=== PATIENT | female | born 2000 | race Caucasian/White ===

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

== ENCOUNTER 2022-11-11 23:43 | Emergency (ER) | payer OTHER, SELFPAY ==
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
[2022-11-11 23:49] VITALS: BP 127/75; PULSE 74; RESP 16; TEMP 36.6; O2SAT 100
[2022-11-12] VITALS (10 sets, daily range): BP systolic 101–137; BP diastolic 61–82; PULSE 71–88; RESP 14–22; O2SAT 95–100
[2022-11-12] MEDS: HYDROcodone/acetaminophen (*CRX) 10-325 MG TABLET 1 TAB PO (00:45)
[2022-11-12 01:06] LABS: Basophils Absolute Auto 0.1 K/mm3 (0.0-0.1); Basophils Percent Auto 0.7 % (0.2-1.2); Eosinophils Absolute Auto 0.2 K/mm3 (0-0.3); Eosinophils Percent Auto 1.5 % (0-4.4); Hematocrit 40.8 % (37.0-47.0); Hemoglobin 13.4 g/dL (12.0-15.0); Immature Granulocyte Absolute 0.07 K/mm3 (0.00-0.031); Immature Granulocyte Percent A 0.7 % (0-0.5); Lymphocytes Absolute Auto 2.47 K/mm3 (0.9-3.2); Mean Corpuscular HGB Conc 32.8 g/dl (32-36); Mean Corpuscular Hemoglobin 28.8 pg (26-34); Mean Corpuscular Volume 87.6 fl (80-100); Mean Platelet Volume 10.9 fl (7.4-10.4); Monocytes Absolute Auto 0.7 K/mm3 (0.1-0.6); Monocytes Percent Auto 6.2 % (2.6-8.5); Neutrophils Absolute Auto 7.3 K/mm3 (1.3-6.7); Neutrophils Percent Auto 67.9 % (45.5-73.1); Platelet Count Result 307 k/mm3 (150-375); Red Blood Count 4.66 M/mm3 (4.2-5.4); Red Cell Distribution Width 14.3 % (11.5-14.5); White Blood Count 10.8 K/mm3 (4.5-10.0)
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
[2022-11-12 01:16] LABS: Alanine Aminotransferase 18 U/L (6-35); Albumin Level 4.3 g/dL (3.5-5.1); Alkaline Phosphatase 82 U/L (38-126); Anion Gap 10 mmol/L (8-16); Aspartate Amino Transferase 27 U/L (14-36); Bilirubin,Total 0.3 mg/dL (0.2-1.3); Blood Urea Nitrogen 8 mg/dL (7-17); Calcium 8.9 mg/dL (8.4-10.2); Carbon Dioxide 24 mmol/L (22-30); Chloride 102 mmol/L (98-107); Estimated CRCL calculation 116 ml/min; Estimated Glomerular Filt Rate > 60; Glucose 95 mg/dL (65-110); Potassium 3.9 mmol/L (3.4-5.0); Sodium 136 mmol/L (137-145)
--- NOTE | 2022-11-12 01:16 | PC.NURSE ---
Pt in CT at this time.
--- NOTE | 2022-11-12 01:35 | PC.NURSE ---
Pt returned to ED from CT at this time.
[2022-11-12 02:04] LABS: Appearance Urine Clear (Clear); Bilirubin Urine Negative (Negative); Blood Urine Negative (Negative); Color Urine Yellow (Yellow); Glucose Urine UA Negative (Negative); Ketones Urine Negative (Negative); Leukocyte Esterase Ur Negative LEU/UL (Negative); Nitrate Urine Negative (Negative); Protein Urine Negative (Negative); Specific Grav Ur 1.014 (1.001-1.035); Urobilinogen Urine 0.2 mg/dL (<2.0); pH Urine 6.5 (5.0-9.0)
[2022-11-12 02:24] LABS: Add Urine Microscopic? NO
--- NOTE | 2022-11-12 03:00 | PC.NURSE ---
This RN entered pt room after pt pressed call light. Pt was requesting pain medication. This RN spoke to EDP, whom wanted pt to know risks of IV pain meds while since she had already received PO meds. This RN voiced concerns to pt, whom decided she would wait to see if she could overcome pain without IV medication. This RN helped reposition pt and provided her with warm blanket.
--- NOTE | 2022-11-12 04:10 | PC.NURSE ---
Pt called out wanting pain medication. This RN spoke to EDP whom ordered IV pain medication. This RN set up steri strips and dermabond for repair of forehead lac, per EDP.
[2022-11-12] MEDS: MORPHINE SULFATE (*CRX) 2 MG/ML INJ IV PUSH (04:18)
== END 2022-11-12 05:59 | disposition home or self-care (01) ==
PROVIDERS: Emergency Provider Emergency Medicine; PCP Family Medicine
DX: O9A.211 Injury, poisoning and certain other consequences of external causes complicating pregnancy, first trimester (principal); S01.81XA Laceration without foreign body of other part of head, initial encounter; S69.91XA Unspecified injury of right wrist, hand and finger(s), initial encounter; S49.92XA Unspecified injury of left shoulder and upper arm, initial encounter; O99.331 Smoking (tobacco) complicating pregnancy, first trimester; F17.290 Nicotine dependence, other tobacco product, uncomplicated; Z3A.01 Less than 8 weeks gestation of pregnancy; V03.10XA Pedestrian on foot injured in collision with car, pick-up truck or van in traffic accident, initial encounter
CPT/HCPCS: 12013; 36415; 70450; 72125; 73030; 73080; 73130; 80053; 81003; 84702; 85025; 86900; 86901; 96374; 99284; A9270; J2270

== ENCOUNTER 2023-11-09 15:33 | Emergency (ER) | payer OTHER, SELFPAY ==
[2023-11-09 16:27] VITALS: BP 141/83; PULSE 86; RESP 14; TEMP 36.6; O2SAT 100
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
== END 2023-11-09 16:45 | disposition home or self-care (01) ==
PROVIDERS: Emergency Provider Nurse Practitioner Family
DX: K08.89 Other specified disorders of teeth and supporting structures (principal); F17.290 Nicotine dependence, other tobacco product, uncomplicated; F12.90 Cannabis use, unspecified, uncomplicated; F41.9 Anxiety disorder, unspecified; F32.A Depression, unspecified
CPT/HCPCS: 99213; G0463

== ENCOUNTER 2024-03-02 10:10 | Emergency (ER) | payer OTHER, SELFPAY ==
[2024-03-02 10:42] VITALS: BP 134/84; PULSE 97; RESP 16; TEMP 35.8; O2SAT 100
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
--- OUTSIDE RECORDS SUMMARY | 2024-03-09 06:38 | XMS_ITS | Clinical Summary ---
Author Organization [facility] Address [address] [place] [address]. 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 Indications : Acute Pain < 3 Day Supply 5 tablet 01/12/2024 Active Active Problems Problem Noted Date Diagnosed Date Transaminitis 01/10/2024 Calculus of bile duct withou t cholecystitis with obstruction 01/10/2024 ([facility]) 06/28/2023 Encounters Date Type Department Care Team Description 01/12/2024 10:25 AM SOCIAL WORK JOB TITLES Anesthesia [place] [address] Arcenio Ying MD 01/12/2024 10:20 AM SOCIAL WORK JOB TITLES - 01/12/2024 11:44 AM SOCIAL WORK JOB TITLES Surgery [facility] [place] [address] Ky Santiago MD ROBOTIC XI ASSISTED LAPAROSCOPIC CHOLECYSTECTOMY WITH INDOCYANINE GREEN 01/11/2024 11:20 AM SOCIAL WORK JOB TITLES Anesthesia Event [facility] [place] [address] Gaurav Flood MD 01/11/2024 11:00 AM SOCIAL WORK JOB TITLES - 01/11/2024 12:00 PM SOCIAL WORK JOB TITLES Surgery [facility] Endo/[place] [address] Jacque Lira MD ERCP WITH SPHINCTEROTOMY and BALLOON SWEEP 01/10/2024 2:45 AM SOCIAL WORK JOB TITLES - 01/12/2024 6:00 PM SOCIAL WORK JOB TITLES Hospital Encounter [facility] Med/Surg [address] [place] [address] Saba Pablo MD Conti, John R, PA-C Wolf, Brittany, PA-C Discharge Disposition: Home or Self Care (Routine Discharge) 01/10/2024 Orders Only [facility] [address] [place] [address] Karlie Mendoza MD 01/09/2024 8:59 PM SOCIAL WORK JOB TITLES - 01/10/2024 2:02 AM SOCIAL WORK JOB TITLES Emergency [facility] Emergency Room [address] [place] [address] Karlie Mendoza MD Back Pain (Radiates to epigastric) Discharge Disposition: Transfer to Acute Care Hospital 01/09/2024 Travel from Last 3 Months Immunizations Name Administration Dates Next Due Fluzone (IIV3, Trivalent, 0.5 ML Prefilled Syrin ge) 01/12/2024 Tdap (Boostrix) 08/11/2022 Social History Tobacco Use Types Packs/Day Years Used Date Smoking Tobacco: Never Smokeless Tobacco: Never Tobacco Cessation:Counseling Given: Not Answered Alcohol Use Standard Drinks/Week Comments Yes 0 (1 standard drink = 0.6 oz pur e alcohol) socially Depression Answer Date Recor ded Last EPDS Total Score 4 06/30/2023 Last EPDS Self Harm Result 06/29 Comments No Sex and Gender Information Value Date Recorded Sex Assigned at Not on file Legal Sex Female 6:52 PM CDT Gender Identity Not on file Sexual Orientation Not on file Last Filed Vital Signs Vital Sign Reading Time Taken Comments Blood Pressure 129/87 01/12/2024 5:07 PM SOCIAL WORK JOB TITLES Pulse 81 01/12/2024 2:30 PM SOCIAL WORK JOB TITLES Temperature 36.5 ??C (97.7 ??F) 01/12/2024 2:04 PM CS T Respiratory Rate 20 01/12/2024 2:04 PM SOCIAL WORK JOB TITLES Oxygen Saturation 97% 01/12/2024 2:30 PM SOCIAL WORK JOB TITLES Inhaled Oxygen Concentration - - Weight 108.6 kg (239 lb 6.7 oz) 01/10/2024 2:56 AM SOCIAL WORK JOB TITLES Height 162.6 cm (5' 4 ) 01/09/2024 9:01 PM SOCIAL WORK JOB TITLES Body Mass Index 41.1 01/09/2024 9:01 PM SOCIAL WORK JOB TITLES Plan of Treatment Health Maintenance Due Date Last Done Comments Cervical Cancer Screening Pap Smear (Age 21 to 29) Every 3 Years 2001 Cervical Cancer Screening 2001 Annual Physical 2004 Hepatitis B Vaccines (1 of 3 - 19+ 3-dose series) 2020 Chlamydia Screening Females ages 16-24 03/19/2023 03/19/2022 COVID-19 Vaccine (3 - 2023- season) 2023 08/19/2020, 07/24/2020 DTaP, Tdap and Td Vaccines (7 - Td or Tdap) 08/11/2032 08/11/2022, 09/20/2006, 01/06/2003, Additional history exists HPV Vaccines Completed 04/21/2013, 12/04, 10/15/2012 Meningococcal Vaccine Completed 12/13/2018 Hepatitis C Completed 01/09/2024, 01/18/2023 Influenza Adult Completed 01/12/2024 Pneumococcal Vaccine: Pediatrics (0 to 5 Years) and At-Risk Patients (6 to 64 Years) Aged Out No longer eligible based on patient's age to complete this topic RSV Immunizations Under 20 Months Aged Out No longer eligible based on patient's age to complete this topic Procedures Procedure Name Priority Date/Time Associated Diagnosis Comments ROBOTIC XI CHOLECYSTECTOMY 01/12/2024 10:25 AM SOCIAL WORK JOB TITLES cholecystitis POCT GLUCOSE - CANNON DOCKED DEVICE Routine 01/12/2024 10:03 AM SOCIAL WORK JOB TITLES COMPREHENSIVE METABOLIC PANEL Routine 01/12/2024 6:15 AM SOCIAL WORK JOB TITLES CBC W/DIFF AUTOMATED Routine 01/12/2024 6:15 AM SOCIAL WORK JOB TITLES PATHOLOGY Routine 01/12/2024 12:00 AM SOCIAL WORK JOB TITLES SURG XR ERCP W ROMULO Routine 01/11/2024 12:43 PM SOCIAL WORK JOB TITLES EGD 01/11/2024 11:19 AM SOCIAL WORK JOB TITLES Calculus of bile duct without cholecystitis with obstruction Special Needs Start with EGD. Anticipate administering indomethacin. ERCP,SPHINCTEROTOMY 01/11/2024 11:19 AM SOCIAL WORK JOB TITLES Calculus of bile duct without cholecystitis with obstruction Special Needs Start with EGD. Anticipate administering indomethacin. MRCP STAT 01/11/2024 7:40 AM SOCIAL WORK JOB TITLES LIPASE Routine 01/11/2024 6:41 AM SOCIAL WORK JOB TITLES COMPREHENSIVE METABOLIC PANEL Routine 01/11/2024 6:41 AM SOCIAL WORK JOB TITLES CBC W/DIFF AUTOMATED Routine 01/11/2024 6:41 AM SOCIAL WORK JOB TITLES LIPASE STAT 01/10/2024 8:27 PM SOCIAL WORK JOB TITLES CBC W/DIFF AUTOMATED STAT 01/10/2024 8:27 PM SOCIAL WORK JOB TITLES HEPATIC FUNCTION PANEL STAT 01/10/2024 8:27 PM SOCIAL WORK JOB TITLES US ABD LIMITED Today 01/10/2024 8:06 AM SOCIAL WORK JOB TITLES CHORIONIC GONADOTROPIN HCG QL Routine 01/10/2024 6:35 AM SOCIAL WORK JOB TITLES LIPASE Routine 01/10/2024 6:35 AM SOCIAL WORK JOB TITLES PROCALCITONIN (PCT) Routine 01/10/2024 6:35 AM SOCIAL WORK JOB TITLES COMPREHENSIVE METABOLIC PANEL Routine 01/10/2024 6:35 AM SOCIAL WORK JOB TITLES CBC W/DIFF AUTOMATED Routine 01/10/2024 6:35 AM SOCIAL WORK JOB TITLES CULTURE HERPES W/ REFLX TO TYPING STAT 01/09/2024 11:52 PM SOCIAL WORK JOB TITLES HSV, DNA, AMP PROBE STAT 01/09/2024 11:52 PM SOCIAL WORK JOB TITLES HEPATITIS PANEL,ACUTE STAT 01/09/2024 11:11 PM SOCIAL WORK JOB TITLES CT ABD+PEL W CON STAT 01/09/2024 10:28 PM SOCIAL WORK JOB TITLES CTA CHEST PE PROTOCOL STAT 01/09/2024 10:28 PM SOCIAL WORK JOB TITLES HC EBV NUCLEAR AG-90 Routine 01/09/2024 10:10 PM SOCIAL WORK JOB TITLES PROTHROMBIN TIME, VENOUS Routine 01/09/2024 10:10 PM SOCIAL WORK JOB TITLES XR CHEST PORTABLE STAT 01/09/2024 9:53 PM SOCIAL WORK JOB TITLES ECG 12-LEAD STAT 01/09/2024 9:29 PM SOCIAL WORK JOB TITLES ACETAMINOPHEN Routine 01/09/2024 9:20 PM SOCIAL WORK JOB TITLES LIPASE Routine 01/09/2024 9:20 PM SOCIAL WORK JOB TITLES TROPONIN, QUANT STAT 01/09/2024 9:20 PM SOCIAL WORK JOB TITLES COMPREHENSIVE METABOLIC PANEL STAT 01/09/2024 9:20 PM SOCIAL WORK JOB TITLES CBC W/DIFF AUTOMATED STAT 01/09/2024 9:20 PM SOCIAL WORK JOB TITLES URINALYSIS, AUTO, COMPLETE STAT 01/09/2024 9:15 PM SOCIAL WORK JOB TITLES TEST URINE STAT 01/09/2024 9:15 PM SOCIAL WORK JOB TITLES CHLAMYDIA GC RNA STAT 03/19/2022 3:11 AM SOCIAL WORK JOB TITLES from Last 3 Months or Most Recently Relevant to Health Maintenance Results * POCT glucose (01/12/2024 10:03 AM SOCIAL WORK JOB TITLES) [facility] GLUCOSE POC 82 70 - 99 mg/dL 01/12/2024 10:04 AM SOCIAL WORK JOB TITLES [facility] 01/12/2024 10:0 3 AM SOCIAL WORK JOB TITLES Lisa Bah PA-C POCT ORDERABLES - DEVICE Deisy l Result [facility] [address] [place] [address], * (ABNORMAL) COMPREHENSIVE METABOLIC PANEL (01/12/2024 6:15 AM SOCIAL WORK JOB TITLES) Only the most recent of4 resultswithin the time period is included. [facility] GLUCOSE 93 70 - 99 MG/DL 01/12/2024 6:54 AM [facility] BUN 11 7 - 18 MG/DL 01/12/2024 6:54 AM [facility] CREATININE S/P/B 0.68 0.55 - 1.02 MG/DL 01/12/2024 6:54 AM [facility] SODIUM S/P/B 134(L) 136 - 145 MMOL/L 01/12/2024 6:54 AM [facility] POTASSIUM S/P/B 3.8 3.5 - 5.1 MMOL/L 01/12/2024 6:54 AM [facility] CHLORIDE S/P/B 108 97 - 115 MMOL/L 01/12/2024 6:54 AM [facility] CO2 21.8 21 - 32 MMOL/L 01/12/2024 6:54 AM [facility] CALCIUM S/P/B 8.8 8.5 - 10.1 MG/DL 01/12/2024 6:54 AM [facility] BILIRUBIN TOTAL S/P/B 0.7 0.2 - 1.2 MG/DL 01/12/2024 6:54 AM [facility] Comment: THIS ASSAY IS NOT RECOMMENDED FOR PATIENTS UNDERGOING TREATMENT WITH ELTROMBOPAG DUE TO THE POTENTIAL FOR FALSELY ELEVATED RESULTS. TOTAL PROTEIN S/P/B 7.4 6.4 - 8.2 G/DL 01/12/2024 6:54 AM [facility] ALBUMIN S/P/B 3.2(L) 3.4 - 5.0 G/DL 01/12/2024 6:54 AM [facility] AST 110(H) 15 - 37 U/L 01/12/2024 6:54 AM [facility] ALT 411(H) 14 - 55 U/L 01/12/2024 6:54 AM [facility] ALKALINE PHOSPHATASE S/P/B 173(H) 50 - 136 U/L 01/12/2024 6:54 AM [facility] ANION GAP 4.2 2 - 10 MMOL/L 01/12/2024 6:54 AM [facility] BUN CREATININE RATIO 16.2 6 - 26 01/12/2024 6:54 AM [facility] A/G RATIO 0.8(L) 1.0 - 2.0 RATIO 01/12/2024 6:54 AM [facility] GFR ESTIMATE >90 >90 ML/MIN/1.7 3 M2 01/12/2024 6:54 AM [facility] Comment: NOTE: eGFR is not calculated for patients <18 years of age or gender unknown. This is an estimated GFR calculation using the new CKD EPI creatinine equation without race and so does not require a correction factor for race. This estimated GFR should not be used for calculating drug doses. 01/12/2024 6:15 AM SOCIAL WORK JOB TITLES Philippe Solomon PA-C LABORATORY Final Result [facility] [address] [place] [address], [place] [phone] * (ABNORMAL) CBC W/DIFF AUTOMATED (01/12/2024 6:15 AM SOCIAL WORK JOB TITLES) Only the most recent of5 resultswithin the time period is included. WBC 10.39 4.5 - 11.0 x10'3/uL 01/12/2024 6:35 AM [facility] RBC 5.27 4.20 - 5.40 x10'6/uL 01/12/2024 6:35 AM [facility] HGB 13.8 12.0 - 16.0 G/DL 01/12/2024 6:35 AM [facility] HCT 44.8 38.0 - 48.0 % 01/12/2024 6:35 AM [facility] MCV 85.0 81.0 - 99.0 FL 01/12/2024 6:35 AM [facility] MCH 26.2(L) 27.0 - 31.0 PG 01/12/2024 6:35 AM [facility] MCHC 30.8(L) 32.0 - 36.0 G/DL 01/12/2024 6:35 AM [facility] RDW 14.2 11.5 - 14.5 % 01/12/2024 6:35 AM [facility] PLT 315 130 - 400 x10'3/uL 01/12/2024 6:35 AM [facility] MPV 11.0 9.3 - 12.2 FL 01/12/2024 6:35 AM [facility] DIFFERENTIAL TYPE AUTOMATED DIFFERENTIAL 01/12/2024 6:35 AM [facility] NEUTROPHILS % 70.7 % 01/12/2024 6:35 AM [facility] LYMPHOCYTES % 21.0 % 01/12/2024 6:35 AM [facility] MONOCYTES % 6.9 % 01/12/2024 6:35 AM [facility] EOSINOPHILS 0.4 % 01/12/2024 6:35 AM [facility] BASOPHILS 0.4 % 01/12/2024 6:35 AM [facility] IMMATURE GRANS % 0.6 % 01/12/20 6:35 AM [facility] ABS. NEUTROPHILS 7.35 1.80 - 7.70 x10'3/uL 01/12/2024 6:35 AM [facility] ABS. LYMPHOCYTES 2.18 1.00 - 4.80 x10'3/uL 01/12/2024 6:35 AM [facility] ABS. MONOCYTES 0.72 0.24 - 0.86 x10'3/uL 01/12/2024 6:35 AM [facility] ABS. EOSINOPHILS 0.04 0.04 - 0.36 x10'3/uL 01/12/2024 6:35 AM [facility] ABS. BASOPHILS 0.04 0.01 - 0.08 x10'3/uL 01/12/2024 6:35 AM [facility] ABS. IMMATURE GRANULOCYTES 0.06 0.00 - 0.49 x10'3/uL 01/12/2024 6:35 AM [facility] 01/12/2024 6:15 AM SOCIAL WORK JOB TITLES us Philippe Polo Juanito DICK LABORATORY Final Result [facility] [address] [facility] [place] [address], [place] [phone] * Pathology (01/12/2024 12:00 AM SOCIAL WORK JOB TITLES) PATHOLOGY [facility] ? Department of Laboratory Medicine ?[address] [facility] ?[place] [address] ? , extension [phone] ? Pathology Report ? Surgical Pathology Report Name: MARGOT TYSON ? Specimen #: [id number] Age: 1 2000 (Age: 23) ? Location: [id number] Sex: F ?Procedure Date: 01/12/2024 Hospital #: [id number] ?Date Received: 01/14/2024 Date Reported: 01/15/2024 Provider: KY SANTIAGO MD Copy To: gall Source: Gallbladder Clinical History: Cholecystitis. Gross Description: Received in formalin, labeled with a patient label and as gallbladder is an 8.0 x 2.5 x 2.5 cm gallbladder with a rodriguez-hahn serosa. ??The cystic duct has a diameter of 0.1 cm and does not appear patent. ??The gallbladder is opened to reveal multiple yellow granular stones that are 1 x 1 x 0.5 cm in aggregate and thick green mucoid material. ??The gallbladder is lined by a green mucosa with a subtle lattice work of yellow deposits on the surface. ??No mass lesions or polyps are identified. ??On cut section the gallbladder mcmahon a thickness of 0.3 cm. ??Lpn Private Duty tissue to include the cystic duct margin is submitted in cassette 1. Gross examination (when applicable), interpretation, and sign out were performed at [facility], [address] [place] [address]. FINAL DIAGNOSIS: Gallbladder, cholecystectomy: ? -Chronic cholecystitis and cholelithiasis. Electronically Signed Out ? ALVIN PHAM MD [facility] TISSUE GALLBLADDER STRUCTURE / Unknown 01/12/2024 11:02 AM SOCIAL WORK JOB TITLES us Ky Santiago MD PATHOLOGY/CYTOLOGY ORDERA BLES Final Result [facility] [address] [place] [address], [id number] * SURG XR ERCP W ROMULO (01/11/2024 12:43 PM SOCIAL WORK JOB TITLES) Anatomical Region Laterality Modality Abdomen Radiographic Nayla ging 01/11/2024 8:39 PM SOCIAL WORK JOB TITLES Impressions 01/11/2024 8:40 PM SOCIAL WORK JOB TITLES Impression: Fluoroscopic spot views of ERCP obtained for intraoperative control purposes and evaluated postoperatively. Referred By: KARLIE MENDOZA Interpreted By: Aravind Camilo MD, 01/11/2024 8:39 PM Narrative 01/11/2024 8:40 PM SOCIAL WORK JOB TITLES [place] [address] Intraoperative fluoroscopic views of the ERCP History: Epigastric and right upper quadrant pain Dose: Total Dose Area Product: 6.9442 (Gycm2). Technique: ??Intraoperative fluoroscopy control images obtained. Findings: Submitted images demonstrate endoscopic equipment overlying the right upper quadrant of abdomen. ??There is cannulation of the common bile duct. ??Contrast opacifies common bile duct, cystic duct, common hepatic duct, and distal intrahepatic biliary collecting system, and portions of gallbladder. ??Filling defects are seen within the gallbladder suggesting cholelithiasis. ??No convincing filling defects in the common bile duct. Procedure Note Aravind Camilo MD - 01/11/2024 [place] [address] Intraoperative fluoroscopic views of the ERCP History: Epigastric and right upper quadrant pain Dose: Total Dose Area Product: 6.9442 (Gycm2). Technique: Intraoperative fluoroscopy control images obtained. Findings: Submitted images demonstrate endoscopic equipment overlying theright upper quadrant of abdomen. There is cannulation of the common bileduct. Contrast opacifies common bile duct, cystic duct, common hepaticduct, and distal intrahepatic biliary collecting system, and portions ofgallbladder. Filling defects are seen within the gallbladder suggestingcholelithiasis. No convincing filling defects in the common bile duct. Impression: Fluoroscopic spot views of ERCP obtained for intraoperativecontrol purposes and evaluated postoperatively. Referred By: KARLIE MENDOZA Interpreted By: Aravind Camilo MD, 01/11/2024 8:39 PM us Jacque Lira MD IMAGES ONLY Final Result * MRCP (01/11/2024 7:40 AM SOCIAL WORK JOB TITLES) Anatomical Region Laterality Modality Abdomen Magnetic Resonan ce 01/11/2024 8:36 AM SOCIAL WORK JOB TITLES Impressions 01/11/2024 8:48 AM SOCIAL WORK JOB TITLES Impression: 1. Cholelithiasis with too numerous to count tiny dependent gallstones including clustered near the gallbladder neck. No imaging findings of acute cholecystitis. 2. Suspected nonobstructing choledocholithiasis for which ERCP assessment is recommended with possible punctate stone in the proximal CBD, and a meniscus sign that may represent a stone in the distal CBD near the ampulla. Technically upper normal CBD diameter measuring 7 mm proximally, 5 mm distally. 3. Prominent near diffuse hepatic steatosis with focal fat sparing in the gallbladder fossa. 4. No acute or other localizing MR abnormality. Ordered By: JACQUE LIRA Interpreted By: Rosibel Noel MD, 01/11/2024 8:36 AM Narrative 01/11/2024 8:48 AM SOCIAL WORK JOB TITLES [address] [address] Examination: MRCP. Exam Date/Time: 01/11/2024 7:20 AM Indication: 23 female. Evaluation for choledocholithiasis. Right upper quadrant pain with nausea. Reported abnormal finding on abdominal ultrasound Comparison: Ultrasound abdomen 01/10/2024; CT abdomen pelvis 01/09/2020 Technique: Sequences: Multiplanar, multisequence MR images of the abdomen were obtained without contrast according to MRCP technique. Heavily T2-weighted and maximum intensity projection sequences as well as 3-D rotational reconstructions were performed on a separate dedicated workstation and submitted for review. Findings: LIVER: Morphology: Normal. Hepatic steatosis: Near diffuse with the geographic focal fat sparing adjacent to the gallbladder fossa Focal liver lesion(s): None. GALLBLADDER AND BILIARY TREE: Nondistended gallbladder containing too numerous to count tiny gallstones. No imaging findings of acute cholecystitis. Gallstones are dependent and cluster near the gallbladder neck. No cystic duct dilatation. Technique normal diameter of the proximal common bile duct measuring 7 mm tapering to 5 mm distally. Choledocholithiasis is however suspected; tiny stone may be present in the proximal CBD (axial T2 image 21, series 5). MRCP images show possible a meniscus sign near the ampulla (T2 coronal images 65-66, series 13) that may represent a nonobstructing stone. PANCREAS: Normal. Normal size morphology. Normal homogeneous T1 hyperintense signal and enhancement. No focal finding, inflammation or pancreatic duct dilatation SPLEEN: Normal. ADRENAL GLANDS: Normal. KIDNEYS: Normal size contour and enhancement. No focal lesion, collecting system obstruction or perinephric. GASTROINTESTINAL: Normal caliber and thickness of the imaged bowel FREE FLUID: None. VASCULATURE: Normal LYMPH NODES: No abdominal retroperitoneal or mesenteric lymphadenopathy. LOWER CHEST: Normal cardiac size. No pericardial or pleural effusion. Imaged lung bases are clear. BONES: Normal marrow signal. No focal or diffuse abnormality.. Procedure Note Rosibel Noel MD - 01/11/[address] [address] Examination: MRCP. Exam Date/Time: 01/11/2024 7:20 AM Indication: 23 female. Evaluation for choledocholithiasis. Right upperquadrant pain with nausea. Reported abnormal finding on abdominalultrasound Comparison: Ultrasound abdomen 01/10/2024; CT abdomen pelvis 01/09/2020 Technique: Sequences: Multiplanar, multisequence MR images of the abdomen wereobtained without contrast according to MRCP technique. Heavily T2-weightedand maximum intensity projection sequences as well as 3-D rotationalreconstructions were performed on a separate dedicated workstation andsubmitted for review. Findings: LIVER: Morphology: Normal. Hepatic steatosis: Near diffuse with the geographic focal fat sparingadjacent to the gallbladder fossa Focal liver lesion(s): None. GALLBLADDER AND BILIARY TREE: Nondistended gallbladder containing toonumerous to count tiny gallstones. No imaging findings of acutecholecystitis. Gallstones are dependent and cluster near the gallbladderneck. No cystic duct dilatation. Technique normal diameter of the proximal common bile duct measuring 7 mmtapering to 5 mm distally. Choledocholithiasis is however suspected; tinystone may be present in the proximal CBD (axial T2 image 21, series 5).MRCP images show possible a meniscus sign near the ampulla (T2 coronalimages 65-66, series 13) that may represent a nonobstructing stone. PANCREAS: Normal. Normal size morphology. Normal homogeneous [id number] signal and enhancement. No focal finding, inflammation orpancreatic duct dilatation SPLEEN: Normal. ADRENAL GLANDS: Normal. KIDNEYS: Normal size contour and enhancement. No focal lesion, collectingsystem obstruction or perinephric. GASTROINTESTINAL: Normal caliber and thickness of the imaged bowel FREE FLUID: None. VASCULATURE: Normal LYMPH NODES: No abdominal retroperitoneal or mesenteric lymphadenopathy. LOWER CHEST: Normal cardiac size. No pericardial or pleural effusion.Imaged lung bases are clear. BONES: Normal marrow signal. No focal or diffuse abnormality.. Impression: 1. Cholelithiasis with too numerous to count tiny dependent gallstonesincluding clustered near the gallbladder neck. No imaging findings ofacute cholecystitis. 2. Suspected nonobstructing choledocholithiasis for which ERCP assessmentis recommended with possible punctate stone in the proximal CBD, and ameniscus sign that may represent a stone in the distal CBD near theampulla. Technically upper normal CBD diameter measuring 7 mm proximally,5 mm distally. 3. Prominent near diffuse hepatic steatosis with focal fat sparing in thegallbladder fossa. 4. No acute or other localizing MR abnormality. Ordered By: JACQUE LIRA Interpreted By: Rosibel Noel MD, 01/11/2024 8:36 AM us Jacque Lira MD MRI Final Result * LIPASE (01/11/2024 6:41 AM SOCIAL WORK JOB TITLES) Only the most recent of4 resultswithin the time period is included. LIPASE 22 13 - 75 UNITS/L 01/11/2024 8:05 AM SOCIAL WORK JOB TITLES [facility] 01/11/2024 6:41 AM SOCIAL WORK JOB TITLES us Jacque Lira MD LABORATORY Final Result [facility] [address] [place] [address], [place] [phone] * (ABNORMAL) HEPATIC FUNCTION PANEL (01/10/2024 8:27 PM SOCIAL WORK JOB TITLES) TOTAL PROTEIN S/P/B 6.8 6.4 - 8.2 G/DL 01/10/2024 9:12 PM SOCIAL WORK JOB TITLES [facility] ALBUMIN S/P/B 3.0(L) 3.4 - 5.0 G/DL 01/10/2024 9:12 PM SOCIAL WORK JOB TITLES [facility] BILIRUBIN TOTAL S/P/B 0.9 0.2 - 1.2 MG/DL 01/10/2024 9:12 PM SOCIAL WORK JOB TITLES [facility] Comment: THIS ASSAY IS NOT RECOMMENDED FOR PATIENTS UNDERGOING TREATMENT WITH ELTROMBOPAG DUE TO THE POTENTIAL FOR FALSELY ELEVATED RESULTS. BILIRUBIN DIRECT S/P/B 0.4(H) 0.0 - 0.20 MG/DL 01/10/2024 9:12 PM SOCIAL WORK JOB TITLES [facility] BILIRUBIN INDIRECT S/P/B 0.5 0.0 - 0.9 MG/DL 01/10/2024 9:12 PM SOCIAL WORK JOB TITLES [facility] ALKALINE PHOSPHATASE S/P/B 190(H) 50 - 136 U/L 01/10/2024 9:12 PM SOCIAL WORK JOB TITLES [facility] AST 472(H) 15 - 37 U/L 01/10/2024 9:12 PM [facility] ALT 624(H) 14 - 55 U/L 01/10/2024 9:12 PM [facility] A/G RATIO 0.8(L) 1.0 - 2.0 RATIO 01/10/2024 9:12 PM SOCIAL WORK JOB TITLES [facility] 01/10/2024 8:27 PM SOCIAL WORK JOB TITLES Jacque Lira MD LABORATORY Final Result [facility] [address] [place] [address], * [place] ABD LIMITED (01/10/2024 8:06 AM SOCIAL WORK JOB TITLES) Anatomical Region Laterality Modality Abdomen Ultrasound 01/10/2024 8:16 AM SOCIAL WORK JOB TITLES Impressions 01/10/2024 8:20 AM SOCIAL WORK JOB TITLES Impression: 1. ??Cholelithiasis without sonographic evidence for acute cholecystitis. 2. ??No biliary ductal dilatation. ??Two tiny echogenic foci seen within the normal caliber common bile duct which may be artifactual or reflect choledocholithiasis. ??Correlate with LFTs and consider ERCP or MRCP if clinically indicated. 3. ??Hepatic steatosis. Referred By: KARLIE MENDOZA Interpreted By: Luis Rocha MD, 01/10/2024 8:16 AM Narrative 01/10/2024 8:20 AM SOCIAL WORK JOB TITLES [facility] [address] [place], [place] [address] Procedure: US ABD LIMITED Indication: elevated LFTs, RUQ pain Comparison: CT abdomen and pelvis 01/09/2024. Technique: Grayscale and color Doppler ultrasound of the right upper quadrant was performed. Findings: Gallbladder: ? Intraluminal contents: Cholelithiasis. ? Wall thickness: 0.2 cm. This is within normal limits. ? Distention: Not abnormally distended. ? Pericholecystic fluid: No pericholecystic fluid. ? Sonographic Horta's sign is absent. Bile Ducts: No intrahepatic or extrahepatic ductal dilation ? Common bile duct diameter: 0.4 cm. Two tiny echogenic foci versus artifact seen within the common bile duct (image 91). Liver: Increased echogenicity. No focal mass. ??The liver measures 17.1 cm. ??The main portal vein is patent with appropriate direction of flow. Pancreas: Visualized portions are within normal limits. Kidneys: Right kidney measures 10.4 cm. No hydronephrosis. Fluid: None. Procedure Note Luis Rocha MD - 01/10/2024 [facility] [address] [place], [place] [address] Procedure: US ABD LIMITED Indication: elevated LFTs, RUQ pain Comparison: CT abdomen and pelvis 01/09/2024. Technique: Grayscale and color Doppler ultrasound of the right upperquadrant was performed. Findings: Gallbladder: Intraluminal contents: Cholelithiasis. Wall thickness: 0.2 cm. This is within normal limits. Distention: Not abnormally distended. Pericholecystic fluid: No pericholecystic fluid. Sonographic Horta's sign is absent. Bile Ducts: No intrahepatic or extrahepatic ductal dilation Common bile duct diameter: 0.4 cm. Two tiny echogenic foci versusartifact seen within the common bile duct (image 91). Liver: Increased echogenicity. No focal mass. The liver measures 17.1 cm.The main portal vein is patent with appropriate direction of flow. Pancreas: Visualized portions are within normal limits. Kidneys: Right kidney measures 10.4 cm. No hydronephrosis. Fluid: None. Impression: 1. Cholelithiasis without sonographic evidence for acute cholecystitis. 2. No biliary ductal dilatation. Two tiny echogenic foci seen within thenormal caliber common bile duct which may be artifactual or reflectcholedocholithiasis. Correlate with LFTs and consider ERCP or MRCP ifclinically indicated. 3. Hepatic steatosis. Referred By: KARLIE MENDOZA Interpreted By: Luis Rocha MD, 01/10/2024 8:16 AM us Saba Pablo MD ULTRASOUND Final Re sult * PROCALCITONIN (PCT) (01/10/2024 6:35 AM SOCIAL WORK JOB TITLES) Procalcitonin 0.39 0.00 - 0.49 NG/ML 01/10/2024 8:52 AM SOCIAL WORK JOB TITLES [facility] 01/10/2024 6:35 AM SOCIAL WORK JOB TITLES Saba Pablo MD LABORATORY Final Re sult [facility] [address] [place] [address], [place] [phone] * PREG TEST SERUM (HCG QUALITATIVE) (01/10/2024 6:35 AM SOCIAL WORK JOB TITLES) PREG SCREEN-SERUM NEGATIVE 01/10/2024 9:00 AM SOCIAL WORK JOB TITLES [facility] 01/10/2024 6:35 AM SOCIAL WORK JOB TITLES Jacque Lira MD LABORATORY Final Result Performing Organization Address [facility]/ZIP Co de Phone Number [facility] [address] [place] [address], [place] [phone] * CULTURE HERPES W/ REFLX TO TYPING (01/09/2024 11:52 PM SOCIAL WORK JOB TITLES) SPECIMEN SOURCE SERUM 11:54 PM SOCIAL WORK JOB TITLES [facility] BLOOD SPECIMEN / Unknown 01/09/2024 11:52 PM SOCIAL WORK JOB TITLES Karlie Mendoza MD MICROBIOLOGY - GENERAL ORDERABL ES Final Result Performing Organization Address City/[facility]/ZIP Co de Phone Number [facility] [address] [place] [address], [place] [phone] * HSV, DNA, AMP PROBE (01/09/2024 11:52 PM SOCIAL WORK JOB TITLES) Pathologist [facility] [place] SPECIMEN SOURCE SERUM 3:28 PM SOCIAL WORK JOB TITLES [facility] HSV 1 DNA Not Detected Not Detected 01/15/2024 12:09 PM SOCIAL WORK JOB TITLES [facility] KRYSTINA [facility] HSV 2 DNA Not Detected Not Detected 01/15/2024 12:09 PM SOCIAL WORK JOB TITLES [facility] Comment: This test was developed and its analytical performance characteristics have been determined by [facility] [place], [place]. It has not been cleared or approved by the U.S. Food and Drug Administration. This assay has been validated pursuant to the CLIA regulations and is used for clinical purposes. Test Performed by BAUNAT [facility], [facility], [address] [place] [address] Fam Duffy M.D., Ph.D., Director of Laboratories , CLIA [id number] 01/09/2024 11:5 2 PM SOCIAL WORK JOB TITLES Karlie Mendoza MD LABORATORY Final Result [facility] [address] , [place] [phone] [facility] [address] [place] [address], [place] [phone] * HEPATITIS PANEL,ACUTE (01/09/2024 11:11 PM SOCIAL WORK JOB TITLES) HEPATITIS B SURFACE AG NON-REACTI VE NON-REACTI VE 01/10/2024 12:04 PM SOCIAL WORK JOB TITLES [facility] HEP B CORE IGM NON-REACTI VE NON-REACTI VE 01/10/2024 12:13 PM SOCIAL WORK JOB TITLES [facility] HAV IGM NON-REACTI VE NON-REACTI VE 01/10/2024 12:15 PM SOCIAL WORK JOB TITLES [facility] HEPATITIS C AB NON-REACTI VE NON-REACTI VE 01/10/2024 12:12 PM SOCIAL WORK JOB TITLES [facility] 01/09/2024 11:1 1 PM SOCIAL WORK JOB TITLES Karlie Mendoza MD LABORATORY Final Result [facility] [address] [place] [address], * CTA CHEST PE PROTOCOL (01/09/2024 10:28 PM SOCIAL WORK JOB TITLES) Anatomical Region Laterality Modality Chest Computed Tomogra phy 01/09/2024 10:4 1 PM SOCIAL WORK JOB TITLES Impressions 01/09/2024 10:45 PM SOCIAL WORK JOB TITLES IMPRESSION: 1. ??No central pulmonary embolus. Limited evaluation for distal emboli due to bolus timing. 2. ??No acute thoracic abnormalities. 3. ??Somewhat shaggy appearance of urinary bladder surfaces. Correlation for UTI recommended. ??Otherwise no acute abnormalities in the abdomen or pelvis. Referred By: ?? Interpreted By: Aravind Camilo MD, 01/09/2024 10:41 PM Narrative 01/09/2024 10:45 PM SOCIAL WORK JOB TITLES [facility] [address] [place] [address] EXAMINATION: CTA Chest with CT Abdomen and Pelvis with contrast [id number] EXAM DATE/TIME: 01/09/2024 10:11 PM REASON FOR EXAM: ??epigastric, RUQ pain ?? Mid back and epigastric pain with nausea. COMPARISON: 03/19/2022 CT abdomen and pelvis TECHNIQUE: Axial CT angiographic images of the chest and axial thin section images of the abdomen and pelvis are obtained following uneventful intravenous demonstration of 90 cc Isovue-370. Subsequent coronal and sagittal reformatted sequences are created for evaluation. In addition 3-D rotational MIP imaging of the thoracic arterial vasculature is created on separate work station for review. ??A dose lowering technique was used for this procedure, which may include, but is not limited to, dose reduction technique, automated exposure control, iterative reconstruction, ALARA (As Low As Reasonably Achievable), or Image Gently techniques. FINDINGS: CHEST: No central pulmonary embolus. ??Limited evaluation for distal emboli due to bolus timing. ??Most of the contrast is in the right axillary and subclavian vein and SVC. ??Heart size upper limits normal. ??No pericardial effusion. ??Left aortic arch. ??Thoracic aorta normal in caliber throughout. ??No axillary or mediastinal lymphadenopathy. ??Some breathing motion artifact bilaterally. ??No pleural effusion or pneumothorax. ??No convincing airspace disease. ??Central airways are patent. ??Visualized portion of the thyroid unremarkable. Abdomen and pelvis: Liver and spleen normal in size and surface contour. ??No abnormal enhancing hepatic lesions. ??Gallbladder pancreas and adrenal glands unremarkable. ??Kidneys demonstrate symmetric uptake of contrast. ??No hydronephrosis or obstructive uropathy on either side. ??Abdominal aorta normal in caliber throughout. ??Bowel is normal in caliber. ??No evidence of bowel obstruction. ??No free fluid in the pelvis. ??Bladder contours are smooth. ??The appendix is normal. ??Somewhat shaggy appearance of urinary bladder surfaces. ??Correlation for UTI recommended. ??Bladder mcmahon show no convincing focal mass lesion. ??Bone level imaging shows no destructive osseous lesions. ===== Procedure Note Aravind Camilo MD - 01/09/2024 [facility] [address] [place] [address] EXAMINATION: CTA Chest with CT Abdomen and Pelvis with contrast [id number] EXAM DATE/TIME: 01/09/2024 10:11 PM REASON FOR EXAM: epigastric, RUQ pain Mid back and epigastric pain with nausea. COMPARISON: 03/19/2022 CT abdomen and pelvis TECHNIQUE: Axial CT angiographic images of the chest and axial thinsection images of the abdomen and pelvis are obtained following uneventfulintravenous demonstration of 90 cc Isovue-370. Subsequent coronal andsagittal reformatted sequences are created for evaluation. In addition 3-Drotational MIP imaging of the thoracic arterial vasculature is created onseparate work station for review. A dose lowering technique was used forthis procedure, which may include, but is not limited to, dose reductiontechnique, automated exposure control, iterative reconstruction, ALARA (AsLow As Reasonably Achievable), or Image Gently techniques. FINDINGS: CHEST: No central pulmonary embolus. Limited evaluation for distal embolidue to bolus timing. Most of the contrast is in the right axillary andsubclavian vein and SVC. Heart size upper limits normal. No pericardialeffusion. Left aortic arch. Thoracic aorta normal in caliber throughout.No axillary or mediastinal lymphadenopathy. Some breathing motionartifact bilaterally. No pleural effusion or pneumothorax. No convincingairspace disease. Central airways are patent. Visualized portion of thethyroid unremarkable. Abdomen and pelvis: Liver and spleen normal in size and surface contour. No abnormalenhancing hepatic lesions. Gallbladder pancreas and adrenal glandsunremarkable. Kidneys demonstrate symmetric uptake of contrast. Nohydronephrosis or obstructive uropathy on either side. Abdominal aortanormal in caliber throughout. Bowel is normal in caliber. No evidence ofbowel obstruction. No free fluid in the pelvis. Bladder contours aresmooth. The appendix is normal. Somewhat shaggy appearance of urinarybladder surfaces. Correlation for UTI recommended. Bladder mcmahon show noconvincing focal mass lesion. Bone level imaging shows no destructiveosseous lesions. ===== IMPRESSION: 1. No central pulmonary embolus. Limited evaluation for distal emboli dueto bolus timing. 2. No acute thoracic abnormalities. 3. Somewhat shaggy appearance of urinary bladder surfaces. Correlationfor UTI recommended. Otherwise no acute abnormalities in the abdomen orpelvis. Referred By: Interpreted By: Aravind Camilo MD, 01/09/2024 10:41 PM Karlie Mendoza MD CT Final Result * CT ABD+PEL W CON (01/09/2024 10:28 PM SOCIAL WORK JOB TITLES) Anatomical Region Laterality Modality Abdomen Computed Tomogra phy 01/09/2024 10:4 1 PM SOCIAL WORK JOB TITLES Impressions 01/09/2024 10:45 PM SOCIAL WORK JOB TITLES IMPRESSION: 1. ??No central pulmonary embolus. Limited evaluation for distal emboli due to bolus timing. 2. ??No acute thoracic abnormalities. 3. ??Somewhat shaggy appearance of urinary bladder surfaces. Correlation for UTI recommended. ??Otherwise no acute abnormalities in the abdomen or pelvis. Referred By: ?? Interpreted By: Aravind Camilo MD, 01/09/2024 10:41 PM Narrative 01/09/2024 10:45 PM SOCIAL WORK JOB TITLES [place] [id number] [facility]. [place] [id number] EXAMINATION: CTA Chest with CT Abdomen and Pelvis with contrast [id number] EXAM DATE/TIME: 01/09/2024 10:11 PM REASON FOR EXAM: ??epigastric, RUQ pain ?? Mid back and epigastric pain with nausea. COMPARISON: 03/19/2022 CT abdomen and pelvis TECHNIQUE: Axial CT angiographic images of the chest and axial thin section images of the abdomen and pelvis are obtained following uneventful intravenous demonstration of 90 cc Isovue-370. Subsequent coronal and sagittal reformatted sequences are created for evaluation. In addition 3-D rotational MIP imaging of the thoracic arterial vasculature is created on separate work station for review. ??A dose lowering technique was used for this procedure, which may include, but is not limited to, dose reduction technique, automated exposure control, iterative reconstruction, ALARA (As Low As Reasonably Achievable), or Image Gently techniques. FINDINGS: CHEST: No central pulmonary embolus. ??Limited evaluation for distal emboli due to bolus timing. ??Most of the contrast is in the right axillary and subclavian vein and SVC. ??Heart size upper limits normal. ??No pericardial effusion. ??Left aortic arch. ??Thoracic aorta normal in caliber throughout. ??No axillary or mediastinal lymphadenopathy. ??Some breathing motion artifact bilaterally. ??No pleural effusion or pneumothorax. ??No convincing airspace disease. ??Central airways are patent. ??Visualized portion of the thyroid unremarkable. Abdomen and pelvis: Liver and spleen normal in size and surface contour. ??No abnormal enhancing hepatic lesions. ??Gallbladder pancreas and adrenal glands unremarkable. ??Kidneys demonstrate symmetric uptake of contrast. ??No hydronephrosis or obstructive uropathy on either side. ??Abdominal aorta normal in caliber throughout. ??Bowel is normal in caliber. ??No evidence of bowel obstruction. ??No free fluid in the pelvis. ??Bladder contours are smooth. ??The appendix is normal. ??Somewhat shaggy appearance of urinary bladder surfaces. ??Correlation for UTI recommended. ??Bladder mcmahon show no convincing focal mass lesion. ??Bone level imaging shows no destructive osseous lesions. ===== Procedure Note Aravind Camilo MD - 01/09/2024 [facility] [address] [facility] [place] [address] EXAMINATION: CTA Chest with CT Abdomen and Pelvis with contrast [id number] EXAM DATE/TIME: 01/09/2024 10:11 PM REASON FOR EXAM: epigastric, RUQ pain Mid back and epigastric pain with nausea. COMPARISON: 03/19/2022 CT abdomen and pelvis TECHNIQUE: Axial CT angiographic images of the chest and axial thinsection images of the abdomen and pelvis are obtained following uneventfulintravenous demonstration of 90 cc Isovue-370. Subsequent coronal andsagittal reformatted sequences are created for evaluation. In addition 3-Drotational MIP imaging of the thoracic arterial vasculature is created onseparate work station for review. A dose lowering technique was used forthis procedure, which may include, but is not limited to, dose reductiontechnique, automated exposure control, iterative reconstruction, ALARA (AsLow As Reasonably Achievable), or Image Gently techniques. FINDINGS: CHEST: No central pulmonary embolus. Limited evaluation for distal embolidue to bolus timing. Most of the contrast is in the right axillary andsubclavian vein and SVC. Heart size upper limits normal. No pericardialeffusion. Left aortic arch. Thoracic aorta normal in caliber throughout.No axillary or mediastinal lymphadenopathy. Some breathing motionartifact bilaterally. No pleural effusion or pneumothorax. No convincingairspace disease. Central airways are patent. Visualized portion of thethyroid unremarkable. Abdomen and pelvis: Liver and spleen normal in size and surface contour. No abnormalenhancing hepatic lesions. Gallbladder pancreas and adrenal glandsunremarkable. Kidneys demonstrate symmetric uptake of contrast. Nohydronephrosis or obstructive uropathy on either side. Abdominal aortanormal in caliber throughout. Bowel is normal in caliber. No evidence ofbowel obstruction. No free fluid in the pelvis. Bladder contours aresmooth. The appendix is normal. Somewhat shaggy appearance of urinarybladder surfaces. Correlation for UTI recommended. Bladder mcmahon show noconvincing focal mass lesion. Bone level imaging shows no destructiveosseous lesions. ===== IMPRESSION: 1. No central pulmonary embolus. Limited evaluation for distal emboli dueto bolus timing. 2. No acute thoracic abnormalities. 3. Somewhat shaggy appearance of urinary bladder surfaces. Correlationfor UTI recommended. Otherwise no acute abnormalities in the abdomen orpelvis. Referred By: Interpreted By: Aravind Camilo MD, 01/09/2024 10:41 PM us Karlie Mendoza MD CT Final Result * PROTIME/INR, VENOUS (01/09/2024 10:10 PM SOCIAL WORK JOB TITLES) [facility] PROTIME 11.7 9.1 - 12.4 SEC 01/09/2024 11:45 PM SOCIAL WORK JOB TITLES [facility] INR 1.1 01/09/2024 11:45 PM SOCIAL WORK JOB TITLES [facility] Comment: Recommend INR ranges for Oral Anticoagulant Therapy: Mechanical Cardiac Values 2.5-3.5 All others indication 2.0-3.0 01/09/2024 10:1 0 PM SOCIAL WORK JOB TITLES us Karlie Mendoza MD LABORATORY Final Result [facility] [address] [place] [address], [place] [phone] * (ABNORMAL) SAL CHAMPION VIRUS (01/09/2024 10:10 PM SOCIAL WORK JOB TITLES) [facility] EBV VCA IGM <36.00 <36.00 U/mL 01/17/2024 12:36 PM SOCIAL WORK JOB TITLES [facility] Comment: ?? U/mL ?Interpretation ?<36.00 ?Negative 36.00 - 43.99 ?Equivocal ??>43.99 ?Positive EBV VCA IGG 169.00(H) <18.00 U/mL 01/17/2024 12:36 PM SOCIAL WORK JOB TITLES [facility] Comment: ?? U/mL ?Interpretation ?<18.00 ?Negative 18.00 - 21.99 ?Equivocal ??>21.99 ?Positive SAL BAR NUCLEAR ANTIGEN IGG 138.00(H) <18.00 U/mL 01/17/2024 12:36 PM SOCIAL WORK JOB TITLES [facility] Comment: ?? U/mL ?Interpretation ?<18.00 ?Negative 18.00 - 21.99 ?Equivocal ??>21.99 ?Positive INTERPRETATION Past 01/17/2024 12:36 PM SOCIAL WORK JOB TITLES [facility] Comment: Suggestive of a past Sal-Champion Virus infection. In infants, a similiar pattern may occur as a result of a passive maternal transfer of antibody. Test Performed by [facility] Fam, BAUNAT Bette [facility], [address] [place], [place] Fam Duffy M.D., Ph.D., Director of Laboratories , [place] [id number] 01/09/2024 10:1 0 PM SOCIAL WORK JOB TITLES Karlie Mendoza MD LABORATORY Final Result [facility] [address] [place], [place] , * XR CHEST PORTABLE (01/09/2024 9:53 PM SOCIAL WORK JOB TITLES) Anatomical Region Laterality Modality Chest Radiographic Nayla ging 01/09/2024 10:0 8 PM SOCIAL WORK JOB TITLES Impressions 01/09/2024 10:09 PM SOCIAL WORK JOB TITLES IMPRESSION: No acute findings. Referred By: ?? Interpreted By: Jimi Barron, 01/09/2024 10:08 PM Narrative 01/09/2024 10:09 PM SOCIAL WORK JOB TITLES [address] [place] [address] CLINICAL HISTORY: Chest pain COMPARISON: 11/22/2021 TECHNIQUE: AP Portable View FINDINGS: Lungs are clear. No pneumothorax or pleural effusions evident. The cardiac silhouette, mediastinal contours, and pulmonary vessels appear within normal limits. No acute osseous abnormality. Procedure Note Jimi Barron MD - 01/09/2024 [facility] [address] [address] [facility] [place] [address] CLINICAL HISTORY: Chest pain COMPARISON: 11/22/2021 TECHNIQUE: AP Portable View FINDINGS: Lungs are clear. No pneumothorax or pleural effusions evident. The cardiacsilhouette, mediastinal contours, and pulmonary vessels appear withinnormal limits. No acute osseous abnormality. IMPRESSION: No acute findings. Referred By: Interpreted By: Jimi Barron, 01/09/2024 10:08 PM us Karlie Mendoza MD GENERAL IMAGING Final Result * ECG 12 lead (01/09/2024 9:29 PM SOCIAL WORK JOB TITLES) 01/09/2024 9:29 PM SOCIAL WORK JOB TITLES Narrative [facility] RAD - 01/10/2024 9:19 PM SOCIAL WORK JOB TITLES ?[facility] ? Test Date: ?2024-01-09 Pat Name: ? MARGOT TYSON ? Department: ?? 85 ? Room: ? EXAM 101 Gender: ? Female ? Generation Technologist: ?? : ?2000 ? Requested By: KARLIE MENDOZA Order Number: [id number] ? Reading : ?? Fede Ibrahim ? Measurements Intervals ?[place] ? Rate: ? 68 ? P: ?26 WI: ? 143 ?QRS: ?44 QRSD: ? 82 ? T: ?26 QT: ? 375 ? QTc: ?399 ? Interpretive Statements SINUS RHYTHM WITH SINUS ARRHYTHMIA Compared to ECG 08/11/2022 22:47:49 No significant changes AL WORK JOB TITLES Procedure Note Fede Ibrahim MD - 01/10/2024 [facility] Test Date: 2024-01-09 Pat Name: MARGOT TYSON Department: 85 Room: EXAM 101 Gender: Female Generation Technologist: : 2000 Requested By: KARLIE MENDOZA Order Number: [id number] MD: Fede Ibrahim Measurements Intervals [place] Rate: 68 P: 26 WI: 143 QRS: 44 QRSD: 82 T: 26 QT: 375 QTc: 399 Interpretive Statements SINUS RHYTHM WITH SINUS ARRHYTHMIA Compared to ECG 08/11/2022 22:47:49 No significant changes AL WORK JOB TITLES us Karlie Mendoza MD ECG ORDERABLES Final Result [facility] RAD * TROPONIN, QUANT (01/09/2024 9:20 PM SOCIAL WORK JOB TITLES) Pathologist [facility] [place] TROPONIN I HIGH SENSITIVITY <4 0 - 50 ng/L 01/09/2024 9:56 PM SOCIAL WORK JOB TITLES [facility] Comment: HIGH DOSES OF BIOTIN, TROPONIN-SPECIFIC AUTOANTIBODIES, AND ANTIBODY THERAPY CONTAINING HAMA MAY INTERFERE WITH THIS TEST RESULT. CORRELATION TO CLINICAL HISTORY AND PRESENTATION RECOMMENDED. 01/09/2024 9:20 PM SOCIAL WORK JOB TITLES us Karlie Mendoza MD LABORATORY Final Result Performing Organization Address [facility] Co de Phone Number [facility] [address] [place] [address], [place] [phone] * (ABNORMAL) ACETAMINOPHEN (01/09/2024 9:20 PM SOCIAL WORK JOB TITLES) [facility] ACETAMINOPHEN S/P/B <0.5(L) 10.0 - 30.0 MCG/ML 01/09/2024 11:27 PM SOCIAL WORK JOB TITLES [facility] Comment: ?THERAPEUTIC: 10-30 ?TOXIC: >200 01/09/2024 9:20 PM SOCIAL WORK JOB TITLES us Karlie Mendoza MD LABORATORY Final Result Performing Organization Address [facility] Co de Phone Number [facility] [address] [place] [address], [place] [phone] * TEST URINE (01/09/2024 9:15 PM SOCIAL WORK JOB TITLES) [facility] URINE HCG TEST NEGATIVE NEGATIVE 01/09/2024 9:38 PM SOCIAL WORK JOB TITLES [facility] Comment: VERY DILUTE URINE SPECIMENS MAY NOT CONTAIN GAS BRAZER LEVELS OF HCG. IF IS STILL SUSPECTED, A SERUM HCG TEST IS RECOMMENDED. URINE SPECIMEN FROM [facility] / Unknown 01/09/2024 9:15 PM SOCIAL WORK JOB TITLES Karlie Mendoza MD URINE ORDERABLES Final Result [facility] [address] [place] [address], [place] [phone] * (ABNORMAL) Urinalysis, Auto, Complete (01/09/2024 9:15 PM SOCIAL WORK JOB TITLES) COLOR (U) YELLOW 01/09/2024 10:01 PM [facility] TRANSPARENCY HAZY 01/09/2024 10:01 PM [facility] SPECIFIC GRAVITY (U) 1.020 1.000 - 1.030 01/09/2024 10:01 PM [facility] U PH 7.5 5.0 - 9.0 01/09/2024 10:01 PM [facility] LEUKOCYTES (U) NEGATIVE NEGATIVE 01/09/2024 10:01 PM [facility] NITRITES NEGATIVE NEGATIVE 01/09/2024 10:01 PM [facility] PROTEIN RANDOM (U) 1+(A) NEGATIVE 01/09/2024 10:01 PM [facility] GLUCOSE (U) TRACE(A) NEGATIVE 01/09/2024 10:01 PM [facility] KETONES MG/DL (U) TRACE(A) NEGATIVE 01/09/2024 10:01 PM [facility] BILIRUBIN (U) 2+(A) NEGATIVE 01/09/2024 10:01 PM [facility] BLOOD (U) NEGATIVE NEGATIVE 01/09/2024 10:01 PM [facility] WBC/HPF 0-5 0 - 5 /HPF 01/09/2024 10:01 PM [facility] RBC/HPF 10-25 0 - 5 /HPF 01/09/2024 10:01 PM [employer]IAL WORK J[employer] T[employer]LES [facility] EPI/HPF FEW /HPF 01/09/2024 10:01 PM SOCIAL WORK JOB TITLES [facility] URINE SPECIMEN OBTAINED BY CLEAN CATCH PROCEDURE / Unknown 01/09/2024 9:15 PM SOCIAL WORK JOB TITLES Karlie Mendoza MD URINE ORDERABLES Final Result Performing Organization Address [facility] Co de Phone Number [facility] [address] [place] [address], [place] [phone] * CHLAMYDIA GC RNA (03/19/2022 3:11 AM SOCIAL WORK JOB TITLES) SPECIMEN SOURCE ENDOCERVIX 6:48 AM SOCIAL WORK JOB TITLES [facility] CHLAMYDIA PCR NEGATIVE NEGATIVE 03/20/2022 6:36 PM SOCIAL WORK JOB TITLES [facility] Comment:PERFORMED BY NUCLEIC ACID AMPLIFICATION N.GONORRHOEAE RNA TMA NEGATIVE NEGATIVE 03/20/2022 6:36 PM SOCIAL WORK JOB TITLES [facility] Comment:PERFORMED BY NUCLEIC ACID AMPLIFICATION ENDOCERVICAL STRUCTURE / Unknown 03/19/2022 3:11 AM SOCIAL WORK JOB TITLES Aravind Valle MD MICROBIOLOGY - GENERAL ORDERAB LES Final Result Performing Organization Address City/[facility]/ZIP Co de Phone Number [facility] [address] [place] [address], [place] [phone] [facility] [address] [place] [address], [place] [phone] from Last 3 Months or Most Recently Relevant to Health Maintenance Insurance Advance Directives * Full Code (Latest Code Status on File) Date Activated Date Inactivated Comments 01/10/2024 2:50 AM 01/12/2024 8:21 PM * Full Code Date Activated Date Inactivated Comments 06/28/2023 10:39 AM 07/01/2023 1:54 PM * Full Code Date Activated Date Inactivated Comments 04/07/2023 3:35 PM 04/07/2023 6:49 PM 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
--- OUTSIDE RECORDS SUMMARY | 2024-03-09 06:38 | XMS_ITS | Clinical Summary ---
Author Organization [facility] Address [address] [place] [address] Care Team Providers Care Stockfeed Miller Name Role Phone Jack Rosales MD Primary Care Provider [phone] Source Comments [facility],non-owned Affiliates and Associated Physician Practices is amultiple site organization consisting of ambulatory clinics and hospital sitesin [place], [place], [place]. This disclosure is being madepursuant to the Care Everywhere program and may not contain all information available regarding this patient. Last updated 17.[facility] Allergies No known active allergies Medications * Be aware that medications may not be up to date on this document. Alwaysverify current medications with the patient. Medication Sig Dispensed Refills Start Date End Date Status amphetamine-dextroamph etamine XR 24hr (ADDERALL XR) 10 MG capsule Take 10 mg by mouth every morning Active Vit-DSS-Fe Fum-FA ( vitamin with iron) tablet Take 1 (one) tablet by mouth once daily Active aspirin (Aspirin) 81 MG chew tablet Take 1 (one) tablet by mouth once daily Active sertraline (Zoloft) 50 MG tablet Take 1 (one) tablet by mouth once daily Active Active Problems Problem Noted Date Diagnosed Date Laceration of right flank 12/01/2015 Assessment & Plan (12/01/2015 11:37 AM CDT): 1. Sutures will dissolve in the next 1-2 months 2. No need to cover wound at this time unless desired 3. Follow up with PCP in 1 month 4. No need for follow up with Trauma Surgery, please call for appointment if any concerns arise such as fever > 101F, redness, swelling, or drainage Social History Tobacco Use Types Packs/Day Years Used Date Smoking Tobacco: Never Tobacco Cessation:Counseling Given: Not Answered Alcohol Use Standard Drinks/Week Comments No 0 (1 standard drink = 0.6 oz pur e alcohol) Sex and Gender Information Value Date Recorded Sex Assigned at Not on file Gender Identity Not on file Sexual Orientation Not on file Last Filed Vital Signs Vital Sign Reading Time Taken Comments Blood Pressure 110/68 11/23/2015 12:37 AM CDT Pulse 78 11/23/2015 12:37 AM CDT Temperature 37 ??C (98.6 ??F) 11/23/2015 12:37 AM CDT Respiratory Rate 16 11/23/2015 12:37 AM CDT LCTA Oxygen Saturation 99% 11/23/2015 12:37 AM CDT Inhaled Oxygen Concentration - - Weight 60.3 kg (133 lb) 11/22/2015 8:52 PM CDT Height - - Body Mass Index - - Plan of Treatment Health Maintenance Due Date Last Done Comments PAP SMEAR 2001 HIV SCREENING 2016 HPV VACCINE (1 - 3-dose series) 2016 CHLAMYDIA/GONORRHEA SCREENING 2017 HEPATITIS C SCREENING 03/08/2019 DTAP/TDAP/TD VACCINES (1 - Tdap) 2020 HEPATITIS B VACCINE (1 of 3 - 19+ 3-dose series) 2020 DEPRESSION SCREENING 03/05/2023 COVID-19 VACCINE (3 - 2023- season) 2023 08/19/2020, 07/24/2020 INFLUENZA VACCINE (#1) 2023 0, 01/12/2016, 12/17/2014, Additional history exists ZOSTER VACCINE (1 of 2) 2051 HIB VACCINE Aged Out No longer eligi ble based on patient's age to complete this topic MENINGOCOCCAL VACCINE Aged Out No rain jeannie eligible based on patient's age to complete this topic PNEUMOCOCCAL VACCINE Aged Out No long er eligible based on patient's age to complete this topic Care Teams Stockfeed Miller Relationship Specialty Start Date End Date Jack Rosales MD [facility] [place] [address] PCP - General Family Medicine 08/15/23
--- OUTSIDE RECORDS SUMMARY | 2024-03-09 06:38 | XMS_ITS | Encounter Summary ---
Author Organization [facility] Address [address] [place] [address] Care Team Providers Care Auto Body Repairman Name Role Phone Murali Perla MD Primary Care Provider Reason for Referral * (Routine) - Closed Specialty Diagnoses / Procedures Referred By Contac t Referred To Contact Diagnoses SGA (small for gestational age) (HCC) BMI 33.0-33.9,adult Procedures SONOGRAM - COMPLETE Chiara Grimaldo MD [address] [place] [address] Referral ID Status Reason Start Date Expiration Date Visits Re quested Visits Authorized [id number] Closed 03/06/2023 03/05/2024 1 1 ORATE TECHNICAL RECRUITER Encounter Details Date Type Department Care Team (Latest Contact Info) Description 03/07/2023 9:00 AM CORPORATE TECHNICAL RECRUITER - 03/07/2023 11:59 PM CORPORATE TECHNICAL RECRUITER Hospital Encounter [facility] [address] [place] [address] Mary Kate Rivera MD [address] [facility] [address]TH [place] [id number] Discharge Disposition: Home or Self Care Social History Tobacco Use Types Packs/Day Years Used Date Smoking Tobacco: Never Alcohol Use Standard Drinks/Week Comments No 0 (1 standard drink = 0.6 oz pur e alcohol) Comments Yes Sex and Gender Information Value Date Recorded Sex Assigned at Not on file Gender Identity Not on file Sexual Orientation Not on file documented as of this encounter Medications at Time of Discharge Medication Sig Dispensed Refills Start Date End Date amphetamine-dextroampheta mine XR 24hr (ADDERALL XR) 10 MG capsule Take 10 mg by mouth every morning aspirin (Aspirin) 81 MG chew tablet Take 1 (one) tablet by mouth once daily Vit-DSS-Fe Fum-FA ( vitamin with iron) tablet Take 1 (one) tablet by mouth once daily sertraline (Zoloft) 50 MG tablet Take 1 (one) tablet by mouth once daily documented as of this encounter Progress Notes * Tamara Cherry RN - 03/07/2023 10:07 AM CST Pt here today for ultrasound and MFM consult for SGA. Normal weight per ultrasound today. Consult not completed d/t lack of indication. Pt denies further concerns for MFM to address today. She has a history of GDM with prior . Normal early GCT this , MFM recommends repeat GCT at 26-28 weeks. Also recommends repeat growth at 32 weeks. Discussed these recommendations with pt and FOB. They state understanding and are agreeable to plan. No further follow up scheduled at our office. [place] will continue [place] [facility]. Pt and FOB deny further questions or concerns for care today. ORATE TECHNICAL RECRUITER documented in this encounter Plan of Treatment Not on file documented as of this encounter Procedures Procedure Name Priority Date/Time Associated Diagnosis Comments SONOGRAM - COMPLETE Routine 03/07/2023 9 :09 AM CORPORATE TECHNICAL RECRUITER SGA (small for gestational age) (HCC) BMI 33.0-33.9,adult documented in this encounter Results * SONOGRAM - COMPLETE (03/07/2023 9:09 AM CORPORATE TECHNICAL RECRUITER) Anatomical Region Laterality Modality Other 03/07/2023 9:09 AM CORPORATE TECHNICAL RECRUITER Narrative 03/07/2023 10:25 AM CORPORATE TECHNICAL RECRUITER ? [facility] ?[facility] ?PHONE: ??FAX: Pat. Name: ?MARGOT VAZQUEZ Pat. No: ?[id number] Study Date: ?? 03/07/2023 ??9:09am , Age: ? 2000, 22 Pregnancies: ?? 5, Para 1031 Height: ? 64 in Weight: ? 195 lb LMP: ?Unknown GA by US: ? 22w1d ?? ALANA: 07/10/2023 GA Selected: ??22w6d (From Known E) ALANA: ?07/05/2023 Referring MD: Chiara Mckeon MD Hay Stacker Operator: ??Carolina Muniz RDMS CPT4: ? 66804 BMI: ?33.47 Hist/Ind: ? SGA on Outside Scan ?LR NIPT (F) MEASUREMENTS & AGE ? GROWTH EVALUATION Measurement ??GA ? Range ? Srce %for GA Ratios ----- ---- ------- BPD ??5.2 cm 21w6d (07d7v-76k6k) Hadl BPD 12% FL/BPD 0.74 HC ??20.0 cm 22w1d (17r2r-30e2s) Hadl HC ??12% FL/AC ??0.22 (0.20 - 0.24) AC ??17.5 cm 22w3d (44x1q-80z2t) Hadl AC ??26% HC/AC ??1.14 (1.04 - 1.23) FL ?? 3.8 cm 22w2d (34z2l-71z4w) Hadl FL ??21% CI ? 0.71 (0.70 - 0.86) HL ?? 3.6 cm 22w2d (11z1x-90j9h) Sajan HL ??41% Cere 2.4 cm 22w3d (59n6m-34z9x) Hill Cere38% GA for sonogram 22w1d (77v7a-66v7x) ?? Weight Estimate: based on (BPD,HC,AC,FL,Cere) Avg ? Weight: 491 gm (419-563gm) Hadloc ? : 1lbs, 1oz ? Normal: 555 gm (416-694gm) Hadloc ? Wt% ? 19% for 22w6d Heart Rate: 141 bpm Amniotic Fluid Index: 04.4cm (Deepest Pocket) PROCEDURE, TECHNIQUE Technique: transabdominal EVAL, PLACENTA Presentation: cephalic Umbilical Cord: 3 Vessels Placenta: posterior Heart Rate: 141 bpm Amniotic Fluid Volume: normal Anatomy!Normal!Abnormal!Suboptimal!Prev. Seen!Comments Cranium ?! ?? x ??! ?! ?! ?! Mdl (CSP/Thal! ?? x ??! ?! ?! ?! Ventricles ?? ! ?? x ??! ?! ?! ?! Choroid Plexu! ?? x ??! ?! ?! ?! Cerebellum ?? ! ?? x ??! ?! ?! ?! Cisterna M. ??! ?? x ??! ?! ?! ?! Nuchal Fold ??! ?? x ??! ?! ?! ?! Orbits ? ! ?? x ??! ?! ?! ?! Profile ?! ?? x ??! ?! ?! ?! Nasal Bone ?? ! ?? x ??! ?! ?! ?! Lip ?! ?? x ??! ?! ?! ?! Spine ?! ?? x ??! ?! ?! ?! Lungs ?! ?? x ??! ?! ?! ?! 4 Chamber Hea! ?? x ??! ?! ?! ?! LVOT ? ! ?? x ??! ?! ?! ?! RVOT ? ! ?? x ??! ?! ?! ?! 3 Vessel View! ?? x ??! ?! ?! ?! 3 Vessel Trac! ?? x ??! ?! ?! ?! Cross-over ?? ! ?? x ??! ?! ?! ?! Ductal Arch ??! ?? x ??! ?! ?! ?! Aortic Arch ??! ?? x ??! ?! ?! ?! Caval View ?? ! ?? x ??! ?! ?! ?! Situs ?! ?? x ??! ?! ?! ?! Diaphragm ?! ?? x ??! ?! ?! ?! Stomach ?! ?? x ??! ?! ?! ?! Bowel ?! ?? x ??! ?! ?! ?! Kidneys ?! ?? x ??! ?! ?! ?! Bladder ?! ?? x ??! ?! ?! ?! 3 Vessel Cord! ?? x ??! ?! ?! ?! Cord In! ?? x ??! ?! ?! ?! Upper Extremi! ?? x ??! ?! ?! ?! Hands ?! ?? x ??! ?! ?! ?! Lower Extremi! ?? x ??! ?! ?! ?! Feet ? ! ?? x ??! ?! ?! ?! External Amarilys! ?? x ??! ?! ?! ?!Female Placental Cor! ?? x ??! ?! ?! ?! CLINICAL SUMMARY A single fetus is seen in cephalic presentation. ??The measurements today are consistent with appropriate growth for the ALANA provided. ??The ALANA is based on a prior ultrasound examination (confirmed). ??The amniotic fluid volume is within normal limits. ?? IMPRESSION: Single, live, intrauterine at 22w6d ?? size is within normal limits ?? Amniotic fluid volume: within normal limits ?? No major malformations were seen within the limitations of ultrasound. ?? RECOMMEND: Ultrasound at 32 weeks, for ongoing growth assessment, or as clinically indicated. - MFM consultation was not indicated today. Thank you for allowing us the opportunity to care for your patient. ??scott Rivera MD <Electronic Signature> ??03/07/2023 10:25am Chiara Grimaldo MD MFM ORDERABLES documented in this encounter Visit Diagnoses Diagnosis SGA (small for gestational age) (HCC)- Primary Ahwam-vdw-lrobp without mention of malnutrition, unspecified (weight) BMI 33.0-33.9,adult Body Mass Index 33.0-33.9, adult 22 weeks gestation of (HCC) state, incidental Encounter for anatomic survey (HCC) Encounter for anatomic survey documented in this encounter Care Teams Auto Body Repairman Relationship Specialty Start Date End Date Murali Perla MD [address] [place] [id number] PCP - General Pediatrics 11/22/15 08/14/23 documented as of this encounter
--- OUTSIDE RECORDS SUMMARY | 2024-03-09 06:38 | XMS_ITS | Patient Health Summary ---
Author Organization [facility] Address [address] [place] [address] Care Team Providers Care Match Marker Name Role Phone Jack Rosales MD Primary Care Provider [phone] Note from [facility],non-owned Affiliates and Associated Physician Practices is amultiple site organization consisting of ambulatory clinics and hospital sitesin [place], [place], [place] and [place]. This disclosure is being madepursuant to the Care Everywhere program and may not contain all information available regarding this patient. Last updated 17.[facility] Allergies No known active allergies Medications * Be aware that medications may not be up to date on this document. Alwaysverify current medications with the patient. * amphetamine-dextroamphetamine XR 24hr (ADDERALL XR) 10 MG capsule Take 10 mg by mouth every morning * Vit-DSS-Fe Fum-FA ( vitamin with iron) tablet Take 1 (one) tablet by mouth once daily * aspirin (Aspirin) 81 MG chew tablet Take 1 (one) tablet by mouth once daily * sertraline (Zoloft) 50 MG tablet Take 1 (one) tablet by mouth once daily Active Problems Problem Noted Date Diagnosed Date Laceration of right flank 12/01/2015 Social History Tobacco Use Types Packs/Day Years [...] - - Body Mass Index - - Procedures * SONOGRAM - COMPLETE(Performed 03/07/2023) Performed for SGA (small for gestational age) ([facility]), BMI 33.0-33.9,adult * ED CRITICAL CARE(Performed 12/10/2015) * URINE MICROSCOPIC ONLY(Performed 11/22/2015) * URINALYSIS REFLEX TO MICROSCOPIC NO CULTURE(Performed 11/22/2015) Results * SONOGRAM - COMPLETE (03/07/2023 9:09 AM DIVISION SUPERINTENDENT) Anatomical Region Laterality Modality Other 03/07/2023 9:09 AM DIVISION SUPERINTENDENT Narrative 03/07/2023 10:25 AM DIVISION SUPERINTENDENT ? [facility] ?[facility] Care Center ?PHONE: ??FAX: Pat. Name: ?MARGOT VAZQUEZ. No: ?[id number] Study Date: ?? 03/07/2023 ??9:09am , Age: ? 2000, 22 Pregnancies: ?? 5, Para 1031 Height: ? 64 in Weight: ? 195 lb LMP: ?Unknown GA by US: ? 22w1d ?? ALANA: 07/10/2023 GA Selected: ??22w6d (From Known E) ALANA: ?07/05/2023 Referring MD: Chiara Mckeon MD Seaming Machine Operator: ??Carolina Muniz RDMS CPT4: ? 44395 BMI: ?33.47 Hist/Ind: ? SGA on Outside Scan ?LR NIPT (F) MEASUREMENTS & AGE ? GROWTH EVALUATION Measurement ??GA ? Range ? Srce %for GA Ratios ----- ---- ------- BPD ??5.2 cm 21w6d (94z3v-18m6m) Hadl BPD 12% FL/BPD 0.74 HC ??20.0 cm 22w1d (82o3n-84w5j) Hadl HC ??12% FL/AC ??0.22 (0.20 - 0.24) AC ??17.5 cm 22w3d (33x0o-12q5y) Hadl AC ??26% HC/AC ??1.14 (1.04 - 1.23) FL ?? 3.8 cm 22w2d (91f2i-64o5y) Hadl FL ??21% CI ? 0.71 (0.70 - 0.86) HL ?? 3.6 cm 22w2d (51u3i-31n1m) Sajan HL ??41% Cere 2.4 cm 22w3d (87e8o-24c0c) Hill Cere38% GA for sonogram 22w1d (73t2i-75j7i) ?? Weight Estimate: based on (BPD,HC,AC,FL,Cere) Avg [...] <Electronic Signature> ??03/07/2023 10:25am Chiara Grimaldo MD M ORDERABLES * ED CRITICAL CARE (12/10/2015 12:25 PM CDT) Narrative Maylin Rivera, DO - 12/10/2015 12:25 PM CDT Maylin Rivera DO ? 12/10/2015 12:25 PM Provider contact with the patient: 11/22/2015 ?20:50 Margot Jah [id number] [facility] History Chief Complaint Patient presents with ? ? Laceration ??Injury to right flank area; jumping on trampoline and landed on lawn chair; alert & cooperative. I have read the resident/CORPORATE LAW ASSISTANT history. ??Unless appended by me below, I agree with findings as documented. HPI Comments: CC: fall, laceration Injury occurred this afternoon Pt was jumping on a trampoline, fell off and landed on a plastic lawn chair. Landed on her R upper hip/buttocks Denies head injury or LOC, ambulatory after No n//v Sustained laceration to R posterior hip Denies any other injuries. Pt taken to OSH ED, there given IV dose of morphine and referred here for further management. Review of Systems All relevant systems reviewed and all negative except as noted in resident and attending HPI/ROS Review of Systems Cardiovascular: Negative for chest pain. Gastrointestinal: Negative for nausea, vomiting and abdominal distention. Skin: Positive for wound. Neurological: ? No LOC There were no vitals taken for this visit. Physical Exam I have reviewed the resident/CORPORATE LAW ASSISTANT physical exam. Unless appended by me below, I agree with the PE as documented. Physical Exam Constitutional: She appears well-developed and well-nourished. No distress. HENT: Head: Normocephalic and atraumatic. Right Ear: External ear normal. Left Ear: External ear normal. Nose: Nose normal. Neck: Normal range of motion. Neck supple. Cardiovascular: Normal rate and regular rhythm. ?? Pulmonary/Chest: Effort normal and breath sounds normal. Abdominal: Soft. She exhibits no distension. There is no tenderness. Musculoskeletal: Normal range of motion. Neurological: She is alert. Skin: Skin is warm and dry. R upper/postior hip with 12 x 3cm laceration, visible sub q tissue Procedures Complex laceration repair performed by Pediatric Surgery Please see his procedure note for details Pt tolerated well with no immediate complications I was present for sandhu portions of the procedure Procedural sedation performed by Dr Marcus see his sedation notes for these details Critical Care Performed by: MAYLIN RIVERA Authorized by: MAYLIN RIVERA Total critical care time: 35 minutes Critical care time was exclusive of separately billable procedures and treating other patients and teaching time. Critical care was necessary to treat or prevent imminent or life-threatening deterioration of the following conditions: trauma. Critical care was time spent personally by me on the following activities: development of treatment plan with patient or surrogate, discussions with consultants, examination of patient, evaluation of patient's response to treatment, obtaining history from patient or surrogate, ordering and performing treatments and interventions, pulse oximetry and re-evaluation of patient's condition. ECG Interpretation ECG Interpretation Lab/SPO2 Interpretation No results found for this visit on 11/22/15. No orders to display Progress Notes ED Course Trauma minor activation upon arrival to ED (OSH ED reported injury over R flank with large laceration after a fall), pt evaluated by Trauma surgery in ED (see consult note for details) Pt awake and alert, VSS. ??Exam normal except for laceration to R hip Laceration explored and repaired by surgery under procedural sedation, (see procedure notes for details) 2300: pt recovering from sedation, care of pt transferred to Dr Lanrdy at this time. Medical Decision Making I have reviewed the: Nursing Notes and Vitals. I have interpreted the following results: Oxygen Saturation. I have discussed the case with Trauma and Family/Caregiver. The total time providing critical care (excluding time spent for procedures) was: 35 minutes. See procedure note section for additional critical care details I have personally seen and examined this patient. I have fully participated in the care of this patient. I have reviewed all pertinent clinical information available to me during this encounter, including history, physical exam and plan. I have reviewed nursing notes, available labs and radiographic studies. ?? With respect to physicians in training and mid-level providers, I agree with the assessment and plan except if revised in my note. Clinical Impression 1. Laceration R posterior hip 2. Evaluation after a fall. Maylin Rivera DO PROCEDURE/MINOR SURG ICAL ORDERABLES * (ABNORMAL) URINALYSIS ROUTINE AUTO (11/22/2015 11:20 PM CDT) Color UA Yellow Straw, Yellow, Dark Yellow 11/22/2015 11:42 PM CDT [facility] Clarity UA Clear 11/22/2015 11:42 PM CDT [facility] Specific [place] UA 1.015 1.005 - 1.030 11/22/2015 11:42 PM CDT [facility] pH UA 7.5 5.0 - 8.0 pH 11/22/2015 11:42 PM CDT [facility] Protein UA Negative Negative 11/22/2015 11:42 PM CDT [facility] Blood UA 2+(A) Negative 11/22/2015 11:42 PM CDT [facility] Leukocyte UA Negative Negative 11/22/2015 11:42 PM CDT [facility] Nitrite UA Negative Negative 11/22/2015 11:42 PM CDT [facility] Glucose UA Negative Negative 11/22/2015 11:42 PM CDT [facility] Ketone UA Negative Negative 11/22/2015 11:42 PM CDT [facility] Bilirubin UA Negative Negative 11/22/2015 11:42 PM CDT [facility] Urobilinogen UA 0.2 0.1 - 1.0 EU/dL 11/22/2015 11:42 PM T [facility] Urine URINE SPECIMEN OBTAINED BY CLEAN CATCH PROCEDURE / Unknown 11/22/2015 11:20 PM CDT 11/22/2015 11:39 PM CDT Kimo Moore MD LAB - URIN ALYSIS ORDERABLES Performing Organization Address City/State/[facility] Co de Phone Number [facility] [address] [place] [phone] * (ABNORMAL) URINALYSIS MICROSCOPIC ONLY (11/22/2015 11:20 PM CDT) RBC UA 5-10(A) 0-2, 2-5 # /hpf 11/22/2015 11:56 PM T [facility] WBC UA 2-5 0-2, 2-5 # /hpf 11/22/2015 11:56 PM T [facility] Bacteria UA 1+(A) None Seen, Trace 11/22/2015 11:56 PM T [facility] Epithelial Cell UA 10-20(A) 0-2, 2-5 # /hpf 11/22/2015 11:56 PM T [facility] Mucus UA 1+ 11/22/2015 11:56 PM T [facility] Fine Granular Casts 2-5(A) None Seen # /lpf 11/22/2015 11:56 PM T [facility] Urine URINE SPECIMEN OBTAINED BY CLEAN CATCH PROCEDURE / Unknown 11/22/2015 11:20 PM CDT 11/22/2015 11:39 PM CDT Kimo Moore MD LAB - URIN ALYSIS ORDERABLES [facility] [address] [place] [address] Care Teams Match Marker Relationship Specialty Start Date End Date Jack Rosales MD [address] [place] [phone] PCP - General Family Medicine 08/15/23
--- OUTSIDE RECORDS SUMMARY | 2024-03-09 06:38 | XMS_ITS | Referral Summary ---
Author Organization [facility] Address [address] [place] [address] Care Team Providers Care Prison Keeper Name Role Phone Jack Rosales MD Primary Care Provider [phone] Source Comments [facility],non-owned Affiliates and Associated Physician Practices is amultiple site organization consisting of ambulatory clinics and hospital sitesin [place], [place], [place] and [place]. This disclosure is being madepursuant to the Care Everywhere program and may not contain all information available regarding this patient. Last updated 17.[facility] Allergies No known active allergies Medications * [...] Mass Index - - Plan of Treatment Not on file Care Teams Prison Keeper Relationship Specialty Start Date End Date Jack Rosales MD [address] [place] [phone] PCP - General Family Medicine 08/15/23
--- OUTSIDE RECORDS SUMMARY | 2024-03-09 06:38 | XMS_ITS | Encounter Summary ---
Author Organization [facility] Address [facility]. [place], [place] [address] [place] [id number] Care Team Providers Care Barrel Rifler Broach Name Role Phone Chiara Grimaldo MD Unavailable [phone] None, Provider Primary Care Provider Unavaila ble Reason for Visit * Auth/Cert (Routine) Specialty Diagnoses / Procedures Referred By Contac t Referred To Contact Diagnoses Transaminitis transaminitis Procedures [place] [address] Phone: tel: [phone] fax: Referral ID Status Reason Start Date Expiration Date Visits Re quested Visits Authorized [id number] 1 1 Encounter Details Date Type Department Care Team (Late st Contact Info) Description 01/12/2024 10:25 AM MEDICAL OPERATIONS SUPERVISOR Anesthesia Event [place] [place], [place] [address] Arcenio Ying MD [address] [place] [address] [place] [address] Anesthesia Record Procedure Summary Procedure Name Responsible Anesthesiologist Anesthesia Start Time Anesthesia Stop Time ROBOTIC XI ASSISTED LAPAROSCOPIC CHOLECYSTECTOMY WITH INDOCYANINE GREEN (Abdomen) Arcenio Ying MD 01/12/24 1025 01/12/24 1133 Events Date Time Event Comment 01/12/2024 1005 1025 An Start Patient ID and consent checked and patient reassessed. 1025 An Start Data 1028 Preoxygenation 1029 An Induction The patient was reevaluated immediately before moderate or deep sedation use and before anesthesia induction. 1031 An Intubation 1035 Anesthesia Ready 1125 An Emergence 1125 An Extubation 1125 Face Mask Applied 1128 an stop data 1133 Post Anesthetic Care Handoff I completed my handoff to the receiving nurse during which we: 1. Identified the patient 2. Identified the responsible provider 3. Reviewed the pertinent medical history 4. Discussed the surgical course 5. Reviewed intra-op anesthesia management and issues during anesthesia 6. Set expectations for post-procedure period 7. Allowed opportunity for questions and acknowledgement of understanding. 1133 An Stop Meds Name Total midazolam (VERSED) 1 mg/mL injection 2 m g fentaNYL (SUBLIMAZE) 100 mcg/2 mL inject ion 100 mcg lidocaine (PF) (XYLOCAINE) 2% injection 100 mg propofol (DIPRIVAN) 200 mg/20 mL injecti on 200 mg succinylcholine (ANECTINE) 20 mg/mL inje ction 140 mg rocuronium (ZEMURON) 50 mg/5 mL injectio n 70 mg dexamethasone (DECADRON) injection 8 mg phenylephrine (ERIC-SYNEPHRINE) injection 240 mcg ondansetron (ZOFRAN) 4 mg/2 mL injection 4 mg ketorolac (TORADOL) 30 mg/mL injection 3 0 mg acetaminophen 10 mg/mL IV solution 1,000 mg sugammadex (BRIDION) 500 mg/5 mL injecti on 500 mg sodium chloride 0.9% infusion 500 mL * Agents Name O2 Air Inspired Sevoflurane Sevoflurane * Blood No blood administrations on file. Lines, Drains, and Airways Type Details Placement Removal Peripheral IV Placement Date: 11/26; Placement Time: 925; Placed Outside of This Facility?: No; Size: 20 G; Orientation: Right; Location: Forearm; Site Prep: Chlorhexidine; Local Anesthetic: None; Inserted By: Kymberly JAMES; Insertion attempts: 1; Ultrasound-guided Placement?: No; Patient Tolerance: Tolerated well; Removal Date: 01/12/24; Removal Time: 1713; Removal Reason: Therapy Completed 01/12/24925 by Kymberly Zapien RN 01/12/241713 by Kymberly Zapien RN ETT Placement Date: 11/26; Placement Time: 103; Mask Ventilate: Easy; Size (mm) : 7; Endotracheal: Oral, Stylet used; Blade Type: MAC 3; Placement Method: Video Laryngoscope (see comments); View Grade: 1; Viewable Anatomy: Epiglottis, Arytenoid, Vocal cords; Insertion Attempts: 1; Placement Verified By: Capnography, Auscultation, Chest Rise; Placed By: KRANTHI; Extubation Assessment: Suctioned, Tolerated well, Patient spontaneously breathing, Deep breathes w/equal chest movements, Able to swallow, Atraumatic; Removal Date: 01/12/24; Removal Time: 1125; Removal Person: HAND TIER; Removal Reason: End of Case 01/12/24 1031 by Leonard Hercules CRNA 01/12/24 1125 by Leonard Hercules CRNA NG/OG Tube Placement Date: 11/26; Placement Time: 1035; Inserted By: Saba Hercules CRNA; Tube Type: Orogastric; Tube Size: 18 Fr.; Removal Date: 01/12/24; Removal Time: 1118 01/12/24 1035 by Leonard Hercules CRNA 01/12/24 1118 by Leonard Hercules CRNA Surgical/Incision 01/12/24; 1109; Surg ical Wound; Abdomen; Other (Comment); ADHESIVE DERMABOND; X3 TROCAR SITES CLOSED WITH MONOCRYL; 01/12/24; 201501/12/24 1109 by Samantha Teran RN 01/12/242015 by Automatic Discharge Provider ETT Placement Date: 11/26; Placement Time: 1125; Placed Outside of This Facility?:No; Endotracheal: Oral; Removal Date: 01/12/24; Removal Time: 1200 01/12/24 1125 by Leonard Hercules CRNA 01/12/24 1200 by Kymberly Zapien RN documented in this encounter Social History Tobacco Use Types Packs/Day Years Used Date Smoking Tobacco: Never Smokeless Tobacco: Never Alcohol Use Standard Drinks/Week Comments Yes 0 [...] on file documented as of this encounter Functional Status * Are you deaf or do you have serious difficulty hearing Answer Date of Assessment Author Status No 01/10/2024 3:14 AM Anahi Thapa R N Active * Are you blind or do you have serious difficulty seeing, even when wearing glasses? Answer Date of Assessment Author Status No 01/10/2024 3:14 AM Anahi Thapa R N Active * Do you have serious difficulty walking or climbing stairs? Answer Date of Assessment Author Status No 01/10/2024 3:14 AM Anahi Thapa R N Active * Do you have difficulty dressing or bathing? Answer Date of Assessment Author Status No 01/10/2024 3:14 AM Anahi Thapa R N Active * Because of a physical, mental, or emotional condition, do you have difficulty doing errands alone such as visiting a doctor's office or shopping? Answer Date of Assessment Author Status No 01/10/2024 3:14 AM Anahi Thapa R N Active documented as of this encounter Mental Status * Because of a physical, mental, or emotional condition, do you have serious difficulty concentrating, remembering, or making decisions? Answer Entry Date Author Status No 01/10/2024 3:14 AM Anahi Thapa R N Active documented in this encounter OR Notes * Anesthesia Postprocedure Evaluation - Arcenio Ying MD - 01/12/2024 4:15 PM CST Anesthesia Post-op Note Margot Tyson Procedure(s): ROBOTIC XI ASSISTED LAPAROSCOPIC CHOLECYSTECTOMY WITH INDOCYANINE GREEN (Abdomen) Anesthesia type: general Vitals: 01/12/24 1430 BP: 132/77 Vitals: 01/12/24 1430 Pulse: 81 Vitals: 01/12/24 1404 Resp: 20 Vitals: 01/12/24 1404 Temp: 36.5 ??C Vitals: 01/12/24 1430 SpO2: 97% Patient Location: PACU Level of Consciousness: awake Pain Management: adequate analgesia Airway Patency: patent Respiratory Status: acceptable Cardiovascular Status: acceptable Post-Op Nausea: none There were no known notable events for this encounter. CAL OPERATIONS SUPERVISOR * Anesthesia Preprocedure Evaluation - Arcenio Ying MD - 01/12/2024 7:08 AM CST Anesthesia ROS/MED History Reviewed: Patient summary , ECG, Anesthesia history , Labs Pre-Anesthetic State: awake and alert Pulmonary (-) sleep apnea Cardiovascular Exercise tolerance:good Neuro/Psych (+) depression Substance Use GI/Hepatic/Renal Endo/Other neg endo/other ROS (+) obese (-) diabetes NPO Status: Last Fluid Intake Date: 01/10/24 Last Solid Intake Date: 01/10/24 Physical Evaluation Airway Mallampati: II Dental No notable dental history Pulmonary Pulmonary exam normal Cardiovascular Rhythm: regular Rate: normal STOP-Bang Assessment: Do you snore loudly?: 1 Do you often feel tired or fatigued after your sleep?: 0 Has anyone ever observed you stop breathing in your sleep?: 1 Do you have or are you being treated for high blood pressure?: 0 Recent BMI (Calculated): 41.2 Is BMI greater than 35 kg/m2?: 1=Yes Age older than 50 years old?: 0=No Is your neck circumference greater than 17 inches (Male) or 16 inches (Female)?: 0 Gender - Male: 0=No STOP-Bang Total Score: 3 Anesthesia Plan ASA 2 Intravenous Induction Anesthesia type: general Plan for Airway: ETT Informed Consent Anesthetic plan and risks discussed with patient of whom. . CAL OPERATIONS SUPERVISOR CAL OPERATIONS SUPERVISOR documented in this encounter Plan of Treatment Not on file documented as of this encounter Visit Diagnoses Not on filedocumented in this encounter Administered Medications Inactive Administered Medications - up to 3 most recent administrations Medication Order MAR Action Action Date Dose Rate Site acetaminophen (OFIRMEV) infusion Intravenous, Administer over 15 Minutes, PRN, Starting on 01/12/24 at 1048, Until 01/12/24 at 1133, Anesthesia Intra-Op Given 01/12/2024 10:48 AM MEDICAL OPERATIONS SUPERVISOR 1,000 mg dexamethasone (DECADRON) injection Intravenous, PRN, Starting on 01/12/24 at 1037, Until 01/12/24 at 1133, Anesthesia Intra-Op Given 01/12/2024 10:37 AM MEDICAL OPERATIONS SUPERVISOR 8 mg fentaNYL (SUBLIMAZE) injection Intravenous, PRN, Starting on 01/12/24 at 1045, Until 01/12/24 at 1133, Anesthesia Intra-Op Given 01/12/2024 11:15 AM MEDICAL OPERATIONS SUPERVISOR 50 mcg Given 01/12/2024 10:45 AM MEDICAL OPERATIONS SUPERVISOR 50 mcg ketorolac (TORADOL) injection Intravenous, PRN, Starting on 01/12/24 at 1113, Until 01/12/24 at 1133, Anesthesia Intra-Op Given 01/12/2024 11:13 AM MEDICAL OPERATIONS SUPERVISOR 30 mg lidocaine (PF) (XYLOCAINE) 2 % injection Intravenous, PRN, Starting on 01/12/24 at 1029, Until 01/12/24 at 1133, Anesthesia Intra-Op Given 01/12/2024 10:29 AM MEDICAL OPERATIONS SUPERVISOR 100 mg midazolam (VERSED) injection Intravenous, PRN, Starting on 01/12/24 at 1023, Until 01/12/24 at 1133, Anesthesia Intra-Op Given 01/12/2024 10:23 AM MEDICAL OPERATIONS SUPERVISOR 2 mg ondansetron (ZOFRAN) injection Intravenous, PRN, Starting on 01/12/24 at 1110, Until 01/12/24 at 1133, Anesthesia Intra-Op Given 01/12/2024 11:10 AM MEDICAL OPERATIONS SUPERVISOR 4 mg phenylephrine (ERIC-SYNEPHRINE) injection Intravenous, PRN, Starting on 01/12/24 at 1053, Until 01/12/24 at 1133, Anesthesia Intra-Op Given 01/12/2024 10:53 AM MEDICAL OPERATIONS SUPERVISOR 240 mcg propofol (DIPRIVAN) IV bolus Intravenous, PRN, Starting on 01/12/24 at 1029, Until 01/12/24 at 1133, Anesthesia Intra-Op Given 01/12/2024 10:29 AM MEDICAL OPERATIONS SUPERVISOR 200 mg rocuronium (ZEMURON) injection Intravenous, PRN, Starting on 01/12/24 at 1035, Until 01/12/24 at 1133, Anesthesia Intra-Op Given 01/12/2024 10:57 AM MEDICAL OPERATIONS SUPERVISOR 20 mg Given 01/12/2024 10:35 AM MEDICAL OPERATIONS SUPERVISOR 50 mg sodium chloride 0.9% infusion Intravenous, Continuous PRN, Starting on 01/12/24 at 1025, Until 01/12/24 at 1133, Anesthesia Intra-Op New Bag 01/12/2024 10:25 AM MEDICAL OPERATIONS SUPERVISOR succinylcholine (ANECTINE) injection Intravenous, PRN, Starting on 01/12/24 at 1029, Until 01/12/24 at 1133, Anesthesia Intra-Op Given 01/12/2024 10:29 AM MEDICAL OPERATIONS SUPERVISOR 140 mg sugammadex (BRIDION) injection Intravenous, PRN, Starting on 01/12/24 at 1111, Until 01/12/24 at 1133, Anesthesia Intra-Op Given 01/12/2024 11:11 AM MEDICAL OPERATIONS SUPERVISOR 500 mg documented in this encounter Care Teams Barrel Rifler Broach Relationship Specialty Start Date End Date None, Provider, PCP - General UNKNOWN PHYSICIAN SPECIALTY 01/09/24 Chiara Grimaldo MD [address] [place] [address] Physician OBGYN 12/28/22 documented as of this encounter
--- OUTSIDE RECORDS SUMMARY | 2024-03-09 06:38 | XMS_ITS | Encounter Summary ---
Author Organization [facility] Address [address] [place] [address] Care Team Providers Care Tracer Clerk Name Role Phone Murali Perla MD Primary Care Provider [phone] Reason for Visit * Reason Comments ER [facility] Follow-up * Evaluate & Treat (Routine) - Closed Specialty Diagnoses / Procedures Referred By Matt murcia Referred To Contact Surgery [facility] Acc Surgery [address] [place] [address] Referral ID Status Reason Start Date Expiration Date Visits Re quested Visits Authorized [id number] Closed 11/25/2015 05/23/2016 12 12 Encounter Details Date Type Department Care Team (Latest Contact Info) Description 12/01/2015 11:00 AM CDT - 12/01/2015 11:59 PM T Hospital Encounter [facility] - Surgery [address] [place] [id number] Brii Mcguire, TAMMI-SENIOR APPLICATION SOFTWARE ENGINEER [address] [place] [id number] Discharge Disposition: Home or Self Care Social History Tobacco Use Types Packs/Day Years Used Date Smoking Tobacco: Never Alcohol Use Standard Drinks/Week Comments No 0 (1 standard drink = 0.6 oz pur e alcohol) Sex and Gender Information Value Date Recorded Sex Assigned at Not on file Gender Identity Not on file Sexual Orientation Not on file documented as of this encounter Discharge Instructions * Patient Instructions* Brii Mcguire APRN-CNP - 12/01/2015 11:19 AM CDT 1. Sutures will dissolve in the next 1-2 months 2. No need to cover wound at this time unless desired 3. Follow up with PCP in 1 month 4. No need for follow up with Trauma Surgery, please call for appointment if any concerns arise such as fever > 101F, redness, swelling, or drainage documented in this encounter Medications at Time of Discharge Medication Sig Dispensed Refills Start Date End Date amphetamine-dextroamphet amine XR 24hr (ADDERALL XR) 10 MG capsule Take 10 mg by mouth every morning clindamycin (CLEOCIN) 300 MG capsule Take 1 Cap by mouth every 8 hours for 10 days 30 Cap 0 11/23/2015 12/03/2015 documented as of this encounter Progress Notes * Brii Mcguire APRN-CNP - 12/01/2015 11:31 AM CDT Pediatric Trauma Surgery Office Visit DATE: 12/01/2015 NAME: Margot Tyson AGE: 15 y.o. SEX: female : 2000 Subjective Margot Tyson is a 15 y.o. female who presents in clinic today following a fall from [facility] where Margot Tyson sustained a 10 cm laceration to right flank after falling onto plastic lawn chair. She was seen in the ED where laceration was noted to go through subcutaneous tissue and deep to scarpas fascia ,without violation of muscle. Laceration was irrigated and closed with dissolvable sutur es in two layers. She was then discharged on 7 days of antibiotics, which are now completed. Marknahreports that she has had no tenderness to area, and denies any redness, swelling, or drainage. Margot has been afebrile. She also reports good appetite with normal urine and bowel schedule. Problem List There is no problem list on file for this patient. Past Medical History Past Medical History Diagnosis Date ??? ADHD (attention deficit hyperactivity disorder) Past Surgical History No past surgical history on file. Allergies No Known Allergies Medication List Current Outpatient Prescriptions Medication ??? clindamycin (CLEOCIN) 300 MG capsule ??? amphetamine-dextroamphetamine XR 24hr (ADDERALL XR) 10 MG capsule No current facility-administered medications for this encounter. Review of Systems GENERAL: no recent fevers, no infections HEENT: no changes in vision or hearing CARDIOVASCULAR: no murmur, no CHD, no chest pain RESPIRATORY: no cough, no wheeze, no difficulty beathing GASTROINTESTINAL: No constipation or diarrhea, no changes in appetite MUSCULOSKELETAL: no joint pain or swelling SKIN: no rashes, no discoloration, laceration with sutures to right flank NEUROLOGIC: no headaches, no seizures, no irritability, no lethargy HEM/ID: no bruising, no bleeding Physical Exam FiO2: GEN: NAD, alert and oriented x 3 HEENT: normocephalic/atraumatic, no ocular discharge, non-erythematous posterior pharynx Neck: Supple, no thyromegally Resp: clear to auscultation bilaterally CV: regular rate and rhythm, no murmur/rub/gallop Abd: Soft, non-tender, non-distended, + bowel sounds in all quadrants : normal genitalia, no hernias, no masses, no discharge or signs of infection Ext: no cyanosis, clubbing, or edema Lymph: No cervical, supraclavicular, axillary, or inguinal lymphadenopathy Psych: appropriate mood and affect Skin: 10 cm laceration to right flank s/p closure with dissolvable PDS II sutures. Laceration is completely closed without redness, swelling or drainage. Data No results found for this or any previous visit (from the past 24 hour(s)). Assessment Margot is a 15 y.o. female with 10 cm repaired laceration to right flank. Margot is doing well at home without pain or discomfort. She completed 7 day course of antibiotics, and has been eating and drinking well. Dressing was removed from laceration, which was noted to be clean and dry without any drainage. Dissolvable sutures are in place with well closed laceration. No redness or swelling noted. No tenderness noted. Dressing was then reapplied. Margot tolerated this well. Plan 1. Sutures will dissolve in the next 1-2 months 2. No need to cover wound at this time unless desired 3. Follow up with PCP in 1 month 4. No need for follow up with Trauma Surgery, please call for appointment if any concerns arise such as fever > 101F, redness, swelling, or drainage CARMELINA Hood 12/01/2015 11:31 AM CC: Murali Perla MD [address] [place] [id number] Date: 12/01/2015 11:31 AM documented in this encounter Plan of Treatment Not on file documented as of this encounter Visit Diagnoses Diagnosis Encounter for surgical aftercare following surgery of skin or subcutaneous tissue- Primary Aftercare following surgery of the skin and subcutaneous tissue, NEC * Assessment & Plan Note - Brii Mcguire APRN-CNP - 12/01/2015 11:37 AM CDTAssociated Problem(s): Laceration of right flank 1. Sutures will dissolve in the next 1-2 months 2. No need to cover wound at this time unless desired 3. Follow up with PCP in 1 month 4. No need for follow up with Trauma Surgery, please call for appointment if any concerns arise such as fever > 101F, redness, swelling, or drainage * Assessment & Plan Note - Brii Mcguire APRN-CNP - 12/01/2015 11:32 AM CDTAssociated Problem(s): Laceration of left flank (Deleted) 1. Sutures will dissolve in the next 1-2 months 2. No need to cover wound at this time unless desired 3. Follow up with PCP in 1 month 4. No need for follow up with Trauma Surgery, please call for appointment if any concerns arise such as fever > 101F, redness, swelling, or drainage documented in this encounter Care Teams Tracer Clerk Relationship Specialty Start Date End Date Murali Perla MD [address] [place] [id number] PCP - General Pediatrics 11/22/15 08/14/23 documented as of this encounter
--- OUTSIDE RECORDS SUMMARY | 2024-03-09 06:38 | XMS_ITS | Encounter Summary ---
Author Organization [facility] Address [address] [address] Care Team Providers Care Financial Reporting Consultant Name Role Phone Murali Perla MD Primary Care Provider [phone] Reason for Visit * Reason Comments Laceration Injury to right flan k area; jumping on trampoline and landed on lawn chair; alert & cooperative. Encounter Details Date Type Department Care Team (Late st Contact Info) Description 11/22/2015 7:42 PM CDT - 11/23/2015 12:45 AM CDT Emergency ER at [address] [address] Maylin Linton DO [address] [place] [id number] Daniel Landry MD [address] [place] [phone] Fall involving trampoline as cause of accidental injury; Laceration of right flank, initial encounter Discharge Disposition: Home or Self Care Social History Tobacco Use Types Packs/Day Years Used Date Smoking Tobacco: Never Alcohol Use Standard Drinks/Week Comments No 0 (1 standard drink = 0.6 oz pur e alcohol) Sex and Gender Information Value Date Recorded Sex Assigned at Not on file Gender Identity Not on file Sexual Orientation Not on file documented as of this encounter Last Filed Vital Signs Vital Sign Reading [...] - - Body Mass Index - - documented in this encounter Discharge Instructions * Discharge Instructions* Kimo Moore MD - 11/23/2015 12:09 AM CDT Images from the original note were not included. Laceration WHAT YOU NEED TO KNOW: A laceration is an injury to the skin and the soft tissue underneath it. Lacerations happen when you are cut or hit by something. They can happen anywhere on the body. Your healthcare provider may close your laceration with stitches, tony, tissue glue, or medical strips. These may help to keep the wound from getting infected. Stitches may decrease the amount of scarring you have. Some lacerations may heal better without stitches. DISCHARGE INSTRUCTIONS: Return to the emergency department if: ?? You have heavy bleeding or bleeding that does not stop after 10 minutes of holding firm, direct pressure over the wound. ?? Your wound opens up. Contact your healthcare provider if: ?? You have a fever or chills. ?? Your laceration is red, warm, or swollen. ?? You have red streaks on your skin coming from your wound. ?? You have white or yellow drainage from the wound that smells bad. ?? You have pain that gets worse, even after treatment. Medicines: ?? Prescription pain medicine may be given. Ask how to take this medicine safely. ?? Antibiotics help treat or prevent a bacterial infection. ?? Take your medicine as directed. Call your healthcare provider if you think your medicine is not helping or if you have side effects. Tell him if you are allergic to any medicine. Keep a list of the medicines, vitamins, and herbs you take. Include the amounts, and when and why you take them. Bring the list or the pill bottles to follow-up visits. Carry your medicine list with you in case of an emergency. Care for your wound as directed: ?? Do not get your wound wet until your healthcare provider says it is okay. Do not soak your woundin water. Do not go swimming until your healthcare provider says it is okay. Carefully wash the wound with soap and water. Gently pat the area dry or allow it to air dry. ?? Change your bandages when they get wet, dirty, or after washing. Apply new, clean bandages as directed. Do not apply elastic bandages or tape too tight. Do not put powders or lotions over your incision. ?? Your healthcare provider may give you antibiotic ointment to put over your wound if you have stitches. If you have strips of tape over your incision, let them dry up and fall off on their own. If they do not fall off within 14 days, gently remove them. If you have glue over your wound, do not remove or pick at it. If your glue comes off, do not replace it with glue that you have at home. ?? Check your wound everyday for signs of infections such as swelling, redness, or pus. Self-care: ?? Apply ice on your wound for 15 to 20 minutes every hour or as directed. Use an ice pack, or put crushed ice in a plastic bag. Cover it with a towel. Ice helps prevent tissue damage and decreases swelling and pain. ?? Use a splint as directed. A splint will decrease movement and stress on your wound. It may help it heal faster. A splint may be used for lacerations over joints or areas of your body that bend. Ask your healthcare provider how to apply and remove a splint. ?? Decrease scarring from your wound by applying ointments as directed. Do not apply ointments until your healthcare provider says it is okay. You may need to wait until your wound is healed. Ask which ointment to buy and how often to use it. After your wound is healed, use sunscreen over the area when you are out in the sun. You should do this for at least 6 months to 1 year after your injury. Follow up with your healthcare provider as directed: You may need to follow up in 24 to 48 hours tohave your wound checked for infection. You will need to return in 3 to 14 days if you have stitchesor tony so they can be removed. Care for your wound as directed to prevent infection and help itheal. Write down your questions so you remember to ask them during your visits. ?? 2016 [employer]. Information is for End User's use only and may not be sold, redistributed or otherwise used for commercial purposes. All illustrations and images included in CareNotes?? are the copyrighted property of [employer]. or [employer]. The above information is an ranger aide only. It is not intended as medical advice for individual conditions or treatments. Talk to your doctor, nurse or pharmacist before following any medical regimen to see if it is safe and effective for you. Sutured Wound Care Sutures are stitches that can be used to close wounds. Wound care helps prevent pain and infection. HOME CARE INSTRUCTIONS ?? Rest and elevate the injured area until all the pain and swelling are gone. ?? Only take [id number] or prescription medicines for pain, discomfort, or fever as directed by your caregiver. ?? After 48 hours, gently wash the area with mild soap and water once a day, or as directed. Rinse off the soap. Pat the area dry with a clean towel. Do not rub the wound. This may cause bleeding. ?? Follow your caregiver's instructions for how often to change the bandage (dressing). Stop using a dressing after 2 days or after the wound stops draining. ?? If the dressing sticks, moisten it with soapy water and gently remove it. ?? Apply ointment on the wound as directed. ?? Avoid stretching a sutured wound. ?? Drink enough fluids to keep your urine clear or pale yellow. ?? Follow up with your caregiver for suture removal as directed. ?? Use sunscreen on your wound for the next 3 to 6 months so the scar will not darken. SEEK IMMEDIATE MEDICAL CARE IF: ?? Your wound becomes red, swollen, hot, or tender. ?? You have increasing pain in the wound. ?? You have a red streak that extends from the wound. ?? There is pus coming from the wound. ?? You have a fever. ?? You have shaking chills. ?? There is a bad smell coming from the wound. ?? You have persistent bleeding from the wound. MAKE SURE YOU: ?? Understand these instructions. ?? Will watch your condition. ?? Will get help right away if you are not doing well or get worse. Document Released: 03/29/2005 Document Revised: 05/13/2012 Document Reviewed: 06/25/2011 ExitCare?? Patient Information ??2014 [employer]. Conscious Sedation, Care After Refer to this sheet in the next few weeks. These instructions provide you with information on caring for your child after his or her procedure. Your child's health care provider may also give you more specific instructions. Your child's treatment has been planned according to current medical practices, but problems sometimes occur. Call your child's health care provider if you have any problems or questions after the procedure. WHAT TO EXPECT AFTER THE PROCEDURE ?? Your child may be sleepy, confused, and a little out of it for several hours after the procedure. ?? Your child's coordination may be slightly impaired until the medicines used during the procedurehave completely worn off. ?? Your child may have muscle aches and a sore throat. This is very common after IV sedation and will usually go away within 24-36 hours. ?? In the first 12 hours after IV sedation, your child may experience an increase in temperature. This is usually because one of the medicines given during the procedure prevents your child from sweating for a period of time. HOME CARE INSTRUCTIONS ?? For at least the next 24 hours and until your child is behaving normally again, you (or a responsible adult family member or friend) should observe and stay with your child. During this time: ?? Stay near your child, and comfort him or her as necessary. ?? Supervise all play or bathing. ?? Do not allow your child to walk or stand without your help. Often, children are unsteady on their feet for several hours after sedation. ?? Do not leave your child unattended at any time in a car seat. Two adults should be present when driving. One adult should drive. The other adult should sit next to the child in case the child becomes nauseous or falls asleep in an awkward position. If your child falls asleep in a car seat, make sure his or her head remains upright. Watch your child continuously to make sure there are no breathing problems. ?? Do not leave your child alone while he or she is still sleepy, unless it is bedtime and the child has normal behavior before going to sleep. ?? Do not allow your child to ride a bicycle, skate, climb, swim, use swing sets, use machines, or participate in any activity where he or she could become injured. ?? Do not give your child food or drink for at least 2 hours after the procedure. If your child is fully awake, is not vomiting, and does not feel nauseous after this period of time, he or she may drink and eat. When your child is ready, start by giving him or her water. After that, you may give your child clear fruit juice, sports drinks, or frozen ice pops. Give your child small portions to drink repeatedly. Avoid giving your child dairy products for the first 4-6 hours. ?? Only give your child medicines for fever as directed by the health care provider. Do not give aspirin to children. ?? Make sure you and those caring for your child understand everything about the medicine given to your child and what side effects may occur. ?? Keep all follow-up appointments. SEEK MEDICAL CARE IF: Your child is still sleepy or wobbly after 24 hours. SEEK IMMEDIATE MEDICAL CARE IF: ?? Your child keeps vomiting. ?? Your child develops a rash. ?? Your child is difficult to wake up. ?? Your child has trouble breathing. ?? Your child who is younger than 3 months has a fever. ?? Your child who is older than 3 months has a fever and persistent problems. ?? Your child who is older than 3 months has a fever and problems suddenly get worse. Document Released: 12/10/2013 Document Reviewed: 12/10/2013 ExitCare?? Patient Information ??2015 [employer]. This information is not intended to replace advice given to you by your health care provider. Make sure you discuss any questions you have with your health care provider. Delayed Wound Closure Sometimes, your health care provider will decide to delay closing a wound for several days. This isdone when the wound is badly bruised, dirty, or when it has been several hours since the injury happened. By delaying the closure of your wound, the risk of infection is reduced. Wounds that are closed in 3-7 days after being cleaned up and dressed heal just as well as those that are closed right away. HOME CARE INSTRUCTIONS ?? Rest and elevate the injured area until the pain and swelling are gone. ?? Have your wound checked as instructed by your health care provider. SEEK MEDICAL CARE IF: ?? You develop unusual or increased swelling or redness around the wound. ?? You have increasing pain or tenderness. ?? There is increasing fluid (drainage) or a bad smelling drainage coming from the wound. Document Released: 02/19/2006 Document Revised: 02/24/2014 Document Reviewed: 08/19/2013 ExitCare?? Patient Information ??2015 [employer]. This information is not intended to replace advice given to you by your health care provider. Make sure you discuss any questions you have with your health care provider. documented in this encounter Medications at Time of Discharge Medication Sig Dispensed Refills Start Date End Date amphetamine-dextroamphet amine XR 24hr (ADDERALL XR) 10 MG capsule Take 10 mg by mouth every morning clindamycin (CLEOCIN) 300 MG capsule Take 1 Cap by mouth every 8 hours for 10 days 30 Cap 0 11/23/2015 12/03/2015 documented as of this encounter Procedure Notes * Mango Acosta MD - 11/22/2015 10:18 PM CDTProcedure(s): ED LACERATION REPAIR Pre-Procedure Diagnose(s): Laceration of right flank, initial encounter Post-Procedure Diagnose(s): Laceration of right flank, initial encounter PEDIATRIC SURGERY OPERATIVE NOTE Date of Procedure: 11/22/2015 Patient name: Margot Tyson Preoperative diagnosis: laceration of right flank, approximately 10 cm Postoperative diagnosis: same Procedure performed: wound debridement, washout and laceration repair Surgeon: Hermelinda Arrington MD Wind Technician: Rowena Trotter MD Anesthesia: Monitored Local Anesthesia with Sedation Indications: This is a 15 y.o. female who sustained a laceration to her right flank after falling from a trampoline onto a chair. No other external signs of injury were noted on primary and secondarysurvey. To better assess the wound, we recommended conscious sedation followed by repair if appropriate. We have discussed the potential benefits versus risks of the operation and the parents wish toproceed. Findings: 10 cm laceration through subcutaneous tissue and deep to norma's fascia. No obvious contamination or dirt. Thoroughly irrigated and cleaned. Loosely approximated in two layers. Procedure: The patient remained in the trauma bay on a gurney hooked up to a monitor. Intravenous access was established and a time out was performed. Conscious sedation was initiated. After optimal positioning, the skin around the laceration was cleaned and prepped. The wound was then thoroughly irrigated and flushed with a normal saline and betadine mixture. Local anesthetic was injected into the subcutaneous tissue. The wound was explored and noted to be superficial limited to the subcutaneous tissue but just deep to Norma's fascia. No violation of underlying muscle or fascia was seen. Once thoroughly irrigated, the edges of the wound were slightly debrided to allow for good approximation of the skin edges. A few sutures of 4-0 vicryl were placed to bring the deep dermal layer together. The skin was then further approximately, loosely, with interrupted 2-0 PDS horizontal mattresssutures. The wound was then dressed with bacitracin and covered with xeroform, ABD pad, and tape. The patient was given a dose of Ancef during the procedure and will be sent home on a 7 day course ofClinda. The patient was then allowed to awaken from conscious sedation. Complications: none EBL: <1 cc Specimens: none Dr. Hermelinda Arrington MD, [facility] Pediatric Surgery Fellow 11/22/2015 10:35 PM (p) [phone] Mango Acosta MD 12/24/2015 11:24 AM * Bobby Marcus MD - 11/22/2015 8:59 PM CDT PROCEDURAL SEDATION NOTE Evaluated By: Bobby Marcus MD, 11/22/2015 Margot Tyson is a 15 y.o. female who is scheduled today for Laceration repair with procedural sedation. There is no problem list on file for this patient. Past Medical History Diagnosis Date ??? ADHD (attention deficit hyperactivity disorder) No past surgical history on file. Allergies Review of patient's allergies indicates no known allergies. Meds No current facility-administered medications for this encounter. Current Outpatient Prescriptions Medication Sig Dispense Refill ??? amphetamine-dextroamphetamine XR 24hr (ADDERALL XR) 10 MG capsule Take 10 mg by mouth every morning ASA Class: No underlying medical problems Likelihood of discomfort: High Ability to remain immobile: Poor Anticipated level of sedation: Deep Physical Exam Gen: Awake, alert, in no acute distress CV: Regular rate and rhythm, no murmurs appreciated, cap refill < 2 sec, 2+ radial pulse Chest: Clear to auscultation bilaterally, good aeration, no rales, rhonchi, wheezes, or retractions Abd: soft, non-tender, non-distended, normoactive bowel sounds R 5cm laceration to buttock/flank area Sedation/Procedure Start Time: 2099 Time out: 2119 IV Ketamine 50 mg @2123 VSS Under deep sedation Laceration repair ongoing by Gen surg resident . Time: 2134 VSS Under deep sedation Procedure ongoing by Gen Surg IV ketamine 25 mg given additionally @2136 Time: 2144 VSS Under deep sedation Procedure ongoing by Gen Surg IV ketamine 25mg @ 2144 Time: 2154 VSS Under deep sedation Procedure ongoing by Gen Surg IV ketamine Stop Time: 2157 This sedation was personally performed by me. I was present throughout the entire procedure. Bobby Marcus MD Color: Blue Credentialed through:: 06/22/15 ED POST-SEDATION EVALUATION Margot Tyson is a 15 y.o. female The patient is sufficiently recovered from the administration of sedation so as to participate in the evaluation or neurologic status, or has returned to pre- sedation or expected level of consciousness. The post-sedation assessment was completed based upon the elements below. The patient is stable andhas adequately recovered from sedation unless otherwise noted. Post-sedation Evaluation: Temp: 98.4 ??F Pulse: 108 Resp: 13 SpO2: 97 % BP: (!) 147/84 mmHg Pain Rating Score #1: 6 Resp function: Natural Airway Cardiac Function: Stable Mental Status : Sedated/Arousable Pain: Comfortable / acceptable Nausea / Vomiting: None Post Procedure Hydration: Adequate A post-op evaluation was performed on the patient with the following assessment: No Apparent Anesthesia Complications Final disposition of this patient to be determined by ED attending of record Bobby Marcus MD documented in this encounter Consult Notes * Anne Atwood, CAD LIBRARIAN - 11/22/2015 11:06 PM CDTAssociated Order(s): IP CONSULT TO LIGHTING DESIGNER Social Service Consult Reason for Referral: SW is responding to a request for trauma minor consult on 15 year old female who suffered a large laceration to her right flank after a fall from a trampoline, Sources of information: СВЕТЛАНА has reviewed medical record, discussed case with Dr. Linton and spoke with father, step-mother and pt. Diagnosis and Relevant History: Pt reports she was on the trampoline at her aunt???s home earlier this evening. She told her step-mother to watch her do a back tuck on the trampoline and as she landed the tuck she flew backwards off the trampoline, hitting a white plastic lawn chair as she fell. She states she got up right away and did not notice she was bleeding until a cousin pointed it out to her. Step-mother witnessed the event and confirmed this story as well. Pt denies any LOC as result of the fall. Pt did state the trampoline does have a net covering the sides, however, her cousin who got on the trampoline shortly after her left the side unhooked, causing a break in the netting and allowing herto fall off. After the fall, family recognized the laceration was rather deep and decided to take pt to the OSH via personal vehicle. Pt [facility] evaluation and management. Family Profile: Pt: Margot Tyson (BD 2001) Pt resides with father Michael Tyson (BD 02/20/1977), step-mother Merary Tyson (BD 10/19/1986) 16 year old step-sister Lisa Obregon (BD 07/29/1999) and 11 year old step sister Saba Watson (BD 11/05/2004) at [address] [place] [address]. Father can be contacted at [phone]. Pt???s mother is not actively involved in her care and father has full physical and legal custody of pt. Pt???s step-mother and father have been for 6 years. Pt???s father and step-mother deny emotional, verbal and/or physical abuse within the relationship. Pt???s step-mother and father deny involvement with [place], as well as a family history of drug and/or alcohol abuse. Pt is in the 9th grade at [employer]. Pt has an IEP for her ADD diagnosis but remains in thegeneral education classrooms. Pt goes to Dr. Perla for all medical needs and concerns. Pt is current on age appropriate immunizations, is diagnosed with ADD and takes Adderall daily. Pt has previously suffered a broken right wrist, a torn ACL and MCL and received stiches related to a fall throughout her past. All described as result of accident occurrences. Observations and Assessments: SW provided education about PTSD and trauma resources related to PTSD to family. Pt denies any previous or current use of tobacco, alcohol or drugs. Drug screen was not completed to compare with pt???s statements Plan: Discussed case with Dr. Linton. PTSD resources and trauma education provided to pt and family. No SW concerns regarding injury. After discussion with medical team, pt can be discharge to parents when medically ready. If additional findings are identified during work up, please contact bilingual social worker at [phone]. DELMY Lacey [facility] [place] [phone] * Mango Acosta MD - 11/22/2015 9:00 PM CDT TRAUMA ADMISSION HISTORY & PHYSICAL 11/22/2015 Margot Tyson 15 y.o. 8 m.o. female Method of Transport: Self Transported: Scene HISTORY Pre Hospital (mechanism, treatments, clinical course): n/a Hospital (chief complaint): Margot Tyson is a 15 y.o. female who presented to the ED after sustaining a laceration to her right flank after falling from a trampoline onto a plastic chair. Denies LOC. GCS 15 on arrival. Alert and oriented. In no acute distress. Allergies: none Medications: Aderal Immunizations: up to date Past Medical History: Hospitalized: none Surgical History: none Chronic Illness(es): none Last Meal: 5:30 pm Events preceding the injury: Jumping on trampoline, fell onto a plastic chair, sustained lacerationto right flank, appears superficial. PRIMARY SURVEY Airway: intact Breathing: BS bilaterally Circulation: intact Cap Refill: less than 2 seconds Warm Skin Color: normal, no cyanosis, jaundice, pallor or bruising Pulses Carotid: 2+ Radial: 2+ Femoral: 2+ Popliteal: 2+ Dorsalis Pedis:2+ Posterior Tibial: 2+ Disabililty Eyes: 4 - Opens eyes on own Verbal: 5 - Alert and oriented Motor: 6 - Follows simple motor commands GCS: 15 Pediatric Trauma Score: Exposure: site exposed and examined under conscious sedation Resuscitation Phase & Emergency Treatments IV access obtained conscious sedation for evaluation of laceration Trauma Team: Fellow [place] Consultants: (name of attending) Social Service Secondary Survey Blood pressure 117/79, pulse 80, temperature 98.4 ??F, resp. rate 16, weight 60.328 kg (133 lb), SpO2 99 %. GENERAL Head normocephalic Eyes no evidence of trauma Ears No evidence of trauma Nose no evidence of trauma Oropharynx No evidence of trauma Maxillofacial no evidence of trauma Neck no evidence of trauma Skin 10 cm laceration to right flank down to muscle Cervical Spine: No evidence of trauma Lungs clear to auscultation bilaterally Heart normal rate and normal rhythm Abdomen/Pelvis (include rectal) non-tender and non-distended Rectal Exam deferred RU extremity no evidence of trauma ODETTE extremity no evidence of trauma RL extremity no evidence of trauma LL extremity no evidence of trauma Back (Thoracic and Lumbar Spines) no evidence of trauma Neurologic Alert Oriented x 3 GCS 15 Whitman: NA Insert body diagram child here SECONDARY DATA ED Trauma FAST Ultrasound Indications:flank laceration Window:heptorenal window Findings: hepatorenal free fluid Impression: hepatorenal free fluid Image on chart: no No labs TRAUMA ASSESSMENT, PLAN & REHAB Margot Tyson 15 y.o. 8 m.o. female Assessment: 10 cm laceration to right flank Plan: Conscious sedation for better evaluation of wound and assessment of depth. If only involving subcutaneous tissue and no violation of deeper layers, will washout and repair primarily. Will give a dose of Ancef now. No additional antibiotics needed. University Registrar requested: Yes University Registrar must be obtained for every trauma admission. Rehab will began when above issues are resolved. Dr. Hermelinda Arrington MD, [facility] Pediatric Surgery Fellow 11/22/2015 9:09 PM [phone] Attending Addendum I reviewed the chart of this child and have seen and examined this patient and have reviewed in detail the treatment plan for this patient with our surgical team and the family. I agree with the above note as amended by me. Mango Acosta MD 12/02/2015 10:14 AM documented in this encounter ED Notes * Daniel Landry MD - 11/23/2015 12:03 AM CDT Sign out received from Dr. Linton at 2300. Pt underwent lac repair by surgery w/sedation. Orders Placed This Encounter ??? URINALYSIS ROUTINE AUTO Standing Status: Standing Number of Occurrences: 1 Standing Expiration Date: ??? URINALYSIS MICROSCOPIC ONLY Standing Status: Standing Number of Occurrences: 1 Standing Expiration Date: ??? IP CONSULT TO LIGHTING DESIGNER Standing Status: Standing Number of Occurrences: 1 Standing Expiration Date: Order Specific Question: Reason for referral: Answer: OTHER (USE COMMENTS) Comments: trauma minor ??? ketamine (KETALAR) injection 30.15-120.6 mg Sig: ??? lidocaine 1% - EPINEPHrine 1:100,000 injection Sig: ??? ceFAZolin pediatric IV 1,000 mg Sig: ??? ondansetron (ZOFRAN) injection 4 mg Sig: ??? ondansetron (ZOFRAN) injection ADS Med Sig: Maritza French : cabinet override The following labs were reviewed during this visit: Hospital Encounter on 11/22/15 URINALYSIS ROUTINE AUTO Result Value Ref Range Color UA Yellow Straw, Yellow, Dark Yellow Clarity UA Clear Specific [place] UA 1.015 1.005-1.030 pH UA 7.5 5.0-8.0 pH Protein UA Negative Negative Blood UA 2+ (Abnormal) Negative Leukocyte UA Negative Negative Nitrite UA Negative Negative Glucose UA Negative Negative Ketone UA Negative Negative Bili UA Negative Negative Urobilinogen UA 0.2 0.1-1.0 EU/dL URINALYSIS MICROSCOPIC ONLY Result Value Ref Range RBC UA 5-10 (Abnormal) 0-2, 2-5 # /hpf WBC UA 2-5 0-2, 2-5 # /hpf Bacteria UA 1+ (Abnormal) None Seen, Trace Epithelial Cell UA 10-20 (Abnormal) 0-2, 2-5 # /hpf Mucus 1+ Fine Granular Casts 2-5 (Abnormal) None Seen # /lpf Tolerated repair and sedation without complciation. Plan for D/C to follow up with surgery Daniel Landry MD Electrical Prospecting Observer of Pediatrics [facility] * Philippe Aleman RN - 11/22/2015 11:46 PM CDT Patient tolerated ice water well; resting quietly; easy to arouse. * Kimo Moore MD - 11/22/2015 8:54 PM CDT EMERGENCY DEPARTMENT 11/22/2015 Dear Doctor, We had the pleasure of caring for your patient, Margot Tyson in our emergency department on 11/22/2015. A note from the provider(s) who cared for your patient is attached. Should you wish to access any laboratory results, please call . Should you wish to access any radiology results, please call , option 3. In addition, you can access patient information 24 hours a day, from any computer, through [email or web address], the online version of our electronic medical record. If you would like to use this service, please call Angella Morris, Connectivity Coordinator, at . We appreciate the opportunity to care for your patients. If you would like additional information, please call the emergency department directly at . Sincerely, Kimo Murphy MD Division of Emergency Medicine [facility], [place] [facility] I DESIGNATED EMERGENCY DEPARTMENT Provider contact with the patient: 11/22/2015 20:54 Margot Tyson [id number] [facility] EMERGENCY DEPARTMENT History Chief Complaint Patient presents with ??? Laceration Injury to right flank area; jumping on trampoline and landed on lawn chair; alert & cooperative. HPI Comments: Case of 15 yo female without significant PMH who presents with laceration to the right lower flank/ abdominal side after jumping on a trampoline and landing on a plastic lawn chair. Parents deny LOC, AMS or any other complaint. Patient was taken to an outside hospital and the referredto for further management. Vaccinations up to date. Past Medical History Diagnosis Date ??? ADHD (attention deficit hyperactivity disorder) No past surgical history on file. History Social History ??? Marital Status: Single Spouse Name: N/A Number of Children: N/A ??? Years of Education: N/A Occupational History ??? Not on file. Social History Main Topics ??? Smoking status: Never Smoker ??? Smokeless tobacco: Not on file ??? Alcohol Use: No ??? Drug Use: No ??? Sexual Activity: Not on file Other Topics Concern ??? Not on file Social History Narrative ??? No narrative on file Medications Current Outpatient Prescriptions Medication Sig Dispense Refill ??? amphetamine-dextroamphetamine XR 24hr (ADDERALL XR) 10 MG capsule Take 10 mg by mouth every morning Review of Systems Review of Systems Constitutional: Negative. HENT: Negative. Eyes: Negative. Respiratory: Negative. Cardiovascular: Negative. Gastrointestinal: Negative. Musculoskeletal: Negative. Skin: Positive for wound. Neurological: Negative. BP 117/79 mmHg Pulse 80 Temp(Src) 98.4 ??F Resp 16 Wt 60.328 kg (133 lb) SpO2 99% Physical Exam Physical Exam Constitutional: She is oriented to person, place, and time. She appears well- developed and well-nourished. She appears distressed. HENT: Head: Normocephalic and atraumatic. Nose: Nose normal. Mouth/Throat: Oropharynx is clear and moist. Eyes: EOM are normal. Pupils are equal, round, and reactive to light. Neck: Normal range of motion. Neck supple. Cardiovascular: Normal rate and regular rhythm. Pulmonary/Chest: Effort normal and breath sounds normal. Abdominal: Soft. Bowel sounds are normal. Musculoskeletal: Normal range of motion. Neurological: She is alert and oriented to person, place, and time. Skin: Skin is warm. 12 cm long, 3 cm deep laceration with exposure of subcutaneous fat over the right abdominal side/ distal flank, intact muscle, no evidence of penetrating trauma. Vitals reviewed. Procedures Procedures ECG Interpretation ECG Interpretation Lab/SPO2 Interpretation Progress Notes ED Course -Trauma minor Medical Decision Making Case of 15 yo female with abdominal wall/ right flank injury secondary to fall. Patient underwent laceration repair under procedural sedation. The patient is hemodynamically stable, afebrile and in no acute distress. She will be discharged home and follow up with surgery in outpatient clinic on 12/07. Will order clindamycin for antibiotic therapy. UA shows microscopic hematuria, trauma surgery ok with no further workup. No need to provide a tetanus booster at this time given that vaccines are upto date. Parents were oriented about the patient's current clinical status and agreed with management. Clinical Impression Final diagnoses: Fall involving trampoline as cause of accidental injury Laceration of right flank, initial encounter * Maylin Linton DO - 11/22/2015 8:50 PM CDTAssociated Order(s): ED CRITICAL CARE Provider contact with the patient: 11/22/2015 20:50 Margot Tyson [id number] [facility] EMERGENCY DEPARTMENT History Chief Complaint Patient presents with ??? Laceration Injury to right flank area; jumping on trampoline and landed on lawn chair; alert & cooperative. I have read the resident/TOWER EQUIPMENT REPAIRER history. Unless appended by me below, I agree [...] abdominal distention. Skin: Positive for wound. Neurological: No LOC There were no vitals taken for this visit. Physical Exam I have reviewed the resident/TOWER EQUIPMENT REPAIRER physical exam. Unless appended by me below, I agree with the PE as documented. Physical Exam Constitutional: She appears well-developed and well-nourished. No distress. HENT: Head: Normocephalic and atraumatic. Right Ear: External ear normal. Left Ear: External ear normal. Nose: Nose normal. Neck: Normal range of motion. Neck supple. Cardiovascular: Normal rate and regular rhythm. Pulmonary/Chest: Effort normal and breath sounds normal. [...] these details Critical Care Performed by: MAYLIN LINTON Authorized by: MAYLIN LINTON Total critical care time: 35 minutes Critical care time was exclusive of separately billable procedures and treating other patients and teaching time. Critical care was necessary to treat or prevent imminent or life-threatening deterioration of the following conditions: trauma. Critical care was time spent personally by me on the following activities: development of treatmentplan with patient or surrogate, discussions with consultants, examination of patient, evaluation ofpatient's response to treatment, obtaining history from patient [...] for details) Pt awake and alert, VSS. Exam normal except for laceration to R hip Laceration explored and repaired by surgery under procedural sedation, (see procedure notes for details) 2300: pt recovering from sedation, care of pt transferred to Dr Landry at this time. Medical Decision Making I [...] nursing notes, available labs and radiographic studies. With respect to physicians in training and mid-level providers, I agree with the assessment and plan except if revised in my note. Clinical Impression 1. Laceration R posterior hip 2. Evaluation after a fall. * Rea Byrd RN - 11/22/2015 8:38 PM CDT Bed: 1 Expected date: Expected time: Means of arrival: Comments: Trauma minor - 15yo coming POV documented in this encounter Plan of Treatment Not on file documented as of this encounter Procedures Procedure Name Priority Date/Time Associated Diagnosis Comments ED CRITICAL CARE Routine 12/10/2015 12:2 5 PM CDT URINALYSIS REFLEX TO MICROSCOPIC NO CULTURE STAT 11/22/2015 11:20 PM CDT URINE MICROSCOPIC ONLY Routine 11/22/2015 11:20 PM CDT documented in this encounter Results * ED CRITICAL CARE (12/10/2015 12:25 PM CDT) Narrative Maylin Linton DO - 12/10/2015 12:25 PM CDT Maylin Linton DO ? 12/10/2015 12:25 PM Provider contact with the patient: 11/22/2015 ?20:50 Margot Jah [id number] [facility] EMERGENCY DEPARTMENT History Chief Complaint Patient presents with ? ? Laceration ??Injury to right flank area; jumping on trampoline and landed on lawn chair; alert & cooperative. I have read the resident/TOWER EQUIPMENT REPAIRER history. ??Unless appended by me below, I [...] visit. Physical Exam I have reviewed the resident/TOWER EQUIPMENT REPAIRER physical exam. Unless appended by me below, [...] these details Critical Care Performed by: MAYLIN LINTON Authorized by: MAYLIN LINTON Total critical care time: 35 minutes Critical [...] sedation, care of pt transferred to Dr Landry at this time. Medical Decision Making I [...] hip 2. Evaluation after a fall. Maylin Linton DO PROCEDURE/MINOR SURG ICAL ORDERABLES * (ABNORMAL) URINALYSIS MICROSCOPIC ONLY (11/22/2015 11:20 PM CDT) RBC UA 5-10(A) 0-2, 2-5 # /hpf 11/22/2015 11:56 PM CDT [facility] WBC UA 2-5 0-2, 2-5 # /hpf 11/22/2015 11:56 PM T [facility] Bacteria UA 1+(A) None Seen, Trace 11/22/2015 11:56 PM T [facility] Epithelial Cell UA 10-20(A) 0-2, 2-5 # /hpf 11/22/2015 11:56 PM T [facility] Mucus UA 1+ 11/22/2015 11:56 PM [facility] Fine Granular Casts 2-5(A) None Seen # /lpf 11/22/2015 11:56 PM CDT [facility] Urine URINE SPECIMEN OBTAINED BY CLEAN CATCH PROCEDURE / Unknown 11/22/2015 11:20 PM CDT 11/22/2015 11:39 PM CDT Kimo Moore MD LAB - URIN ALYSIS ORDERABLES Performing Organization Address City/[facility]/ZIP Co de Phone Number [facility] [place] [address] * (ABNORMAL) URINALYSIS ROUTINE AUTO (11/22/2015 11:20 PM CDT) Color UA Yellow Straw, Yellow, Dark Yellow 11/22/2015 11:42 PM CDT [facility] Clarity UA Clear 11/22/2015 11:42 PM T [facility] Specific [place] UA 1.015 1.005 - 1.030 11/22/2015 11:42 PM T [facility] pH UA 7.5 5.0 - 8.0 pH 11/22/2015 11:42 PM T [facility] Protein UA Negative Negative 11/22/2015 11:42 PM T [facility] Blood UA 2+(A) Negative 11/22/2015 11:42 PM CDT [facility] Leukocyte UA Negative Negative 11/22/2015 11:42 PM CDT [facility] Nitrite UA Negative Negative 11/22/2015 11:42 PM T [facility] Glucose UA Negative Negative 11/22/2015 11:42 PM T [facility] Ketone UA Negative Negative 11/22/2015 11:42 PM T [facility] Bilirubin UA Negative Negative 11/22/2015 11:42 PM T [facility] Urobilinogen UA 0.2 0.1 - 1.0 EU/dL 11/22/2015 11:42 PM T [facility] Urine URINE SPECIMEN OBTAINED BY CLEAN CATCH PROCEDURE / Unknown 11/22/2015 11:20 PM CDT 11/22/2015 11:39 PM CDT Kimo Moore MD LAB - URIN ALYSIS ORDERABLES Performing Organization Address [facility]/ZIP Co de Phone Number [facility] [address] [place] [address] documented in this encounter Visit Diagnoses Diagnosis Fall involving trampoline as cause of accidental injury Laceration of right flank, initial encounter documented in this encounter Administered Medications Inactive Administered Medications - up to 3 most recent administrations Medication Order MAR Action Action Date Dose Rate Site ceFAZolin pediatric IV 1,000 mg 1,000 mg, Intravenous, ONCE, 1 dose, On Sun11/22/15 at 2145, Diluted in Sterile Water. Administer over 3 to 5 min. ER STAT $ Given 11/22/2015 9:37 PM CDT 1,000 mg ketamine (KETALAR) injection 30.15-120.6 mg 30.15-120.6 mg (0.5-2 mg/kg ? 60.3 kg), Intravenous, PRN, Sedation, Starting on Sun11/22/15 at 2100, Until Sun11/23/15 at 0145, High Risk, High Alert Medication: Must document double check on IV MAR flowsheet. For ED use only. Order will discontinue after 6 hours. $ Given 11/22/2015 9:42 PM CDT 25 mg $ Given 11/22/2015 9:38 PM CDT 25 mg $ Given 11/22/2015 9:24 PM CDT 50 mg lidocaine 1% - EPINEPHrine 1:100,000 injection Infiltration, ONCE, 1 dose, On Sun11/22/15 at 2130 $ Given 11/22/2015 9:12 PM CDT 20 mL ondansetron (ZOFRAN) injection 4 mg 4 mg, Intravenous, NOW, 1 dose, On Sun11/22/15 at 2300 $ Given 11/22/2015 11:00 PM CDT 4 mg $ Given 11/22/2015 10:54 PM CDT 4 mg ondansetron (ZOFRAN) injection ADS Med 1 dose, Starting on Sun11/22/15 at 2252, Until Sun11/22/15 at 2300, Maritza French : cabinet override documented in this encounter Active and Recently Administered Medications Times are shown in CDT. Scheduled Medication Order 11/21/2015 11/22/2015 11/23/2015 ceFAZolin pediatric IV 1,000 mg (COMPLETED) 1,000 mg, Intravenous, ONCE, 1 dose, On Sun11/22/15 at 2145, Diluted in Sterile Water. Administer over 3 to 5 min. ER STAT 2136 ($ Given - Provider: Alaina Aleman RN) lidocaine 1% - EPINEPHrine 1:100,000 injection (COMPLETED) Infiltration, ONCE, 1 dose, On Sun11/22/15 at 2130 2112 ($ Given - Provider: Alaina Aleman RN) ondansetron (ZOFRAN) injection 4 mg (COMPLETED) 4 mg, Intravenous, NOW, 1 dose, On Sun11/22/15 at 2300 2254 ($ Given - Provider: Marycarmen French, RN)2300 ($ Given - Provider: Lilliana Chau, RN) PRN Medication Order 11/21/2015 11/22/2015 11/23/2015 ketamine (KETALAR) injection 30.15-120.6 mg (CANCELED) 30.15-120.6 mg (0.5-2 mg/kg ? 60.3 kg), Intravenous, PRN, Sedation, Starting on Sun11/22/15 at 2100, Until Sun11/23/15 at 0145, High Risk, High Alert Medication: Must document double check on IV MAR flowsheet. For ED use only. Order will discontinue after 6 hours. 2123 ($ Given - Provider: Alaina Aleman RN)2137 ($ Given - Provider: Philippe Aleman RN)2141 ($ Given - Provider: Philippe Aleman RN) documented in this encounter Care Teams Financial Reporting Consultant Relationship Specialty Start Date End Date Murali Perla MD [address] [place] [place] [address] PCP - General Pediatrics 11/22/15 08/14/23 documented as of this encounter
--- OUTSIDE RECORDS SUMMARY | 2024-03-09 06:39 | XMS_ITS | Encounter Summary ---
Author Organization [facility] Address [address] [place] [address]. [place], [place] [id number] [place] [id number] Care Team Providers Care Diesel Technology Instructor Name Role Phone None, Provider MD Primary Care Provider Unavaila ble Reason for Referral * Imaging (Urgent) - Closed Specialty Diagnoses / Procedures Referred By Contac t Referred To Contact RADIOLOGY Procedures CT ABD+PEL W CON Aravind Valle MD [address] [place] [id number] Phone: tel: fax: Referral ID Status Reason Start Date Expiration Date Visits Re quested Visits Authorized [id number] Closed 03/19/2022 03/19/2023 1 1 MED SURG Reason for Visit * Reason Comments Vaginal Bleeding Encounter Details Date Type Department Care Team (Late st Contact Info) Description 03/19/2022 2:15 AM RN MED SURG - 03/19/2022 9:03 AM RN MED SURG Emergency [facility] Emergency Room [address] [place] [address] Aravind Valle MD [address] [place] [id number] Rihcie Mott MD [address] [place] [id number] Vaginal Bleeding Discharge Disposition: Home or Self Care (Routine Discharge) Social History Tobacco Use Types Packs/Day Years Used Date Smoking Tobacco: Never Smokeless Tobacco: Never Alcohol Use Standard Drinks/Week Comments Yes 0 (1 standard drink = 0.6 oz pur e alcohol) socially Comments Yes Sex and Gender Information Value Date Recorded Sex Assigned at Not on file Legal Sex Female 6:52 PM CDT Gender Identity Not on file Sexual Orientation Not on file COVID-19 Exposure Response Date Recorded In the last 10 days, have yo u been in contact with someone who was confirmed or suspected to have Coronavirus/COVID-19? No / Unsure 03/19/2022 2:21 AM RN MED SURG documented as of this encounter Last Filed Vital Signs Vital Sign Reading Time Taken Comments Blood Pressure 140/69 03/19/2022 3:00 AM RN MED SURG Pulse 111 03/19/2022 2:17 AM RN MED SURG Temperature 36.3 ??C (97.4 ??F) 03/19/2022 2:17 AM CS T Respiratory Rate 20 03/19/2022 2:17 AM RN MED SURG Oxygen Saturation 94% 03/19/2022 3:00 AM RN MED SURG Inhaled Oxygen Concentration - - Weight 79.4 kg (175 lb) 03/19/2022 3:14 AM RN MED SURG Height 162.6 cm (5' 4 ) 03/19/2022 3:14 AM RN MED SURG Body Mass Index 30.04 03/19/2022 3:14 AM RN MED SURG documented in this encounter Discharge Instructions * Discharge Instructions* Richie Mott MD - 03/19/2022 7:59 AM RN MED SURG Take antibiotic as prescribed. May take pain medication as needed and directed. Follow-up with [facility] your appointment on Sunday as scheduled. MED SURG documented in this encounter Medications at Time of Discharge amoxicillin-clavu lanate (AUGMENTIN) 875-125 MG tablet Take 1 tablet (875 mg total) by mouth 2 (two) times daily for 7 days. 20 tablet 03/19/2022 03/26/2022 ketorolac (TORADOL) 10 MG tablet Take 1 tablet (10 mg total) by mouth 4 (four) times daily as needed for Pain. 20 tablet 03/19/2022 03/24/2022 valACYclovir 1 g tablet TAKE 1 TABLET BY MOUTH EVERY 12 HOURS FOR 5 DAYS 06/22/2020 08/12/2022 documented as of this encounter ED Notes * Alesha Castañeda RN - 03/19/2022 9:03 AM CST Provider discussed today's findings with the patient/family. The patient has been given informationregarding their treatment, follow up and concerning symptoms for which they should seek urgent or emergent attention. I have expressed the importance of seeking attention should there be any new, or w orsening symptoms or persistence of their condition. Patient verbalized understanding of the discharge instructions. MED SURG * Aravind Valle MD - 03/19/2022 9:03 AM CST Patient treated with clindamycin and is scheduled to follow-up with at [facility] in 1 week. Aravind Valle MD 03/23/22 1621 MED SURG * Alesha Castañeda RN - 03/19/2022 9:02 AM CST Discharge vitals not obtained prior to patient leaving department. MED SURG * Richie Mott MD - 03/19/2022 7:22 AM CST Emergency Department Assumed Care Note Patient signed out to me by Dr. Valle @ 0700 shift change. Briefly, Margot Tyson is a 22-year-old female is being evaluated for vaginal bleeding. Patient was found to have 7-week gestation on ultrasound in mid February. Patient now presents with vaginal bleeding for the past few days. hCG low today with suspicion of spontaneous . Elevated white blood cell count and right lower quadrant tenderness noted, thus CT scan done to rule out appendicitis. Vitals: 03/19/22 0300 BP: (!) 140/69 Pulse: Resp: Temp: SpO2: 94% ELECTROCARDIOGRAMS: No results found for this visit on 03/19/22. Thus far, studies reveal: hCG low today with suspicion of spontaneous . Elevated white blood cell count and right lower quadrant tenderness noted, thus CT scan done to rule out appendicitis. Pending studies include: CT abdomen/pelvis Plan from sign out is: Discharge home on Augmentin x7 days provided no concerning findings on CT. Follow-up with HYDRODYNAMICS TEACHER in the office this week Progress notes: Reviewed prior medical records from 02/19/2022 ED visit. Patient with beta hCG 40,000 at that time. Findings consistent with spontaneous . Patient will be started on antibiotics per recommendation of HYDRODYNAMICS TEACHER to exec. creative director physician. We will start patient on anti-inflammatoryfor pain relief. Labs Reviewed CBC W/DIFF AUTOMATED - Abnormal; Notable for the following components: Result Value WBC 18.20 (*) RBC 5.12 (*) LYMPHOCYTES 7.7 (*) NEUTROPHILS 88.6 (*) MONOCYTES 2.7 (*) ABS. NEUTROPHILS 16.12 (*) All other components within normal limits COMPREHENSIVE METABOLIC PANEL - Abnormal; Notable for the following components: GLUCOSE 119 (*) All other components within normal limits HCG QUANT (SERUM)-CHORIONIC GONADOTROPIN - Abnormal; Notable for the following components: HCG QUANTITATIVE 2,053 (*) All other components within normal limits TYPE & SCREEN SMEAR, STAIN, WET PREP CHLAMYDIA GC RNA TRICHOMONAS ANTIGEN CULTURE, GENITAL W/ GRAM STAIN CT ABD+PEL W CON (Results Pending) Reviewed preliminary CT report. No intra-abdominal abnormalities noted, specifically reported normal retrocecal appendix. Pelvis shows enlarged uterus with asymmetric ectatic enhancing right periuterine vessels and enhancing fundal placental vessels. Ill-defined ovoid area of hyperdensity in the upper endometrial cavity without a recognizable fetus in the endometrial cavity. Fluid density fills the remainder of the widened endometrial cavity which measures 2.7 cm in diameter. Cervix appears to be closed. Right ovary contains a 12 mm wall enhancing cystic structure which may represent corpus luteum cyst. Left ovary unremarkable. ED Course as of 03/19/22 0911 Sun Mar 19, 2022 0224 Review of old medical records from February 19, 2022 revealed blood type AB+. Ultrasound of the same date revealed a 7-week 4-day intrauterine with estimated date of delivery of 2022 ??2 weeks with a trace subchorionic hemorrhage [CA] 0310 Patient complaining of increasing pain offered morphine discussed risk versus benefits to patient and to fetus. Patient wishes to have morphine. [CA] 0356 Results from wet prep vaginal negative for fungal elements. Negative for motile trichomoniasis. Few clue cells [CA] 0427 Beta-hCG 2052 sodium 140 potassium 3.9 chloride 104 CO2 25.8 BUN 8 creatinine 0.74 glucose 119[CA] 0427 Spoke with laborer wood preserving plant JUAN to confirm beta-hCG 2052. White count 18,200 hemoglobin 14.6 hematocrit 43.4 platelets 249 [CA] [address] Nayely Paige on-call restaurant culinary manager for [facility]. Discussed all pertinent informationincluding previous ultrasound February 19, 2022 beta-hCG today of 2052 and inability to obtain heart tones. Aware of the elevated white count of 18,200. Recommends doing what ever care would beappropriate if she was not which would be a CT scan of the abdomen. Discussed all findingswith patient and her significant other. Agree with CT scan of abdomen and pelvis [CA] 0558 Dr. Paige called again if CT is negative for appendicitis recommends a dose of clindamycin IV and Augmentin for 7 days and follow-up office [CA] 0659 Patient care turned over to Dr. Mott. Awaiting CT results. If CT shows no acute intra-abdominal process patient will be discharged home with Augmentin x7 days and follow-up with [facility] this week. Call service office tomorrow a.m. Sunday, March 20, 2022. Return to emergency department forany problems or concerns. [CA] ED Course User Index [CA] Aravind Valle MD Medications lactated ringers bolus infusion 1,000 mL (0 mLs Intravenous Infusion Stop Time 03/19/22 0400) morphine injection 2 mg (2 mg Intravenous Given 03/19/22 0322) clindamycin (CLEOCIN) 600 mg in D5W 50 mL IVPB (0 mg Intravenous Infusion Stop Time 03/19/22 0646) iopamidol (ISOVUE-370) 76 % injection 75 mL (75 mLs Intravenous Given 03/19/22 0602) ketorolac (TORADOL) injection 30 mg (30 mg Intravenous Given 03/19/22 0838) Clinical impression: SNOMED CT(R) 1. Miscarriage at 8 to 28 weeks gestation MISCARRIAGE AT 8 TO 28 WEEKS Discharge Medication List as of 03/19/2022 8:58 AM START taking these medications Details amoxicillin-clavulanate (AUGMENTIN) 875-125 MG tablet Take 1 tablet (875 mg total) by mouth 2 (two)times daily for 7 days., Starting 03/19/2022, Until 03/26/2022, Eprescribe ketorolac (TORADOL) 10 MG tablet Take 1 tablet (10 mg total) by mouth 4 (four) times daily as needed for Pain., Starting 03/19/2022, Until Sun03/24/2022 at 2359, Eprescribe Disposition: Discharge RICHIE MOTT MD 03/19/2022 Richie Mott MD 03/19/22 0911 MED SURG * Zuly Trevizo RN - 03/19/2022 3:13 AM CST Attempted to assess heart tones with both doppler and ultrasound, unsuccesfully MED SURG * Janet Coombs RN - 03/19/2022 2:37 AM CST Patient is 2.5months and started having vaginal bleeding. Patient started as new patient with [facility] and has not seen OBGYN yet. Patient has had 3 pregnancies and 1 living child. MED SURG * Aravind Valle MD - 03/19/2022 2:27 AM CST Chief Complaint Chief Complaint Patient presents with ??? Vaginal Bleeding History of Present Illness 22-year-old 4 para 1-0-2-1 presents emerged department complaining of vaginal bleeding and cramping. Symptoms started approximately 3 days ago. Initially it was a light bleed. She spoke with her up titration office [facility] who stated if there is not Heppermann. Should be all right and has an appointment this coming week for her first appointment. Patient's last menstrual period was December 03, 2021. She is having increased pain greatest midline slightly to the right but bilaterally lower abdomen became heavy bleeding within the past 24 hours with some clots also within the past 24 hours. Patient restaurant culinary manager is Mukul which she has not seen yet. Patient has no known drug allergies. Takes no medications has not started on vitamins. Patient has had a previous C- section. Patient vapes. Does not drink alcohol Septer drugs. Patient is single. Patient is unemployed. Family history is unremarkable. Patient is COVID immunized Medical History ALLERGIES: No Known Allergies MEDICATIONS: Prior to Admission medications Medication Sig Start Date End Date Taking? Authorizing Provider valACYclovir 1 g tablet TAKE 1 TABLET BY MOUTH EVERY 12 HOURS FOR 5 DAYS 06/22/20 Doc [facility] PAST MEDICAL HISTORY: Past Medical History: Diagnosis Date ??? Gestational diabetes ??? and not yet delivered in first trimester PAST SURGICAL HISTORY: Past Surgical History: Procedure Laterality Date ??? SECTION FAMILY HISTORY: No family history on file. SOCIAL HISTORY: Social History Tobacco Use ??? Smoking status: Never ??? Smokeless tobacco: Never Vaping Use ??? Vaping Use: Every day ??? Substances: Nicotine Substance Use Topics ??? Alcohol use: Yes Comment: socially ??? Drug use: Yes Types: Marijuana Review of Systems Review of Systems Constitutional: Negative for chills and fever. HENT: Negative for congestion, rhinorrhea and sore throat. Eyes: Negative for photophobia. Respiratory: Negative for cough, shortness of breath and wheezing. Cardiovascular: Negative for chest pain, palpitations and leg swelling. Gastrointestinal: Negative for abdominal pain, constipation, diarrhea, nausea and vomiting. Endocrine: Negative for polydipsia and polyuria. Genitourinary: Positive for pelvic pain and vaginal bleeding. Negative for dysuria and frequency. Musculoskeletal: Negative for back pain, neck pain and neck stiffness. Skin: Negative for pallor and rash. Allergic/Immunologic: Negative for immunocompromised state. Neurological: Negative for syncope, light-headedness, numbness and headaches. Hematological: Does not bruise/bleed easily. Psychiatric/Behavioral: Negative for suicidal ideas. Physical Exam Filed Vitals: 03/19/22 0217 03/19/22 0220 03/19/22 0300 03/19/22 0314 BP: (!) 153/87 (!) 153/87 (!) 140/69 Pulse: (!) 111 Resp: 20 Temp: 97.4 ??F (36.3 ??C) TempSrc: Tympanic SpO2: 95% 99% 94% Weight: 79.4 kg (175 lb) Height: 5' 4 (1.626 m) Physical Exam Constitutional: Appearance: She is well-developed. HENT: Head: Normocephalic. Cardiovascular: Rate and Rhythm: Normal rate and regular rhythm. Heart sounds: Normal heart sounds. No murmur heard. No friction rub. No gallop. Pulmonary: Effort: Pulmonary effort is normal. No respiratory distress. Breath sounds: Normal breath sounds. No wheezing or rales. Chest: Chest wall: No tenderness. Abdominal: General: Bowel sounds are normal. Palpations: Abdomen is soft. Tenderness: There is abdominal tenderness. There is no rebound. Comments: Tender lower abdomen bilaterally and midline Genitourinary: General: Normal vulva. Vagina: No vaginal discharge. Comments: Normal external genitalia. Scant blood in the vaginal vault. Cervical os is closed. No clots. Negative chandelier sign however tender midline uterus and adnexa right greater than left Musculoskeletal: Cervical back: Neck supple. Skin: General: Skin is warm and dry. Neurological: Mental Status: She is alert and oriented to person, place, and time. Psychiatric: Behavior: Behavior normal. Judgment: Judgment normal. Diagnostic Studies / Procedures ELECTROCARDIOGRAMS: No results found for this visit on 03/19/22. LABORATORY STUDIES: Results for orders placed or performed during the hospital encounter of 03/19/22 CBC W/DIFF AUTOMATED Result Value Ref Range WBC 18.20 (H) 4.4 - 11.0 x10'3/uL RBC 5.12 (H) 4.50 - 5.10 x10'6/uL HGB 14.6 12.3 - 15.3 G/DL HCT 43.4 35.9 - 44.6 % MCV 84.8 80.0 - 96.0 FL MCH 28.5 25.3 - 30.9 PG MCHC 33.6 31.0 - 34.1 G/DL RDW 13.2 12.4 - 15.1 % PLT 249 151 - 353 x10'3/uL MPV 11.3 9.6 - 12.0 FL RBC MORPHOLOGY NORMAL PLT MORPH. NORMAL WBC MORPHOLOGY NORMAL LYMPHOCYTES 7.7 (L) 15.8 - 45.0 % NEUTROPHILS 88.6 (H) 42.1 - 71.9 % MONOCYTES 2.7 (L) 5.7 - 12.5 % EOSINOPHILS 0.2 0.0 - 5.6 % BASOPHILS 0.3 0.0 - 1.3 % ABS. NEUTROPHILS 16.12 (H) 1.40 - 6.00 x10'3/uL IMMATURE GRANS 0.5 0.0 - 0.5 % ABS. LYMPHOCYTES 1.41 0.80 - 4.70 x10'3/uL COMPREHENSIVE METABOLIC PANEL Result Value Ref Range GLUCOSE 119 (H) 70 - 99 MG/DL BUN 8 7 - 18 MG/DL CREATININE S/P/B 0.74 0.55 - 1.02 MG/DL SODIUM 140 136 - 145 MMOL/L POTASSIUM 3.9 3.5 - 5.1 MMOL/L CHLORIDE S/P/B 104 100 - 108 MMOL/L CO2 25.8 21 - 32 MMOL/L CALCIUM 9.3 8.5 - 10.1 MG/DL BILIRUBIN TOTAL S/P/B 0.2 0.2 - 1.2 MG/DL TOTAL PROTEIN S/P/B 7.7 6.4 - 8.2 G/DL ALBUMIN S/P/B 3.8 3.4 - 5.0 G/DL AST 18 15 - 37 U/L ALT 21 14 - 55 U/L ALKALINE PHOSPHATASE S/P/B 123 50 - 136 U/L ANION GAP 10.2 5 - 15 MMOL/L BUN CREATININE RATIO 10.8 6 - 26 A/G RATIO 1.0 1.0 - 2.0 RATIO GFR ESTIMATE >90 >90 ML/MIN/1.73 M2 Quantitative HCG Result Value Ref Range HCG QUANTITATIVE 2,053 (H) 0 - 6 MIU/ML IMAGING STUDIES CT ABD+PEL W CON (Results Pending) ED Course / Medical Decision Making Medical Decision Making 22-year-old white female 4 para 1-0-2-1 presents to the emergency department complaint of vaginal spotting and bleeding and cramping over the past 3 days. Symptoms have worsened over the past24 hours. Patient last menstrual period was December 03, 2021. Review of medical records revealed shehad an ultrasound with intrauterine at 7 weeks 4 days on February 19, 2022. Blood type atthat visit was a be positive. Concern for threatened including subchorionic hemorrhage placenta previa. Blood work ordered include CBC CMP pelvic cultures quantitative beta-hCG and type and ED Course as of 03/19/22 0659 Sun Mar 19, 2022 0224 Review of old medical records from February 19, 2022 revealed blood type AB+. Ultrasound of the same date revealed a 7-week 4-day intrauterine with estimated date of delivery of 2022 ??2 weeks with a trace subchorionic hemorrhage [CA] 0310 Patient complaining of increasing pain offered morphine discussed risk versus benefits to patient and to fetus. Patient wishes to have morphine. [CA] 0356 Results from wet prep vaginal negative for fungal elements. Negative for motile trichomoniasis. Few clue cells [CA] 042 Beta-hCG 2052 sodium 140 potassium 3.9 chloride 104 CO2 25.8 BUN 8 creatinine 0.74 glucose 119[CA] 0427 Spoke with laborer wood preserving plant JUAN to confirm beta-hCG 2052. White count 18,200 hemoglobin 14.6 hematocrit 43.4 platelets 249 [CA] [address] Nayely Paige on-call restaurant culinary manager for [facility]. Discussed all pertinent informationincluding previous ultrasound February 19, 2022 beta-hCG today of 2052 and inability to obtain heart tones. Aware of the elevated white count of 18,200. Recommends doing what ever care would beappropriate if she was not which would be a CT scan of the abdomen. Discussed all findingswith patient and her significant other. Agree with CT scan of abdomen and pelvis [CA] 0558 Dr. Paige called again if CT is negative for appendicitis recommends a dose of clindamycin IV and Augmentin for 7 days and follow-up office [CA] 0659 Patient care turned over to Dr. Mott. Awaiting CT results. If CT shows no acute intra-abdominal process patient will be discharged home with Augmentin x7 days and follow-up with [facility] this week. Call service office tomorrow a.m. Sunday, March 20, 2022. Return to emergency department forany problems or concerns. [CA] ED Course User Index [CA] Aravind Valle MD Clinical Impression None Disposition: Data Unavailable Voice recognition software used. Aravind Valle MD 03/19/22 0659 MED SURG documented in this encounter Plan of Treatment Not on file documented as of this encounter Procedures Procedure Name Priority Date/Time Associated Diagnosis Comments CT ABD+PEL W CON STAT 03/19/2022 6:01 AM RN MED SURG CULTURE, GENITAL W/ GRAM STAIN STAT 03/19/2022 3:11 AM RN MED SURG CHLAMYDIA GC RNA STAT 03/19/2022 3:11 AM RN MED SURG TRICHOMONAS ANTIGEN STAT 03/19/2022 3 :11 AM RN MED SURG SMEAR, STAIN, WET PREP STAT 3:11 AM RN MED SURG TYPE & SCREEN STAT 03/19/2022 2:55 AM RN MED SURG COMPREHENSIVE METABOLIC PANEL STAT 03/19/2022 2:53 AM RN MED SURG HCG QUANT (SERUM)-CHORIONIC GONADOTROPIN STAT 03/19/2022 2:53 AM RN MED SURG CBC W/DIFF AUTOMATED STAT 03/19/2022 2:53 AM RN MED SURG documented in this encounter Results * CT ABD+PEL W CON (03/19/2022 6:01 AM RN MED SURG) Anatomical Region Laterality Modality Abdomen Computed Tomogra phy 03/21/2022 8:33 AM RN MED SURG Impressions 03/21/2022 8:34 AM RN MED SURG IMPRESSION: 1. No bowel obstruction or appendicitis or acute inflammatory change in the large or small bowel 2. Enlarged uterus with ectatic enhancing right periuterine vessels. 3. Enhancing fundal placenta vessels 4. Ill-defined ovoid area of hyperdensity without recognizable fetus in the endometrial cavity. 5. Fluid density filling the widened endometrial cavity which measures 2.4 cm in greatest diameter 6. Indeterminate if this is missed or failed ; cannot completely exclude tiny pole beyond the resolution of [address] slices. 7. Consider follow-up with OB ultrasound. Referred By: Interpreted By: Norma Gong DO, 03/19/2022 6:41 AM Referred By: ?? Interpreted By: Norma Gong DO, 03/21/2022 8:33 AM Narrative 03/21/2022 8:34 AM RN MED SURG PATIENT NAME: SILVER TYSON DATE OF : EXAMINATION: ABDOMEN PELVIS CT WITH CONTRAST CLINICAL INDICATION:. 22-year-old gravid female: 2.5 months with vaginal bleeding that began 3 days ago, became worse yesterday and began having RLQ pain. Decrease in HCG. Beta-hCG in February 2022 40,000.0 Beta-hCG today: 4000.0 There is documentation in the included medical records the patient understands the risks and benefits of medical imaging while . The patient and attending signed this waiver. TECHNIQUE: CT of the abdomen and pelvis was acquired at 3 mm increments after intravenous administration of 75 cc of Isovue-370 into indwelling intravenous access in the right antecubital fossa without adverse contrast reaction reported. Images acquired from the lung bases to the femoral heads then reconstructed in sagittal and coronal projections. Dose lowering technique was used for this study which may include, but is not limited to, dose reduction techniques, automated exposure control, use of iterative reconstruction and ALARA (As low As Reasonably Achievable)/Image Gently techniques. COMPARISON: OB ultrasound 02/19/2022. Contrast-enhanced CT abdomen and pelvis 12/09/2020 FINDINGS: Included lung bases: Clear of infiltrate or effusion. ABDOMEN: The liver and spleen and adrenal glands and pancreas and gallbladder and kidneys are unremarkable. 2 cm diameter accessory spleen The kidneys demonstrates symmetric cortical uptake of the contrast material. No renal lithiasis or hydronephrosis or ureteric calculi. GI: The stomach and small bowel are unremarkable. Normal terminal ileum. Normal retrocecal appendix. The colon is normal in caliber and position. No bowel obstruction. No free air or free fluid in the abdomen or pelvis. PELVIS: Urinary bladder: Normally filled. Normal bladder wall. No intracystic calculi. Uterus: The uterus is enlarged in keeping with the given history. The uterus measures approximately 11 x 5.5 x 7.5 cm. Asymmetric ectatic enhancing right periuterine vessels. Enhancing fundal placenta vessels. Ill-defined ovoid area of hyperdensity in the upper endometrial cavity without a recognizable fetus in the endometrial cavity. Fluid density fills the remainder of the widened endometrial cavity which measures 2.7 cm in diameter. The cervix appears closed. Rim of air external to the cervix. Vagina unremarkable. The right ovary contains a 12 mm wall enhancing cystic structure which may represent corpus luteum cyst. Left ovary unremarkable.... Bone window imaging: Unremarkable Procedure Note Norma Gong MD - 03/21/2022 PATIENT NAME: SILVER TYSON DATE OF : EXAMINATION: ABDOMEN PELVIS CT WITH CONTRAST CLINICAL INDICATION:. 22-year-old gravid female: 2.5 months with vaginal bleeding thatbegan 3 days ago, became worse yesterday and began having RLQ pain.Decrease in HCG. Beta-hCG in February 2022 40,000.0 Beta-hCG today: 4000.0 There is documentation in the included medical records the patientunderstands the risks and benefits of medical imaging while . Thepatient and attending signed this waiver. TECHNIQUE: CT of the abdomen and pelvis was acquired at 3 mm increments afterintravenous administration of 75 cc of Isovue-370 into indwellingintravenous access in the right antecubital fossa without adverse contrastreaction reported. Images acquired from the lung bases to the femoralheads then reconstructed in sagittal and coronal projections. Dose lowering technique was used for this study which may include, but isnot limited to, dose reduction techniques, automated exposure control, useof iterative reconstruction and ALARA (As low As ReasonablyAchievable)/Image Gently techniques. COMPARISON: OB ultrasound 02/19/2022. Contrast-enhanced CT abdomen and pelvis 12/09/2020 FINDINGS: Included lung bases: Clear of infiltrate or effusion. ABDOMEN: The liver and spleen and adrenal glands and pancreas and gallbladder andkidneys are unremarkable. 2 cm diameter accessory spleen The kidneysdemonstrates symmetric cortical uptake of the contrast material. No renallithiasis or hydronephrosis or ureteric calculi. GI: The stomach and small bowel are unremarkable. Normal terminal ileum.Normal retrocecal appendix. The colon is normal in caliber and position.No bowel obstruction. No free air or free fluid in the abdomen orpelvis. PELVIS: Urinary bladder: Normally filled. Normal bladder wall. No intracysticcalculi. Uterus: The uterus is enlarged in keeping with the given history. Theuterus measures approximately 11 x 5.5 x 7.5 cm. Asymmetric ectaticenhancing right periuterine vessels. Enhancing fundal placenta vessels.Ill-defined ovoid area of hyperdensity in the upper endometrial cavitywithout a recognizable fetus in the endometrial cavity. Fluid densityfills the remainder of the widened endometrial cavity which measures 2.7cm in diameter. The cervix appears closed. Rim of air external to thecervix. Vagina unremarkable. The right ovary contains a 12 mm wallenhancing cystic structure which may represent corpus luteum cyst. Leftovary unremarkable.... Bone window imaging: Unremarkable IMPRESSION: 1. No bowel obstruction or appendicitis or acute inflammatory change inthe large or small bowel 2. Enlarged uterus with ectatic enhancing right periuterine vessels. 3. Enhancing fundal placenta vessels 4. Ill-defined ovoid area of hyperdensity without recognizable fetus inthe endometrial cavity. 5. Fluid density filling the widened endometrial cavity which measures 2.4cm in greatest diameter 6. Indeterminate if this is missed or failed ; cannotcompletely exclude tiny pole beyond the resolution of [address]slices. 7. Consider follow-up with OB ultrasound. Referred By: Interpreted By: Norma Gong DO, 03/19/2022 6:41 AM Referred By: Interpreted By: Norma Gong DO, 03/21/2022 8:33 AM us Aravind Valle MD CT Final Result * SMEAR, STAIN, WET PREP (03/19/2022 3:11 AM RN MED SURG) SPEC DESCRIPTION VAGINAL SPECIMEN 03/19/2022 6:48 AM RN MED SURG [facility] SPECIAL REQUESTS NO SPECIAL REQUEST 03/19/2022 6:48 AM RN MED SURG [facility] DIRECT EXAM NO FUNGAL ELEMENTS SEEN NO MOTILE TRICHOMONAS SEEN 03/19/2022 6:59 AM RN MED SURG [facility] DIRECT EXAM FEW CLUE CELLS SEEN 03/19/2022 6:59 AM [facility] VAGINAL STRUCTURE / Unknown 03/19/2022 3:11 AM RN MED SURG 03/19/2022 6:51 AM RN MED SURG Aravind Valle MD MICROBIOLOGY - GENERAL ORDERAB LES Final Result [facility] [address] [place] [address], * (ABNORMAL) CULTURE, GENITAL W/ GRAM STAIN (03/19/2022 3:11 AM RN MED SURG) SPEC DESCRIPTION VAGINAL SPECIMEN 03/19/2022 6:48 AM [facility] SPECIAL REQUESTS NO SPECIAL REQUEST 03/19/2022 6:48 AM [facility] GRAM STAIN RESULT POSITIVE FOR BACTERIAL VAGINOSIS 03/20/2022 8:03 AM [facility] GRAM STAIN RESULT NO YEAST SEEN 03/20/2022 8:03 AM [facility] GRAM STAIN RESULT FEW CLUE CELLS SEEN 03/20/2022 8:03 AM [facility] CULTURE RESULT SPARSE GROWTH OF STREPTOCOCCI, BETA HEMOLYTIC GROUP B SUSCEPTIBILTY NOT ROUTINELY PERFORMED. SAVING ISOLATE FOR 5 DAYS. CONTACT MICROBIOLOGY DEPARTMENT IF FURTHER WORKUP IS INDICATED. (A) 03/22/2022 7:04 AM [facility] CULTURE RESULT SPARSE GROWTH OF NORMAL ELADIO PRESENT 03/22/2022 7:04 AM [facility] CULTURE RESULT HEAVY GROWTH OF GARDNERELLA VAGINALIS STANDARDIZED SUSCEPTIBILITIES HAVE NOT BEEN ESTABLISHED FOR THIS ORGANISM. (A) 03/22/2022 7:04 AM [facility] VAGINAL STRUCTURE / Unknown 03/19/2022 3:11 AM RN MED SURG 03/19/2022 6:51 AM RN MED SURG us Aravind Valle MD MICROBIOLOGY - GENERAL ORDERAB LES Final Result [facility] [address] [place] [address], [place] [phone] [facility] [address] [place] [address], [place] [phone] * TRICHOMONAS ANTIGEN (03/19/2022 3:11 AM RN MED SURG) TRICHOMONAS NEGATIVE 03/19/2022 3:27 PM RN MED SURG [facility] VAGINAL STRUCTURE / Unknown 03/19/2022 3:11 AM RN MED SURG us Aravind Valle MD MICROBIOLOGY - GENERAL ORDERAB LES Final Result Performing Organization Address City/[facility] Co de Phone Number [facility] [address] [place] [address], [place] [phone] * CHLAMYDIA GC RNA (03/19/2022 3:11 AM RN MED SURG) SPECIMEN SOURCE ENDOCERVIX 6:48 AM RN MED SURG [facility] CHLAMYDIA PCR NEGATIVE NEGATIVE 03/20/2022 6:36 PM RN MED SURG [facility] Comment:PERFORMED BY NUCLEIC ACID AMPLIFICATION N.GONORRHOEAE RNA TMA NEGATIVE NEGATIVE 03/20/2022 6:36 PM RN MED SURG [facility] Comment:PERFORMED BY NUCLEIC ACID AMPLIFICATION ENDOCERVICAL STRUCTURE / Unknown 03/19/2022 3:11 AM RN MED SURG us Aravind Valle MD MICROBIOLOGY - GENERAL ORDERAB LES Final Result [facility] () [facility] [address] [place] [address], [facility] [address] [place] [address], * TYPE AND SCREEN (03/19/2022 2:55 AM RN MED SURG) [facility] ABO/RH AB POSITIVE 03/19/2022 7:02 AM RN MED SURG [facility] ANTIBODY SCREEN NEGATIVE 03/19/2022 7:02 AM RN MED SURG [facility] SAMPLE EXPIRATION 03/22/2022,2 359 03/19/2022 7:02 AM RN MED SURG [facility] 03/19/2022 2:55 AM RN MED SURG Aravind Valle MD BLOOD BANK TEST ORDERABLES Fin al Result Performing Organization Address [facility] de Phone Number [facility] [address] [place] [address], * (ABNORMAL) Quantitative HCG (03/19/2022 2:53 AM RN MED SURG) [facility] HCG QUANTITATIVE 2,053(H) 0 - 6 MIU/ML 03/19/2022 6:56 AM RN MED SURG [facility] Comment: WEEKS OF ? REFERENCE RANGES NON- FEMALE ?0-6 ? 0.2 - 1 ? 5 - 50 ? 1 - 2 ? 50 - 500 ? 2 - 3 ? 100 - 5000 ? 3 - 4 ? 500 - 10,000 ? 4 - 5 ? 1000 - 50,000 ? 5 - 6 ? 10,000 - 100,000 ? 6 - 8 ? 15,000 - 200,000 ? 2 - 3 MONTHS ?10,000 - 100,000 03/19/2022 2:53 AM RN MED SURG us Aravind Valle MD LABORATORY Final Result [facility] [address] [place] [address], * (ABNORMAL) COMPREHENSIVE METABOLIC PANEL (03/19/2022 2:53 AM RN MED SURG) GLUCOSE 119(H) 70 - 99 MG/DL 03/19/2022 6:56 AM [facility] BUN 8 7 - 18 MG/DL 03/19/2022 6:56 AM [facility] CREATININE S/P/B 0.74 0.55 - 1.02 MG/DL 03/19/2022 6:56 AM [facility] SODIUM S/P/B 140 136 - 145 MMOL/L 03/19/2022 6:56 AM [facility] POTASSIUM S/P/B 3.9 3.5 - 5.1 MMOL/L 03/19/2022 6:56 AM [facility] CHLORIDE S/P/B 104 100 - 108 MMOL/L 03/19/2022 6:56 AM [facility] CO2 25.8 21 - 32 MMOL/L 03/19/2022 6:56 AM [facility] CALCIUM S/P/B 9.3 8.5 - 10.1 MG/DL 03/19/2022 6:56 AM [facility] BILIRUBIN TOTAL S/P/B 0.2 0.2 - 1.2 MG/DL 03/19/2022 6:56 AM [facility] TOTAL PROTEIN S/P/B 7.7 6.4 - 8.2 G/DL 03/19/2022 6:56 AM [facility] ALBUMIN S/P/B 3.8 3.4 - 5.0 G/DL 03/19/2022 6:56 AM [facility] AST 18 15 - 37 U/L 03/19/2022 6:56 AM [facility] ALT 21 14 - 55 U/L 03/19/2022 6:56 AM [facility] ALKALINE PHOSPHATASE S/P/B 123 50 - 136 U/L 03/19/2022 6:56 AM [facility] ANION GAP 10.2 5 - 15 MMOL/L 03/19/2022 6:56 AM [facility] BUN CREATININE RATIO 10.8 6 - 26 03/19/2022 6:56 AM [facility] A/G RATIO 1.0 1.0 - 2.0 RATIO 03/19/2022 6:56 AM [facility] GFR ESTIMATE >90 >90 ML/MIN/1.7 3 M2 03/19/2022 6:56 AM [facility] Comment: NOTE: eGFR is not calculated for patients <18 years of age. This is an estimated GFR calculation using the new CKD EPI creatinine equation without race and so does not require a correction factor for race. This estimated GFR should not be used for calculating drug doses. 03/19/2022 2:53 AM RN MED SURG Aravind Valle MD LABORATORY Final Result [facility] [address] [place] [phone], * (ABNORMAL) CBC W/DIFF AUTOMATED (03/19/2022 2:53 AM RN MED SURG) [facility] WBC 18.20(H) 4.4 - 11.0 x10'3/uL 03/19/2022 6:58 AM [facility] RBC 5.12(H) 4.50 - 5.10 x10'6/uL 03/19/2022 6:58 AM [facility] HGB 14.6 12.3 - 15.3 G/DL 03/19/2022 6:58 AM [facility] HCT 43.4 35.9 - 44.6 % 03/19/2022 6:58 AM [facility] MCV 84.8 80.0 - 96.0 FL 03/19/2022 6:58 AM [facility] MCH 28.5 25.3 - 30.9 PG 03/19/2022 6:58 AM [facility] MCHC 33.6 31.0 - 34.1 G/DL 03/19/2022 6:58 AM [facility] RDW 13.2 12.4 - 15.1 % 03/19/2022 6:58 AM [facility] PLT 249 151 - 353 x10'3/uL 03/19/2022 6:58 AM [facility] MPV 11.3 9.6 - 12.0 FL 03/19/2022 6:58 AM [facility] RBC MORPHOLOGY NORMAL 03/19/2022 6:58 AM [facility] PLT MORPH. NORMAL 03/19/2022 6:58 AM [facility] WBC MORPHOLOGY NORMAL 03/19/2022 6:58 AM [facility] LYMPHOCYTES % 7.7(L) 15.8 - 45.0 % 03/19/2022 6:58 AM [facility] NEUTROPHILS % 88.6(H) 42.1 - 71.9 % 03/19/2022 6:58 AM [facility] MONOCYTES % 2.7(L) 5.7 - 12.5 % 03/19/2022 6:58 AM [facility] EOSINOPHILS 0.2 0.0 - 5.6 % 03/19/2022 6:58 AM [facility] BASOPHILS 0.3 0.0 - 1.3 % 03/19/2022 6:58 AM [facility] ABS. NEUTROPHILS 16.12(H) 1.40 - 6.00 x10'3/uL 03/19/2022 6:58 AM [facility] IMMATURE GRANS % 0.5 0.0 - 0.5 % 03/19/2022 6:58 AM [facility] ABS. LYMPHOCYTES 1.41 0.80 - 4.70 x10'3/uL 03/19/2022 6:58 AM [facility] 03/19/2022 2:53 AM RN MED SURG us Aravind Valle MD LABORATORY Final Result [facility] [address] [place] [address], documented in this encounter Visit Diagnoses Diagnosis Miscarriage at 8 to 28 weeks gestation ([facility]/HCC)- Primary documented in this encounter Administered Medications Inactive Administered Medications - up to 3 most recent administrations Medication Order MAR Action Action Date Dose Rate Site clindamycin (CLEOCIN) 600 mg in D5W 50 mL IVPB 600 mg, Intravenous, at 100 mL/hr, Once, 1 dose, On 03/19/22 at 0615 New Bag 03/19/2022 6:20 AM RN MED SURG 600 mg 100 mL/hr iopamidol (ISOVUE-370) 76 % injection 75 mL 75 mL, Intravenous, IMG once as needed, Contrast, 1 dose, Starting on 03/19/22 at 0601, Until 03/19/22 at 0602 Given 03/19/2022 6:02 AM RN MED SURG 75 mLs Left Arm ketorolac (TORADOL) injection 30 mg 30 mg, Intravenous, Once, 1 dose, On 03/19/22 at 0800, For IV administration, give over 15 seconds. Given 03/19/2022 8:38 AM RN MED SURG 30 mg lactated ringers bolus infusion 1,000 mL 1,000 mL, Intravenous, Administer over 15 Minutes, Once, 1 dose, On 03/19/22 at 0230 New Bag 03/19/2022 3:16 AM RN MED SURG 1,000 mLs morphine injection 2 mg 2 mg, Intravenous, Once, 1 dose, On 03/19/22 at 0315 Given 03/19/2022 3:22 AM RN MED SURG 2 mg documented in this encounter Active and Recently Administered Medications Times are shown in RN MED SURG. Scheduled Medication Order 03/17/2022 03/18/2022 03/19/2022 clindamycin (CLEOCIN) 600 mg in D5W 50 mL IVPB (COMPLETED) 600 mg, Intravenous, at 100 mL/hr, Once, 1 dose, On 03/19/22 at 0615 0620 (New Bag - Prov ider: Janet Coombs RN)0646 (Infusion Stop Time - Provider: Janet Coombs RN) ketorolac (TORADOL) injection 30 mg (COMPLETED) 30 mg, Intravenous, Once, 1 dose, On 03/19/22 at 0800, For IV administration, give over 15 seconds. 0838 (Given - Provid er: Alesha Castañeda RN) lactated ringers bolus infusion 1,000 mL (COMPLETED) 1,000 mL, Intravenous, Administer over 15 Minutes, Once, 1 dose, On 03/19/22 at 0230 0316 (New Bag - Prov ider: Janet Coombs RN)0400 (Infusion Stop Time - Provider: Janet Coombs RN) morphine injection 2 mg (COMPLETED) 2 mg, Intravenous, Once, 1 dose, On 03/19/22 at 0314 0322 (Given - Provid er: Zuly Trevizo RN - Comment: pulled by override under temporary patient by this name due to arrival during downtime) PRN Medication Order 03/17/2022 03/18/2022 03/19/2022 iopamidol (ISOVUE-370) 76 % injection 75 mL (COMPLETED) 75 mL, Intravenous, IMG once as needed, Contrast, 1 dose, Starting on 03/19/22 at 0601, Until 03/19/22 at 0602 0602 (Given - Provid er: RT KameronR) documented in this encounter Care Teams Diesel Technology Instructor Relationship Specialty Start Date End Date None, Provider, PCP - General 12/09/20 12/27/22 documented as of this encounter
--- OUTSIDE RECORDS SUMMARY | 2024-03-09 06:39 | XMS_ITS | Encounter Summary ---
Author Organization [facility] Address [address] [place] [address]. [place] [address] [place] [address] Care Team Providers Care Engineering Documentation Specialist Name Role Phone None, Provider Primary Care Provider Unavaila ble Reason for Visit * Reason Comments Test Encounter Details Date Type Department Care Team (Late st Contact Info) Description 02/03/2022 1:47 PM STAFFING CONSULTANT - 02/03/2022 2:04 PM STAFFING CONSULTANT Emergency [facility] Emergency Room [id number] [place] [id number] Sunni Gonzales FNP [address] [place] [id number] Test Discharge Disposition: Home or Self Care (Routine [...] suspected to have Coronavirus/COVID-19? No / Unsure 02/03/2022 1:19 PM STAFFING CONSULTANT documented as of this encounter Last Filed Vital Signs Vital Sign Reading Time Taken Comments Blood Pressure 125/74 02/03/2022 1:49 PM STAFFING CONSULTANT Pulse 100 02/03/2022 1:49 PM STAFFING CONSULTANT Temperature 35.9 ??C (96.6 ??F) 02/03/2022 1:49 PM CS T Respiratory Rate 16 02/03/2022 1:49 PM STAFFING CONSULTANT Oxygen Saturation 99% 02/03/2022 1:49 PM STAFFING CONSULTANT Inhaled Oxygen Concentration - - Weight 77.1 kg (170 lb) 02/03/2022 1:49 PM STAFFING CONSULTANT Height 162.6 cm (5' 4 ) 02/03/2022 1:49 PM STAFFING CONSULTANT Body Mass Index 29.18 02/03/2022 1:49 PM STAFFING CONSULTANT documented in this encounter Discharge Instructions * Discharge Instructions* DEVON Yeung - 02/03/2022 1:55 PM STAFFING CONSULTANT You need to schedule a new OB appointment. Start your vitamins today. FING CONSULTANT FING CONSULTANT * Attachments The following attachments cannot be sent through Care Everywhere. * Symptoms (Israeli) documented in this encounter Medications at Time of Discharge famotidine (PEPCID) 20 MG tablet Take 1 tablet (20 mg total) by mouth 2 (two) times daily. 30 tablet 09/23/2021 2 ondansetron (ZOFRAN-ODT) 4 MG disintegrating tablet Take 1 tablet (4 mg total) by mouth every 8 (eight) hours as needed for Nausea. 12 tablet 09/23/2021 2 Vit w/Fb-Bdzzcviei-CG (PNV-SELECT) 27-0.6-0.4 MG Tab Take 1 tablet by mouth daily. 30 tablet 02/03/2022 2 valACYclovir 1 g tablet TAKE 1 TABLET BY MOUTH EVERY 12 HOURS FOR 5 DAYS 06/22/2020 3 documented as of this encounter ED Notes * DEVON Yeung - 02/03/2022 1:54 PM CST Chief Complaint Chief Complaint Patient presents with ??? Test History of Present Illness 21-year-old female into the emergency department for a test. Patient states that she has had increased fatigue and has had breast tenderness. She stated that her last menstrual cycle was December 03 and it was only 1 day. Patient did take a home test which was positive. She is a 2 para 1. She has a 2-year-old at home. Patient stated that she has not made an appointment yet. The [facility]PLICATION[facility]NAGER she used previously does not take her insurance anymore. Patient denies any abdominal pain, cramping, spotting or bleeding. Denies any vaginal discharge currently Medical History ALLERGIES: No Known Allergies MEDICATIONS: Prior to Admission medications Medication Sig Start Date End Date Taking? Authorizing Provider Vit w/Uf-Jfifeibix-GO (PNV-SELECT) 27-0.6-0.4 MG Tab Take 1 tablet by mouth daily. 02/03/22Yes DEVON Yeung famotidine (PEPCID) 20 MG tablet Take 1 tablet (20 mg total) by mouth 2 (two) times daily. 09/23/21 Jose Juan Dennison MD ondansetron (ZOFRAN-ODT) 4 MG disintegrating tablet Take 1 tablet (4 mg total) by mouth every 8 (eight) hours as needed for Nausea. 09/23/21 Jose Juan Dennison MD valACYclovir 1 g tablet TAKE 1 TABLET [...] Review of Systems Review of Systems Constitutional: Positive for fatigue. Negative for chills and fever. Genitourinary: Positive for menstrual problem. Negative for difficulty urinating, dysuria, flank pain, pelvic pain, vaginal bleeding, vaginal discharge and vaginal pain. Musculoskeletal: Negative. Skin: Negative. Neurological: Negative. Physical Exam Filed Vitals: 02/03/22 1349 BP: 125/74 Pulse: 100 Resp: 16 Temp: 96.6 ??F (35.9 ??C) TempSrc: Temporal SpO2: 99% Weight: 77.1 kg (170 lb) Height: 5' 4 (1.626 m) Physical Exam Vitals and nursing note reviewed. Constitutional: Appearance: Normal appearance. She is normal weight. HENT: Head: Normocephalic. Cardiovascular: Rate and Rhythm: Normal rate. Pulses: Normal pulses. Pulmonary: Effort: Pulmonary effort is normal. Neurological: Mental Status: She is alert and oriented to person, place, and time. Psychiatric: Mood and Affect: Mood normal. Behavior: Behavior normal. Diagnostic Studies / Procedures ELECTROCARDIOGRAMS: No results found for this visit on 02/03/22. LABORATORY STUDIES: Results for orders placed or performed during the hospital encounter of 02/03/22 TEST URINE Result Value Ref Range URINE HCG TEST POSITIVE (A) NEGATIVE IMAGING STUDIES No orders to display ED Course / Medical Decision Making MDM Number of Diagnoses or Management Options Positive test: new and does not require workup Diagnosis management comments: 21-year-old female presented to the emergency department to have a test. She had a positive home test. test was positive. Advised her to follow-up with [facility] for new OB appointment. Amount and/or Complexity of Data Reviewed Clinical lab tests: ordered and reviewed Risk of Complications, Morbidity, and/or Mortality Presenting problems: moderate Diagnostic procedures: moderate Management options: moderate General comments: Reviewed plan of care with patient to include diagnoses, Test results, medicationand plan of care. Pt verbalized understanding. All questions answered. Clinical Impression Positive test (Primary) Disposition: Discharge DEVON Yeung 02/03/22 1410 Cosigned by Westley Brar MD at 02/13/2022 12:56 PM STAFFING CONSULTANT FING CONSULTANT FING CONSULTANT * Rosetta Means RN - 02/03/2022 1:51 PM CST Pt presents to ED via boyfriend with C/O irregular period and tender breast and she was wanting a test to see if she was . FING CONSULTANT documented in this encounter Plan of Treatment Not on file documented as of this encounter Procedures Procedure Name Priority Date/Time Associated Diagnosis Comments TEST URINE STAT 02/03/2022 1:29 PM STAFFING CONSULTANT documented in this encounter Results * (ABNORMAL) TEST URINE (02/03/2022 1:29 PM STAFFING CONSULTANT) URINE HCG TEST POSITIVE( A) NEGATIVE 02/03/2022 1:37 PM STAFFING CONSULTANT [facility] Comment: VERY DILUTE URINE SPECIMENS MAY NOT CONTAIN WORKSITE WELLNESS PRACTITIONER LEVELS OF HCG. IF IS STILL SUSPECTED, A SERUM HCG TEST IS RECOMMENDED. URINE SPECIMEN FROM [facility]RE[facility] / Unknown 02/03/2022 1:29 PM STAFFING CONSULTANT Ava Brown HATCHERY EMPLOYEE URINE ORDERABLES Final R esult [facility] [address] [place] [address], [place] [phone] documented in this encounter Visit Diagnoses Diagnosis Positive test ([facility])- Primary examination or test, positive result documented in this encounter Care Teams Engineering Documentation Specialist Relationship Specialty Start Date End Date None, Provider, PCP - General 12/09/20 12/27/22 documented as of this encounter
--- OUTSIDE RECORDS SUMMARY | 2024-03-09 06:39 | XMS_ITS | Encounter Summary ---
Author Organization [facility] Address [address] [place] [address]. [place], [place] [address] [place] [address] Care Team Providers Care Sign Language Interpreter Name Role Phone None, Provider Primary Care Provider Unavaila ble Encounter Details Date Type Department Care Team (Latest Contact Info) Description 08/11/2022 Travel Social History Tobacco Use Types Packs/Day Years [...] suspected to have Coronavirus/COVID-19? No / Unsure 08/11/2022 10:03 PM CDT documented as of this encounter Plan of Treatment Not on file documented as of this encounter Visit Diagnoses Not on filedocumented in this encounter Additional Health Concerns Infection Onset Date Last Indicated Resolved Time COVID-19 Rule Out 08/11/2022 08/11/2022 08/12/2022 1:23 PM CDT documented as of this encounter Care Teams Sign Language Interpreter Relationship Specialty Start Date End Date None, Provider, PCP - General 12/09/20 12/27/22 documented as of this encounter
--- OUTSIDE RECORDS SUMMARY | 2024-03-09 06:39 | XMS_ITS | Encounter Summary ---
Author Organization [facility] Address [address] [place] [address]. [place], [place] [address] [place], [place] [id number] Care Team Providers Care Wig Comber Name Role Phone None, Provider Primary Care Provider Unavaila ble Encounter Details Date Type Department Care Team (Latest Contact Info) Description 03/19/2022 Travel Social History Tobacco Use Types Packs/Day [...] Coronavirus/COVID-19? No / Unsure 03/19/2022 2:21 AM COLORECTAL SURGEON documented as of this encounter Plan of Treatment Not on file documented as of this encounter Visit Diagnoses Not on filedocumented in this encounter Care Teams Wig Comber Relationship Specialty Start Date End Date None, Provider, PCP - General 12/09/20 12/27/22 documented as of this encounter
--- OUTSIDE RECORDS SUMMARY | 2024-03-09 06:39 | XMS_ITS | Encounter Summary ---
Author Organization [facility] Address [address] [place] [address]. [place] [address] [place] [address] [address] Team [address] Care [address] Worker Name Role Phone Chiara Grimaldo MD Unavailable [phone] None, Provider Primary Care Provider Unavaila ble Reason for Visit * Auth/Cert (Routine) Specialty Diagnoses / Procedures Referred By Contac t Referred To Contact Diagnoses Transaminitis transaminitis Procedures NONE Sravanthi [place] [address] Phone: tel: [phone] fax: Referral ID Status Reason Start Date Expiration Date Visits Re quested Visits Authorized [id number] 1 1 Encounter Details Date Type Department Care Team (Late st Contact Info) Description 01/11/2024 11:00 AM FUR TAILOR - 01/11/2024 12:00 PM FUR TAILOR Surgery [facility] [place], [place] [id number] Jacque Lira MD [address] [facility], [address] [place] [address] ERCP WITH SPHINCTEROTOMY and BALLOON SWEEP Surgery Details Date/Time Status Location OR Service Patient Class Case Class Case Type Trauma Case? 01/11/2024 11:00 AM Posted [facility] 3 Gastroenterology Inpatient No Panel 1 Procedure LRB Anes Op Region Wound Class Comments ERCP WITH SPHINCTEROTOMY and BALLOON SWEEP N/A General Clean Contaminated FLUORO TIME;43SECONDS EGD N/A General Clean Contaminated GASTRIC ERYTHEMA Surgeon Surgeon Role Service Panel Jacque Lira MD Primary Gastroenterology 1 Special Needs Start with EGD. Anticipate administering indomethacin. documented in this encounter Social History Tobacco [...] Sign Reading Time Taken Comments Blood Pressure 127/79 01/11/2024 11:17 AM FUR TAILOR Pulse 67 01/11/2024 11:17 AM FUR TAILOR Temperature 36.8 ??C (98.3 ??F) 01/11/2024 1 1:17 AM FUR TAILOR Respiratory Rate 16 01/11/2024 11:1 7 AM FUR TAILOR Oxygen Saturation 99% 01/11/2024 11: 17 AM FUR TAILOR Inhaled Oxygen Concentration - - Weight 108.6 kg (239 lb 6.7 oz) 01/10/2024 2:56 AM FUR TAILOR Height - - Body Mass Index 41.1 01/09/2024 9:01 PM FUR TAILOR documented in this encounter Functional Status * Question Answer Date of Assessment Author Status Do you have serious difficulty walking or climbing stairs? No 01/10/2024 3:14 AM Anahi Thapa RN Acti ve * Question Answer Date of Assessment Author Status Do you have difficulty dressing or bathing? No 01/10/2024 3:14 AM Anahi Thapa RN Active Because of a physical, mental, or emotional condition, do you have difficulty doing errands alone such as visiting a doctor's office or shopping? No 01/10/2024 3:14 AM Adina Thapa RN Active * Are you deaf or do you [...] as of this encounter Mental Status * Question Answer Entry Date Author Status Because of a physical, mental, or emotional condition, do you have serious difficulty concentrating, remembering, or making decisions? No 01/10/2024 3:14 AM Anahi Thapa RN Active * Because of a physical, mental, or emotional condition, do you have serious difficulty concentrating, remembering, or making decisions? Answer Entry Date Author Status No 01/10/2024 3:14 AM Anahi Thapa R N Active documented in this encounter Discharge Summaries * Lisa Bah PA-C - 01/12/2024 4:47 PM CST Images from the original note were not included. Hospitalist Discharge Summary Patient ID: Margot Tyson. female. 2000. Admit date: 01/10/2024 2:45 AM Discharge date and time: 01/12/2024 Admitting Physician: Sravanthi King MD Primary Care Physician: Yuridia Garcia MD Discharge Physician: Lisa Bah PA-C/Coreen Cotto MD Primary Diagnoses: Biliary Colic/Symptomatic Cholelithiasis Secondary Diagnoses: Transaminitis Anxiety/Depression Morbid Obesity Admission Condition: fair Discharged Condition: Stable Code Status: Full Code Chief Complaint: Abdominal Pain Reason for hospitalization: Per H&P Margot Tyson is a 23-year-old female with no significant past medical history presents as a transfer from [place] [facility] with abdominal pain. Patient had a baby 6 months ago. Since then she has had off-and-on abdominal pain with radiation to her ribs and her back. This is sharp and intense. It comes and goes randomly. Today she had another attack and then had some nausea and vomiting andloose stools. She was unable to tolerate p.o. The pain was severe. No fevers, chills, blood or mucus in the stool, dysuria etc. She is not breast-feeding. She came to the ER and was found to have an AST of 986 and ALT of 550. She denies taking Tylenol. She is not a heavy drinker. CT scan was grossly unremarkable but she was transferred here for GI evaluation and right upper quadrant ultrasound. Hospital Course: Transaminitis Biliary Colic/Symptomatic Cholelithiasis Presented with Right upper quadrant pain CT unremarkable but suspect gallstones AST 986 > 291 ALT 550 > 547 T. bili 0.7 > 1.7 Trend labs Avoid hepatotoxic agents when possible Pain Control - monitor for toxicity Anti-emetics RUQ ultrasound: cholelithiasis without evidence of acute cholecystitis GI consult appreciated MRCP - cholelithiasis with suspected non-obstructing choledocholithiasis Plan for ERCP today Surgery Consulted - appreciate recs S/P Laparoscopic Cholecystectomy on 01/12/24 Cleared for discharge per surgery Tolerating diet, pain controlled at time of discharge. Tramadol 50mg prn pain Follow up with Surgery in 1-2 weeks Anxiety/Depression Currently not on medications Discharge Exam: Filed Vitals: 01/12/24 1403 01/12/24 1404 01/12/24 1406 01/12/24 1430 BP: 124/74 124/74 128/76 132/77 Pulse: 81 79 75 81 Resp: 20 Temp: 97.7 ??F (36.5 ??C) TempSrc: SpO2: 97% 97% 96% 97% Weight: Physical Exam: Constitutional: No acute distress, Non-toxic appearance. HENT: Normocephalic, Atraumatic, Bilateral external ears normal, Nose normal. Eyes: pupils equal. EOMI, No discharge. Neck- Normal range of motion, No stridor. Respiratory: Bilaterally clear to auscultation with no rales, rhonchi, or wheezes. Good aeration. No accessory muscle use. Cardiovascular: S1, S2 present, regular rate and rhythm. No murmurs, rubs, or gallops. No pedal edema. GI: Bowel sounds normal, Soft, tender in RUQ and epigastrium. No masses, No pulsatile masses. Musculoskeletal: Intact distal pulses, No edema, No tenderness Integument: Warm, Dry, No erythema, No rash. Neurologic: Alert & oriented x 3, Cranial nerves II-XII grossly intact. Moves all extremities, No focal deficits noted. Consults: GI and general surgery Significant Diagnostic Studies: Recent Labs Lab 01/09/24211901/10/2463401/10/24202601/11/2464001/12/24614 WBC 9.80 7.66 5.91 6.66 10.39 RBC 5.07 4.78 4.88 4.98 5.27 HGB 13.4 12.5 12.6 12.7 13.8 HCT 41.3 38.4 39.7 41.0 44.8 MCV 81.5 80.3* 81.4 82.3 85.0 MCH 26.4 26.2* 25.8* 25.5* 26.2* MCHC 32.4 32.6 31.7* 31.0* 30.8* PLT 303 277 263 305 315 RDW 14.2 14.0 14.4 14.3 14.2 MPV 11.2 11.2 11.3 11.2 11.0 PERNEU 86.4* 65.8 63.0 54.2 70.7 PERLYM 8.6* 26.1 25.5 33.2 21.0 PERMON 4.2* 6.8 8.1 8.7 6.9 NEUC 8.47* 5.04 3.72 3.61 7.35 LYMC 0.84 2.00 1.51 2.21 2.18 MONOC -- 0.52 0.48 0.58 0.72 EOSC -- 0.04 0.14 0.20 0.04 BASOC -- 0.03 0.04 0.04 0.04 DTYPE -- AUTOMATED DIFFERENTIAL AUTOMATED DIFFERENTIAL AUTOMATED DIFFERENTIAL AUTOMATED DIFFERENTIAL Recent Labs Lab 11/06/24 2120 11/07/24 0635 11/07/24 2027 11/08/24 0641 11/09/24 0615 NA 138 137 -- 137 134* K 4.2 3.7 -- 3.9 3.8 CL 101 107 -- 106 108 CO2 27.9 25.3 -- 27.0 21.8 AGAP 9.1 4.7 -- 4.0 4.2 BUN 8 8 -- 7 11 CR 0.97 0.81 -- 0.83 0.68 BUNCREATININ 8.2 9.9 -- 8.5 16.2 GLU 132* 108* -- 82 93 CA 9.3 8.6 -- 8.7 8.8 TP 7.6 6.5 6.8 6.8 7.4 ALB 3.4 2.9* 3.0* 3.0* 3.2* TBIL 0.7 1.3* 0.9 1.7* 0.7 ALKP 191* 183* 190* 181* 173* AST 986* 745* 472* 291* 110* ALT 550* 647* 624* 547* 411* Recent Labs Lab 01/09/24 2210 INR 1.1 Recent Labs Lab 01/09/24 2120 TROP <4 Recent Labs Lab 01/10/24 0635 PROCT 0.39 Results for orders placed or performed during the hospital encounter of 01/09/24 Urinalysis, Auto, Complete Collection Time: 01/09/24 9:15 PM Result Value Ref Range COLOR (U) YELLOW TRANSPARENCY HAZY SPECIFIC GRAVITY (U) 1.020 1.000 - 1.030 U PH 7.5 5.0 - 9.0 LEUKOCYTES (U) NEGATIVE NEGATIVE NITRITES NEGATIVE NEGATIVE PROTEIN RANDOM (U) 1+ (A) NEGATIVE GLUCOSE (U) TRACE (A) NEGATIVE KETONES MG/DL (U) TRACE (A) NEGATIVE BILIRUBIN (U) 2+ (A) NEGATIVE BLOOD (U) NEGATIVE NEGATIVE WBC/HPF 0-5 0 - 5 /HPF RBC/HPF 10-25 0 - 5 /HPF EPI/HPF FEW /HPF Radiology Reports : SURG XR ERCP W ROMULO Result Date: 01/11/2024 [facility] [address] [place], [place] [address] Intraoperative fluoroscopic views of the ERCP History: Epigastric and right upper quadrant pain Dose: Total Dose Area Product: 6.9442 (Gycm2). Technique: Intraoperative fluoroscopy control images obtained. Findings: Submitted images demonstrate endoscopic equipment overlying the right upper quadrant of abdomen. There is cannulation of the common bile duct. Contrast opacifies commonbile duct, cystic duct, common hepatic duct, and distal intrahepatic biliary collecting system, andportions of gallbladder. Filling defects are seen within the gallbladder suggesting cholelithiasis.No convincing filling defects in the common bile duct. Impression: Fluoroscopic spot views of ERCP obtained for intraoperative control purposes and evaluated postoperatively. Referred By: KARLIE HART Electronically Signed By: Aravind Camilo MD on01/11/2024 8:40 PM Interpreted By: Aravind Camilo MD, 01/11/2024 8:39 PM MRCP Result Date: 01/11/[address] [address] Examination: MRCP. Exam Date/Time: 01/11/2024 7:20 AM [...] to count tiny gallstones. No imaging findings ofacute cholecystitis. Gallstones are dependent and cluster near the gallbladder neck. No cystic ductdilatation. Technique normal diameter of the proximal common bile duct measuring 7 mm tapering to 5mm distally. Choledocholithiasis is however suspected; tiny stone may be present in the proximal CBD (axial T2 image 21, series 5). MRCP images show possible a meniscus sign near the ampulla (T2 coron al images 65-66, series 13) that may represent a nonobstructing stone. PANCREAS: Normal. Normal size morphology. Normal homogeneous T1 hyperintense signal and enhancement. No focal finding, inflammation or pancreatic duct dilatation SPLEEN: Normal. ADRENAL GLANDS: Normal. KIDNEYS: Normal size contour and enhancement. No focal lesion, collecting system obstruction or perinephric. GASTROINTESTINAL:Normal caliber and thickness of the imaged bowel FREE FLUID: None. VASCULATURE: Normal LYMPH NODES:No abdominal retroperitoneal or mesenteric lymphadenopathy. LOWER CHEST: [...] localizing MR abnormality. 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 Technique: Grayscale and color Doppler ultrasound of the right upper quadrant was performed. Findings: Gallbladder: Intraluminal contents: Cholelithiasis. Wall thickness: 0.2 cm. This is within normallimits. Distention: Not abnormally distended. Pericholecystic fluid: No pericholecystic fluid. Sonographic Horta's sign is absent. Bile Ducts: No intrahepatic or extrahepatic ductal dilation Common bile duct diameter: 0.4 cm. Two tiny echogenic foci versus artifact seen within the common bile duct(image 91). Liver: Increased echogenicity. No focal mass. The liver measures 17.1 cm. The main portal vein is patent with appropriate direction of flow. Pancreas: Visualized portions are within normal limits. Kidneys: Right kidney measures 10.4 cm. No hydronephrosis. Fluid: None. Impression: 1. Cholelithiasis without sonographic evidence for acute cholecystitis. 2. No biliary ductal dilatation. Two tiny echogenic foci seen within the normal caliber common bile duct which may be artifactual or reflect choledocholithiasis. Correlate with LFTs and consider ERCP or MRCP if clinically indicated. 3. Hepatic steatosis. Referred By: KARLIE HART Interpreted By: Luis Rocha MD, 01/10/2024 8:16 AM CTA CHEST PE PROTOCOL Result Date: 01/09/2024 [facility] [address] [place] [address] EXAMINATION: CTA Chest with CT Abdomen and Pelvis with contrast [id number] EXAM DATE/TIME: 01/09/2024 10:11 PMREASON FOR EXAM: epigastric, RUQ pain Mid back and epigastric pain with nausea. COMPARISON: 03/19/2022 CT abdomen and pelvis TECHNIQUE: Axial CT angiographic images of the chest and axial thin sectionimages of the abdomen and pelvis are obtained following uneventful intravenous demonstration of 90 cc Isovue-370. Subsequent coronal and sagittal reformatted sequences are created for evaluation. In addition 3-D rotational MIP imaging of the thoracic arterial vasculature is created on separate workstation for review. A dose lowering technique was used for this procedure, which may include, but is not limited to, dose reduction technique, automated exposure control, iterative reconstruction, ALARA (As Low As Reasonably Achievable), or Image Gently techniques. FINDINGS: CHEST: No central pulmonary embolus. Limited evaluation for distal emboli due to bolus timing. Most of the contrast is in the right axillary and subclavian vein and SVC. Heart size upper limits normal. No pericardial effusion. Left aortic arch. Thoracic aorta normal in caliber throughout. No axillary or mediastinal lymphadenopathy. Some breathing motion artifact bilaterally. No pleural effusion or pneumothorax. No convincing airspace disease. Central airways are patent. Visualized portion of the thyroid unremarkable. Abdomen and pelvis: Liver and spleen normal in size and surface contour. No abnormal enhancing hepatic lesions. Gallbladder pancreas and adrenal glands unremarkable. Kidneys demonstrate symmetric uptake of contrast. No hydronephrosis or obstructive uropathy on either side. Abdominal aorta normal in caliber throughout. Bowel is normal in caliber. No evidence of bowel obstruction. No free fluid in the pelvis. Bladder contours are smooth. The appendix is normal. Somewhat shaggy appearance of urinary bladder surfaces. Correlation for UTI recommended. Bladder mcmahon show no convincing focal mass lesion. Bone level imaging shows no destructive osseous lesions. ===== IMPRESSION: 1. No central pulmonary embolus. Limited evaluation for distal emboli due to bolus timing. 2. No acute thoracic abnormalities. 3. Somewhat shaggy appearance of urinary bladder surfaces. Correlation for UTI recommended. Otherwise no acute abnormalities in the abdomen or pelvis. Referred By: Interpreted By: Aravind Camilo MD, 01/09/2024 10:[address] ABD+PEL W CON Result Date: 01/09/2024 [facility] [address] [place] [address] EXAMINATION: CTA Chest with CT Abdomen and Pelvis with contrast [id number] EXAM DATE/TIME: 01/09/2024 10:11 PMREASON FOR EXAM: epigastric, RUQ pain Mid back and epigastric pain with nausea. COMPARISON: 03/19/2022 CT abdomen and pelvis TECHNIQUE: Axial CT angiographic images of the chest and axial thin sectionimages of the abdomen and pelvis are obtained following uneventful intravenous demonstration of 90 cc Isovue-370. Subsequent coronal and sagittal reformatted sequences are created for evaluation. In addition 3-D rotational MIP imaging of the thoracic arterial vasculature is created on separate workstation for review. A dose lowering technique was used for this procedure, which may include, but is not limited to, dose reduction technique, automated exposure control, iterative reconstruction, ALARA (As Low As Reasonably Achievable), or Image Gently techniques. FINDINGS: CHEST: No central pulmonary embolus. Limited evaluation for distal emboli due to bolus timing. Most of the contrast is in the right axillary and subclavian vein and SVC. Heart size upper limits normal. No pericardial effusion. Left aortic arch. Thoracic aorta normal in caliber throughout. No axillary or mediastinal lymphadenopathy. Some breathing motion artifact bilaterally. No pleural effusion or pneumothorax. No convincing airspace disease. Central airways are patent. Visualized portion of the thyroid unremarkable. Abdomen and pelvis: Liver and spleen normal in size and surface contour. No abnormal enhancing hepatic lesions. Gallbladder pancreas and adrenal glands unremarkable. Kidneys demonstrate symmetric uptake of contrast. No hydronephrosis or obstructive uropathy on either side. Abdominal aorta normal in caliber throughout. Bowel is normal in caliber. No evidence of bowel obstruction. No free fluid in the pelvis. Bladder contours are smooth. The appendix is normal. Somewhat shaggy appearance of urinary bladder surfaces. Correlation for UTI recommended. Bladder mcmahon show no convincing focal mass lesion. Bone level imaging shows no destructive osseous lesions. ===== IMPRESSION: 1. No central pulmonary embolus. Limited evaluation for distal emboli due to bolus timing. 2. No acute thoracic abnormalities. 3. Somewhat shaggy appearance of urinary bladder surfaces. Correlation for UTI recommended. Otherwise no acute abnormalities in the abdomen or pelvis. Referred By: Interpreted By: Aravind Camilo MD, 01/09/2024 10:41 PM XR CHEST PORTABLE Result Date: 01/09/2024 [facility] [address] [place] [address] CLINICAL HISTORY: Chest pain COMPARISON: 11/22/2021 TECHNIQUE: AP Portable View FINDINGS: Lungs are clear. No pneumothorax or pleural effusions evident. The cardiac silhouette, mediastinal contours, and pulmonary vessels appear within normal limits. No acute osseous abnormality. IMPRESSION: No acute findings. Referred By: Interpreted By: Jimi Barron, 01/09/2024 10:08 PM Discharge Medications (This list may not be complete.): Medication List START taking these medications Morning Afternoon Evening Bedtime As Needed traMADol 50 MG tablet Commonly known as: ULTRAM Take 1 tablet (50 mg total) by mouth every 6 (six) hours as needed. Indications: Acute Pain < 3 Day Supply Last time this was given: 50 mg on January 10, 2024 8:21 PM Signed by: Lisa Bah Last time this was given: January 10, 2024 8:21 PM 1 tablet STOP taking these medications sertraline 25 MG tablet Commonly known as: ZOLOFT Disposition: Home with self care Patient Instructions: Activity: activity as tolerated Diet: Diet general Appropriate; Low Cholesterol; 2 GM NA Follow-up appointments: Surgery in 1-2 weeks Need Follow up/Monitoring on after Discharge: Surgery Follow Up Time Spent on Discharge: 40 minutes Signed: Lisa Bah PA-C Cosigned by Coreen Cotto MD at 01/13/2024 3:11 PM FUR TAILOR TAILOR TAILOR documented in this encounter Medications at Time of Discharge traMADol (ULTRAM) 50 MG tabletIndications :Acute Pain < 3 Day Supply Take 1 tablet (50 mg total) by mouth every 6 (six) hours as needed. Indications: Acute Pain < 3 Day Supply 5 tablet 01/12/2024 documented as of this encounter Progress Notes * Sravanthi King MD - 01/12/2024 6:00 PM CST Request for Documentation Clarification Margot Lora ; VISIT [id number] Query Response Sent: 01/12/24 18:54 FUR TAILOR From: Sravanthi King MD Query question: Based on medical judgment and consideration of these clinical indicators, the following condition was evaluated, monitored and/or treated during this episode of care Provider response: Morbid obesity TAILOR Original Query Sent: 01/11/24 12:30 FUR TAILOR From: Shyanne Lopez RN CDIS To: Sravanthi King MD By submitting this query, we are seeking further clarification of documentation to accurately reflect all conditions that you monitored, evaluated, treated, or that may have extended the hospitalization or utilization of additional resources for care. Chart review has indicated your clinical opinion is needed regarding the following diagnosis. Your response serves as your authenticated entry to the Legal Medical Record. The fact that a question isasked does not imply that any particular diagnosis is desired or expected. Based on medical judgment and consideration of these clinical indicators, the following condition was evaluated, monitored and/or treated during this episode of care * Overweight * Obesity * Morbid obesity * Other Clinical Information Weight - 01/10/2024 02:56 - 108.6*kg Height 5' 4 BMI 41.10 H&P by Sravanthi King at 01/10/2024 03:08 23-year-old female with no significant past medical history presents as a transfer from [facility] with abdominal pain. Patient had a baby 6 months ago. Since then she has had off-and-on abdominal pain with radiation to her ribs and her back CONSULT by Ky Santiago at 01/11/2024 10:52 IMPRESSION: Biliary colic, symptomatic cholelithiasis PLAN: 1. Robotic assisted laparoscopic cholecystectomy with ICG TAILOR * Ky Santiago MD - 01/12/2024 10:03 AM CST Images from the original note were not included. General Surgery Progress Note-[facility] Margot Tyson is an 23-year-old female. Date of Service: 01/12/2024 SUBJECTIVE: Feels okay, minimal complaints of pain OBJECTIVE: Blood pressure 89/58, pulse 82, temperature 98.2 ??F (36.8 ??C), temperature source Oral, resp. rate 22, weight 108.6 kg (239 lb 6.7 oz), SpO2 97%, not currently . Exam: Abdomen soft, mild right-sided abdominal tenderness Labs noted Labs: Recent Labs Lab 01/09/24 2120 01/09/24 2210 01/10/2463401/10/24202601/11/24 0641 01/12/24 0615 WBC 9.80 -- 7.66 5.91 6.66 10.39 HGB 13.4 -- 12.5 12.6 12.7 13.8 MCV 81.5 -- 80.3* 81.4 82.3 85.0 PLT 303 -- 277 263 305 315 INR -- 1.1 -- -- -- -- Recent Labs Lab 01/10/2463401/11/2464001/12/24 0615 NA 137 137 134* K 3.7 3.9 3.8 CL 107 106 108 CO2 25.3 27.0 21.8 BUN 8 7 11 CR 0.81 0.83 0.68 Recent Labs Lab 01/10/24202601/11/2441 01/12/24 0615 AST 472* 291* 110* ALT 624* 547* 411* TBIL 0.9 1.7* 0.7 ALB 3.0* 3.0* 3.2* Rads: No new studies IMPRESSION: Symptomatic cholelithiasis, biliary colic status post ductal clearance PLAN: 1. Robotic assisted laparoscopic cholecystectomy 2. Proceed with surgery this morning 3. Procedure reviewed, questions answered KY SANTIAGO MD 01/12/2024 TAILOR * Venita Hair RN - 01/11/2024 3:04 PM CST Problem: Pain - Acute Goal: Achieve acceptable pain level Outcome: Progressing Problem: Discharge Planning Goal: Knowledge of discharge instructions Outcome: Progressing Problem: Diarrhea Goal: Bowel elimination within specified parameters Outcome: Progressing Problem: Nausea/Vomiting Goal: Absence of nausea/vomiting Outcome: Progressing Goal: Electrolytes within specified parameters Outcome: Progressing Problem: Nutrition Deficit Goal: Adequate nutritional intake Outcome: Progressing TAILOR * Merary Heredia RN - 01/11/2024 10:54 AM CST 01/11/24 1054 Interdisciplinary Group Conference Team Members Present Case/Care management;Nursing;MARGARITA Physician present for group conference TAMI Bah Patient Current Status Paient current status Inpatient Barriers to Discharge Inpatient Review Barriers to Discharge Inpatient No Barrier- Medical Milestone in Process;Administering IV meds;TestPending Administering IV meds follow up IV Pain meds Consult delay - follow up GI/Gen sx recs Other follow up (Comment) ERCP this date, tentative lap beth tomorrow in the AM. Poss d/c over theweekend pending GI/Gen sx recs. Test Pending follow up ERCP today Patient expects to be discharged to Patient expects to be discharged to: Home or Self care no new needs (Pt plans to d/c to home with spouse and family, her friend Jaimie will be her ride home.) TAILOR * Lisa Bah PA-C - 01/11/2024 10:36 AM CST Hospitalist Daily Progress Note Subjective Ms. Tyson was seen and examined at bedside this morning. Patient is overall feeling better. Patient states she is less nauseated today, but still with abdominal discomfort. Patient denies any chestpain, shortness of breath, vomiting, or diarrhea. Patient is anxious for ERCP today. Objective Filed Vitals: 01/10/24 2009 01/11/24 0016 01/11/24 0442 01/11/24 0753 BP: 121/72 115/64 116/62 138/74 Pulse: 64 69 67 67 Resp: 20 22 13 Temp: 98.4 ??F (36.9 ??C) 98 ??F (36.7 ??C) 98.1 ??F (36.7 ??C) 97.7 ??F (36.5 ??C) TempSrc: Oral Oral Oral Oral SpO2: 98% 100% 98% 99% Weight: Intake/Output 24H Total: Intake/Output Summary (Last 24 hours) at 01/11/2024 1038 Last data filed at 01/10/2024 2100 Gross per 24 hour Intake -- Output 700 ml Net -700 ml Physical Exam: Constitutional: No acute distress, Non-toxic appearance. HENT: Normocephalic, Atraumatic, Bilateral external ears normal, Nose normal. Eyes: pupils equal. EOMI, No discharge. Neck- Normal range of motion, No stridor. Respiratory: Bilaterally clear to auscultation with no rales, rhonchi, or wheezes. Good aeration. No accessory muscle use. Cardiovascular: S1, S2 present, regular rate and rhythm. No murmurs, rubs, or gallops. No pedal edema. GI: Bowel sounds normal, Soft, tender in RUQ and epigastrium. No masses, No pulsatile masses. Musculoskeletal: Intact distal pulses, No edema, No tenderness Integument: Warm, Dry, No erythema, No rash. Neurologic: Alert & oriented x 3, Cranial nerves II-XII grossly intact. Moves all extremities, No focal deficits noted. Medications docusate sodium, HYDROmorphone, influenza, naLOXone, ondansetron, polyethylene glycol, traMADol Labs, Imaging, Other Studies Recent Labs Lab 01/09/24211901/10/24 0635 01/10/24202601/11/24 0641 WBC 9.80 7.66 5.91 6.66 RBC 5.07 4.78 4.88 4.98 HGB 13.4 12.5 12.6 12.7 HCT 41.3 38.4 39.7 41.0 MCV 81.5 80.3* 81.4 82.3 MCH 26.4 26.2* 25.8* 25.5* MCHC 32.4 32.6 31.7* 31.0* PLT 303 277 263 305 RDW 14.2 14.0 14.4 14.3 MPV 11.2 11.2 11.3 11.2 PERNEU 86.4* 65.8 63.0 54.2 PERLYM 8.6* 26.1 25.5 33.2 PERMON 4.2* 6.8 8.1 8.7 NEUC 8.47* 5.04 3.72 3.61 LYMC 0.84 2.00 1.51 2.21 MONOC -- 0.52 0.48 0.58 EOSC -- 0.04 0.14 0.20 BASOC -- 0.03 0.04 0.04 DTYPE -- AUTOMATED DIFFERENTIAL AUTOMATED DIFFERENTIAL AUTOMATED DIFFERENTIAL Recent Labs Lab 01/09/24211901/10/2463401/10/24202601/11/2441 NA 138 137 -- 137 K 4.2 3.7 -- 3.9 CL 101 107 -- 106 CO2 27.9 25.3 -- 27.0 AGAP 9.1 4.7 -- 4.0 BUN 8 8 -- 7 CR 0.97 0.81 -- 0.83 BUNCREATININ 8.2 9.9 -- 8.5 GLU 132* 108* -- 82 CA 9.3 8.6 -- 8.7 TP 7.6 6.5 6.8 6.8 ALB 3.4 2.9* 3.0* 3.0* TBIL 0.7 1.3* 0.9 1.7* ALKP 191* 183* 190* 181* AST 986* 745* 472* 291* ALT 550* 647* 624* 547* Recent Labs Lab 01/09/240 INR 1.1 Recent Labs Lab 01/09/242119 TROP <4 Recent Labs Lab 01/10/24634 PROCT 0.39 Results for orders placed or performed during the hospital encounter of 01/09/24 Urinalysis, Auto, Complete Collection Time: 01/09/24 9:15 PM Result Value Ref Range COLOR (U) YELLOW TRANSPARENCY HAZY SPECIFIC GRAVITY (U) 1.020 1.000 - 1.030 U PH 7.5 5.0 - 9.0 LEUKOCYTES (U) NEGATIVE NEGATIVE NITRITES NEGATIVE NEGATIVE PROTEIN RANDOM (U) 1+ (A) NEGATIVE GLUCOSE (U) TRACE (A) NEGATIVE KETONES MG/DL (U) TRACE (A) NEGATIVE BILIRUBIN (U) 2+ (A) NEGATIVE BLOOD (U) NEGATIVE NEGATIVE WBC/HPF 0-5 0 - 5 /HPF RBC/HPF 10-25 0 - 5 /HPF EPI/HPF FEW /HPF Imaging MRCP Result Date: 01/11/2024 [facility] [address] [place], [place] [address] Examination: MRCP. Exam Date/Time: 01/11/2024 7:20 AM [...] to count tiny gallstones. No imaging findings ofacute cholecystitis. Gallstones are dependent and cluster near the gallbladder neck. No cystic ductdilatation. Technique normal diameter of the proximal common bile duct measuring 7 mm tapering to 5mm distally. Choledocholithiasis is however suspected; tiny stone may be present in the proximal CBD (axial T2 image 21, series 5). MRCP images show possible a meniscus sign near the ampulla (T2 coron al images 65-66, series 13) that may represent a nonobstructing stone. PANCREAS: Normal. Normal size morphology. Normal homogeneous T1 hyperintense signal and enhancement. No focal finding, inflammation or pancreatic duct dilatation SPLEEN: Normal. ADRENAL GLANDS: Normal. KIDNEYS: Normal size contour and enhancement. No focal lesion, collecting system obstruction or perinephric. GASTROINTESTINAL:Normal caliber and thickness of the imaged bowel FREE FLUID: None. VASCULATURE: Normal LYMPH NODES:No abdominal retroperitoneal or mesenteric lymphadenopathy. LOWER CHEST: [...] localizing MR abnormality. Ordered By: JACQUE LIRA Electronically Signed By: Rosibel Noel MD on 48:48 AM Interpreted By: Rosibel Noel MD, 01/11/2024 8:36 AM US ABD LIMITED Result Date: 01/10/2024 [facility] [address] [place], [place] [address] Procedure: US ABD LIMITED Indication: elevated LFTs, RUQ pain Comparison: CT abdomen and pelvis 01/09/2024. Technique: Grayscale and color Doppler ultrasound of the right upper quadrant was performed. Findings: Gallbladder: Intraluminal contents: Cholelithiasis. Wall thickness: 0.2 cm. This is within normallimits. Distention: Not abnormally distended. Pericholecystic fluid: No pericholecystic fluid. Sonographic Horta's sign is absent. Bile Ducts: No intrahepatic or extrahepatic ductal dilation Common bile duct diameter: 0.4 cm. Two tiny echogenic foci versus artifact seen within the common bile duct(image 91). Liver: Increased echogenicity. No focal mass. The liver measures 17.1 cm. The main portal vein is patent with appropriate direction of flow. Pancreas: Visualized portions are within normal limits. Kidneys: Right kidney measures 10.4 cm. No hydronephrosis. Fluid: None. Impression: 1. Cholelithiasis without sonographic evidence for acute cholecystitis. 2. No biliary ductal dilatation. Two tiny echogenic foci seen within the normal caliber common bile duct which may be artifactual or reflect choledocholithiasis. Correlate with LFTs and consider ERCP or MRCP if clinically indicated. 3. Hepatic steatosis. Referred By: KARLIE HART Interpreted By: Luis Rocha MD, 01/10/2024 8:16 AM CTA CHEST PE PROTOCOL Result Date: 01/09/2024 [facility] [address] [place] [address] EXAMINATION: CTA Chest with CT Abdomen and Pelvis with contrast [id number] EXAM DATE/TIME: 01/09/2024 10:11 PMREASON FOR EXAM: epigastric, RUQ pain Mid back and epigastric pain with nausea. COMPARISON: 03/19/2022 CT abdomen and pelvis TECHNIQUE: Axial CT angiographic images of the chest and axial thin sectionimages of the abdomen and pelvis are obtained following uneventful intravenous demonstration of 90 cc Isovue-370. Subsequent coronal and sagittal reformatted sequences are created for evaluation. In addition 3-D rotational MIP imaging of the thoracic arterial vasculature is created on separate workstation for review. A dose lowering technique was used for this procedure, which may include, but is not limited to, dose reduction technique, automated exposure control, iterative reconstruction, ALARA (As Low As Reasonably Achievable), or Image Gently techniques. FINDINGS: CHEST: No central pulmonary embolus. Limited evaluation for distal emboli due to bolus timing. Most of the contrast is in the right axillary and subclavian vein and SVC. Heart size upper limits normal. No pericardial effusion. Left aortic arch. Thoracic aorta normal in caliber throughout. No axillary or mediastinal lymphadenopathy. Some breathing motion artifact bilaterally. No pleural effusion or pneumothorax. No convincing airspace disease. Central airways are patent. Visualized portion of the thyroid unremarkable. Abdomen and pelvis: Liver and spleen normal in size and surface contour. No abnormal enhancing hepatic lesions. Gallbladder pancreas and adrenal glands unremarkable. Kidneys demonstrate symmetric uptake of contrast. No hydronephrosis or obstructive uropathy on either side. Abdominal aorta normal in caliber throughout. Bowel is normal in caliber. No evidence of bowel obstruction. No free fluid in the pelvis. Bladder contours are smooth. The appendix is normal. Somewhat shaggy appearance of urinary bladder surfaces. Correlation for UTI recommended. Bladder mcmahon show no convincing focal mass lesion. Bone level imaging shows no destructive osseous lesions. ===== IMPRESSION: 1. No central pulmonary embolus. Limited evaluation for distal emboli due to bolus timing. 2. No acute thoracic abnormalities. 3. Somewhat shaggy appearance of urinary bladder surfaces. Correlation for UTI recommended. Otherwise no acute abnormalities in the abdomen or pelvis. Referred By: Interpreted By: Aravind Camilo MD, 01/09/2024 10:[address] ABD+PEL W CON Result Date: 01/09/2024 [facility] [address] [place] [address] EXAMINATION: CTA Chest with CT Abdomen and Pelvis with contrast [id number] EXAM DATE/TIME: 01/09/2024 10:11 PMREASON FOR EXAM: epigastric, RUQ pain Mid back and epigastric pain with nausea. COMPARISON: 03/19/2022 CT abdomen and pelvis TECHNIQUE: Axial CT angiographic images of the chest and axial thin sectionimages of the abdomen and pelvis are obtained following uneventful intravenous demonstration of 90 cc Isovue-370. Subsequent coronal and sagittal reformatted sequences are created for evaluation. In addition 3-D rotational MIP imaging of the thoracic arterial vasculature is created on separate workstation for review. A dose lowering technique was used for this procedure, which may include, but is not limited to, dose reduction technique, automated exposure control, iterative reconstruction, ALARA (As Low As Reasonably Achievable), or Image Gently techniques. FINDINGS: CHEST: No central pulmonary embolus. Limited evaluation for distal emboli due to bolus timing. Most of the contrast is in the right axillary and subclavian vein and SVC. Heart size upper limits normal. No pericardial effusion. Left aortic arch. Thoracic aorta normal in caliber throughout. No axillary or mediastinal lymphadenopathy. Some breathing motion artifact bilaterally. No pleural effusion or pneumothorax. No convincing airspace disease. Central airways are patent. Visualized portion of the thyroid unremarkable. Abdomen and pelvis: Liver and spleen normal in size and surface contour. No abnormal enhancing hepatic lesions. Gallbladder pancreas and adrenal glands unremarkable. Kidneys demonstrate symmetric uptake of contrast. No hydronephrosis or obstructive uropathy on either side. Abdominal aorta normal in caliber throughout. Bowel is normal in caliber. No evidence of bowel obstruction. No free fluid in the pelvis. Bladder contours are smooth. The appendix is normal. Somewhat shaggy appearance of urinary bladder surfaces. Correlation for UTI recommended. Bladder mcamhon show no convincing focal mass lesion. Bone level imaging shows no destructive osseous lesions. ===== IMPRESSION: 1. No central pulmonary embolus. Limited evaluation for distal emboli due to bolus timing. 2. No acute thoracic abnormalities. 3. Somewhat shaggy appearance of urinary bladder surfaces. Correlation for UTI recommended. Otherwise no acute abnormalities in the abdomen or pelvis. Referred By: Interpreted By: Aravind Camilo MD, 01/09/2024 10:41 PM XR CHEST PORTABLE Result Date: 01/09/2024 [facility] [address] [place] [address] CLINICAL HISTORY: Chest pain COMPARISON: 11/22/2021 TECHNIQUE: AP Portable View FINDINGS: Lungs are clear. No pneumothorax or pleural effusions evident. The cardiac silhouette, mediastinal contours, and pulmonary vessels appear within normal limits. No acute osseous abnormality. IMPRESSION: No acute findings. Referred By: Interpreted By: Jimi Barron, 01/09/2024 10:08 PM Assessment & Plan Transaminitis Biliary Colic/Symptomatic Cholelithiasis Presented with Right upper quadrant pain CT unremarkable but suspect gallstones AST 986 > 291 ALT 550 > 547 T. bili 0.7 > 1.7 Trend labs Avoid hepatotoxic agents when possible Pain Control - monitor for toxicity Anti-emetics RUQ ultrasound: cholelithiasis without evidence of acute cholecystitis GI consult appreciated MRCP - cholelithiasis with suspected non-obstructing choledocholithiasis Plan for ERCP today Surgery Consulted - appreciate recs Tentative plan for lap beth in am if needed Anxiety/Depression Currently not on medications - DVT prophylaxis: SCD - CODE:full Lisa Bah PA-C Cosigned by Jessica Umanzor MD at 01/11/2024 2:11 PM FUR TAILOR TAILOR TAILOR * Shilpi Philip RN - 01/10/2024 4:30 PM CSTSummary: progress Problem: Pain - Acute Goal: Achieve acceptable pain level Outcome: Progressing Problem: Discharge Planning Goal: Knowledge of discharge instructions Outcome: Progressing Problem: Diarrhea Goal: Bowel elimination within specified parameters Outcome: Progressing Problem: Nausea/Vomiting Goal: Absence of nausea/vomiting Outcome: Progressing Goal: Electrolytes within specified parameters Outcome: Progressing Problem: Nutrition Deficit Goal: Adequate nutritional intake Outcome: Progressing TAILOR * Merary Heredia RN - 01/10/2024 9:10 AM CST 01/10/24 0910 Referral Data Source of Information Patient Patient Information Primary Caregiver Self Current living Situation Spouse/significant other;Family members Type of Residence Private residence Support System Spouse/Significant Other;Immediate family;Friends Are you employed? [employer] Recent Hospitalization Recent Hospitalization within 30 days No Legal Information Guardianship Documentation Not applicable Baseline ADL's Functional Status Independent Behavior Oriented;Cooperative Communication Talks;Understands speaking;Understands [place] DC screening tool This is a screening tool it does not take the place of a physical or occupational therapy evaluation. The screening is to screen the patient for what services and destination would be beneficial for patient for next level of care Conversation with the patient/family Will the patient be returning to prior living situation with no new identified needs? Yes Based on the screening the DC plan for consideration is: Patient expects to be discharged to: Home or Self care no new needs Adequate Resources Available Adequate Resources Yes [place] Only - Criminal Background check [place] only - Is patient going to [facility]? No NCM performed bedside interview, verified patient's name and : Yes Support: Ismael, parents, and friend Home: Private residence, [address], pt lives with , her children, and her parents. Pt plans to return home at d/c. Ambulation: Reports independent prior to admission. DME products: Denies Medical Devices: Denies ADLs: Reports independent prior to admission. Transport Home: family/friend Skin/Bladder/Bowel: No deficits reported A/O: Patient is alert, oriented to person, place, time, and situation Communication: Patient can communicate without deficits. Home Health: Denies Occupation: [employer] Pharmacy: [facility] Financial Concerns: No financial concerns reported PCP/Insurance Plan: Pt states she sees a PCP in her mom's physician office, but does not see regularly. [facility] clinic list provided to pt, instructed to call and set up a f/u at [facility] clinic or reach out to the provider she has seen in the past. Pt voiced understanding./[place] Medicaid Discharge needs: RNCM will follow case daily and will continuously evaluate discharge needs based on recommendations and treatment course. TAILOR * Anahi Hodgson RN - 01/10/2024 5:46 AM CST Problem: Discharge Planning Goal: Knowledge of discharge instructions Outcome: Progressing Problem: Pain - Acute Goal: Achieve acceptable pain level Outcome: Met This Shift Problem: Diarrhea Goal: Bowel elimination within specified parameters Outcome: Met This Shift Problem: Nausea/Vomiting Goal: Absence of nausea/vomiting Outcome: Met This Shift TAILOR documented in this encounter H&P Notes * Sravanthi King MD - 01/10/2024 2:57 AM CST ATTENDING: SRAVANTHI KING MD PRIMARY CARE PROVIDER: Yuridia Garcia MD CC: Abdominal pain HPI: Patient seen and evaluated by this provider. History obtained via chart review, discussion with ER physician, patient, and review of outside records from ER records. Margot Tyson is a 23-year-old female with no significant past medical history presents as a transfer from [facility] with abdominal pain. Patient had a baby 6 months ago. Since then she has had off-and-on abdominal pain with radiation to her ribs and her back. This is sharp and intense. It comes and goes randomly. Today she had another attack and then had some nausea and vomiting andloose stools. She was unable to tolerate p.o. The pain was severe. No fevers, chills, blood or mucus in the stool, dysuria etc. She is not breast-feeding. She came to the ER and was found to have an AST of 986 and ALT of 550. She denies taking Tylenol. She is not a heavy drinker. CT scan was grossly unremarkable but she was transferred here for GI evaluation and right upper quadrant ultrasound. Allergy Allergies Allergen Reactions Penicillins Rash Medication list No medications prior to admission. No current facility-administered medications on file prior to encounter. Current Outpatient Medications on File Prior to Encounter Medication Sig Dispense Refill oxyCODONE immediate release (ROXICODONE) 5 MG immediate release tablet Take 1 tablet (5 mg total) by mouth every 6 (six) hours as needed. Indications: Acute Pain < 3 Day Supply 8 split tab 0 sertraline (ZOLOFT) 25 MG tablet Take 1 tablet (25 mg total) by mouth daily. Past Medical History Past Medical History: Diagnosis Date Anxiety disorder, unspecified Depression Gestational diabetes (HHS/HCC) Past Surgical History: Procedure Laterality Date SECTION PPH and needed blood transfusion Social History Social History Socioeconomic History Marital status: Single Tobacco Use Smoking status: Never Smokeless tobacco: Never Vaping Use Vaping status: Every Day Substances: Nicotine Substance and Sexual Activity Alcohol use: Yes Comment: socially Drug use: Yes Types: Marijuana Sexual activity: Yes Partners: Male Family History Family History Family history unknown: Yes ROS: A 10 point review of systems was taken and pertinent positives and negatives as per HPI. All othersnegative save as noted in HPI. PHYSICAL EXAM: No intake or output data in the 24 hours ending 01/10/24 0018 No data found. Intake/Output :[id number]@ Constitutional: No acute distress, Non-toxic appearance. HENT: Normocephalic, Atraumatic, Bilateral external ears normal, Nose normal. Eyes: pupils equal. EOMI, No discharge. Neck- Normal range of motion, No stridor. Respiratory: Bilaterally clear to auscultation with no rales, rhonchi, or wheezes. Good aeration. No accessory muscle use. Cardiovascular: S1, S2 present, regular rate and rhythm. No murmurs, rubs, or gallops. No pedal edema. GI: Bowel sounds normal, Soft, tender in RUQ and epigastrium. No masses, No pulsatile masses. Musculoskeletal: Intact distal pulses, No edema, No tenderness Integument: Warm, Dry, No erythema, No rash. Neurologic: Alert & oriented x 3, Cranial nerves II-XII grossly intact. Moves all extremities, No focal deficits noted. Psychiatric: Affect normal, Judgment normal, Mood normal Labs: Recent Labs Lab 01/09/242119 WBC 9.80 RBC 5.07 HGB 13.4 HCT 41.3 MCV 81.5 MCH 26.4 MCHC 32.4 PLT 303 RDW 14.2 MPV 11.2 PERNEU 86.4* PERLYM 8.6* PERMON 4.2* NEUC 8.47* LYMC 0.84 Recent Labs Lab 01/09/242119 NA 138 K 4.2 CL 101 CO2 27.9 AGAP 9.1 BUN 8 CR 0.97 BUNCREATININ 8.2 GLU 132* CA 9.3 TP 7.6 ALB 3.4 TBIL 0.7 ALKP 191* AST 986* ALT 550* No results for input(s): CHOL , TRI , HDL , LDL , HGBA1C , TSH in the last 168 hours. Recent Labs Lab 01/09/24 221 INR 1.1 Recent Labs Lab 01/09/242119 TROP <4 No results for input(s): LACTICACID , PROCT in the last 168 hours. No results for input(s): PH , PCO2 , PO2 , [id number] , BICARBWB , BASEDEFICIT , BASEEXCESS in the last 168 hours. Results for orders placed or performed during the hospital encounter of 01/09/24 Urinalysis, Auto, Complete Collection Time: 01/09/24 9:15 PM Result Value Ref Range COLOR (U) YELLOW TRANSPARENCY HAZY SPECIFIC GRAVITY (U) 1.020 1.000 - 1.030 U PH 7.5 5.0 - 9.0 LEUKOCYTES (U) NEGATIVE NEGATIVE NITRITES NEGATIVE NEGATIVE PROTEIN RANDOM (U) 1+ (A) NEGATIVE GLUCOSE (U) TRACE (A) NEGATIVE KETONES MG/DL (U) TRACE (A) NEGATIVE BILIRUBIN (U) 2+ (A) NEGATIVE BLOOD (U) NEGATIVE NEGATIVE WBC/HPF 0-5 0 - 5 /HPF RBC/HPF 10-25 0 - 5 /HPF EPI/HPF FEW /HPF Imagining & Other Studies See official reports for full details CXR 01/09/24 No acute findings. CTA chest/ CT abd/pelvis 01/09/24 1. No central pulmonary embolus. Limited evaluation for distal emboli due to bolus timing. 2. No acute thoracic abnormalities. 3. Somewhat shaggy appearance of urinary bladder surfaces. Correlation for UTI recommended. Otherwise no acute abnormalities in the abdomen or pelvis. Assessment & Plan Margot Tyson is a 23-year-old female with PMH of anxiety, depression, gestational diabetes, is being admitted for transaminitis. I am concerned patient will clinically deteriorate withouthospitalization and intervention as described below. I will admit to provide appropriate level of ca re and treatment to patient as well as continued evaluation. Transaminitis Right upper quadrant pain CT unremarkable but suspect gallstones AST 986 ALT 550 T. bili 0.7 Trend labs Avoid hepatotoxic agents when possible RUQ ultrasound pending GI consult appreciated N.p.o. May need surgical consultation pending above IV narcotics- monitor for toxicity Anxiety/depression Resume home meds once clarified - DVT prophylaxis: SCD - Diet : npo -IVF: hold for now given national shortage - CODE:full The above plan of care was discussed with the patient in detail. An opportunity was provided for the patient/MPoA to ask questions regarding the hospital stay and plan of care. All questions were answered. The patient/MPoA understands and agrees. The patient was informed to ask the RN to contact meif any further questions or concerns. I have seen and examined the patient independently and anticipate patient will require a 3-4 day stay This note was dictated with the use of [employer] dictation software and was proofread to the best of my ability. If you have questions or find errors, please contact me via clinical communications. Thank you. SRAVANTHI KING MD 01/10/2024 12:18 AM TAILOR documented in this encounter Consult Notes * Ky Santiago MD - 01/11/2024 10:49 AM CSTAssociated Order(s): IP CONSULT TO GENERAL SURGERY Images from the original note were not included. General Surgery Consultation Note-[facility] Margot PERKINS Jah 23-year-old female Date of Service: 01/11/2024 CHIEF COMPLAINT: Epigastric and right upper quadrant pain HPI: Patient is a pleasant 5 foot 4 inch 239 pound 23-year-old female who presented with biliary colic and hyperbilirubinemia with imaging ultimately demonstrating persistent choledocholithiasis. Patient experiences epigastric and right upper quadrant pain with dietary indiscretion. Gastroenterology is planning ERCP and surgery has been consulted for definitive management with cholecystectomy. I reviewed the digital images of the CT scan and MRI that has been performed. I discussed the case with the hospitalist service. PMH: Past Medical History: Diagnosis Date Anxiety disorder, unspecified Depression Gestational diabetes (HHS/HCC) PSH: Past Surgical History: Procedure Laterality Date SECTION PPH and needed blood transfusion for first ALL: Allergies Allergen Reactions Penicillins Rash MEDS: Current: Prior to Admission medications Medication Sig Start Date End Date Taking? Authorizing Provider sertraline (ZOLOFT) 25 MG tablet Take 1 tablet (25 mg total) by mouth daily. Default History Genericprovider Social History Socioeconomic History Marital status: Single Tobacco Use Smoking status: Never Smokeless tobacco: Never Vaping Use Vaping status: Every Day Substances: Nicotine Substance and Sexual Activity Alcohol use: Yes Comment: socially Drug use: Yes Types: Marijuana Sexual activity: Yes Partners: Male Family History Family history unknown: Yes REVIEW OF SYSTEMS: 12 system review is negative aside from that mentioned in the HPI and PMH/PSH. PHYSICAL EXAM: Patient Vitals for the past 24 hrs: BP Temp Temp src Pulse Resp SpO2 01/11/24 0753 138/74 97.7 ??F (36.5 ??C) Oral 67 13 99 % 01/11/24 0442 116/62 98.1 ??F (36.7 ??C) Oral 67 -- 98 % 01/11/24 0016 115/64 98 ??F (36.7 ??C) Oral 69 22 100 % 01/10/24 2009 121/72 98.4 ??F (36.9 ??C) Oral 64 20 98 % 01/10/24 1511 122/70 97.7 ??F (36.5 ??C) Oral 82 13 96 % 01/10/24 1146 117/77 98 ??F (36.7 ??C) -- 77 -- 97 % SKIN: No obvious lesions, masses or rash HEENT: NC/AT, PERRLA, EOMI, Neck Supple CHEST: CTA HEART: RRR ABDOMEN: Mild right upper quadrant tenderness to palpation EXT: WNL, No clubbing, cyanosis or edema NEURO: No Focal Deficit, CN II-XII intact LYMPHATICS: No palpable lymphadenopathy BREAST: Deferred RECTAL: Deferred LABS: I reviewed the recent laboratories and pertinent values were noted. Recent Labs Lab 01/09/24211901/10/24 0635 01/10/24202601/11/24 0641 WBC 9.80 7.66 5.91 6.66 RBC 5.07 4.78 4.88 4.98 HGB 13.4 12.5 12.6 12.7 HCT 41.3 38.4 39.7 41.0 NA 138 137 -- 137 K 4.2 3.7 -- 3.9 CL 101 107 -- 106 CO2 27.9 25.3 -- 27.0 AGAP 9.1 4.7 -- 4.0 BUN 8 8 -- 7 CR 0.97 0.81 -- 0.83 BUNCREATININ 8.2 9.9 -- 8.5 GLU 132* 108* -- 82 CA 9.3 8.6 -- 8.7 TP 7.6 6.5 6.8 6.8 ALB 3.4 2.9* 3.0* 3.0* TBIL 0.7 1.3* 0.9 1.7* ALKP 191* 183* 190* 181* AST 986* 745* 472* 291* ALT 550* 647* 624* 547* LIPASE 27 19 22 22 IMAGING: I reviewed the digital images of the patient's imaging studies. Radiology Results (Last 30 days) 01/11/24 0740 MRCP Final result Impression: Impression: 1. Cholelithiasis with too numerous to [...] By: Rosibel Noel MD, 01/11/2024 8:36 AM 01/10/24 0806 US ABD LIMITED Final result Impression: Impression: 1. Cholelithiasis without sonographic evidence for acute cholecystitis. 2. No biliary ductal dilatation. Two tiny echogenic foci seen within the normal caliber common bile duct which may be artifactual or reflect choledocholithiasis. Correlate with LFTs and consider ERCP or MRCP if clinically indicated. 3. Hepatic steatosis. Referred By: KARLIE HART Interpreted By: Luis Rocha MD, 01/10/2024 8:16 AM 01/09/248 CTA CHEST PE PROTOCOL Final result Impression: IMPRESSION: 1. No central pulmonary embolus. Limited evaluation for distal emboli due to bolus timing. 2. No acute thoracic abnormalities. 3. Somewhat shaggy appearance of urinary bladder surfaces. Correlation for UTI recommended. Otherwise no acute abnormalities in the abdomen or pelvis. Referred By: Interpreted By: Aravind Camilo MD, 01/09/2024 10:41 PM 01/09/[address] ABD+PEL W CON Final result Impression: IMPRESSION: 1. No central pulmonary embolus. Limited evaluation for distal emboli due to bolus timing. 2. No acute thoracic abnormalities. 3. Somewhat shaggy appearance of urinary bladder surfaces. Correlation for UTI recommended. Otherwise no acute abnormalities in the abdomen or pelvis. Referred By: Interpreted By: Aravind Camilo MD, 01/09/2024 10:41 PM 01/09/24 2153 XR CHEST PORTABLE Final result Impression: IMPRESSION: No acute findings. Referred By: Interpreted By: Jimi Barron, 01/09/2024 10:08 PM IMPRESSION: Biliary colic, symptomatic cholelithiasis PLAN: 1. Robotic assisted laparoscopic cholecystectomy with ICG 2. Risks and benefits of the procedure including risk of bleeding, infection, general anesthesia, potential for conversion to the open procedure, postoperative convalescence and cosmesis, potential injury to surrounding organs including biliary ducts, liver, bowels or vasculature was discussed. Patient realizes that additional surgery may be necessary, either immediate or delayed, possibly through different incisions, with possible transfer to a tertiary center for complicated reconstructions if indicated. Patient understands the rationale for the treatment plan outlined above and is willing to proceed. 3. Will follow-up with ERCP results later today KY SANTIAGO MD 01/11/2024 TAILOR * Jacque Lira MD - 01/10/2024 7:37 PM CSTAssociated Order(s): IP CONSULT TO GASTROENTEROLOGY Gastroenterology Consultation Note Consulting Provider: JACQUE LIRA MD Attending Provider: Philippe Solomon PA-C, who requested the consultation PCP: Yuridia Garcia MD GI: Reason for Consult: Transaminitis HPI: The patient is a 23-year-old female 6 months post- transferred today from [facility] where she presented yesterday with abdominal pain, nausea, vomiting and diarrhea suspected to be from cholelithiasis complicated by choledocholithiasis. Her intermittent abdominal pain began 6 months ago, 1 week , and occur every 3 to 4 weeksunpredictably. The pain is in the upper abdomen, sharp, intense, and radiates bilaterally around toher mid back. Most recently, it began a couple of days ago and peaked yesterday around 10 AM while fasting. She vomited yesterday before work and at work, at [facility] and here around 10 AM and 2 PM. Though usually regular, she has had brown diarrhea for the last couple of days. Her urine is dark. She is currently feeling much better. She denies taking Tylenol or any new medication. She is not a heavy drinker. She last drink coffee 2 days ago. She has had heartburn since her first 4 years ago. She is not breast-feeding. Past Medical History: Diagnosis Date Anxiety disorder, unspecified Depression Gestational diabetes ([facility]/HCC) Past Surgical History: Procedure Laterality Date SECTION PPH and needed blood transfusion for first No current facility-administered medications on file prior to encounter. Current Outpatient Medications on File Prior to Encounter Medication Sig sertraline (ZOLOFT) 25 MG tablet Take 1 tablet (25 mg total) by mouth daily. Current Facility-Administered Medications: docusate sodium (COLACE) capsule 100 mg, 100 mg, Oral, BID PRN, Sravanthi King MD HYDROmorphone (DILAUDID) injection 0.5 mg, 0.5 mg, Intravenous, Q2H PRN, Sravanthi King MD, 0.5 mg at 01/10/24 1155 influenza vaccine (FLUZONE) injection 0.5 mL, 0.5 mL, Intramuscular, Prior to discharge, Sravanthi King MD naLOXone (NARCAN) injection 0.4 mg, 0.4 mg, Intravenous, PRN, Sravanthi King MD ondansetron (ZOFRAN) injection 4 mg, 4 mg, Intravenous, Q6H PRN, Philippe Solomon PA-C, 4 mg at 01/10/24 1006 polyethylene glycol (GLYCOLAX) packet 17 g, 17 g, Oral, Daily PRN, Sravanthi King MD Allergies: Allergies Allergen Reactions Penicillins Rash Social History Tobacco Use Smoking status: Never Smokeless tobacco: Never Substance Use Topics Alcohol use: Yes Comment: socially Lives with her , parents and children (4-year-old and 6-month-old daughters). 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 Vapes nicotine. Smokes 1 pipe bowls worth of marijuana daily. Does not smoke cigarettes. Occasionally drinks alcohol, last having ingested 2-3 drinks 1 week ago. Family History Family history unknown: Yes Father had cholecystectomy in his 30s. Other paternal relatives had gallbladder disease, as well. Mother had schizophrenia, bipolar disease and drug addiction. 2 sisters and 2 children are healthy. Review of Systems Headache beginning today. Cold sores erupting yesterday morning. All systems are otherwise negative beyond that already described. Physical Examination Vitals: 01/10/24 1511 BP: 122/70 Pulse: 82 Resp: 13 Temp: 97.7 ??F (36.5 ??C) SpO2: 96% General: Alert and calm. Skin: Normal turgor. Aphthous ulcers along lower lip. No telangiectasia, palmar erythema, on exposed surfaces. Tattooed. HEENT: Normocephalic and atraumatic. Frontal and maxillary sinuses non-tender. Sclera anicteric, conjunctiva clear. External ears and hearing grossly intact bilaterally. Nares intact without discharge. Lips intact, mouth moist and tongue uncoated. Neck: Supple, trachea midline. Chest: Non-tender and without deformity. Back: Tender thoracic spine. Nontender cervical and lumbar spine. Nontender costovertebral angles. Lungs: Respirations unlabored. Clear to auscultation bilaterally. Heart: Regular rate and rhythm, S1 and S2 normal, without murmur. Abdomen: Obese. Bowel sounds present. Soft. Tender RUQ>epigastric>LLQ. Decreased tenderness of RUQ with abdominal wall flexion. No appreciable mass or organomegaly. Extremities: Warm, without edema or cyanosis. Neurologic: Extra-ocular muscles coordinated bilaterally, speaking clearly and moving all extremities. Psychiatric: Cooperative, with normal mood and affect. Labs: Recent Labs Lab 01/09/24211901/10/24 0635 WBC 9.80 7.66 RBC 5.07 4.78 HGB 13.4 12.5 HCT 41.3 38.4 MCV 81.5 80.3* MCH 26.4 26.2* MCHC 32.4 32.6 PLT 303 277 RDW 14.2 14.0 MPV 11.2 11.2 PERNEU 86.4* 65.8 PERLYM 8.6* 26.1 PERMON 4.2* 6.8 NEUC 8.47* 5.04 LYMC 0.84 2.00 MONOC -- 0.52 EOSC -- 0.04 BASOC -- 0.03 DTYPE -- AUTOMATED DIFFERENTIAL Recent Labs Lab 01/09/24211901/10/24 0635 NA 138 137 K 4.2 3.7 CL 101 107 CO2 27.9 25.3 AGAP 9.1 4.7 BUN 8 8 CR 0.97 0.81 BUNCREATININ 8.2 9.9 GLU 132* 108* CA 9.3 8.6 TP 7.6 6.5 ALB 3.4 2.9* TBIL 0.7 1.3* ALKP 191* 183* AST 986* 745* ALT 550* 647* Recent Labs Lab 01/09/24 2210 INR 1.1 LIPASE Date Value Ref Range Status 01/10/2024 19 13 - 75 UNITS/L Final 01/09/2024 27 16 - 77 UNITS/L Final 09/23/2021 132 73 - 393 UNITS/L Final Radiology: US ABD LIMITED Result Date: 01/10/2024 [facility] [address] [place], [place] [address] Procedure: US ABD LIMITED Indication: elevated LFTs, RUQ pain Comparison: CT abdomen and pelvis 01/09/2024. Technique: Grayscale and color Doppler ultrasound of the right upper quadrant was performed. Findings: Gallbladder: Intraluminal contents: Cholelithiasis. Wall thickness: 0.2 cm. This is within normallimits. Distention: Not abnormally distended. Pericholecystic fluid: No pericholecystic fluid. Sonographic Horta's sign is absent. Bile Ducts: No intrahepatic or extrahepatic ductal dilation Common bile duct diameter: 0.4 cm. Two tiny echogenic foci versus artifact seen within the common bile duct(image 91). Liver: Increased echogenicity. No focal mass. The liver measures 17.1 cm. The main portal vein is patent with appropriate direction of flow. Pancreas: Visualized portions are within normal limits. Kidneys: Right kidney measures 10.4 cm. No hydronephrosis. Fluid: None. Impression: 1. Cholelithiasis without sonographic evidence for acute cholecystitis. 2. No biliary ductal dilatation. Two tiny echogenic foci seen within the normal caliber common bile duct which may be artifactual or reflect choledocholithiasis. Correlate with LFTs and consider ERCP or MRCP if clinically indicated. 3. Hepatic steatosis. Referred By: KARLIE HART Interpreted By: Luis Rocha MD, 01/10/2024 8:16 AM CTA CHEST PE PROTOCOL Result Date: 01/09/2024 [facility] [address] [place] [address] EXAMINATION: CTA Chest with CT Abdomen and Pelvis with contrast [id number] EXAM DATE/TIME: 01/09/2024 10:11 PMREASON FOR EXAM: epigastric, RUQ pain Mid back and epigastric pain with nausea. COMPARISON: 03/19/2022 CT abdomen and pelvis TECHNIQUE: Axial CT angiographic images of the chest and axial thin sectionimages of the abdomen and pelvis are obtained following uneventful intravenous demonstration of 90 cc Isovue-370. Subsequent coronal and sagittal reformatted sequences are created for evaluation. In addition 3-D rotational MIP imaging of the thoracic arterial vasculature is created on separate workstation for review. A dose lowering technique was used for this procedure, which may include, but is not limited to, dose reduction technique, automated exposure control, iterative reconstruction, ALARA (As Low As Reasonably Achievable), or Image Gently techniques. FINDINGS: CHEST: No central pulmonary embolus. Limited evaluation for distal emboli due to bolus timing. Most of the contrast is in the right axillary and subclavian vein and SVC. Heart size upper limits normal. No pericardial effusion. Left aortic arch. Thoracic aorta normal in caliber throughout. No axillary or mediastinal lymphadenopathy. Some breathing motion artifact bilaterally. No pleural effusion or pneumothorax. No convincing airspace disease. Central airways are patent. Visualized portion of the thyroid unremarkable. Abdomen and pelvis: Liver and spleen normal in size and surface contour. No abnormal enhancing hepatic lesions. Gallbladder pancreas and adrenal glands unremarkable. Kidneys demonstrate symmetric uptake of contrast. No hydronephrosis or obstructive uropathy on either side. Abdominal aorta normal in caliber throughout. Bowel is normal in caliber. No evidence of bowel obstruction. No free fluid in the pelvis. Bladder contours are smooth. The appendix is normal. Somewhat shaggy appearance of urinary bladder surfaces. Correlation for UTI recommended. Bladder mcmahon show no convincing focal mass les ion. Bone level imaging shows no destructive osseous lesions. ===== IMPRESSION: 1. No central pulmonary embolus. Limited evaluation for distal emboli due to bolus timing. 2. No acute thoracic abnormalities. 3. Somewhat shaggy appearance of urinary bladder surfaces. Correlation for UTI recommended. Otherwise no acute abnormalities in the abdomen or pelvis. Referred By: Interpreted By: Aravind Camilo MD, 01/09/2024 10:[address] ABD+PEL W CON Result Date: 01/09/2024 [facility] [address] [place] [address] EXAMINATION: CTA Chest with CT Abdomen and Pelvis with contrast [id number] EXAM DATE/TIME: 01/09/2024 10:11 PMREASON FOR EXAM: epigastric, RUQ pain Mid back and epigastric pain with nausea. COMPARISON: 03/19/2022 CT abdomen and pelvis TECHNIQUE: Axial CT angiographic images of the chest and axial thin sectionimages of the abdomen and pelvis are obtained following uneventful intravenous demonstration of 90 cc Isovue-370. Subsequent coronal and sagittal reformatted sequences are created for evaluation. In addition 3-D rotational MIP imaging of the thoracic arterial vasculature is created on separate workstation for review. A dose lowering technique was used for this procedure, which may include, but is not limited to, dose reduction technique, automated exposure control, iterative reconstruction, ALARA (As Low As Reasonably Achievable), or Image Gently techniques. FINDINGS: CHEST: No central pulmonary embolus. Limited evaluation for distal emboli due to bolus timing. Most of the contrast is in the right axillary and subclavian vein and SVC. Heart size upper limits normal. No pericardial effusion. Left aortic arch. Thoracic aorta normal in caliber throughout. No axillary or mediastinal lymphadenopathy. Some breathing motion artifact bilaterally. No pleural effusion or pneumothorax. No convincing airspace disease. Central airways are patent. Visualized portion of the thyroid unremarkable. Abdomen and pelvis: Liver and spleen normal in size and surface contour. No abnormal enhancing hepatic lesions. Gallbladder pancreas and adrenal glands unremarkable. Kidneys demonstrate symmetric uptake of contrast. No hydronephrosis or obstructive uropathy on either side. Abdominal aorta normal in caliber throughout. Bowel is normal in caliber. No evidence of bowel obstruction. No free fluid in the pelvis. Bladder contours are smooth. The appendix is normal. Somewhat shaggy appearance of urinary bladder surfaces. Correlation for UTI recommended. Bladder mcmahon show no convincing focal mass lesion. Bone level imaging shows no destructive osseous lesions. ===== IMPRESSION: 1. No central pulmonary embolus. Limited evaluation for distal emboli due to bolus timing. 2. No acute thoracic abnormalities. 3. Somewhat shaggy appearance of urinary bladder surfaces. Correlation for UTI recommended. Otherwise no acute abnormalities in the abdomen or pelvis. Referred By: Interpreted By: Aravind Camilo MD, 01/09/2024 10:41 PM XR CHEST PORTABLE Result Date: 01/09/2024 [facility] [address] [address] CLINICAL HISTORY: Chest pain COMPARISON: 11/22/2021 TECHNIQUE: AP Portable View FINDINGS: Lungs are clear. No pneumothorax or pleural effusions evident. The cardiac silhouette, mediastinal contours, and pulmonary vessels appear withinnormal limits. No acute osseous abnormality. IMPRESSION: No acute findings. Referred By: Interpreted By: Jimi Barron, 01/09/2024 10:08 PM ECG 12 lead Result Date: 01/09/2024 [facility] Test Date: 2024-01-09 Pat Name: MARGOT TYSON Department: 85 Room: EXAM 101 Gender: Female Engineer Assistant: : 2000 Requested By: KARLIE HART OrderNumber: [id number] Reading MD: Measurements Intervals Mina Rate: 68 P: 26 NH: 143 QRS: 44 QRSD: 82 T: 26 QT: 375 QTc: 399 Interpretive Statements SINUS RHYTHM WITH SINUS ARRHYTHMIA Compared to ECG 08/11/2022 22:47:49 No significant changes Assessment: Cholelithiasis. Probable choledocholithiasis given the CBD diameter twice what would be expected for age (though still normal ) and cholestatic hepatitis (though transaminases are higher than would be typical for obstruction). Chronic GERD. Probable caffeine withdrawal headache. Recommendations: Offer coffee now. Order MRCP. Anticipate EGD/ERCP with biliary sphincterotomy and common bile duct clearance tomorrow. JACQUE LIRA MD 01/10/2024 TAILOR documented in this encounter Nursing Notes * Samantha Teran RN - 01/12/2024 10:51 AM CSTSummary: OR NURSING NOTE 1025 Warm blankets applied to patient upon entering OR -Patient did not want any family/friends updated during surgery or at end by Dr Santiago. Said she would call her when back on the floor. TAILOR * Sunni Shearer RN - 01/11/2024 6:45 AM CST To MRI via wheelchair. TAILOR documented in this encounter OR Notes * Op Note - Ky Santiago MD - 01/12/2024 11:20 AM CST Images from the original note were not included. General Surgery Operative Report-[facility] Margot Tyson is an 23-year-old female. Date of Operation: 01/12/2024 Preoperative diagnosis: Symptomatic cholelithiasis, biliary colic Postoperative diagnosis: Same Procedure: Robotic assisted laparoscopic cholecystectomy with ICG Anesthesia: General Assistants: [employer] Manager: ADA Arnett Circulating Nurse 1: Samantha Teran RN Scrub Person 1: Whit Gonzales, CIRCULAR SAWYER STONE Estimated blood loss: 5 cc Brief history: Please refer to the patients preoperative history and physical Operative procedure: After proper informed consent was obtained, the patient was taken to the operating room and placed in the supine position. The patient was prepped and draped in the usual sterilefashion with special attention to the abdomen. After appropriate timeout proceedings were undertaken in the right mid abdomen at about the hide of the umbilicus through the anesthetized skin and subcutaneous tissues an 8 mm incision was made and the 8 mm robotic Visiport trocar using the 0 degree 5mm scope was inserted without difficulty under direct vision without injury to intra-abdominal contents. Pneumoperitoneum was obtained in the usual manner and 2 additional 8 mm robotic trocars were placed in the left mid abdomen and right lower quadrant under direct vision without injury to intra-abdominal contents. The patient was placed in reverse Trendelenburg and rotated to the left to facilitate right upper quadrant robotic surgery. The robotic patient cart was brought over the patient anddocked to the anticipated camera trocar. The camera was inserted and targeting was performed. Otherarms were then docked and instruments inserted under direct vision without injury to intra-abdominal contents. I broke scrub and was seated at the robotic console. The gallbladder was retracted in ananterior lateral direction. Adhesions to the gallbladder from the omentum were carefully lysed withelectrocautery until the cystic plate was visualized. We carefully dissected out the cystic plate an teriorly and posteriorly until the structures of the cystic artery and cystic duct were clearly visualized. Within the hepatocystic triangle was the cystic artery which was cauterized over its entirevisualized length with the bipolar electrocautery and divided near the gallbladder with excellent hemostasis. We then skeletonized further the cystic duct. The anterior and posterior critical views were obtained signifying the gallbladder is only connection to the main biliary tree to be that identified as the cystic duct. ICG injected preoperatively and the firefly camera settings were instrumental in identifying the venetie anatomy and ensuring that there were no aberrant ducts and that the cystic duct was well-visualized. 2 clips were placed on the patient's side of the cystic duct and 1 onthe gallbladder side before dividing the duct with a cut setting electrocautery with no spillage. The gallbladder was then carefully removed from the liver bed using electrocautery with no spillage and very hemostatic. The gallbladder was then placed on the dome of the liver and we carefully checked the gallbladder fossa as well as the cauterized artery. There was excellent hemostasis with no evidence of bleeding. The clips were checked on the cystic duct stump and found to be intact with no evidence of bile leak. The gallbladder was then placed into an Endo Catch bag and removed from the left mid abdominal incision with minimal fascial dilatation. The robotic arms were undocked after removing the instruments safely and the pneumoperitoneum was actively removed using the air seal device before removing the trocars. Trocars were then removed and the patient was flattened. Incisions were closed with a 4- 0 Monocryl in a subcuticular stitch and all 3 incisions. Dermabond was placed on all3 incisions. Instrument, sponge and needle counts were correct at the end of the case. There were no complications. The patient was transported stable to the recovery room. At the patient's request no family was contacted following the operation. KY SANTIAGO MD 01/12/2024 TAILOR * Op Note - Jacque Lira MD - 01/11/2024 12:34 PM CST ENDOSCOPY REPORT Exam date: 01/11/24 Patient name: Margot Tyson date: 2000 MR#: [id number] Status: Inpatient Surgeon: JACQUE LIRA MD Assistants: GI Nurse: Karina Copeland, ERIKA; Nemo Hagen, ERIKA; Gwyn Dennison, ERIKA dish maker: Sukhjinder Rouse; Cleopatra Hendrix ASA Class: II Estimated Blood Loss: Minimal Complications: The patient tolerated the procedures well, with no immediate complication. Preoperative diagnoses: Cholelithiasis choledocholithiasis Cholestatic hepatitis Epigastric and right upper quadrant upper abdominal pain Nausea and vomiting Probable acute gastroparesis Postoperative diagnoses: Mild nonspecific gastropathy, likely stress-induced Choledocholithiasis Patent cystic duct Cholelithiasis Sedation and additional medication: General anesthesia Indomethacin 100 mg per rectum administered between EGD and ERCP Procedures: Esophagogastroduodenoscopy (EGD) Endoscopic retrograde cholangiopancreatography (ERCP) with biliary sphincterotomy and common bile duct stone extraction Specimens: None Consent: The patient was informed of the alternatives, benefits and risks of the procedure, including acute pancreatitis, bleeding, infection, perforation, medication side effect and missed lesion. The patient provided written informed consent. Description of EGD: After elective endotracheal intubation, the patient was placed in the prone position. The Olympus video high definition series 190 adult gastroscope was advanced under direct visualization throughoutthe lumen of the hypopharynx, esophagus, stomach and duodenum to the third portion. Retroflexion was performed in the stomach. Findings: The anterior portion of the vocal cords adjacent to the endotracheal tube appeared normal. The esophagus appeared normal. The gastroesophageal junction was smooth, located 40 cm distal to the gum-line, without appreciablehiatal hernia. The gastric lumen contained 100 cc of slightly yellow clear fluid. Mild patchy erythema was noted in the gastric body. The pylorus appeared normal. The major papilla was prominent. The duodenal lumen was empty, without visible bile. Description of ERCP: The patient remained in the prone position. Findings: The minor papilla was not identified. The major papilla was prominent. When cannulated, the guidewire repeatedly followed a trajectory consistent with the pancreatic duct, ultimately confirmed with injection of contrast revealing a normal pancreatic duct approximately 2 mm wide. When unable to opacify or cannulate the common bile duct, the guidewire was left in the pancreatic duct. The contrast in the pancreatic duct drained rapidly. The sphincterotome was removed, loaded with a new guidewire, reinserted and advanced adjacent to the pancreatic guidewire. The guidewire within the sphincterotome was then advanced in a trajectory consistent with the common bile duct, confirmed with injection of contrast. A bloodless 10 mm long biliary sphincterotomy was created using ErbB endocut current, after which clear yellow bile spontaneously emerged, along with a faceted 3 mm wide gallstone. Opacification of the biliary tree revealed a 5 mm wide common bile duct and common hepatic duct, normal intrahepatic ducts, a patent cystic duct and a gallbladder filled with small stones too numerous to count. Several sweeps of the common hepatic duct and common bile duct expressed no additional stone. Partial drainage of the biliary tree was confirmed endoscopically and fluoroscopically. Impression: Choledocholithiasis, cleared. Recommendations: Offer a clear liquid diet without red-colored items. If tolerated and in the absence of nausea or significant upper abdominal pain, offer a solid low-fat diet without red-colored items at 7 PM tonight. N.p.o. after midnight. Check CBC and CMP in the morning. Anticipate cholecystectomy tomorrow. Avoid anticoagulation, including prophylactic subcutaneous heparin, for the next 72 hours to decrease the risk of post sphincterotomy hemorrhage unless the clinical indication outweighs this risk without alternative. JACQUE LIRA MD Date: 01/11/2024 TAILOR documented in this encounter Plan of Treatment Not on file documented as of this encounter Procedures Procedure Name Priority Date/Time Associated Diagnosis Comments POCT GLUCOSE - CANNON DOCKED DEVICE Routine 01/12/2024 10:03 AM FUR TAILOR COMPREHENSIVE METABOLIC PANEL Routine 01/12/2024 6:15 AM FUR TAILOR CBC W/DIFF AUTOMATED Routine 01/12/2024 6:15 AM FUR TAILOR PATHOLOGY Routine 01/12/2024 12:00 AM FUR TAILOR SURG XR ERCP W ROMULO Routine 01/11/2024 12:43 PM FUR TAILOR EGD 01/11/2024 11:19 AM FUR TAILOR Calculus of bile duct without cholecystitis with obstruction Special Needs Start with EGD. Anticipate administering indomethacin. ERCP,SPHINCTEROTOMY 01/11/2024 11:19 AM FUR TAILOR Calculus of bile duct without cholecystitis with obstruction Special Needs Start with EGD. Anticipate administering indomethacin. MRCP STAT 01/11/2024 7:40 AM FUR TAILOR COMPREHENSIVE METABOLIC PANEL Routine 01/11/2024 6:41 AM FUR TAILOR CBC W/DIFF AUTOMATED Routine 01/11/2024 6:41 AM FUR TAILOR LIPASE Routine 01/11/2024 6:41 AM FUR TAILOR HEPATIC FUNCTION PANEL STAT 01/10/2024 8:27 PM FUR TAILOR CBC W/DIFF AUTOMATED STAT 01/10/2024 8:27 PM FUR TAILOR LIPASE STAT 01/10/2024 8:27 PM FUR TAILOR US ABD LIMITED Today 01/10/2024 8:06 AM FUR TAILOR PROCALCITONIN (PCT) Routine 01/10/2024 6:35 AM FUR TAILOR COMPREHENSIVE METABOLIC PANEL Routine 01/10/2024 6:35 AM FUR TAILOR CHORIONIC GONADOTROPIN HCG QL Routine 01/10/2024 6:35 AM FUR TAILOR CBC W/DIFF AUTOMATED Routine 01/10/2024 6:35 AM FUR TAILOR LIPASE Routine 01/10/2024 6:35 AM FUR TAILOR documented in this encounter Results * POCT glucose (01/12/2024 10:03 AM FUR TAILOR) GLUCOSE POC 82 70 - 99 mg/dL 01/12/2024 10:04 AM FUR TAILOR [facility] 01/12/2024 10:0 3 AM FUR TAILOR us Lisa Bah PA-C POCT ORDERABLES - DEVICE Deisy figueroa Result [facility] [address] [place] [address], [place] [phone] * (ABNORMAL) COMPREHENSIVE METABOLIC PANEL (01/12/2024 6:15 AM FUR TAILOR) [facility] GLUCOSE 93 70 - 99 MG/DL 01/12/2024 6:54 AM [facility] BUN 11 7 - 18 MG/DL 01/12/2024 6:54 AM [facility] CREATININE S/P/B 0.68 0.55 - 1.02 MG/DL 01/12/2024 6:54 AM [facility] SODIUM S/P/B 134(L) 136 - 145 MMOL/L 01/12/2024 6:54 AM [facility] POTASSIUM S/P/B 3.8 3.5 - 5.1 MMOL/L 01/12/2024 6:54 AM [facility] CHLORIDE S/P/B 108 97 - 115 MMOL/L 01/12/2024 6:54 AM [facility] CO2 21.8 21 - 32 MMOL/L 01/12/2024 6:54 AM [facility] CALCIUM S/P/B 8.8 8.5 - 10.1 MG/DL 01/12/2024 6:54 AM [facility] BILIRUBIN TOTAL S/P/B 0.7 0.2 - 1.2 MG/DL 01/12/2024 6:54 AM [facility] Comment: THIS ASSAY IS NOT RECOMMENDED FOR PATIENTS UNDERGOING TREATMENT WITH ELTROMBOPAG DUE TO THE POTENTIAL FOR FALSELY ELEVATED RESULTS. TOTAL PROTEIN S/P/B 7.4 6.4 - 8.2 G/DL 01/12/2024 6:54 AM [facility] ALBUMIN S/P/B 3.2(L) 3.4 - 5.0 G/DL 01/12/2024 6:54 AM [facility] AST 110(H) 15 - 37 U/L 01/12/2024 6:54 AM [facility] ALT 411(H) 14 - 55 U/L 01/12/2024 6:54 AM [facility] ALKALINE PHOSPHATASE S/P/B 173(H) 50 - 136 U/L 01/12/2024 6:54 AM [facility] ANION GAP 4.2 2 - 10 MMOL/L 01/12/2024 6:54 AM [facility] BUN CREATININE RATIO 16.2 6 - 26 01/12/2024 6:54 AM [facility] A/G RATIO 0.8(L) 1.0 - 2.0 RATIO 01/12/2024 6:54 AM [facility] GFR ESTIMATE >90 >90 ML/MIN/1.7 3 M2 01/12/2024 6:54 AM [facility] Comment: NOTE: eGFR is not calculated for patients <18 years of age or gender unknown. This is an estimated GFR calculation using the new CKD EPI creatinine equation without race and so does not require a correction factor for race. This estimated GFR should not be used for calculating drug doses. 01/12/2024 6:15 AM FUR TAILOR Philippe Solomon PA-C LABORATORY Final Result [facility] [address] [place] [address], * (ABNORMAL) CBC W/DIFF AUTOMATED (01/12/2024 6:15 AM FUR TAILOR) WBC 10.39 4.5 - 11.0 x10'3/uL 01/12/2024 6:35 AM [facility] RBC 5.27 4.20 - 5.40 x10'6/uL 01/12/2024 6:35 AM [facility] HGB 13.8 12.0 - 16.0 G/DL 01/12/2024 6:35 AM [facility] HCT 44.8 38.0 - 48.0 % 01/12/2024 6:35 AM [facility] MCV 85.0 81.0 - 99.0 FL 01/12/2024 6:35 AM [facility] MCH 26.2(L) 27.0 - 31.0 PG 01/12/2024 6:35 AM [facility] MCHC 30.8(L) 32.0 - 36.0 G/DL 01/12/2024 6:35 AM [facility] RDW 14.2 11.5 - 14.5 % 01/12/2024 6:35 AM [facility] PLT 315 130 - 400 x10'3/uL 01/12/2024 6:35 AM [facility] MPV 11.0 9.3 - 12.2 FL 01/12/2024 6:35 AM [facility] DIFFERENTIAL TYPE AUTOMATED DIFFERENTIAL 01/12/2024 6:35 AM [facility] NEUTROPHILS % 70.7 % 01/12/2024 6:35 AM [facility] LYMPHOCYTES % 21.0 % 01/12/2024 6:35 AM [facility] MONOCYTES % 6.9 % 01/12/2024 6:35 AM [facility] EOSINOPHILS 0.4 % 01/12/2024 6:35 AM [facility] BASOPHILS 0.4 % 01/12/2024 6:35 AM [facility] IMMATURE GRANS % 0.6 % 01/12/20 6:35 AM [facility] ABS. NEUTROPHILS 7.35 1.80 - 7.70 x10'3/uL 01/12/2024 6:35 AM FUR TAILOR [facility] ABS. LYMPHOCYTES 2.18 1.00 - 4.80 x10'3/uL 01/12/2024 6:35 AM FUR TAILOR [facility] ABS. MONOCYTES 0.72 0.24 - 0.86 x10'3/uL 01/12/2024 6:35 AM FUR TAILOR [facility] ABS. EOSINOPHILS 0.04 0.04 - 0.36 x10'3/uL 01/12/2024 6:35 AM FUR TAILOR [facility] ABS. BASOPHILS 0.04 0.01 - 0.08 x10'3/uL 01/12/2024 6:35 AM FUR TAILOR [facility] ABS. IMMATURE GRANULOCYTES 0.06 0.00 - 0.49 x10'3/uL 01/12/2024 6:35 AM [facility] 01/12/2024 6:15 AM FUR TAILOR Philippe Solomon PA-C LABORATORY Final Result [facility] [address] [place] [id number], * Pathology (01/12/2024 12:00 AM FUR TAILOR) PATHOLOGY [facility] ? Department of Laboratory Medicine ?[address] ?[place] [address] ? , extension [phone] ? Pathology Report ? Surgical Pathology Report Name: MARGOT TYSON ? Specimen #: [id number] Age: 1 2000 (Age: 23) ? Location: [address] Sex: F ?Procedure Date: 01/12/2024 Hospital #: [id number] ?Date Received: 01/14/2024 Date Reported: 01/15/2024 Provider: [...] gallbladder mcmahon a thickness of 0.3 cm. ??Program Proposals Coordinator tissue to include the cystic duct margin is submitted in cassette 1. Gross examination (when applicable), interpretation, and sign out were performed at [facility], [address], [place] [address]. FINAL DIAGNOSIS: Gallbladder, cholecystectomy: ? -Chronic cholecystitis and cholelithiasis. Electronically Signed Out ? ALVIN PHAM MD [facility] TISSUE GALLBLADDER STRUCTURE / Unknown 01/12/2024 11:02 AM FUR TAILOR us Ky Santiago MD PATHOLOGY/CYTOLOGY ORDERA BLES Final Result [facility] [address] [place] [address], [id number] * SURG XR ERCP W ROMULO (01/11/2024 12:43 PM FUR TAILOR) Anatomical Region Laterality Modality Abdomen Radiographic Nayla ging 01/11/2024 8:39 PM FUR TAILOR Impressions 01/11/2024 8:40 PM FUR TAILOR Impression: Fluoroscopic spot views of ERCP obtained for intraoperative control purposes and evaluated postoperatively. Referred By: KARLIE HART Interpreted By: Aravind Camilo MD, 01/11/2024 8:39 PM Narrative 01/11/2024 8:40 PM FUR TAILOR [place] [address] Intraoperative fluoroscopic views of the ERCP History: [...] Procedure Note Aravind Camilo MD - 01/11/2024 [facility] [address] [place], [place] [address] Intraoperative fluoroscopic views of the ERCP History: [...] purposes and evaluated postoperatively. Referred By: KARLIE HART Interpreted By: Aravind Camilo MD, 01/11/2024 8:39 PM us Jacque Lira MD IMAGES ONLY Final Result * MRCP (01/11/2024 7:40 AM FUR TAILOR) Anatomical Region Laterality Modality Abdomen Magnetic Resonan ce 01/11/2024 8:36 AM FUR TAILOR Impressions 01/11/2024 8:48 AM FUR TAILOR Impression: 1. Cholelithiasis with too numerous to [...] 01/11/2024 8:36 AM Narrative 01/11/2024 8:48 AM FUR TAILOR [address] [address] Examination: MRCP. Exam Date/Time: 01/11/2024 7:20 AM [...] Procedure Note Rosibel Noel MD - 01/11/2024 [facility] [address] [place], [place] [address] Examination: MRCP. Exam Date/Time: 01/11/2024 7:20 AM [...] PANCREAS: Normal. Normal size morphology. Normal homogeneous [id number] signal and enhancement. No focal finding, inflammation [...] Rosibel Noel MD, 01/11/2024 8:36 AM us aJcque Lira MD MRI Final Result * (ABNORMAL) COMPREHENSIVE METABOLIC PANEL (01/11/2024 6:41 AM FUR TAILOR) GLUCOSE 82 70 - 99 MG/DL 01/11/2024 8:05 AM [facility] BUN 7 7 - 18 MG/DL 01/11/2024 8:05 AM [facility] CREATININE S/P/B 0.83 0.55 - 1.02 MG/DL 01/11/2024 8:05 AM [facility] SODIUM S/P/B 137 136 - 145 MMOL/L 01/11/2024 8:05 AM [facility] POTASSIUM S/P/B 3.9 3.5 - 5.1 MMOL/L 01/11/2024 8:05 AM [facility] CHLORIDE S/P/B 106 97 - 115 MMOL/L 01/11/2024 8:05 AM [facility] CO2 27.0 21 - 32 MMOL/L 01/11/2024 8:05 AM [facility] CALCIUM S/P/B 8.7 8.5 - 10.1 MG/DL 01/11/2024 8:05 AM [facility] BILIRUBIN TOTAL S/P/B 1.7(H) 0.2 - 1.2 MG/DL 01/11/2024 8:05 AM [facility] Comment: THIS ASSAY IS NOT RECOMMENDED FOR PATIENTS UNDERGOING TREATMENT WITH ELTROMBOPAG DUE TO THE POTENTIAL FOR FALSELY ELEVATED RESULTS. TOTAL PROTEIN S/P/B 6.8 6.4 - 8.2 G/DL 01/11/2024 8:05 AM [facility] ALBUMIN S/P/B 3.0(L) 3.4 - 5.0 G/DL 01/11/2024 8:05 AM [facility] AST 291(H) 15 - 37 U/L 01/11/2024 8:05 AM [facility] ALT 547(H) 14 - 55 U/L 01/11/2024 8:05 AM [facility] ALKALINE PHOSPHATASE S/P/B 181(H) 50 - 136 U/L 01/11/2024 8:05 AM [facility] ANION GAP 4.0 2 - 10 MMOL/L 01/11/2024 8:05 AM [facility] BUN CREATININE RATIO 8.5 6 - 26 01/11/2024 8:05 AM [facility] A/G RATIO 0.8(L) 1.0 - 2.0 RATIO 01/11/2024 8:05 AM [facility] GFR ESTIMATE >90 >90 ML/MIN/1.7 3 M2 01/11/2024 8:05 AM [facility] Comment: NOTE: eGFR is not calculated for patients <18 years of age or gender unknown. This is an estimated GFR calculation using the new CKD EPI creatinine equation without race and so does not require a correction factor for race. This estimated GFR should not be used for calculating drug doses. 01/11/2024 6:41 AM FUR TAILOR Philippe Solomon PA-C LABORATORY Final Result [facility] [address] [place] [address], [place] [phone] * (ABNORMAL) CBC W/DIFF AUTOMATED (01/11/2024 6:41 AM FUR TAILOR) [facility] WBC 6.66 4.5 - 11.0 x10'3/uL 01/11/2024 7:47 AM FUR TAILOR [facility] RBC 4.98 4.20 - 5.40 x10'6/uL 01/11/2024 7:47 AM [facility] HGB 12.7 12.0 - 16.0 G/DL 01/11/2024 7:47 AM [facility] HCT 41.0 38.0 - 48.0 % 01/11/2024 7:47 AM [facility] MCV 82.3 81.0 - 99.0 FL 01/11/2024 7:47 AM [facility] MCH 25.5(L) 27.0 - 31.0 PG 01/11/2024 7:47 AM [facility] MCHC 31.0(L) 32.0 - 36.0 G/DL 01/11/2024 7:47 AM FUR TAILOR [facility] RDW 14.3 11.5 - 14.5 % 01/11/2024 7:47 AM [facility] PLT 305 130 - 400 x10'3/uL 01/11/2024 7:47 AM [facility] MPV 11.2 9.3 - 12.2 FL 01/11/2024 7:47 AM [facility] DIFFERENTIAL TYPE AUTOMATED DIFFERENTIAL 01/11/2024 7:47 AM FUR TAILOR [facility] NEUTROPHILS % 54.2 % 01/11/2024 7:47 AM FUR TAILOR [facility] LYMPHOCYTES % 33.2 % 01/11/2024 7:47 AM [facility] MONOCYTES % 8.7 % 01/11/2024 7:47 AM FUR TAILOR [facility] EOSINOPHILS 3.0 % 01/11/2024 7:47 AM FUR TAILOR [facility] BASOPHILS 0.6 % 01/11/2024 7:47 AM FUR TAILOR [facility] IMMATURE GRANS % 0.3 % 01/11/20 7:47 AM FUR TAILOR [facility] ABS. NEUTROPHILS 3.61 1.80 - 7.70 x10'3/uL 01/11/2024 7:47 AM FUR TAILOR [facility] ABS. LYMPHOCYTES 2.21 1.00 - 4.80 x10'3/uL 01/11/2024 7:47 AM FUR TAILOR [facility] ABS. MONOCYTES 0.58 0.24 - 0.86 x10'3/uL 01/11/2024 7:47 AM FUR TAILOR [facility] ABS. EOSINOPHILS 0.20 0.04 - 0.36 x10'3/uL 01/11/2024 7:47 AM FUR TAILOR [facility] ABS. BASOPHILS 0.04 0.01 - 0.08 x10'3/uL 01/11/2024 7:47 AM FUR TAILOR [facility] ABS. IMMATURE GRANULOCYTES 0.02 0.00 - 0.49 x10'3/uL 01/11/2024 7:47 AM [facility] 01/11/2024 6:41 AM FUR TAILOR us Philippe Solomon PA-C LABORATORY Final Result [facility] [address] [place] [address], [place] [phone] * LIPASE (01/11/2024 6:41 AM FUR TAILOR) LIPASE 22 13 - 75 UNITS/L 01/11/2024 8:05 AM FUR TAILOR [facility] 01/11/2024 6:41 AM FUR TAILOR us Jacque Lira MD LABORATORY Final Result [facility] [address] [place] [address], [place] [phone] * LIPASE (01/10/2024 8:27 PM FUR TAILOR) LIPASE 22 13 - 75 UNITS/L 01/10/2024 9:12 PM FUR TAILOR [facility] 01/10/2024 8:27 PM FUR TAILOR us Jacque Lira MD LABORATORY Final Result [facility] [address] [place] [address], [place] [phone] * (ABNORMAL) CBC W/DIFF AUTOMATED (01/10/2024 8:27 PM FUR TAILOR) WBC 5.91 4.5 - 11.0 x10'3/uL 01/10/2024 8:51 PM FUR TAILOR [facility] RBC 4.88 4.20 - 5.40 x10'6/uL 01/10/2024 8:51 PM FUR TAILOR [facility] HGB 12.6 12.0 - 16.0 G/DL 01/10/2024 8:51 PM FUR TAILOR [facility] HCT 39.7 38.0 - 48.0 % 01/10/2024 8:51 PM [facility] MCV 81.4 81.0 - 99.0 FL 01/10/2024 8:51 PM [facility] MCH 25.8(L) 27.0 - 31.0 PG 01/10/2024 8:51 PM [facility] MCHC 31.7(L) 32.0 - 36.0 G/DL 01/10/2024 8:51 PM [facility] RDW 14.4 11.5 - 14.5 % 01/10/2024 8:51 PM [facility] PLT 263 130 - 400 x10'3/uL 01/10/2024 8:51 PM [facility] MPV 11.3 9.3 - 12.2 FL 01/10/2024 8:51 PM [facility] DIFFERENTIAL TYPE AUTOMATED DIFFERENTIAL 01/10/2024 8:51 PM [facility] NEUTROPHILS % 63.0 % 01/10/2024 8:51 PM [facility] LYMPHOCYTES % 25.5 % 01/10/2024 8:51 PM [facility] MONOCYTES % 8.1 % 01/10/2024 8:51 PM [facility] EOSINOPHILS 2.4 % 01/10/2024 8:51 PM [facility] BASOPHILS 0.7 % 01/10/2024 8:51 PM [facility] IMMATURE GRANS % 0.3 % 01/10/20 8:51 PM [facility] ABS. NEUTROPHILS 3.72 1.80 - 7.70 x10'3/uL 01/10/2024 8:51 PM FUR TAILOR [facility] ABS. LYMPHOCYTES 1.51 1.00 - 4.80 x10'3/uL 01/10/2024 8:51 PM FUR TAILOR [facility] ABS. MONOCYTES 0.48 0.24 - 0.86 x10'3/uL 01/10/2024 8:51 PM FUR TAILOR [facility] ABS. EOSINOPHILS 0.14 0.04 - 0.36 x10'3/uL 01/10/2024 8:51 PM FUR TAILOR [facility] ABS. BASOPHILS 0.04 0.01 - 0.08 x10'3/uL 01/10/2024 8:51 PM FUR TAILOR [facility] ABS. IMMATURE GRANULOCYTES 0.02 0.00 - 0.49 x10'3/uL 01/10/2024 8:51 PM FUR TAILOR [facility] 01/10/2024 8:27 PM FUR TAILOR us Jacque Lira MD LABORATORY Final Result [facility] [address] [place] [address], * (ABNORMAL) HEPATIC FUNCTION PANEL (01/10/2024 8:27 PM FUR TAILOR) TOTAL PROTEIN S/P/B 6.8 6.4 - 8.2 G/DL 01/10/2024 9:12 PM FUR TAILOR [facility] ALBUMIN S/P/B 3.0(L) 3.4 - 5.0 G/DL 01/10/2024 9:12 PM FUR TAILOR [facility] BILIRUBIN TOTAL S/P/B 0.9 0.2 - 1.2 MG/DL 01/10/2024 9:12 PM FUR TAILOR [facility] Comment: THIS ASSAY IS NOT RECOMMENDED FOR PATIENTS UNDERGOING TREATMENT WITH ELTROMBOPAG DUE TO THE POTENTIAL FOR FALSELY ELEVATED RESULTS. BILIRUBIN DIRECT S/P/B 0.4(H) 0.0 - 0.20 MG/DL 01/10/2024 9:12 PM FUR TAILOR [facility] BILIRUBIN INDIRECT S/P/B 0.5 0.0 - 0.9 MG/DL 01/10/2024 9:12 PM FUR TAILOR [facility] ALKALINE PHOSPHATASE S/P/B 190(H) 50 - 136 U/L 01/10/2024 9:12 PM FUR TAILOR [facility] AST 472(H) 15 - 37 U/L 01/10/2024 9:12 PM FUR TAILOR [facility] ALT 624(H) 14 - 55 U/L 01/10/2024 9:12 PM FUR TAILOR [facility] A/G RATIO 0.8(L) 1.0 - 2.0 RATIO 01/10/2024 9:12 PM FUR TAILOR [facility] 01/10/2024 8:27 PM FUR TAILOR us Jacque Lira MD LABORATORY Final Result [facility] [address] [place] [address], [place] [phone] * US ABD LIMITED (01/10/2024 8:06 AM FUR TAILOR) Anatomical Region Laterality Modality Abdomen Ultrasound 01/10/2024 8:16 AM FUR TAILOR Impressions 01/10/2024 8:20 AM FUR TAILOR Impression: 1. ??Cholelithiasis without sonographic evidence for acute cholecystitis. 2. ??No biliary ductal dilatation. ??Two tiny echogenic foci seen within the normal caliber common bile duct which may be artifactual or reflect choledocholithiasis. ??Correlate with LFTs and consider ERCP or MRCP if clinically indicated. 3. ??Hepatic steatosis. Referred By: KARLIE HART Interpreted By: Luis Rocha MD, 01/10/2024 8:16 AM Narrative 01/10/2024 8:20 AM FUR TAILOR [address] [address] Procedure: US ABD LIMITED Indication: elevated LFTs, [...] Procedure Note Luis Rocha MD - 01/10/[address] [address] Procedure: US ABD LIMITED Indication: elevated LFTs, [...] indicated. 3. Hepatic steatosis. Referred By: KARLIE HART Interpreted By: Luis Rocha MD, 01/10/2024 8:16 AM Sravanthi King MD ULTRASOUND Final Re sult * PREG TEST SERUM (HCG QUALITATIVE) (01/10/2024 6:35 AM FUR TAILOR) PREG SCREEN-SERUM NEGATIVE 01/10/2024 9:00 AM FUR TAILOR [facility] 01/10/2024 6:35 AM FUR TAILOR us Jacque Lira MD LABORATORY Final Result Performing Organization Address [facility] Co de Phone Number [facility] [address] [place] [address], [place] [phone] * LIPASE (01/10/2024 6:35 AM FUR TAILOR) LIPASE 19 13 - 75 UNITS/L 01/10/2024 9:46 AM FUR TAILOR [facility] 01/10/2024 6:35 AM FUR TAILOR us Jacque Lira MD LABORATORY Final Result Performing Organization Address [facility]/ZIP Co de Phone Number [facility] [address] [place] [address], [place] [phone] * PROCALCITONIN (PCT) (01/10/2024 6:35 AM FUR TAILOR) [facility] Procalcitonin 0.39 0.00 - 0.49 NG/ML 01/10/2024 8:52 AM FUR TAILOR [facility] 01/10/2024 6:35 AM FUR TAILOR Sravanthi King MD LABORATORY Final Re sult [facility] [address] [place] [address], [place] [phone] * (ABNORMAL) COMPREHENSIVE METABOLIC PANEL (01/10/2024 6:35 AM FUR TAILOR) [facility] GLUCOSE 108(H) 70 - 99 MG/DL 01/10/2024 7:06 AM [facility] BUN 8 7 - 18 MG/DL 01/10/2024 7:06 AM [facility] CREATININE S/P/B 0.81 0.55 - 1.02 MG/DL 01/10/2024 7:06 AM [facility] SODIUM S/P/B 137 136 - 145 MMOL/L 01/10/2024 7:06 AM [facility] POTASSIUM S/P/B 3.7 3.5 - 5.1 MMOL/L 01/10/2024 7:06 AM [facility] CHLORIDE S/P/B 107 97 - 115 MMOL/L 01/10/2024 7:06 AM [facility] CO2 25.3 21 - 32 MMOL/L 01/10/2024 7:06 AM [facility] CALCIUM S/P/B 8.6 8.5 - 10.1 MG/DL 01/10/2024 7:06 AM [facility] BILIRUBIN TOTAL S/P/B 1.3(H) 0.2 - 1.2 MG/DL 01/10/2024 7:06 AM [facility] Comment: THIS ASSAY IS NOT RECOMMENDED FOR PATIENTS UNDERGOING TREATMENT WITH ELTROMBOPAG DUE TO THE POTENTIAL FOR FALSELY ELEVATED RESULTS. TOTAL PROTEIN S/P/B 6.5 6.4 - 8.2 G/DL 01/10/2024 7:06 AM [facility] ALBUMIN S/P/B 2.9(L) 3.4 - 5.0 G/DL 01/10/2024 7:06 AM [facility] AST 745(H) 15 - 37 U/L 01/10/2024 7:06 AM [facility] ALT 647(H) 14 - 55 U/L 01/10/2024 7:06 AM [facility] ALKALINE PHOSPHATASE S/P/B 183(H) 50 - 136 U/L 01/10/2024 7:06 AM [facility] ANION GAP 4.7 2 - 10 MMOL/L 01/10/2024 7:06 AM [facility] BUN CREATININE RATIO 9.9 6 - 26 01/10/2024 7:06 AM [facility] A/G RATIO 0.8(L) 1.0 - 2.0 RATIO 01/10/2024 7:06 AM [facility] GFR ESTIMATE >90 >90 ML/MIN/1.7 3 M2 01/10/2024 7:06 AM [facility] Comment: NOTE: eGFR is not calculated for patients <18 years of age or gender unknown. This is an estimated GFR calculation using the new CKD EPI creatinine equation without race and so does not require a correction factor for race. This estimated GFR should not be used for calculating drug doses. 01/10/2024 6:35 AM [facility] Sravanthi King MD LABORATORY Final Re sult [facility] [address] [place] [address], * (ABNORMAL) CBC W/DIFF AUTOMATED (01/10/2024 6:35 AM [facility]) WBC 7.66 4.5 - 11.0 x10'3/uL 01/10/2024 6:47 AM [facility] RBC 4.78 4.20 - 5.40 x10'6/uL 01/10/2024 6:47 AM [facility] HGB 12.5 12.0 - 16.0 G/DL 01/10/2024 6:47 AM [facility] HCT 38.4 38.0 - 48.0 % 01/10/2024 6:47 AM [facility] MCV 80.3(L) 81.0 - 99.0 FL 01/10/2024 6:47 AM [facility] MCH 26.2(L) 27.0 - 31.0 PG 01/10/2024 6:47 AM [facility] MCHC 32.6 32.0 - 36.0 G/DL 01/10/2024 6:47 AM [facility] RDW 14.0 11.5 - 14.5 % 01/10/2024 6:47 AM [facility] PLT 277 130 - 400 x10'3/uL 01/10/2024 6:47 AM [facility] MPV 11.2 9.3 - 12.2 FL 01/10/2024 6:47 AM [facility] DIFFERENTIAL TYPE AUTOMATED DIFFERENTIAL 01/10/2024 6:47 AM [facility] NEUTROPHILS % 65.8 % 01/10/2024 6:47 AM [facility] LYMPHOCYTES % 26.1 % 01/10/2024 6:47 AM [facility] MONOCYTES % 6.8 % 01/10/2024 6:47 AM [facility] EOSINOPHILS 0.5 % 01/10/2024 6:47 AM [facility] BASOPHILS 0.4 % 01/10/2024 6:47 AM [facility] IMMATURE GRANS % 0.4 % 01/10/20 6:47 AM [facility] ABS. NEUTROPHILS 5.04 1.80 - 7.70 x10'3/uL 01/10/2024 6:47 AM [facility] ABS. LYMPHOCYTES 2.00 1.00 - 4.80 x10'3/uL 01/10/2024 6:47 AM [facility]. MONOCYTES 0.52 0.24 - 0.86 x10'3/uL 01/10/2024 6:47 AM [facility]. EOSINOPHILS 0.04 0.04 - 0.36 x10'3/uL 01/10/2024 6:47 AM [facility]. BASOPHILS 0.03 0.01 - 0.08 x10'3/uL 01/10/2024 6:47 AM [facility]. IMMATURE GRANULOCYTES 0.03 0.00 - 0.49 x10'3/uL 01/10/2024 6:47 AM [facility] 01/10/2024 6:35 AM FUR TAILOR Sravanthi King MD LABORATORY Final Re sult [facility] [address] [place] [address], [place] [phone] documented in this encounter Visit Diagnoses Diagnosis Transaminitis- Primary Nonspecific elevation of levels of transaminase or lactic acid dehydrogenase (LDH) Transaminitis Nonspecific elevation of levels of transaminase or lactic acid dehydrogenase (LDH) Calculus of bile duct without cholecystitis with obstruction Calculus of bile duct without cholecystitis with obstruction Calculus of bile duct without cholecystitis with obstruction documented in this encounter Admitting Diagnoses Diagnosis Transaminitis Nonspecific elevation of levels of transaminase or lactic acid dehydrogenase (LDH) Calculus of bile duct without cholecystitis with obstruction documented in this encounter Administered Medications Inactive Administered Medications - up to 3 most recent administrations Medication Order MAR Action Action Date Dose Rate Site docusate sodium (COLACE) capsule 100 mg 100 mg, Oral, 2 times daily PRN, Constipation, Starting on Candis 01/10/24 at 0250, Until 01/12/24 at 2010 HYDROmorphone (DILAUDID) injection 0.5 mg 0.5 mg, Intravenous, Every 2 hours PRN, Severe pain (Scale 8 - 10), Starting on Candis 01/10/24 at 0250, Until 01/12/24 at 2010, Administer slowly over at least 2-3 minutes. Given 01/10/2024 11:55 AM FUR TAILOR 0.5 mg Given 01/10/2024 6:30 AM FUR TAILOR 0.5 mg indomethacin (INDOCIN) supppository As needed, Starting on Sun01/11/24 at 1156, Until Sun01/11/24 at 1240, Intra-Op Given 01/11/2024 11:56 AM FUR TAILOR 100 mg iopamidol (ISOVUE-300) 61 % 50 mL in sodium chloride 0.9 % 50 mL contrast solution As needed, Starting on Sun01/11/24 at 1258, Until Sun01/11/24 at 1258, Intra-Op Given 01/11/2024 12:00 PM FUR TAILOR 11 mLs lactated ringers infusion at 10 mL/hr, Intravenous, Continuous, Starting on Sun01/11/24 at 1930, Until 01/12/24 at 2010, Not to be given to patients with end stage renal disease or dialysis. Infuse at TKO rate, Pre-Op naLOXone (NARCAN) injection 0.4 mg 0.4 mg, Intravenous, As needed, Opioid reversal, Starting on Candis 01/10/24 at 0250, Until 01/12/24 at 2010 ondansetron (ZOFRAN) injection 4 mg 4 mg, Intravenous, Every 6 hours PRN, Nausea, Starting on Candis 01/10/24 at 1000, Until 01/12/24 at 2010, IV push over 2-5 minutes. Given 01/10/2024 9:07 PM FUR TAILOR 4 mg Given 01/10/2024 10:06 AM FUR TAILOR 4 mg polyethylene glycol (GLYCOLAX) packet 17 g 17 g, Oral, Daily as needed, Constipation, Starting on Candis 01/10/24 at 0250, Until 01/12/24 at 2010 traMADol (ULTRAM) tablet 50 mg 50 mg, Oral, Every 6 hours PRN, Moderate pain (Scale 4 - 7), Headache, Starting on Candis 01/10/24 at 1948, Until 01/12/24 at 2010 Given 01/10/2024 8:21 PM FUR TAILOR 5 0 mg documented in this encounter Active and Recently Administered Medications Times are shown in FUR TAILOR. Scheduled Medication Order 01/10/2024 01/11/2024 01/12/2024 indocyanine green (IC-GREEN) injection 2.5 mg (COMPLETED) 2.5 mg, Intravenous, Once, 1 dose, On 01/12/24 at 0900, Please make sure medication is on the floor to add be administered by floor nurse 0911 (Given - Provid er: Kymberly Zapien RN) Continuous Medication Order 01/10/2024 01/11/2024 01/12/2024 lactated ringers infusion at 10 mL/hr, Intravenous, Continuous, Starting on Sun01/11/24 at 1930, Until 01/12/24 at 2010, Not to be given to patients with end stage renal disease or dialysis. Infuse at TKO rate, Pre-Op 1930 (Canceled Entry - Provi desiree: Automatic Discharge Provider - Comment: Automatically canceled at discontinue of medication order) PRN Medication Order 01/10/2024 01/11/2024 01/12/2024 BUpivacaine-EPINEPHrine 0.25% -1: injection (CANCELED) As needed, Starting on 01/12/24 at 1045, Until 01/12/24 at 1128, Intra-Op 1045 (Given - Provider: Ky Santiago MD) diphenhydrAMINE (BENADRYL) injection 25 mg (COMPLETED) 25 mg, Intravenous, Once as needed, Itching, 1 dose, Starting on 01/12/24 at 1129, Until 01/12/24 at 1137, For IV administration, give no faster than 25 mg/min., PACU 1137 (Given - Provider: Nelida Yan RN) docusate sodium (COLACE) capsule 100 mg 100 mg, Oral, 2 times daily PRN, Constipation, Starting on Candis 01/10/24 at 0250, Until 01/12/24 at 2010 1025 ([facility] Hold - Provider: User [employer] - Reason: Unreviewed Transfer Orders)1130 (MAR Unhold - Provider: User [employer]) HYDROmorphone (DILAUDID) injection 0.4 mg (CANCELED) 0.4 mg, Intravenous, Every 15 min PRN, Severe pain (Scale 8 - 10), 5 doses, Starting on 01/12/24 at 1129, Until 01/12/24 at 1209, Maximum cumulative dose 2 mg. Do not administer if patient is overly sedated, SpO2 less than 90%, or Respiratory Rate less than 12. If more than one IV analgesic is ordered per pain level, use in this order: fentaNYL, morphine, HYDROmorphone. If desired pain control is not reached, move to next ordered medication at next dosing interval., PACU 1135 (Given - Provider: Nelida Yan RN)1150 (Given - Provider: Nelida Yan RN) HYDROmorphone (DILAUDID) injection 0.5 mg 0.5 mg, Intravenous, Every 2 hours PRN, Severe pain (Scale 8 - 10), Starting on Candis 01/10/24 at 0250, Until 01/12/24 at 2011, Administer slowly over at least 2-3 minutes. 0630 (Given - Provider: Anahi Hodgson RN)1155 (Given - Provider: Shilpi Philip RN) 1025 ([facility] Hold - Provider: User Epic - Reason: Unreviewed Transfer Orders)1130 ([facility] Unhold - Provider: User Epic) indomethacin (INDOCIN) supppository (CANCELED) As needed, Starting on 01/11/24 at 1156, Until 01/11/24 at 1240, Intra-Op 1156 (Given - Provider: Gwyn Dennison RN) influenza vaccine (FLUZONE) injection 0.5 mL (COMPLETED) 0.5 mL, Intramuscular, Prior to discharge, Other, immunization, 1 dose, Starting on Candis 01/10/24 at 0326, Until 01/12/24 at 1706, Please give vaccine prior to discharge. 1025 ([facility] Hold - Provider: User Epic - Reason: Unreviewed Transfer Orders)1130 ([facility] Unhold - Provider: User Epic)1706 (Given - Provider: Kymberly Zapien RN) iopamidol (ISOVUE-300) 61 % 50 mL in sodium chloride 0.9 % 50 mL contrast solution (CANCELED) As needed, Starting on 01/11/24 at 1258, Until 01/11/24 at 1258, Intra-Op 1200 (Given - Provider: Jacque Lira MD - Comment: ERCP) naLOXone (NARCAN) injection 0.4 mg 0.4 mg, Intravenous, As needed, Opioid reversal, Starting on Candis 01/10/24 at 0250, Until 01/12/24 at 2011 1025 ([facility] Hold - Provider: User Epic - Reason: Unreviewed Transfer Orders)1130 ([facility] Unhold - Provider: User Epic) ondansetron (ZOFRAN) injection 4 mg 4 mg, Intravenous, Every 6 hours PRN, Nausea, Starting on Candis 01/10/24 at 1000, Until 01/12/24 at 2010, IV push over 2-5 minutes. 1006 (Given - Provider: Shilpi Philip RN)2107 (Given - Provider: Sunni Shearer RN) 1025 ([facility] Hold - Provider: User Epic - Reason: Unreviewed Transfer Orders)1130 ([facility] Unhold - Provider: User Epic) oxyCODONE immediate release (ROXICODONE) tablet 5 mg (COMPLETED) 5 mg, Oral, Once as needed, Mild pain (Scale 1 - 3), 1 dose, Starting on 01/12/24 at 1129, Until 01/12/24 at 1145, Do not administer if patient is overly sedated, SpO2 LESS than 90%, or Respiratory Rate LESS than 12., PACU 1145 (Given - Provider: Nelida Yan, ERIKA) polyethylene glycol (GLYCOLAX) packet 17 g 17 g, Oral, Daily as needed, Constipation, Starting on Candis 01/10/24 at 0250, Until 01/12/24 at 2010 1025 ([facility] Hold - Provider: User Epic - Reason: Unreviewed Transfer Orders)1130 ([facility] Unhold - Provider: User Epic) traMADol (ULTRAM) tablet 50 mg 50 mg, Oral, Every 6 hours PRN, Moderate pain (Scale 4 - 7), Headache, Starting on Candis 01/10/24 at 1948, Until 01/12/24 at 2010 2020 (Given - Provider: Sunni Shearer, ERIKA) 1025 ([facility] Hold - Provider: User Epic - Reason: Unreviewed Transfer Orders)1130 ([facility] Unhold - Provider: User Epic) documented in this encounter Care Teams Drive Worker Relationship Specialty Start Date End Date None, Provider, PCP - General UNKNOWN PHYSICIAN SPECIALTY 01/09/24 Chiara Grimaldo MD [address] [place] [address] Physician MATY 12/28/22 documented as of this encounter
--- OUTSIDE RECORDS SUMMARY | 2024-03-09 06:39 | XMS_ITS | Encounter Summary ---
Author Organization [facility] Address [address] [place] [address]. [place], [place] [address] [place] [address] Care Team Providers Care Loom Winder Tender Name Role Phone Jack Rosales MD Primary Care Provider [phone] Chiara Thompson MD Unavailable [phone] Reason for Referral * Imaging (Routine) - Closed Specialty Diagnoses / Procedures Referred By Contac t Referred To Contact RADIOLOGY Diagnoses Encounter for screening (HHS/HCC) Procedures US OB COMP >14WKS Chiara Haider MD [address] [place] [address] Phone: tel: fax: Referral ID Status Reason Start Date Expiration Date V isits Requested Visits Authorized [id number] Closed Ultrasound 02/19/2023 08/21/2023 1 1 ROD MAKER Reason for Visit * Imaging (Routine) - Closed Specialty Diagnoses / Procedures Referred By Contac t Referred To Contact RADIOLOGY Diagnoses Encounter for screening (HHS/HCC) Procedures US OB COMP >14WKS Chiara Haider MD [address] [place] [address] Phone: tel: fax: Referral ID Status Reason Start Date Expiration Date V isits Requested Visits Authorized [id number] Closed Ultrasound 02/19/2023 08/21/2023 1 1 Encounter Details Date Type Department Care Team (Latest Contact Info) Description 02/20/2023 12:30 PM FISH ROD MAKER - 02/20/2023 11:59 PM FISH ROD MAKER Hospital Encounter [facility] Ultrasound [address] [place] [address] Chiara Thompson MD [address] [place] [address] Discharge Disposition: Home or Self Care (Routine [...] this encounter Medications at Time of Discharge albuterol sulfate HFA 108 (90 Base) MCG/ACT inhaler Inhale 2 puffs into the lungs every 6 (six) hours as needed for Wheezing. 1 g 12/28/2022 06/28/2023 guaiFENesin ER (MUCINEX) 600 MG 12 hr tablet Take 2 tablets (1,200 mg total) by mouth 2 (two) times daily. 28 tablet 12/28/2022 06/28/2023 documented as of this encounter Plan of Treatment Not on file documented as of this encounter Procedures Procedure Name Priority Date/Time Associated Diagnosis Comments US OB COMP >14WKS TA Routine 02/20/2023 1:59 PM FISH ROD MAKER Encounter for screening (HHS/HCC) documented in this encounter Results * US OB COMP >14WKS TA (02/20/2023 1:59 PM FISH ROD MAKER) Anatomical Region Laterality Modality Abdomen Ultrasound 02/20/2023 3:01 PM FISH ROD MAKER Narrative 02/20/2023 3:16 PM FISH ROD MAKER IMAGING STUDIES: US OB COMP >14WKS TA DATE: 02/20/2023 12:51 PM CLINICAL HISTORY: Screening ?? . FINDINGS: LMP: 09-28-2022 EDC By Clinician: ??07-05-2023 COMBINED GA: 19w6d EDC By Present U/S: ??07-11-2023 MEASUREMENTS ? BPD: 4.6cm ?20w0d ? HC: ??17.44cm ??20w0d ? AC: 14.51cm ?? 19w6d ? FL: ??3.08cm ? 19w4d ? RATIOS CI: 74% 74-83 HC/AC: 1.20 1.09 - 1.26 FL/PBD: 67% FL/AC: 21% EST. WEIGHT: 309g +/- 46g, 0lbs. 11oz. +/- 2oz, EFW% 8%. Follow-up will be needed. NUMBER: ? 1 ? PRESENTATION: ??vertex ? MOTION: Y ? CARDIAC MOTION: Y ? HEART RATE: ??144bpm ? PLACENTA LOCATION: ?? Posterior ? PLACENTA GRADE: ??1-2 ? TA/TV CERVICAL LENGTH: 4.5cm ? CERVIX=>PLACENTA: 6.5cm ? KAVON ??(After 22 weeks): CORD INSERTION: ??Y ? INTRACRANIAL ANATOMY Y FOUR CHAMBER HEART: Echogenic foci in Rt and Lt ventricles. Follow-up will be needed RVOT: L. Limited visualization. Follow-up will be needed. LVOT: L limited visualization. Follow-up will be needed. DIAPHRAGM: Y STOMACH: Y BLADDER: Y KIDNEYS: Y CERVICAL SPINE: Y THORACIC SPINE: Y LUMBAR SPINE: Y EXTREMITIES: Y CORD VESSELS: Y Y=NORMAL ?A=ABNORMAL ?NV=NOT VISUALIZED ? PV=PREVIOUSLY IDENTIFIED ?L=LIMITED Ordered By: CHIARA THOMPSON Interpreted By: Juani Kim, 02/20/2023 3:01 PM Procedure Note Devin Kim MD - 02/20/2023 IMAGING STUDIES: US OB COMP >14WKS TA DATE: 02/20/2023 12:51 PM CLINICAL HISTORY: Screening . FINDINGS: LMP: 09-28-2022 EDC By Clinician: 07-05-2023 COMBINED GA: 19w6d EDC By Present U/S: 07-11-2023 MEASUREMENTS BPD: 4.6cm 20w0d HC: 17.44cm 20w0d AC: 14.51cm 19w6d FL: 3.08cm 19w4d RATIOS CI: 74% 74-83 HC/AC: 1.20 1.09 - 1.26 FL/PBD: 67% FL/AC: 21% EST. WEIGHT: 309g +/- 46g, 0lbs. 11oz. +/- 2oz, EFW% 8%. Follow-upwill be needed. NUMBER: 1 PRESENTATION: vertex MOTION: Y CARDIAC MOTION: Y HEART RATE: 144bpm PLACENTA LOCATION: Posterior PLACENTA GRADE: 1-2 TA/TV CERVICAL LENGTH: 4.5cm CERVIX=>PLACENTA: 6.5cm KAVON (After 22 weeks): CORD INSERTION: Y INTRACRANIAL ANATOMY Y FOUR CHAMBER HEART: Echogenic foci in Rt and Lt ventricles. Follow-up willbe needed RVOT: L. Limited visualization. Follow-up will be needed. LVOT: L limited visualization. Follow-up will be needed. DIAPHRAGM: Y STOMACH: Y BLADDER: Y KIDNEYS: Y CERVICAL SPINE: Y THORACIC SPINE: Y LUMBAR SPINE: Y EXTREMITIES: Y CORD VESSELS: Y Y=NORMAL A=ABNORMAL NV=NOT VISUALIZEDPV=PREVIOUSLY IDENTIFIED L=LIMITED Ordered By: CHIARA THOMPSON Interpreted By: Juani Kim, 02/20/2023 3:01 PM us Chiara Thompson MD ULTRASOUND Final Resul t documented in this encounter Visit Diagnoses Diagnosis Encounter for screening (HHS/HCC) documented in this encounter Care Teams Loom Winder Tender Relationship Specialty Start Date End Date Jack Rosales MD [address] [place] [id number] PCP - General FAMILY PRACTICE 12/28/22 01/08/24 Chiara Thompson MD [address] [place] [address] Physician OBGYN 12/28/22 documented as of this encounter
--- OUTSIDE RECORDS SUMMARY | 2024-03-09 06:39 | XMS_ITS | Encounter Summary ---
Author Organization [facility] Address [address] [place] [address]. [place], [place] [address] [place] [address] Care Team Providers Care Ambulette Driver Name Role Phone Chiara Grimaldo MD Unavailable [phone] None, Provider Primary Care Provider Unavaila ble Encounter Details Date Type Department Care Team (Latest Contact Info) Description 01/09/2024 Travel Social History Tobacco Use Types Packs/Day [...] Answer Date of Assessment Author Status No 06/28/2023 5:59 AM CDT Patricia Gan RN Active * Are you blind or do you have serious difficulty seeing, even when wearing glasses? Answer Date of Assessment Author Status No 06/28/2023 5:59 AM Patricia Concepcion RN Active * Do you have serious difficulty walking or climbing stairs? Answer Date of Assessment Author Status No 06/28/2023 5:59 AM Patricia Concepcion RN Active * Do you have difficulty dressing or bathing? Answer Date of Assessment Author Status No 06/28/2023 5:59 AM Patricia Concepcion RN Active * Because of a physical, mental, or emotional condition, do you have difficulty doing errands alone such as visiting a doctor's office or shopping? Answer Date of Assessment Author Status No 06/28/2023 5:59 AM Patricia Concepcion RN Active documented as of this encounter Mental Status * Because of a physical, mental, or emotional condition, do you have serious difficulty concentrating, remembering, or making decisions? Answer Entry Date Author Status No 06/28/2023 5:59 AM Patricia Concepcion RN Active documented in this encounter Plan of Treatment Not on file documented as of this encounter Visit Diagnoses Not on filedocumented in this encounter Care Teams Ambulette Driver Relationship Specialty Start Date End Date None, Provider, PCP - General UNKNOWN PHYSICIAN SPECIALTY 01/09/24 Chiara Grimaldo MD [address] [place] [address] Physician OBGYN 12/28/22 documented as of this encounter
--- OUTSIDE RECORDS SUMMARY | 2024-03-09 06:39 | XMS_ITS | Encounter Summary ---
Author Organization [facility] Address [address] [place] [address]. [place], [place] [address] [place] [address] Care Team Providers Care Medical Customer Service Representative Name Role Phone Jack Rosales MD Primary Care Provider [phone] Chiara Grimaldo MD Unavailable [phone] Reason for Visit * Home Health Care (Routine) - New Request Specialty Diagnoses / Procedures Referred By Matt murcia Referred To Contact Home Health Services / [facility] Diagnoses ([facility]/HCC) Procedures OFFICE/OUTPATIENT NEW LOW MDM 30-44 MINUTES OFFICE/OUTPT VISIT,NEW,LEVL IV OFFICE/OUTPT VISIT,NEW,LEVL V OFFICE/OUTPT VISIT,EST,LEVL III OFFICE/OUTPT VISIT,EST,LEVL IV OFFICE/OUTPT VISIT,EST,LEVL V [facility] [address] [place] [address] Phone: tel: [facility] [address], [address] [address] Phone: tel: fax: Referral ID Status Reason Start Date Expiration Date V isits Requested Visits Authorized [id number] New Request 07/02/2023 07/02/2024 1 1 Encounter Details Date Type Department Care Team (Latest Contact Info) Description 07/02/2023 11:15 AM CDT Home Care Visit [facility] [address], [address] [address] Opal Eddy, RN MOM BABY SN ASSESSMENT-MOTHER Social History Tobacco Use Types Packs/Day Years [...] Sign Reading Time Taken Comments Blood Pressure 122/72 07/02/2023 10:45 AM CDT Pulse 78 07/02/2023 10:45 AM CDT Temperature 36.8 ??C (98.2 ??F) 07/02/2023 10:45 AM C DT Respiratory Rate - - Oxygen Saturation 98% 07/02/2023 10:45 AM CDT Inhaled Oxygen Concentration - - Weight - - Height - - Body Mass Index - - documented in this encounter Functional Status * Are you deaf or do you have serious difficulty hearing Answer Date of Assessment Author Status No 06/28/2023 5:59 AM CHAZT Patricia Gan RN Active * Are you [...] Date Author Status No 06/28/2023 5:59 AM CHAZT Patricia Gan RN Active documented in this encounter Plan of Treatment Not on file documented as of this encounter Visit Diagnoses Not on filedocumented in this encounter Care Teams Medical Customer Service Representative Relationship Specialty Start Date End Date Jack Rosales MD [address] [place] [address] PCP - General FAMILY PRACTICE 12/28/22 01/08/24 Chiara Grimaldo MD [address] [place] [address] Physician OBGYN 12/28/22 documented as of this encounter
--- OUTSIDE RECORDS SUMMARY | 2024-03-09 06:39 | XMS_ITS | Encounter Summary ---
Author Organization [facility] Address [address] [place] [address]. [place], [place] [id number] [place] [id number] Care Team Providers Care Adult Services Librarian Name Role Phone Chiara Grimaldo MD Unavailable [phone] None, Provider Primary Care Provider Unavaila ble Reason for Visit * Auth/Cert (Routine) Specialty Diagnoses / Procedures Referred By Contac t Referred To Contact Diagnoses Transaminitis transaminitis Procedures NONE [place] [address] Phone: tel: [phone] fax: Referral ID Status Reason Start Date Expiration Date Visits Re quested Visits Authorized [id number] 1 1 Encounter Details Date Type Department Care Team (Late st Contact Info) Description 01/12/2024 10:20 AM WIENER PACKER - 01/12/2024 11:44 AM WIENER PACKER Surgery [facility] [place], [place] [address] Ky Santiago MD [address] [place] [address] [id number] ROBOTIC XI ASSISTED LAPAROSCOPIC CHOLECYSTECTOMY WITH INDOCYANINE GREEN Surgery Details Date/Time Status Location OR Service Patient Class Case Cl ass Case Type Trauma Case? 01/12/2024 10:20 AM Posted [facility] OR OR 9 Robotic Inpatient No Panel 1 Procedure LRB Anes Op Region Wound Class Comments ROBOTIC XI ASSISTED LAPAROSC OPIC CHOLECYSTECTOMY WITH INDOCYANINE GREEN N/A General Abdomen Clean Contaminated Surgeon Surgeon Role Service Panel Ky Santiago MD Primary Robotic 1 documented in this encounter Social History Tobacco [...] Sign Reading Time Taken Comments Blood Pressure 122/75 01/12/2024 11:32 AM WIENER PACKER Pulse 85 01/12/2024 11:32 AM WIENER PACKER Temperature 36.7 ??C (98 ??F) 01/12/2024 11: 32 AM WIENER PACKER Respiratory Rate 23 01/12/2024 11:3 2 AM WIENER PACKER Oxygen Saturation 100% 01/12/2024 11: 32 AM WIENER PACKER Inhaled Oxygen Concentration - - Weight 108.6 kg (239 lb 6.7 oz) 01/10/2024 2:56 AM WIENER PACKER Height - - Body Mass Index 41.1 01/09/2024 9:01 PM WIENER PACKER documented in this encounter Functional Status * [...] Assessment Author Status No 01/10/2024 3:14 AM WIENER PACKER Gokul, Anahi L, R N Active * Do you have [...] medical history presents as a transfer from [facility] with abdominal pain. Patient had a baby [...] AUTOMATED DIFFERENTIAL AUTOMATED DIFFERENTIAL Recent Labs Lab 01/09/24211901/10/2463401/10/24202601/11/2464001/12/24614 NA 138 137 -- 137 134* K [...] XR ERCP W ROMULO Result Date: 01/11/2024 [facility] [address] [place], [place] [address] Intraoperative fluoroscopic views of the ERCP History: [...] 01/11/2024 8:39 PM MRCP Result Date: 01/11/[address] [address] Examination: MRCP. Exam Date/Time: 01/11/2024 7:20 AM [...] AM ECG 12 lead Result Date: 01/10/2024 [facility] Test Date: 2024-01-09 Pat Name: MARGOT TYSON Department: 85 Room: EXAM 101 Gender: Female Assurance Services Manager Health Care: : 2000 Requested By: KARLIE HART OrderNumber: [id number] Reading MD: Fede Ibrahim Measurements Intervals [place] Rate: 68 P: 26 OR: 143QRS: 44 QRSD: 82 T: 26 QT: 375 QTc: 399 Interpretive Statements SINUS RHYTHM WITH SINUS ARRHYTHMIACompared to ECG 08/11/2022 22:47:49 No significant changes Electronically signed by Fede Richards 01-10-2024 21:19:04 WIENER PACKER US ABD LIMITED Result Date: 01/10/2024 [facility] [address] [place], [place] [address] Procedure: US ABD LIMITED Indication: elevated LFTs, [...] CTA CHEST PE PROTOCOL Result Date: 01/09/2024 [facility] [address] [facility] [place] [address] EXAMINATION: CTA Chest with CT Abdomen and Pelvis with contrast [id number] EXAM DATE/TIME: 01/09/2024 10:11 PMREASON FOR EXAM: [...] CT ABD+PEL W CON Result Date: 01/09/2024 [facility] [address] [facility] [place] [address] EXAMINATION: CTA Chest with CT Abdomen and Pelvis with contrast [id number] EXAM DATE/TIME: 01/09/2024 10:11 PMREASON FOR EXAM: [...] PM XR CHEST PORTABLE Result Date: 01/09/2024 [facility] [address] [facility] [place] [address] CLINICAL HISTORY: Chest pain COMPARISON: 11/22/2021 TECHNIQUE: [...] Coreen Cotto MD at 01/13/2024 3:11 PM WIENER PACKER ER PACKER ER PACKER documented in this encounter Medications at Time [...] for Documentation Clarification Margot Lora ; VISIT [id number] Query Response Sent: 01/12/24 18:54 WIENER PACKER From: Sravanthi King MD Query question: Based on medical judgment and consideration of these clinical indicators, the following condition was evaluated, monitored and/or treated during this episode of care Provider response: Morbid obesity ER PACKER Original Query Sent: 01/11/24 12:30 WIENER PACKER From: Shyanne Lopez RN CDIS To: Sravanthi [...] medical history presents as a transfer from [facility] with abdominal pain. Patient had a baby 6 months ago. Since then she has had off-and-on abdominal pain with radiation to her ribs and her back CONSULT by Ky Santiago at 01/11/2024 10:52 IMPRESSION: Biliary colic, symptomatic cholelithiasis PLAN: 1. Robotic assisted laparoscopic cholecystectomy with ICG ER PACKER * Ky Santiago MD - 01/12/2024 10:03 AM CST Images from the original note were not included. General Surgery Progress Note-[facility] Margot Tyson is an 23-year-old [...] Recent Labs Lab 01/09/24 2120 01/09/24 2210 01/10/24 0635 01/10/24202601/11/24 0641 01/12/24 0615 WBC 9.80 -- 7.66 5.91 6.66 10.39 HGB 13.4 -- 12.5 12.6 12.7 13.8 MCV 81.5 -- 80.3* 81.4 82.3 85.0 PLT 303 -- 277 263 305 315 INR -- 1.1 -- -- -- -- Recent Labs Lab 01/10/24 0635 01/11/24 0641 01/12/24 0615 NA 137 137 134* K 3.7 3.9 3.8 CL 107 106 108 CO2 25.3 27.0 21.8 BUN 8 7 11 CR 0.81 0.83 0.68 Recent Labs Lab 01/10/24202601/11/24 0641 01/12/24 0615 AST 472* 291* 110* ALT 624* 547* 411* TBIL 0.9 1.7* 0.7 ALB 3.0* 3.0* 3.2* Rads: No new studies IMPRESSION: Symptomatic cholelithiasis, biliary colic status post ductal clearance PLAN: 1. Robotic assisted laparoscopic cholecystectomy 2. Proceed with surgery this morning 3. Procedure reviewed, questions answered KY SANTIAGO MD 01/12/2024 ER PACKER * Venita Hair RN - 01/11/2024 3:04 [...] Deficit Goal: Adequate nutritional intake Outcome: Progressing ER PACKER * Merary Heredia RN - 01/11/2024 10:54 AM CST 01/11/24 1054 Interdisciplinary Group Conference Team Members Present Case/Care management;Nursing;MARGARITA Physician present for group conference NICHELLE Bah Patient Current Status Paient current status [...] friend Jaimie will be her ride home.) ER PACKER * Lisa Bah PA-C - 01/11/2024 10:36 AM CST Hospitalist Daily Progress Note Subjective Ms. Tyson was seen and examined at bedside this morning. Patient is overall feeling better. Patient states she is less nauseated today, but still with abdominal discomfort. Patient denies any chestpain, shortness of breath, vomiting, or diarrhea. Patient is anxious for ERCP today. Objective Filed Vitals: 01/10/24200801/11/24 0016 01/11/24 0442 01/11/24 0753 BP: 121/72 [...] AUTOMATED DIFFERENTIAL AUTOMATED DIFFERENTIAL Recent Labs Lab 01/09/24211901/10/24 0635 01/10/24202601/11/24 0641 NA 138 137 -- 137 K 4.2 [...] 550* 647* 624* 547* Recent Labs Lab 01/09/24 2210 INR 1.1 [...] FEW /HPF Imaging MRCP Result Date: 01/11/2024 [facility] [address] [place], [place] [address] Examination: MRCP. Exam Date/Time: 01/11/2024 7:20 AM [...] AM US ABD LIMITED Result Date: 01/10/2024 [facility] [address] [place], [place] [address] Procedure: US ABD LIMITED Indication: elevated LFTs, [...] CTA CHEST PE PROTOCOL Result Date: 01/09/2024 [facility] [address] [place] [address] EXAMINATION: CTA Chest with CT Abdomen and Pelvis with contrast [id number] EXAM DATE/TIME: 01/09/2024 10:11 PMREASON FOR EXAM: [...] are patent. Visualized portion of the thyroid unremarkable.Abdomen and pelvis: Liver and spleen normal in [...] CT ABD+PEL W CON Result Date: 01/09/2024 [facility] [address] [place] [address] EXAMINATION: CTA Chest with CT Abdomen and Pelvis with contrast [id number] EXAM DATE/TIME: 01/09/2024 10:11 PMREASON FOR EXAM: [...] PM XR CHEST PORTABLE Result Date: 01/09/2024 [facility] [address] [place] [address] CLINICAL HISTORY: Chest pain COMPARISON: 11/22/2021 TECHNIQUE: [...] Jessica Umanzor MD at 01/11/2024 2:11 PM WIENER PACKER ER PACKER ER PACKER * Shilpi Philip RN - 01/10/2024 4:30 [...] Deficit Goal: Adequate nutritional intake Outcome: Progressing ER PACKER * Merary Heredia RN - 01/10/2024 9:10 AM CST 01/10/24 0910 Referral Data Source of Information Patient Patient Information Primary Caregiver Self Current living Situation Spouse/significant other;Family members Type of Residence Private residence Support System Spouse/Significant Other;Immediate family;Friends Are you employed? [employer] Recent Hospitalization Recent Hospitalization within 30 days No Legal Information Guardianship Documentation Not applicable Baseline ADL's Functional Status Independent Behavior Oriented;Cooperative Communication Talks;Understands speaking;Understands Ecuadorean DC screening tool This is a screening [...] needs Adequate Resources Available Adequate Resources Yes [place] Only - Criminal Background check [place] only - Is patient going to senior living? No NCM performed bedside interview, verified patient's [...] communicate without deficits. 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 [facility] clinic list provided to pt, instructed to call and set up a f/u at [facility] clinic or reach out to the provider she has seen in the past. Pt voiced understanding./[place] Medicaid Discharge needs: RNCM will follow case daily and will continuously evaluate discharge needs based on recommendations and treatment course. ER PACKER * Anahi Hodgson RN - 01/10/2024 5:46 AM CST Problem: Discharge Planning Goal: Knowledge of discharge instructions Outcome: Progressing Problem: Pain - Acute Goal: Achieve acceptable pain level Outcome: Met This Shift Problem: Diarrhea Goal: Bowel elimination within specified parameters Outcome: Met This Shift Problem: Nausea/Vomiting Goal: Absence of nausea/vomiting Outcome: Met This Shift ER PACKER documented in this encounter H&P Notes * Sravanthi King MD - 01/10/2024 2:57 AM CST ATTENDING: SRAVANTHI KING MD PRIMARY CARE PROVIDER: Provider MD Radha CC: Abdominal pain HPI: Patient seen and evaluated by this provider. History obtained via chart review, discussion with ER physician, patient, and review of outside records from ER records. Margot Tyson is a 23-year-old female with no significant past medical history presents as a transfer from [facility] with abdominal pain. Patient had a baby [...] ending 01/10/24 0018 No data found. Intake/Output :[id number]@ Constitutional: No acute distress, Non-toxic appearance. HENT: [...] last 168 hours. Recent Labs Lab 01/09/24 2210 INR 1.1 Recent Labs Lab 01/09/24 2120 TROP <4 No results for input(s): LACTICACID , PROCT in the last 168 hours. No results for input(s): PH , PCO2 , PO2 , [id number] , BICARBWB , BASEDEFICIT , BASEEXCESS in [...] note was dictated with the use of [employer] Medical dictation software and was proofread to the best of my ability. If you have questions or find errors, please contact me via clinical communications. Thank you. SRAVANTHI KING MD 01/10/2024 12:18 AM ER PACKER documented in this encounter Consult Notes * Ky Santiago MD - 01/11/2024 10:49 AM CSTAssociated Order(s): IP CONSULT TO GENERAL SURGERY Images from the original note were not included. General Surgery Consultation Note-[facility] Margot Tyson 23-year-old female Date of Service: 01/11/2024 CHIEF [...] By: Luis Rocha MD, 01/10/2024 8:16 AM 01/09/24 2228 CTA CHEST PE PROTOCOL Final result Impression: [...] results later today KY SANTIAGO MD 01/11/2024 ER PACKER * Jacque Lira MD - 01/10/2024 7:37 PM CSTAssociated Order(s): IP CONSULT TO GASTROENTEROLOGY Gastroenterology Consultation Note Consulting Provider: JACQUE LIRA MD Attending Provider: Philippe Solomon PA-C, who requested the consultation PCP: Yuridia Garcia MD GI: Reason for Consult: Transaminitis HPI: The patient is a 23-year-old female 6 months post- transferred today from [facility] where she presented yesterday with abdominal pain, [...] yesterday before work and at work, at [facility] and here around 10 AM and 2 [...] 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 Vapes nicotine. Smokes 1 pipe bowls worth [...] Radiology: US ABD LIMITED Result Date: 01/10/[address] [address] Procedure: US ABD LIMITED Indication: elevated LFTs, [...] CTA CHEST PE PROTOCOL Result Date: 01/09/2024 [place] [id number] [facility] [place] [address] EXAMINATION: CTA Chest with CT Abdomen and Pelvis with contrast [id number] EXAM DATE/TIME: 01/09/2024 10:11 PMREASON FOR EXAM: [...] CT ABD+PEL W CON Result Date: 01/09/2024 [facility] [address] [place] [address] EXAMINATION: CTA Chest with CT Abdomen and Pelvis with contrast [id number] EXAM DATE/TIME: 01/09/2024 10:11 PMREASON FOR EXAM: [...] PM XR CHEST PORTABLE Result Date: 01/09/2024 [facility] [address] [facility] [place] [address] CLINICAL HISTORY: Chest pain COMPARISON: 11/22/2021 TECHNIQUE: AP Portable View FINDINGS: Lungs are clear. No pneumothorax or pleural effusions evident. The cardiac silhouette, mediastinal contours, and pulmonary vessels appear within normal limits. No acute osseous abnormality. IMPRESSION: No acute findings. Referred By: Interpreted By: Jimi Barron, 01/09/2024 10:08 PM ECG 12 lead Result Date: 01/09/2024 [facility] Test Date: 2024-01-09 Pat Name: MARGOT TYSON Department: 85 Room: EXAM 101 Gender: Female Assurance Services Manager Health Care: : 2000 Requested By: KARLIE HART Order Number: [id number] Reading MD: Measurements Intervals [place] Rate: 68 P: 26 OR: 143 QRS: 44 QRSD: 82 T: 26 [...] duct clearance tomorrow. JACQUE LIRA MD 01/10/2024 ER PACKER documented in this encounter Nursing Notes * Samantha Teran RN - 01/12/2024 10:51 AM CSTSummary: OR NURSING NOTE 1025 Warm blankets applied to patient upon entering OR -Patient did not want any family/friends updated during surgery or at end by Dr Santiago. Said she would call her when back on the floor. ER PACKER * Sunni Shearer RN - 01/11/2024 6:45 AM CST To MRI via wheelchair. ER PACKER documented in this encounter OR Notes * Op Note - Ky Santiago MD - 01/12/2024 11:20 AM CST Images from the original note were not included. General Surgery Operative Report-[facility] Margot Tyson is an 23-year-old female. Date of Operation: 01/12/2024 Preoperative diagnosis: Symptomatic cholelithiasis, biliary colic Postoperative diagnosis: Same Procedure: Robotic assisted laparoscopic cholecystectomy with ICG Anesthesia: General Assistants: Robotics Engineer: ADA Arnett Circulating Nurse 1: Samantha Teran RN Scrub Person 1: Whit Gonzales, POWER PLANT TECHNICIAN Estimated blood loss: 5 cc Brief history: [...] camera settings were instrumental in identifying the kobuk anatomy and ensuring that there were no [...] following the operation. KY SANTIAGO MD 01/12/2024 ER PACKER * Op Note - Jacque Lira MD - 01/11/2024 12:34 PM CST ENDOSCOPY REPORT Exam date: 01/11/24 Patient name: Margot Tyson date: 2000 MR#: [id number] Status: Inpatient Surgeon: JACQUE LIRA MD Assistants: GI Nurse: Karina Copeland RN; Nemo Hagen RN; Gwyn Dennison RN regional facilities manager: Sukhjinder Rouse; Cleopatra Hendrix ASA Class: II [...] without alternative. JACQUE LIRA MD Date: 01/11/2024 ER PACKER documented in this encounter Plan of Treatment Not on file documented as of this encounter Procedures Procedure Name Priority Date/Time Associated Diagnosis Comments ROBOTIC XI CHOLECYSTECTOMY 01/12/2024 10:25 AM WIENER PACKER cholecystitis POCT GLUCOSE - CANNON DOCKED DEVICE Routine 01/12/2024 10:03 AM WIENER PACKER COMPREHENSIVE METABOLIC PANEL Routine 01/12/2024 6:15 AM WIENER PACKER CBC W/DIFF AUTOMATED Routine 01/12/2024 6:15 AM WIENER PACKER PATHOLOGY Routine 01/12/2024 12:00 AM WIENER PACKER SURG XR ERCP W ROMULO Routine 01/11/2024 1 2:43 PM WIENER PACKER MRCP STAT 01/11/2024 7:40 AM WIENER PACKER COMPREHENSIVE METABOLIC PANEL Routine 01/11/2024 6:41 AM WIENER PACKER CBC W/DIFF AUTOMATED Routine 01/11/2024 6:41 AM WIENER PACKER LIPASE Routine 01/11/2024 6:41 AM WIENER PACKER HEPATIC FUNCTION PANEL STAT 8:27 PM WIENER PACKER CBC W/DIFF AUTOMATED STAT 01/10/2024 8:27 PM WIENER PACKER LIPASE STAT 01/10/2024 8:27 PM WIENER PACKER US ABD LIMITED Today 01/10/2024 8:06 AM WIENER PACKER PROCALCITONIN (PCT) Routine 01/10/2024 6 :35 AM WIENER PACKER COMPREHENSIVE METABOLIC PANEL Routine 01/10/2024 6:35 AM WIENER PACKER CHORIONIC GONADOTROPIN HCG QL Routine 01/10/2024 6:35 AM WIENER PACKER CBC W/DIFF AUTOMATED Routine 01/10/2024 6:35 AM WIENER PACKER LIPASE Routine 01/10/2024 6:35 AM WIENER PACKER documented in this encounter Results * POCT glucose (01/12/2024 10:03 AM WIENER PACKER) GLUCOSE POC 82 70 - 99 mg/dL 01/12/2024 10:04 AM WIENER PACKER [facility] 01/12/2024 10:0 3 AM WIENER PACKER Lisa Bah PA-C POCT ORDERABLES - DEVICE Deisy l Result [facility] [address] [place] [address], [place] [phone] * (ABNORMAL) COMPREHENSIVE METABOLIC PANEL (01/12/2024 6:15 AM WIENER PACKER) GLUCOSE 93 70 - 99 MG/DL 01/12/2024 6:54 AM WIENER PACKER [facility] BUN 11 7 - 18 MG/DL 01/12/2024 6:54 AM WIENER PACKER [facility] CREATININE S/P/B 0.68 0.55 - 1.02 MG/DL 01/12/2024 6:54 AM [facility] SODIUM S/P/B 134(L) 136 - 145 MMOL/L 01/12/2024 6:54 AM [facility] POTASSIUM S/P/B 3.8 3.5 - 5.1 MMOL/L 01/12/2024 6:54 AM [facility] CHLORIDE S/P/B 108 97 - 115 MMOL/L 01/12/2024 6:54 AM [facility] CO2 21.8 21 - 32 MMOL/L 01/12/2024 6:54 AM [facility] CALCIUM S/P/B 8.8 8.5 - 10.1 MG/DL 01/12/2024 6:54 AM [facility] BILIRUBIN TOTAL S/P/B 0.7 0.2 - 1.2 MG/DL 01/12/2024 6:54 AM [facility] Comment: THIS ASSAY IS NOT RECOMMENDED FOR PATIENTS UNDERGOING TREATMENT WITH ELTROMBOPAG DUE TO THE POTENTIAL FOR FALSELY ELEVATED RESULTS. TOTAL PROTEIN S/P/B 7.4 6.4 - 8.2 G/DL 01/12/2024 6:54 AM [facility] ALBUMIN S/P/B 3.2(L) 3.4 - 5.0 G/DL 01/12/2024 6:54 AM [facility] AST 110(H) 15 - 37 U/L 01/12/2024 6:54 AM [facility] ALT 411(H) 14 - 55 U/L 01/12/2024 6:54 AM [facility] ALKALINE PHOSPHATASE S/P/B 173(H) 50 - 136 U/L 01/12/2024 6:54 AM [facility] ANION GAP 4.2 2 - 10 MMOL/L 01/12/2024 6:54 AM [facility] BUN CREATININE RATIO 16.2 6 - 26 01/12/2024 6:54 AM [facility] A/G RATIO 0.8(L) 1.0 - 2.0 RATIO 01/12/2024 6:54 AM [facility] GFR ESTIMATE >90 >90 ML/MIN/1.7 3 M2 01/12/2024 6:54 AM [facility] Comment: NOTE: eGFR is not calculated for patients <18 years of age or gender unknown. This is an estimated GFR calculation using the new CKD EPI creatinine equation without race and so does not require a correction factor for race. This estimated GFR should not be used for calculating drug doses. 01/12/2024 6:15 AM WIENER PACKER Philippe Solomon PA-C LABORATORY Final Result [facility] [address] [place] [address], * (ABNORMAL) CBC W/DIFF AUTOMATED (01/12/2024 6:15 AM WIENER PACKER) WBC 10.39 4.5 - 11.0 x10'3/uL 01/12/2024 6:35 AM [facility] RBC 5.27 4.20 - 5.40 x10'6/uL 01/12/2024 6:35 AM [facility] HGB 13.8 12.0 - 16.0 G/DL 01/12/2024 6:35 AM [facility] HCT 44.8 38.0 - 48.0 % 01/12/2024 6:35 AM [facility] MCV 85.0 81.0 - 99.0 FL 01/12/2024 6:35 AM [facility] MCH 26.2(L) 27.0 - 31.0 PG 01/12/2024 6:35 AM [facility] MCHC 30.8(L) 32.0 - 36.0 G/DL 01/12/2024 6:35 AM [facility] RDW 14.2 11.5 - 14.5 % 01/12/2024 6:35 AM [facility] PLT 315 130 - 400 x10'3/uL 01/12/2024 6:35 AM [facility] MPV 11.0 9.3 - 12.2 FL 01/12/2024 6:35 AM [facility] DIFFERENTIAL TYPE AUTOMATED DIFFERENTIAL 01/12/2024 6:35 AM [facility] NEUTROPHILS % 70.7 % 01/12/2024 6:35 AM [facility] LYMPHOCYTES % 21.0 % 01/12/2024 6:35 AM [facility] MONOCYTES % 6.9 % 01/12/2024 6:35 AM [facility] EOSINOPHILS 0.4 % 01/12/2024 6:35 AM [facility] BASOPHILS 0.4 % 01/12/2024 6:35 AM [facility] IMMATURE GRANS % 0.6 % 01/12/20 6:35 AM [facility] ABS. NEUTROPHILS 7.35 1.80 - 7.70 x10'3/uL 01/12/2024 6:35 AM [facility] ABS. LYMPHOCYTES 2.18 1.00 - 4.80 x10'3/uL 01/12/2024 6:35 AM [facility] ABS. MONOCYTES 0.72 0.24 - 0.86 x10'3/uL 01/12/2024 6:35 AM WIENER PACKER [facility] ABS. EOSINOPHILS 0.04 0.04 - 0.36 x10'3/uL 01/12/2024 6:35 AM WIENER PACKER [facility] ABS. BASOPHILS 0.04 0.01 - 0.08 x10'3/uL 01/12/2024 6:35 AM WIENER PACKER [facility] ABS. IMMATURE GRANULOCYTES 0.06 0.00 - 0.49 x10'3/uL 01/12/2024 6:35 AM WIENER PACKER [facility] 01/12/2024 6:15 AM WIENER PACKER Philippe Solomon PA-C LABORATORY Final Result [facility] [address] [place] [address], * Pathology (01/12/2024 12:00 AM WIENER PACKER) PATHOLOGY [facility] ? Department of Laboratory Medicine ?[address] [facility] ?[place] [address] ? , [facility] [id number] ? Pathology Report ? Surgical Pathology Report Name: MARGOT TYSON ? Specimen #: [id number] Age: 1 2000 (Age: 23) ? Location: [id number] Sex: F ?Procedure Date: 01/12/2024 Hospital #: [id number] ?Date Received: 01/14/2024 Date Reported: 01/15/2024 Provider: [...] gallbladder mcmahon a thickness of 0.3 cm. ??Supervisor Fleshing tissue to include the cystic duct margin is submitted in cassette 1. Gross examination (when applicable), interpretation, and sign out were performed at [facility], [address] [place] [address]. FINAL DIAGNOSIS: Gallbladder, cholecystectomy: ? -Chronic cholecystitis and cholelithiasis. Electronically Signed Out ? ALVIN PHAM MD [facility] TISSUE GALLBLADDER STRUCTURE / Unknown 01/12/2024 11:02 AM WIENER PACKER Ky Santiago MD PATHOLOGY/CYTOLOGY ORDERA BLES Final Result [facility] [address] [place] [address], [id number] * SURG XR ERCP W ROMULO (01/11/2024 12:43 PM WIENER PACKER) Anatomical Region Laterality Modality Abdomen Radiographic Nayla ging 01/11/2024 8:39 PM WIENER PACKER Impressions 01/11/2024 8:40 PM WIENER PACKER Impression: Fluoroscopic spot views of ERCP obtained for intraoperative control purposes and evaluated postoperatively. Referred By: KARLIE HART Interpreted By: Aravind Camilo MD, 01/11/2024 8:39 PM Narrative 01/11/2024 8:40 PM WIENER PACKER [address] [address] Intraoperative fluoroscopic views of the ERCP History: [...] Procedure Note Aravind Camilo MD - 01/11/[address] [address] Intraoperative fluoroscopic views of the ERCP History: [...] Final Result * MRCP (01/11/2024 7:40 AM WIENER PACKER) Anatomical Region Laterality Modality Abdomen Magnetic Resonan ce 01/11/2024 8:36 AM WIENER PACKER Impressions 01/11/2024 8:48 AM WIENER PACKER Impression: 1. Cholelithiasis with too numerous to [...] 01/11/2024 8:36 AM Narrative 01/11/2024 8:48 AM WIENER PACKER [facility] [address] [place], [place] [address] Examination: MRCP. Exam Date/Time: 01/11/2024 7:20 AM [...] Procedure Note Rosibel Noel MD - 01/11/2024 [facility] [address] [place], [place] [address] Examination: MRCP. Exam Date/Time: 01/11/2024 7:20 AM [...] PANCREAS: Normal. Normal size morphology. Normal homogeneous [id number] signal and enhancement. No focal finding, inflammation [...] Jacque Lira MD MRI Final Result * (ABNORMAL) COMPREHENSIVE METABOLIC PANEL (01/11/2024 6:41 AM WIENER PACKER) Pathologist [facility] GLUCOSE 82 70 - 99 MG/DL 01/11/2024 8:05 AM [facility] BUN 7 7 - 18 MG/DL 01/11/2024 8:05 AM [facility] CREATININE S/P/B 0.83 0.55 - 1.02 MG/DL 01/11/2024 8:05 AM [facility] SODIUM S/P/B 137 136 - 145 MMOL/L 01/11/2024 8:05 AM [facility] POTASSIUM S/P/B 3.9 3.5 - 5.1 MMOL/L 01/11/2024 8:05 AM [facility] CHLORIDE S/P/B 106 97 - 115 MMOL/L 01/11/2024 8:05 AM [facility] CO2 27.0 21 - 32 MMOL/L 01/11/2024 8:05 AM [facility] CALCIUM S/P/B 8.7 8.5 - 10.1 MG/DL 01/11/2024 8:05 AM [facility] BILIRUBIN TOTAL S/P/B 1.7(H) 0.2 - 1.2 MG/DL 01/11/2024 8:05 AM [facility] Comment: THIS ASSAY IS NOT RECOMMENDED FOR PATIENTS UNDERGOING TREATMENT WITH ELTROMBOPAG DUE TO THE POTENTIAL FOR FALSELY ELEVATED RESULTS. TOTAL PROTEIN S/P/B 6.8 6.4 - 8.2 G/DL 01/11/2024 8:05 AM [facility] ALBUMIN S/P/B 3.0(L) 3.4 - 5.0 G/DL 01/11/2024 8:05 AM [facility] AST 291(H) 15 - 37 U/L 01/11/2024 8:05 AM [facility] ALT 547(H) 14 - 55 U/L 01/11/2024 8:05 AM [facility] ALKALINE PHOSPHATASE S/P/B 181(H) 50 - 136 U/L 01/11/2024 8:05 AM [facility] ANION GAP 4.0 2 - 10 MMOL/L 01/11/2024 8:05 AM [facility] BUN CREATININE RATIO 8.5 6 - 26 01/11/2024 8:05 AM [facility] A/G RATIO 0.8(L) 1.0 - 2.0 RATIO 01/11/2024 8:05 AM [facility] GFR ESTIMATE >90 >90 ML/MIN/1.7 3 M2 01/11/2024 8:05 AM [facility] Comment: NOTE: eGFR is not calculated for patients <18 years of age or gender unknown. This is an estimated GFR calculation using the new CKD EPI creatinine equation without race and so does not require a correction factor for race. This estimated GFR should not be used for calculating drug doses. 01/11/2024 6:41 AM [facility] P[facility]ER Philippe Solomon PA-C LABORATORY Final Result [facility] [address] [place] [address], [place] [phone] * (ABNORMAL) CBC W/DIFF AUTOMATED (01/11/2024 6:41 AM WIENER PACKER) [facility] WBC 6.66 4.5 - 11.0 x10'3/uL 01/11/2024 7:47 AM [facility] RBC 4.98 4.20 - 5.40 x10'6/uL 01/11/2024 7:47 AM [facility] HGB 12.7 12.0 - 16.0 G/DL 01/11/2024 7:47 AM [facility] HCT 41.0 38.0 - 48.0 % 01/11/2024 7:47 AM [facility] MCV 82.3 81.0 - 99.0 FL 01/11/2024 7:47 AM [facility] MCH 25.5(L) 27.0 - 31.0 PG 01/11/2024 7:47 AM [facility] MCHC 31.0(L) 32.0 - 36.0 G/DL 01/11/2024 7:47 AM [facility] RDW 14.3 11.5 - 14.5 % 01/11/2024 7:47 AM [facility] PLT 305 130 - 400 x10'3/uL 01/11/2024 7:47 AM [facility] MPV 11.2 9.3 - 12.2 FL 01/11/2024 7:47 AM [facility] DIFFERENTIAL TYPE AUTOMATED DIFFERENTIAL 01/11/2024 7:47 AM [facility] NEUTROPHILS % 54.2 % 01/11/2024 7:47 AM [facility] LYMPHOCYTES % 33.2 % 01/11/2024 7:47 AM [facility] MONOCYTES % 8.7 % 01/11/2024 7:47 AM [facility] EOSINOPHILS 3.0 % 01/11/2024 7:47 AM [facility] BASOPHILS 0.6 % 01/11/2024 7:47 AM [facility] IMMATURE GRANS % 0.3 % 01/11/20 7:47 AM [facility] ABS. NEUTROPHILS 3.61 1.80 - 7.70 x10'3/uL 01/11/2024 7:47 AM [facility] ABS. LYMPHOCYTES 2.21 1.00 - 4.80 x10'3/uL 01/11/2024 7:47 AM [facility] ABS. MONOCYTES 0.58 0.24 - 0.86 x10'3/uL 01/11/2024 7:47 AM [facility] ABS. EOSINOPHILS 0.20 0.04 - 0.36 x10'3/uL 01/11/2024 7:47 AM [facility] ABS. BASOPHILS 0.04 0.01 - 0.08 x10'3/uL 01/11/2024 7:47 AM [facility] ABS. IMMATURE GRANULOCYTES 0.02 0.00 - 0.49 x10'3/uL 01/11/2024 7:47 AM [facility] 01/11/2024 6:41 AM [facility] P[facility]ER Philippe Solomon PA-C LABORATORY Final Result [facility] [address] [place] [address], * LIPASE (01/11/2024 6:41 AM WIENER PACKER) LIPASE 22 13 - 75 UNITS/L 01/11/2024 8:05 AM [facility] P[facility]ER [facility] 01/11/2024 6:41 AM WIENER PACKER us Jacque Lira MD LABORATORY Final Result [facility] [address] [place] [address], * LIPASE (01/10/2024 8:27 PM WIENER PACKER) Pathologist [facility] LIPASE 22 13 - 75 UNITS/L 01/10/2024 9:12 PM [facility] P[facility]ER [facility] 01/10/2024 8:27 PM WIENER PACKER us Jacque Lira MD LABORATORY Final Result Performing Organization Address City/[facility] Co de Phone Number [facility] [address] [place] [address], [place] [phone] * (ABNORMAL) CBC W/DIFF AUTOMATED (01/10/2024 8:27 PM WIENER PACKER) Pathologist [facility] WBC 5.91 4.5 - 11.0 x10'3/uL 01/10/2024 8:51 PM [facility] RBC 4.88 4.20 - 5.40 x10'6/uL 01/10/2024 8:51 PM WI[facility] P[facility]ER [facility] HGB 12.6 12.0 - 16.0 G/DL 01/10/2024 8:51 PM [facility] HCT 39.7 38.0 - 48.0 % 01/10/2024 8:51 PM [facility] MCV 81.4 81.0 - 99.0 FL 01/10/2024 8:51 PM [facility] MCH 25.8(L) 27.0 - 31.0 PG 01/10/2024 8:51 PM WI[facility] PACKER [facility] MCHC 31.7(L) 32.0 - 36.0 G/DL 01/10/2024 8:51 PM [facility] RDW 14.4 11.5 - 14.5 % 01/10/2024 8:51 PM [facility] PLT 263 130 - 400 x10'3/uL 01/10/2024 8:51 PM [facility] MPV 11.3 9.3 - 12.2 FL 01/10/2024 8:51 PM [facility] DIFFERENTIAL TYPE AUTOMATED DIFFERENTIAL 01/10/2024 8:51 PM [facility] NEUTROPHILS % 63.0 % 01/10/2024 8:51 PM [facility] LYMPHOCYTES % 25.5 % 01/10/2024 8:51 PM [facility] P[facility]ER [facility] MONOCYTES % 8.1 % 01/10/2024 8:51 PM [facility] EOSINOPHILS 2.4 % 01/10/2024 8:51 PM [facility] BASOPHILS 0.7 % 01/10/2024 8:51 PM [facility] IMMATURE GRANS % 0.3 % 01/10/20 8:51 PM [facility] PACKER [facility] ABS. NEUTROPHILS 3.72 1.80 - 7.70 x10'3/uL 01/10/2024 8:51 PM [facility] P[facility]ER [facility] ABS. LYMPHOCYTES 1.51 1.00 - 4.80 x10'3/uL 01/10/2024 8:51 PM [facility] ABS. MONOCYTES 0.48 0.24 - 0.86 x10'3/uL 01/10/2024 8:51 PM [facility] ABS. EOSINOPHILS 0.14 0.04 - 0.36 x10'3/uL 01/10/2024 8:51 PM [facility] P[facility]ER [facility] ABS. BASOPHILS 0.04 0.01 - 0.08 x10'3/uL 01/10/2024 8:51 PM [facility] P[facility]ER [facility] ABS. IMMATURE GRANULOCYTES 0.02 0.00 - 0.49 x10'3/uL 01/10/2024 8:51 PM [facility] P[facility]ER [facility] 01/10/2024 8:27 PM WIENER PACKER us Jacque Lira MD LABORATORY Final Result [facility] [address] [place] [address], * (ABNORMAL) HEPATIC FUNCTION PANEL (01/10/2024 8:27 PM WIENER PACKER) TOTAL PROTEIN S/P/B 6.8 6.4 - 8.2 G/DL 01/10/2024 9:12 PM [facility] P[facility]ER [facility] ALBUMIN S/P/B 3.0(L) 3.4 - 5.0 G/DL 01/10/2024 9:12 PM [facility] P[facility]ER [facility] BILIRUBIN TOTAL S/P/B 0.9 0.2 - 1.2 MG/DL 01/10/2024 9:12 PM WI[facility] PACKER [facility] Comment: THIS ASSAY IS NOT RECOMMENDED FOR PATIENTS UNDERGOING TREATMENT WITH ELTROMBOPAG DUE TO THE POTENTIAL FOR FALSELY ELEVATED RESULTS. BILIRUBIN DIRECT S/P/B 0.4(H) 0.0 - 0.20 MG/DL 01/10/2024 9:12 PM [facility] P[facility]ER [facility] BILIRUBIN INDIRECT S/P/B 0.5 0.0 - 0.9 MG/DL 01/10/2024 9:12 PM [facility] P[facility]ER [facility] ALKALINE PHOSPHATASE S/P/B 190(H) 50 - 136 U/L 01/10/2024 9:12 PM [facility] P[facility]ER [facility] AST 472(H) 15 - 37 U/L 01/10/2024 9:12 PM WI[facility] P[facility]ER [facility] ALT 624(H) 14 - 55 U/L 01/10/2024 9:12 PM WI[facility] P[facility]ER [facility] A/G RATIO 0.8(L) 1.0 - 2.0 RATIO 01/10/2024 9:12 PM WI[facility] P[facility]ER [facility] 01/10/2024 8:27 PM WI[facility] PACKER us Jacque Lira MD LABORATORY Final Result [facility] [address] [place] [address], [place] [phone] * US ABD LIMITED (01/10/2024 8:06 AM WIENER PACKER) Anatomical Region Laterality Modality Abdomen Ultrasound 01/10/2024 8:16 AM WIENER PACKER Impressions 01/10/2024 8:20 AM WIENER PACKER Impression: 1. ??Cholelithiasis without sonographic evidence for acute cholecystitis. 2. ??No biliary ductal dilatation. ??Two tiny echogenic foci seen within the normal caliber common bile duct which may be artifactual or reflect choledocholithiasis. ??Correlate with LFTs and consider ERCP or MRCP if clinically indicated. 3. ??Hepatic steatosis. Referred By: KARLIE HART Interpreted By: Luis Rocha MD, 01/10/2024 8:16 AM Narrative 01/10/2024 8:20 AM WIENER PACKER [facility] [address] [place], [place] [address] Procedure: US ABD LIMITED Indication: elevated LFTs, [...] Procedure Note Luis Rocha MD - 01/10/2024 [facility] [address] [place], [place] [address] Procedure: US ABD LIMITED Indication: elevated LFTs, [...] TEST SERUM (HCG QUALITATIVE) (01/10/2024 6:35 AM WIENER PACKER) Pathologist [facility] PREG SCREEN-SERUM NEGATIVE 01/10/2024 9:00 AM WIENER PACKER [facility] 01/10/2024 6:35 AM WIENER PACKER Jacque Lira MD LABORATORY Final Result Performing Organization Address City/[facility]/ZIP Co de Phone Number [facility] [address] [place] [address], * LIPASE (01/10/2024 6:35 AM WIENER PACKER) Pathologist [facility] LIPASE 19 13 - 75 UNITS/L 01/10/2024 9:46 AM WIENER PACKER [facility] 01/10/2024 6:35 AM WIENER PACKER Jacque Lira MD LABORATORY Final Result [facility] [address] [place] [address], * PROCALCITONIN (PCT) (01/10/2024 6:35 AM WIENER PACKER) Pathologist [facility] Procalcitonin 0.39 0.00 - 0.49 NG/ML 01/10/2024 8:52 AM [facility] 01/10/2024 6:35 AM WIENER P[facility]ER Sravanthi King MD LABORATORY Final Re sult [facility] [address] [place] [address], * (ABNORMAL) COMPREHENSIVE METABOLIC PANEL (01/10/2024 6:35 AM WIENER PACKER) GLUCOSE 108(H) 70 - 99 MG/DL 01/10/2024 7:06 AM [facility] BUN 8 7 - 18 MG/DL 01/10/2024 7:06 AM [facility] CREATININE S/P/B 0.81 0.55 - 1.02 MG/DL 01/10/2024 7:06 AM [facility] SODIUM S/P/B 137 136 - 145 MMOL/L 01/10/2024 7:06 AM [facility] POTASSIUM S/P/B 3.7 3.5 - 5.1 MMOL/L 01/10/2024 7:06 AM [facility] CHLORIDE S/P/B 107 97 - 115 MMOL/L 01/10/2024 7:06 AM [facility] CO2 25.3 21 - 32 MMOL/L 01/10/2024 7:06 AM [facility] CALCIUM S/P/B 8.6 8.5 - 10.1 MG/DL 01/10/2024 7:06 AM [facility] BILIRUBIN TOTAL S/P/B 1.3(H) 0.2 - 1.2 MG/DL 01/10/2024 7:06 AM [facility] Comment: THIS ASSAY IS NOT RECOMMENDED FOR PATIENTS UNDERGOING TREATMENT WITH ELTROMBOPAG DUE TO THE POTENTIAL FOR FALSELY ELEVATED RESULTS. TOTAL PROTEIN S/P/B 6.5 6.4 - 8.2 G/DL 01/10/2024 7:06 AM [facility] ALBUMIN S/P/B 2.9(L) 3.4 - 5.0 G/DL 01/10/2024 7:06 AM [facility] AST 745(H) 15 - 37 U/L 01/10/2024 7:06 AM [facility] ALT 647(H) 14 - 55 U/L 01/10/2024 7:06 AM [facility] ALKALINE PHOSPHATASE S/P/B 183(H) 50 - 136 U/L 01/10/2024 7:06 AM [facility] ANION GAP 4.7 2 - 10 MMOL/L 01/10/2024 7:06 AM [facility] BUN CREATININE RATIO 9.9 6 - 26 01/10/2024 7:06 AM [facility] A/G RATIO 0.8(L) 1.0 - 2.0 RATIO 01/10/2024 7:06 AM [facility] GFR ESTIMATE >90 >90 ML/MIN/1.7 3 M2 01/10/2024 7:06 AM [facility] Comment: NOTE: eGFR is not calculated for patients <18 years of age or gender unknown. This is an estimated GFR calculation using the new CKD EPI creatinine equation without race and so does not require a correction factor for race. This estimated GFR should not be used for calculating drug doses. 01/10/2024 6:35 AM WI[facility] PACKER us Sravanthi King MD LABORATORY Final Re sult [facility] [address] [place] [address], [place] [phone] * (ABNORMAL) CBC W/DIFF AUTOMATED (01/10/2024 6:35 AM WIENER PACKER) [facility] WBC 7.66 4.5 - 11.0 x10'3/uL 01/10/2024 6:47 AM [facility] RBC 4.78 4.20 - 5.40 x10'6/uL 01/10/2024 6:47 AM [facility] HGB 12.5 12.0 - 16.0 G/DL 01/10/2024 6:47 AM [facility] HCT 38.4 38.0 - 48.0 % 01/10/2024 6:47 AM [facility] MCV 80.3(L) 81.0 - 99.0 FL 01/10/2024 6:47 AM [facility] MCH 26.2(L) 27.0 - 31.0 PG 01/10/2024 6:47 AM [facility] MCHC 32.6 32.0 - 36.0 G/DL 01/10/2024 6:47 AM [facility] RDW 14.0 11.5 - 14.5 % 01/10/2024 6:47 AM [facility] PLT 277 130 - 400 x10'3/uL 01/10/2024 6:47 AM [facility] MPV 11.2 9.3 - 12.2 FL 01/10/2024 6:47 AM [facility] DIFFERENTIAL TYPE AUTOMATED DIFFERENTIAL 01/10/2024 6:47 AM [facility] NEUTROPHILS % 65.8 % 01/10/2024 6:47 AM [facility] LYMPHOCYTES % 26.1 % 01/10/2024 6:47 AM [facility] P[facility]ER [facility] MONOCYTES % 6.8 % 01/10/2024 6:47 AM [facility]ER [facility] EOSINOPHILS 0.5 % 01/10/2024 6:47 AM [facility] BASOPHILS 0.4 % 01/10/2024 6:47 AM [facility]ER [facility] IMMATURE GRANS % 0.4 % 01/10/20 6:47 AM [facility]ER [facility] ABS. NEUTROPHILS 5.04 1.80 - 7.70 x10'3/uL 01/10/2024 6:47 AM [facility]ER [facility] ABS. LYMPHOCYTES 2.00 1.00 - 4.80 x10'3/uL 01/10/2024 6:47 AM [facility]ER [facility] ABS. MONOCYTES 0.52 0.24 - 0.86 x10'3/uL 01/10/2024 6:47 AM [facility] P[facility]ER [facility] ABS. EOSINOPHILS 0.04 0.04 - 0.36 x10'3/uL 01/10/2024 6:47 AM [facility]ER [facility] ABS. BASOPHILS 0.03 0.01 - 0.08 x10'3/uL 01/10/2024 6:47 AM [facility] ABS. IMMATURE GRANULOCYTES 0.03 0.00 - 0.49 x10'3/uL 01/10/2024 6:47 AM [facility] 01/10/2024 6:35 AM [facility]ER Sravanthi King MD LABORATORY Final Re sult [facility] [address] [place] [address], [place] [phone] documented in this encounter Visit Diagnoses Not on filedocumented in this encounter Admitting Diagnoses Diagnosis Transaminitis Nonspecific elevation of levels of transaminase or lactic acid dehydrogenase (LDH) Calculus of bile duct without cholecystitis with obstruction documented in this encounter Administered Medications Inactive Administered Medications - up to 3 most recent administrations Medication Order MAR Action Action Date Dose Rate Site BUpivacaine-EPINEPHrine 0.25% -[id number] injection As needed, Starting on 01/12/24 at 1045, Until 01/12/24 at 1128, Intra-Op Given 01/12/2024 10:45 AM [facility] P[facility]ER 30 mLs Abdominal Tissue docusate sodium (COLACE) capsule 100 mg 100 mg, Oral, 2 times daily PRN, Constipation, Starting on Candis 01/10/24 at 0250, Until 01/12/24 at 2010 HYDROmorphone (DILAUDID) injection 0.5 mg 0.5 mg, Intravenous, Every 2 hours PRN, Severe pain (Scale 8 - 10), Starting on Candis 01/10/24 at 0250, Until 01/12/24 at 2010, Administer slowly over at least 2-3 minutes. Given 01/10/2024 11:55 AM [facility] PACKER 0.5 mg Given 01/10/2024 6:30 AM [facility] PACKER 0.5 mg lactated ringers infusion at 10 mL/hr, Intravenous, [...] over 2-5 minutes. Given 01/10/2024 9:07 PM [facility] P[facility]ER 4 mg Given 01/10/2024 10:06 AM [facility]ER 4 mg polyethylene glycol (GLYCOLAX) packet 17 g 17 g, Oral, Daily as needed, Constipation, Starting on Candis 01/10/24 at 0250, Until 01/12/24 at 2010 traMADol (ULTRAM) tablet 50 mg 50 mg, Oral, Every 6 hours PRN, Moderate pain (Scale 4 - 7), Headache, Starting on Candis 01/10/24 at 1948, Until 01/12/24 at 2010 Given 01/10/2024 8:21 PM [facility] PACKER 5 0 mg documented in this encounter Active and Recently Administered Medications Times are shown in WIENER PACKER. Scheduled Medication Order 01/10/2024 01/11/2024 01/12/2024 indocyanine green (IC-GREEN) injection 2.5 mg (COMPLETED) 2.5 mg, Intravenous, Once, 1 dose, On 01/12/24 at 0900, Please make sure medication is on the floor to add be administered by floor nurse 0911 (Given - Provid er: Kymberly Zapien RN) Continuous Medication Order 01/10/2024 01/11/2024 01/12/2024 lactated ringers infusion at 10 mL/hr, Intravenous, Continuous, Starting on 01/11/24 at 1930, Until 01/12/24 at 2010, Not to be given to patients with end stage renal disease or dialysis. Infuse at TKO rate, Pre-Op 1930 (Canceled Entry - Provi desiree: Automatic Discharge Provider - Comment: Automatically canceled at discontinue of medication order) PRN Medication Order 01/10/2024 01/11/2024 01/12/2024 BUpivacaine-EPINEPHrine 0.25% -[id number] injection (CANCELED) As needed, Starting on 01/12/24 [...] 2010 1025 (MAR Hold - Provider: User Epic - Reason: Unreviewed Transfer Orders)1130 (MAY Unhold - Provider: User Epic) HYDROmorphone (DILAUDID) injection 0.4 mg (CANCELED) 0.4 [...] interval., PACU 1135 (Given - Provider: Nelida Yan, ERIKA)1150 (Given - Provider: Nelida Yan, ERIKA) HYDROmorphone (DILAUDID) injection 0.5 mg 0.5 mg, Intravenous, Every 2 hours PRN, Severe pain (Scale 8 - 10), Starting on Candis 01/10/24 at 0250, Until 01/12/24 at 2010, Administer slowly over at least 2-3 minutes. 0630 (Given - Provider: Anahi Hodgson RN)1155 (Given - Provider: Shilpi Philip, ERIKA) 1025 (MAY Hold - Provider: User Epic - Reason: Unreviewed Transfer Orders)1130 ([facility] Unhold - Provider: User Epic) indomethacin (INDOCIN) supppository (CANCELED) As needed, Starting on Sun01/11/24 at 1156, Until Sun01/11/24 at 1240, Intra-Op 1156 (Given - Provider: Gwyn Dennison RN) influenza vaccine (FLUZONE) injection 0.5 mL (COMPLETED) 0.5 mL, Intramuscular, Prior to discharge, Other, immunization, 1 dose, Starting on Candis 01/10/24 at 0326, Until 01/12/24 at 1706, Please give vaccine prior to discharge. 1025 (MAY Hold - Provider: User Epic - Reason: Unreviewed Transfer Orders)1130 (MAY Unhold - Provider: User Epic)1706 (Given - Provider: Kymberly Zapien ERIKA) iopamidol (ISOVUE-300) 61 % 50 mL in sodium chloride 0.9 % 50 mL contrast solution (CANCELED) As needed, Starting on Sun01/11/24 at 1258, Until Sun01/11/24 at 1258, Intra-Op 1200 (Given - Provider: Jacque Lira MD - Comment: ERCP) naLOXone (NARCAN) injection 0.4 mg 0.4 mg, Intravenous, As needed, Opioid reversal, Starting on Candis 01/10/24 at 0250, Until 01/12/24 at 2010 1025 (MAY Hold - Provider: User Epic - Reason: Unreviewed Transfer Orders)1130 (MAY Unhold - Provider: User Epic) ondansetron (ZOFRAN) injection 4 mg 4 mg, Intravenous, Every 6 hours PRN, Nausea, Starting on Candis 01/10/24 at 1000, Until 01/12/24 at 2010, IV push over 2-5 minutes. 1006 (Given - Provider: Shilpi Philip RN)2107 (Given - Provider: Sunni Shearer RN) 1025 (MAY Hold - Provider: User Epic - Reason: Unreviewed Transfer Orders)1130 (MAR Unhold - Provider: User Epic) oxyCODONE immediate [...] 4 - 7), Headache, Starting on [place] 11/7/24 at 1948, Until 01/12/24 at 2010 2020 (Given - Provider: Sunni Shearer, ERIKA) 1025 (MAY Hold - Provider: User Epic - Reason: Unreviewed Transfer Orders)1130 (MAR Unhold - Provider: User Epic) documented in this encounter Care Teams Adult Services Librarian Relationship Specialty Start Date End Date None, Provider, MD PCP - General UNKNOWN PHYSICIAN SPECIALTY 01/09/24 Chiara Grimaldo MD [id number] [place] [address] Physician OBGYN 12/28/22 documented as of this encounter
--- OUTSIDE RECORDS SUMMARY | 2024-03-09 06:39 | XMS_ITS | Encounter Summary ---
Author Organization [facility] Address [address] [place] [address]. [place], [place] [id number] [place] [id number] Care Team Providers Care Residential Construction Instructor Name Role Phone Jack Rosales MD Primary Care Provider [phone] Chiara Grimaldo MD Unavailable [phone] Reason for Visit * Reason Comments URI Encounter Details Date Type Department Care Team (Late st Contact Info) Description 12/28/2022 1:41 PM CDT - 12/28/2022 3:31 PM CDT Emergency [facility] Emergency Room [id number] [place] [address] Tonya Ya MD [address] [place] [id number] URI Discharge Disposition: Home or Self Care (Routine [...] Sign Reading Time Taken Comments Blood Pressure 120/77 12/28/2022 3:27 PM CDT Pulse 77 12/28/2022 3:27 PM CDT Temperature 36.7 ??C (98 ??F) 12/28/2022 3:27 PM CDT Respiratory Rate 18 12/28/2022 3:27 PM CDT Oxygen Saturation 98% 12/28/2022 3:27 PM CDT Inhaled Oxygen Concentration - - Weight 88.9 kg (196 lb) 12/28/2022 1:38 PM CDT Height 162.6 cm (5' 4 ) 12/28/2022 1:38 PM CDT Body Mass Index 33.64 12/28/2022 1:38 PM CDT documented in this encounter Discharge Instructions * Discharge Instructions* Tonya Ya MD - 12/28/2022 2:50 PM CDT Take medication as prescribed. Your strep, influenza, COVID, were all negative. You most likely have a viral infection. You will be treated with steroids cough medication and an inhaler. None of these medications shouldaffect your . * Attachments The following attachments cannot be sent through Care Everywhere. * Wheezing (Estonian) * Sore Throat Discharge Instructions, Adult (Estonian) documented in this encounter Medications at Time of Discharge albuterol sulfate HFA 108 (90 Base) MCG/ACT inhaler Inhale 2 puffs into the lungs every 6 (six) hours as needed for Wheezing. 1 g 12/28/2022 06/28/2023 guaiFENesin ER (MUCINEX) 600 MG 12 hr tablet Take 2 tablets (1,200 mg total) by mouth 2 (two) times daily. 28 tablet 12/28/2022 06/28/2023 predniSONE 50 MG tablet Take 1 tablet (50 mg total) by mouth daily for 10 days. 10 tablet 12/28/2022 01/07/2023 documented as of this encounter ED Notes * Tonya Ya MD - 12/28/2022 2:33 PM CDT Chief Complaint Chief Complaint Patient presents with URI History of Present Illness Patient is a 22-year-old white female presents to the emergency room with a complaint of cough, sore throat, wheezing. Patient does states she has had the symptoms for 4 weeks. She denies any fever chills runny nose or congestion. Patient states she has been exposed to her boyfriend who has been ill but recovered on his own. Patient is without any nausea vomiting or diarrhea or abdominal pain. Patient states she is 12 weeks Medical History ALLERGIES: Review of patient's allergies indicates: No Known Allergies MEDICATIONS: Prior to Admission medications Medication Sig Start Date End Date Taking? Authorizing Provider albuterol sulfate HFA 108 (90 Base) MCG/ACT inhaler Inhale 2 puffs into the lungs every 6 (six) hours as needed for Wheezing. 12/28/22 Yes Tonya Ya MD guaiFENesin ER (MUCINEX) 600 MG 12 hr tablet Take 2 tablets (1,200 mg total) by mouth 2 (two) timesdaily. 12/28/22 Yes Tonay Ya MD predniSONE 50 MG tablet Take 1 tablet (50 mg total) by mouth daily for 10 days. 12/28/22 01/07/23 Yes Tonya Ya MD PAST MEDICAL HISTORY: Past Medical History: Diagnosis Date Gestational diabetes (HHS/HCC) and not yet delivered in first trimester (HHS/HCC) PAST SURGICAL HISTORY: Past Surgical History: Procedure Laterality Date SECTION FAMILY HISTORY: No family history on file. SOCIAL HISTORY: Social History Tobacco Use Smoking status: Never Smokeless tobacco: Never Vaping Use Vaping Use: Every day Substances: Nicotine Substance Use Topics Alcohol use: Yes Comment: socially Drug use: Yes Types: Marijuana Review of Systems Review of Systems Constitutional: Negative for activity change, chills and fever. HENT: Positive for sore throat. Negative for congestion, drooling, ear discharge and rhinorrhea. Eyes: Negative. Respiratory: Positive for cough and wheezing. Cardiovascular: Negative for chest pain and palpitations. Gastrointestinal: Negative for abdominal pain, diarrhea, nausea and vomiting. Endocrine: Negative. Genitourinary: Negative. Musculoskeletal: Negative. Skin: Negative for pallor and rash. Allergic/Immunologic: Negative. Neurological: Negative for seizures, light-headedness and headaches. Hematological: Negative. Psychiatric/Behavioral: Negative. Physical Exam Filed Vitals: 12/28/22 1338 12/28/22 1527 BP: 132/72 120/77 Pulse: 72 77 Resp: 20 18 Temp: 97.6 ??F (36.4 ??C) 98 ??F (36.7 ??C) TempSrc: Temporal Oral SpO2: 98% 98% Weight: 88.9 kg (196 lb) Height: 1.626 m (5' 4 ) Physical Exam Vitals and nursing note reviewed. Constitutional: Appearance: Normal appearance. HENT: Head: Normocephalic and atraumatic. Nose: No congestion or rhinorrhea. Mouth/Throat: Mouth: Mucous membranes are moist. Pharynx: Oropharynx is clear. No oropharyngeal exudate or posterior oropharyngeal erythema. Neck: Vascular: No carotid bruit. Cardiovascular: Rate and Rhythm: Normal rate and regular rhythm. Heart sounds: No murmur heard. No friction rub. No gallop. Pulmonary: Effort: Pulmonary effort is normal. No respiratory distress. Breath sounds: No stridor. Wheezing present. No rhonchi or rales. Chest: Chest wall: No tenderness. Abdominal: General: Abdomen is flat. Bowel sounds are normal. There is no distension. Palpations: Abdomen is soft. There is no mass. Tenderness: There is no abdominal tenderness. There is no guarding or rebound. Hernia: No hernia is present. Musculoskeletal: General: No swelling, tenderness, deformity or signs of injury. Cervical back: No rigidity or tenderness. Right lower leg: No edema. Lymphadenopathy: Cervical: Cervical adenopathy present. Skin: General: Skin is warm and dry. Capillary Refill: Capillary refill takes less than 2 seconds. Coloration: Skin is not pale. Findings: No bruising, erythema, lesion or rash. Neurological: General: No focal deficit present. Mental Status: She is alert and oriented to person, place, and time. Mental status is at baseline. Cranial Nerves: No cranial nerve deficit. Sensory: No sensory deficit. Motor: No weakness. Coordination: Coordination normal. Gait: Gait normal. Deep Tendon Reflexes: Reflexes normal. Diagnostic Studies / Procedures ELECTROCARDIOGRAMS: No results found for this visit on 12/28/22. LABORATORY STUDIES: Results for orders placed or performed during the hospital encounter of 12/28/22 CORONAVIRUS (COVID-19) MOLECULAR Specimen: NASOPHARYNGEAL SWAB Result Value Ref Range CORONAVIRUS SARS COV 2 RNA NEGATIVE NEGATIVE Specimen Type NASAL RAPID STREP A Specimen: THROAT Result Value Ref Range RAPID STREP TEST NEGATIVE NEGATIVE INFLUENZA A & B Specimen: NASOPHARYNGEAL SWAB Result Value Ref Range Specimen Type NASOPHARYNGEAL SWAB INFLUENZA A NEGATIVE NEGATIVE INFLUENZA B NEGATIVE NEGATIVE IMAGING STUDIES No orders to display ED Course / Medical Decision Making Medical Decision Making Patient studies are negative. We will try patient on cough and steroids. Patient is negative for strep. And cough is nonproductive. Patient will be prescribed an inhaler for her wheezing. No chest x-ray was done is was felt that it was not needed as patient did have a fever nonproductive cough and patient is . Patient will be discharged home to follow-up with her physician. Most likely mikie ology is viral syndrome. Amount and/or Complexity of Data Reviewed Labs: ordered. Clinical Impression Wheezing (Primary) Sore throat (viral) Disposition: Discharge Tonya Ya MD 12/28/22 184 * Laurel Gracia RN - 12/28/2022 1:40 PM CDT 4 day history of cough and congestion Is 12 weeks Sore throat rates 06/12 documented in this encounter Plan of Treatment Not on file documented as of this encounter Procedures Procedure Name Priority Date/Time Associated Diagnosis Comments CORONAVIRUS (COVID 19) STAT 12/28/2022 2:00 PM CDT RAPID STREP A STAT 12/28/2022 2:00 PM CDT INFLUENZA A & B STAT 12/28/2022 2:00 PM CDT documented in this encounter Results * INFLUENZA A & B (12/28/2022 2:00 PM CDT) SPECIMEN TYPE NASOPHARYNGEAL SWAB 12/28/2022 2:06 PM CDT [facility] INFLUENZA A NEGATIVE NEGATIVE 12/28/2022 3:13 PM CDT [facility] INFLUENZA B NEGATIVE NEGATIVE 12/28/2022 3:13 PM CDT [facility] NASOPHARYNGEAL SWAB / Unknown 12/28/2022 2:00 PM CDT us Tonya Ya MD MICROBIOLOGY - GENERAL ORDERABL ES Final Result Performing Organization Address City/[facility]/ZIP Co de Phone Number [facility] [address] [place] [address], [place] [phone] * RAPID STREP A (12/28/2022 2:00 PM CDT) RAPID STREP TEST NEGATIVE NEGATIVE 12/28/2022 2:37 PM CDT [facility] STRUCTURE OF ANTERIOR PORTION OF NECK / Unknown 12/28/2022 2:00 PM CDT us Tonya Ya MD MICROBIOLOGY - GENERAL ORDERABL ES Final Result Performing Organization Address [facility] Co de Phone Number [facility] [address] [place] [address], [place] [phone] * CORONAVIRUS (COVID-19) MOLECULAR (12/28/2022 2:00 PM CDT) CORONAVIRUS SARS COV 2 RNA NEGATIVE NEGATIVE 12/28/2022 2:27 PM CDT [facility] Comment: NEGATIVE RESULTS DO NOT RULE OUT COVID 19 AND SHOULD NOT BE USED THE SOLE BASIS FOR TREATMENT OR PATIENT MANAGEMENT DECISIONS, INCLUDING INFECTION CONTROL DECISIONS. NEGATIVE RESULTS SHOULD BE CONSIDERED IN THE CONTEXT OF A PATIENT'S RECENT EXPOSURES, HISTORY AND THE PRESENCE OF CLINICAL SIGNS AND SYMPTOMS CONSISTENT WITH COVID 19. THE ID NOW COVID-19 2.0 TEST HAS BEEN AUTHORIZED BY THE FDA UNDER EAU FOR USE BY AUTHORIZED LABORATORIES. PERFORMED BY NUCLEIC ACID AMPLIFICATION FOR MOLECULAR QUALITATIVE DETECTION OF SARS-COV-2. SPECIMEN TYPE NASAL 12/28/2022 1:54 PM CDT [facility] NASOPHARYNGEAL SWAB / Unknown 12/28/2022 2:00 PM CDT us Tonya Ya MD MICROBIOLOGY - GENERAL ORDERABL ES Final Result Performing Organization Address City/[facility]/ZIP Co de Phone Number [facility] [address] [place] [address], documented in this encounter Visit Diagnoses Diagnosis Wheezing- Primary Sore throat (viral) Acute pharyngitis documented in this encounter Administered Medications Inactive Administered Medications - up to 3 most recent administrations Medication Order MAR Action Action Date Dose Rate Site ipratropium-albuterol (DUONEB) 0.5-2.5 (3) MG/3ML nebulizer solution 3 mL 3 mL, Nebulization, Once, 1 dose, On Candis 12/28/22 at 1415 Given 12/28/2022 2:19 PM CDT 3 mLs documented in this encounter Active and Recently Administered Medications Times are shown in CDT. Scheduled Medication Order 12/26/2022 12/27/2022 12/28/2022 ipratropium-albuterol (DUONEB) 0.5-2.5 (3) MG/3ML nebulizer solution 3 mL (COMPLETED) 3 mL, Nebulization, Once, 1 dose, On Candis 12/28/22 at 1415 1419 (Given - Provid er: Davida Fontana) documented in this encounter Additional Health Concerns Infection Onset Date Last Indicated Resolved Time COVID-19 Rule Out 12/28/2022 12/28/2022 12/28/2022 2:27 PM CDT documented as of this encounter Care Teams Residential Construction Instructor Relationship Specialty Start Date End Date Jack Rosales MD [address] [place] [id number] PCP - General FAMILY PRACTICE 12/28/22 01/08/24 Chiara Grimaldo MD [address] [place] [address] Physician OBGYN 12/28/22 documented as of this encounter
--- OUTSIDE RECORDS SUMMARY | 2024-03-09 06:39 | XMS_ITS | Encounter Summary ---
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 MD LABORATORY Final Result [facility] [address] [place] [address], [place] [phone] * ETHANOL (08/11/2022 10:53 PM CDT) ALCOHOL S/P/B <0.003 <0.003 G/DL 08/11/2022 11:34 PM CDT [facility] 08/11/2022 10:5 3 PM CDT Nely Barba MD LABORATORY Final Result Performing Organization Address City/[facility]/ZIP Co de Phone Number [facility] [address] [place] [address], [place] [phone] * (ABNORMAL) COMPREHENSIVE METABOLIC PANEL (08/11/2022 10:53 PM CDT) GLUCOSE 128(H) 70 - 99 MG/DL 08/11/2022 11:34 PM CDT [facility] BUN 5(L) 7 - 18 MG/DL 08/11/2022 11:34 PM CDT [facility] CREATININE S/P/B 1.04(H) 0.55 - 1.02 MG/DL 08/11/2022 11:34 PM CDT [facility] SODIUM S/P/B 140 136 - 145 MMOL/L 08/11/2022 11:34 PM CDT [facility] POTASSIUM S/P/B 3.2(L) 3.5 - 5.1 MMOL/L 08/11/2022 11:34 PM CDT [facility] CHLORIDE S/P/B 103 100 - 108 MMOL/L 08/11/2022 11:34 PM CDT [facility] CO2 21.9 21 - 32 MMOL/L 08/11/2022 11:34 PM [facility] CALCIUM S/P/B 8.8 8.5 - 10.1 MG/DL 08/11/2022 11:34 PM [facility] BILIRUBIN TOTAL S/P/B 0.2 0.2 - 1.2 MG/DL 08/11/2022 11:34 PM [facility] TOTAL PROTEIN S/P/B 7.3 6.4 - 8.2 G/DL 08/11/2022 11:34 PM [facility] ALBUMIN S/P/B 3.8 3.4 - 5.0 G/DL 08/11/2022 11:34 PM [facility] AST 18 15 - 37 U/L 08/11/2022 11:34 PM [facility] ALT 23 14 - 55 U/L 08/11/2022 11:34 PM [facility] ALKALINE PHOSPHATASE S/P/B 112 50 - 136 U/L 08/11/2022 11:34 PM [facility] ANION GAP 15.1(H) 5 - 15 MMOL/L 08/11/2022 11:34 PM [facility] BUN CREATININE RATIO 4.8(L) 6 - 26 08/11/2022 11:34 PM [facility] A/G RATIO 1.1 1.0 - 2.0 RATIO 08/11/2022 11:34 PM [facility] GFR ESTIMATE 78(L) >90 ML/MIN/1.7 3 M2 08/11/2022 11:34 PM [facility] Comment: NOTE: eGFR is not calculated for patients <18 years of age. This is an estimated GFR calculation using the new CKD EPI creatinine equation without race and so does not require a correction factor for race. This estimated GFR should not be used for calculating drug doses. 08/11/2022 10:5 3 PM CDT Nely Barba MD LABORATORY Final Result [facility] [address] [place] [address], * (ABNORMAL) CBC W/DIFF AUTOMATED (08/11/2022 10:53 PM CDT) WBC 15.73(H) 4.4 - 11.0 x10'3/uL 08/11/2022 11:03 PM CDT [facility] RBC 5.14(H) 4.50 - 5.10 x10'6/uL 08/11/2022 11:03 PM CDT [facility] HGB 14.4 12.3 - 15.3 G/DL 08/11/2022 11:03 PM CDT [facility] HCT 43.5 35.9 - 44.6 % 08/11/2022 11:03 PM CDT [facility] MCV 84.6 80.0 - 96.0 FL 08/11/2022 11:03 PM CDT [facility] MCH 28.0 25.3 - 30.9 PG 08/11/2022 11:03 PM CDT [facility] MCHC 33.1 31.0 - 34.1 G/DL 08/11/2022 11:03 PM CDT [facility] RDW 13.7 12.4 - 15.1 % 08/11/2022 11:03 PM CDT [facility] PLT 275 151 - 353 x10'3/uL 08/11/2022 11:03 PM CDT [facility] MPV 11.4 9.6 - 12.0 FL 08/11/2022 11:03 PM CDT [facility] RBC MORPHOLOGY NORMAL 08/11/2022 11:03 PM CDT [facility] PLT MORPH. NORMAL 08/11/2022 11:03 PM CDT [facility] WBC MORPHOLOGY NORMAL 08/11/2022 11:03 PM CDT [facility] LYMPHOCYTES % 9.8(L) 15.8 - 45.0 % 08/11/2022 11:03 PM CDT [facility] NEUTROPHILS % 84.1(H) 42.1 - 71.9 % 08/11/2022 11:03 PM CDT [facility] MONOCYTES % 5.0(L) 5.7 - 12.5 % 08/11/2022 11:03 PM CDT [facility] EOSINOPHILS 0.3 0.0 - 5.6 % 08/11/2022 11:03 PM CDT [facility] BASOPHILS 0.3 0.0 - 1.3 % 08/11/2022 11:03 PM CDT [facility] ABS. NEUTROPHILS 13.25(H) 1.40 - 6.00 x10'3/uL 08/11/2022 11:03 PM CDT [facility] IMMATURE GRANS % 0.5 0.0 - 0.5 % 08/11/2022 11:03 PM CDT [facility] ABS. LYMPHOCYTES 1.54 0.80 - 4.70 x10'3/uL 08/11/2022 11:03 PM T [facility] 08/11/2022 10:5 3 PM CDT us Nely Barba MD LABORATORY Final Result [facility] [address] [place] [address], * ECG 12 lead (08/11/2022 10:47 PM CDT) 08/11/2022 10:4 7 PM CDT Narrative [facility] - 08/12/2022 11:49 AM CDT ?[facility] ? Test Date: ?2022-08-11 Pat Name: ? MARGOT TYSON ? Department: ?? 85 ? Room: ? EXAM 303 Gender: ? Female ? Pie Baker: ?? : ?2000 ? Requested By: NELY BARBA Order Number: [id number] ? Reading MD: ?? Fede Ibrahim ? Measurements Intervals ?[place] ? Rate: ? 86 ? P: ?40 VT: ? 156 ?QRS: ?46 QRSD: ? 81 ? T: ?25 QT: ? 346 ? QTc: ?415 ? Interpretive Statements SINUS RHYTHM POSSIBLE LEFT ATRIAL ENLARGEMENT ??[-0.1mV P-WAVE IN V1/V2] No previous ECG available for comparison Procedure Note Fede Ibrahim MD - [facility] Date: 2022-08-11 Pat Name: MARGOT TYSON Department: 85 Room: EXAM 303 Gender: Female Pie Baker: : 2000 Requested By: PALMER Order Number: [id number] Dre MD: Fede Ibrahim Measurements Intervals [place] Rate: 86 P: 40 VT: 156 QRS: 46 QRSD: 81 T: 25 QT: 346 QTc: 415 Interpretive Statements SINUS RHYTHM POSSIBLE LEFT ATRIAL ENLARGEMENT [-0.1mV P-WAVE IN V1/V2] No previous ECG available for comparison us Nely Barba MD ECG ORDERABLES Final Result [facility] documented in this encounter Visit Diagnoses Diagnosis Depression- Primary Depressive disorder, not elsewhere classified Suicidal ideations Suicidal ideation documented in this encounter Administered Medications Inactive Administered Medications - up to 3 most recent administrations Medication Order MAR Action Action Date Dose Rate Site acetaminophen (TYLENOL) tablet 650 mg 650 mg, Oral, Once, 1 dose, On 08/12/22 at 0215, Maximum dose of acetaminophen is 4000 mg from all sources in 24 hours. Given 08/12/2022 2:27 AM CDT 650 mg ibuprofen (MOTRIN) tablet 400 mg 400 mg, Oral, Once, 1 dose, On Sun08/12/22 at 1300 Given 08/12/2022 12:51 PM CDT 400 mg LORazepam (ATIVAN) tablet 1 mg 1 mg, Oral, Once, 1 dose, On Sun08/11/22 at 2230 Given 08/11/2022 11:04 PM CDT 1 mg nicotine (NICODERM CQ) 21 MG/24HR patch 21 mg 21 mg (1 patch), Transdermal, Administer over 24 Hours, Once, 1 dose, On Sun08/11/22 at 2315 Patch Applied 08/11/2022 11:11 PM CDT 21 mg Back nicotine (NICODERM CQ) 21 MG/24HR patch 21 mg 21 mg (1 patch), Transdermal, Administer over 24 Hours, Once, 1 dose, On Sun08/12/22 at 0700 Patch Applied 08/12/2022 6:56 AM CDT 21 mg Right Arm potassium bicarbonate-citric acid (EFFER-K) effervescent tablet 40 mEq 40 mEq, Oral, Once, 1 dose, On Sun08/11/22 at 2345, Dissolve flavored tablets completely in 3 to 4 ounces of cold or ice water; unflavored tablets may be dissolved in 3 to 4 ounces of cold juice. May further dilute if GI adverse effects occur. Given 08/12/2022 12:25 AM CDT 40 mEq documented in this encounter Active and Recently Administered Medications Times are shown in CDT. Scheduled Medication Order 08/10/2022 08/11/2022 08/12/2022 acetaminophen (TYLENOL) tablet 650 mg (COMPLETED) 650 mg, Oral, Once, 1 dose, On 08/12/22 at 0215, Maximum dose of acetaminophen is 4000 mg from all sources in 24 hours. 0227 (Given - Provid er: Codi Alas RN) ibuprofen (MOTRIN) tablet 400 mg (COMPLETED) 400 mg, Oral, Once, 1 dose, On 08/12/22 at 1300 1251 (Given - Provid er: Laurel Gracia RN) LORazepam (ATIVAN) tablet 1 mg (COMPLETED) 1 mg, Oral, Once, 1 dose, On Sun08/11/22 at 2230 2304 (Given - Provider: Codi Alas RN) nicotine (NICODERM CQ) 21 MG/24HR patch 21 mg 21 mg (1 patch), Transdermal, Administer over 24 Hours, Once, 1 dose, On Sun08/11/22 at 2315 2311 (Patch Applied - Provider: Codi Alas RN) 0608 (Patch Removed - Provider: Codi Alas RN - Comment: Patch fell off) nicotine (NICODERM CQ) 21 MG/24HR patch 21 mg 21 mg (1 patch), Transdermal, Administer over 24 Hours, Once, 1 dose, On 08/12/22 at 0700 0656 (Patch Applied - Provider: Codi Alas RN)1915 (Due: Patch Removed - Provider: Automatic Discharge Provider - Comment: Time automatically adjusted from order being discontinued) potassium bicarbonate-citric acid (EFFER-K) effervescent tablet 40 mEq (COMPLETED) 40 mEq, Oral, Once, 1 dose, On Sun08/11/22 at 2345, Dissolve flavored tablets completely in 3 to 4 ounces of cold or ice water; unflavored tablets may be dissolved in 3 to 4 ounces of cold juice. May further dilute if GI adverse effects occur. 0025 (Given - Provid er: Codi Alas RN) documented in this encounter Additional Health Concerns Infection Onset Date Last Indicated Resolved Time COVID-19 Rule Out 08/11/2022 08/11/2022 08/12/2022 1:23 PM CDT documented as of this encounter Care Teams Timber Selector Relationship Specialty Start Date End Date None, Provider, PCP - General 12/09/20 12/27/22 documented as of this encounter
--- OUTSIDE RECORDS SUMMARY | 2024-03-09 06:39 | XMS_ITS | Encounter Summary ---
Author Organization [facility] Address Pending sale to [facility] [facility] [place] [address] [place] [address] Care Team Providers Care Chief Business Development Officer Name Role Phone Jack Rosales MD Primary Care Provider [phone] Chiara Grimaldo MD Unavailable [phone] Reason for Visit * Reason Comments NST Sharp, lower abdomin al/pubic pain. Encounter Details Date Type Department Care Team (Latest Contact Info) Description 04/07/2023 3:09 PM PICKLER HELPER - 04/07/2023 4:45 PM [facility] Hospital Encounter [facility] [address] [place] [address] Chiara Grimaldo MD [address] [place], [place] [id number] NST (Sharp, lower abdominal/pubic pain. ) Discharge Disposition: Home or Self Care (Routine [...] Sign Reading Time Taken Comments Blood Pressure 115/61 04/07/2023 3:13 PM PICKLER HELPER Pulse 100 04/07/2023 3:13 PM PICKLER HELPER Temperature - - Respiratory Rate - - Oxygen Saturation - - Inhaled Oxygen Concentration - - Weight - - Height - - Body Mass Index - - documented in this encounter Discharge Instructions * Discharge Instructions* Monica Witt RN - 04/07/2023 4:33 PM PICKLER HELPER Discharge Instructions After NST Patient Information Call the [facility] at [phone] or return to the [facility] if: * You experience decreased movement. * Your water breaks. Call your physician or the [facility] if: * You are experiencing headaches, visual disturbances, or epigastric discomfort. * You are less than 37 weeks gestation and experiencing contractions less than 10 minutes apart for1 hour. * You are greater than 37 weeks gestation and experiencing contractions 5-10 minutes apart for 1 hour and are increasingly getting stronger in length. * Keep your next scheduled clinic visit. Additional Instructions Given: LER HELPER documented in this encounter Medications at Time of Discharge albuterol sulfate HFA 108 (90 Base) MCG/ACT inhaler Inhale 2 puffs into the lungs every 6 (six) hours as needed for Wheezing. 1 g 12/28/2022 06/28/2023 gabapentin (NEURONTIN) 100 MG capsule Take 2 capsules (200 mg total) by mouth 2 (two) times daily for 30 days. 60 capsule 07/01/2023 07/31/2023 guaiFENesin ER (MUCINEX) 600 MG 12 hr tablet Take 2 tablets (1,200 mg total) by mouth 2 (two) times daily. 28 tablet 12/28/2022 06/28/2023 oxyCODONE immediate release (ROXICODONE) 5 MG immediate release tabletIndication s:Acute Pain < 3 Day Supply Take 1 tablet (5 mg total) by mouth every 6 (six) hours as needed. Indications: Acute Pain < 3 Day Supply 8 split tab 07/01/2023 01/10/2024 sertraline (ZOLOFT) 25 MG tablet Take 1 tablet (25 mg total) by mouth daily. 01/12/2024 documented as of this encounter Plan of Treatment Not on file documented as of this encounter Procedures Procedure Name Priority Date/Time Associated Diagnosis Comments URINALYSIS WI REFLEX TO CULTURE Routine 04/07/2023 3:45 PM PICKLER HELPER (HHS/HCC) NONSTRESS TEST Routine 04/07/2023 3:35 PM PICKLER HELPER (HHS/HCC) documented in this encounter Results * URINALYSIS WI REFLEX TO CULTURE (04/07/2023 3:45 PM PICKLER HELPER) COLOR (U) LIGHT YELLOW 04/07/2023 4:28 PM [facility] TRANSPARENCY CLEAR 04/07/2023 4:28 PM [facility] SPECIFIC GRAVITY (U) 1.010 1.002 - 1.030 04/07/2023 4:28 PM [facility] U PH 6.0 4.5 - 8.0 04/07/2023 4:28 PM [facility] LEUKOCYTES (U) NEGATIVE NEGATIVE 04/07/2023 4:28 PM [facility] NITRITES NEGATIVE NEGATIVE 04/07/2023 4:28 PM [facility] PROTEIN RANDOM (U) NEGATIVE NEGATIVE 04/07/2023 4:28 PM [facility] GLUCOSE (U) NEGATIVE NEGATIVE 04/07/2023 4:28 PM [facility] KETONES MG/DL (U) NEGATIVE NEGATIVE 04/07/2023 4:28 PM [facility] UROBILINOGEN NORMAL NORMAL EU/DL 04/07/2023 4:28 PM [facility] BILIRUBIN (U) NEGATIVE NEGATIVE 04/07/2023 4:28 PM [facility] BLOOD (U) NEGATIVE NEGATIVE 04/07/2023 4:28 PM [facility] CULTURE & SENSITIVITY INDICATED? CULTURE IS NOT INDICATED 04/07/2023 4:28 PM [facility] RBC/HPF 0-2 /HPF 04/07/2023 4:28 PM PICKLER HELPER [facility] EPI/HPF 5-10 /HPF 04/07/2023 4:28 PM PICKLER HELPER [facility] BACTERIA (U) 2+ /HPF 04/07/2023 4:28 PM PICKLER HELPER [facility] URINE SPECIMEN OBTAINED BY CLEAN CATCH PROCEDURE / Unknown 04/07/2023 3:45 PM PICKLER HELPER us Chiara Grimaldo MD URINE ORDERABLES Final Resu lt [facility] [address] [place] [address], documented in this encounter Visit Diagnoses Diagnosis (HHS/HCC)- Primary state, incidental documented in this encounter Care Teams Chief Business Development Officer Relationship Specialty Start Date End Date Jack Rosales MD [address] [place] [id number] PCP - General FAMILY PRACTICE 12/28/22 01/08/24 Chiara Grimaldo MD [address] [place] [address] Physician OBGYN 12/28/22 documented as of this encounter
--- OUTSIDE RECORDS SUMMARY | 2024-03-09 06:39 | XMS_ITS | Encounter Summary ---
Author Organization [facility] Address [address] [place] [address]. [place], [place] [id number] [place] [address] Care Team Providers Care Post Manager Name Role Phone None, Provider Primary Care Provider Unavaila ble Encounter Details Date Type Department Care Team (Latest Contact Info) Description 02/03/2022 Travel Social History Tobacco Use Types Packs/Day [...] Coronavirus/COVID-19? No / Unsure 02/03/2022 1:19 PM FAMILY RESOURCE SPECIALIST documented as of this encounter Plan of Treatment Not on file documented as of this encounter Visit Diagnoses Not on filedocumented in this encounter Care Teams Post Manager Relationship Specialty Start Date End Date None, Provider, PCP - General 12/09/20 12/27/22 documented as of this encounter
--- OUTSIDE RECORDS SUMMARY | 2024-03-09 06:39 | XMS_ITS | Encounter Summary ---
Author Organization [facility] Address [address] [place] [address]. [place] [address] [place] [address] Care Team Providers Care Fuel Cell Designer Name Role Phone Jack Rosales MD Primary Care Provider [phone] Chiara Grimaldo MD Unavailable [phone] Reason for Visit * Auth/Cert (Routine) Specialty Diagnoses / Procedures Referred By Contac t Referred To Contact Diagnoses repeat section Procedures FULL ROUT OBSTE CARE, DELIV REPEAT SECTION Nayely Paige MD [address] [place] [address] Phone: tel: fax: Referral ID Status Reason Start Date Expiration Date Visits Re quested Visits Authorized [id number] 1 1 Encounter Details Date Type Department Care Team (Late st Contact Info) Description 06/28/2023 8:25 AM CDT Anesthesia Event [facility] [address] [place] [address] Josy Rod CRNA [address] [place] [address] Boubacar Allison MD [address] [facility] [address] [place] [address] Anesthesia Record Procedure Summary Procedure Name Responsible Anesthesiologist Anesthesia Start Time Anesthesia Stop Time REPEAT SECTION (Abdomen) Josy Rod CRNA 06/28/23 0806/28/23 09 Events Date Time Event Comment 06/28/2023 0724 AN ANESTHESIOLOGY CRNA Prepped 0744 0744 AN Anesthesia Prepped 0825 An Start Patient ID and consent checked and patient reassessed. 08 An Start Data 0831 AN Immediate Reassess The pa tient was reevaluated immediately before sedation or regional anesthesia. 0836 An Block 0838 Nasal Cannula Applied 0842 Anesthesia Ready 0853 Uterine Incision 0854 Baby Delivered 0854 AN Placenta 0855 Nasal Cannula Removed 09 an stop data 0925 Post Anesthetic Care Handoff I completed my handoff to the receiving nurse during which we: 1. Identified the patient 2. Identified the responsible provider 3. Reviewed the pertinent medical history 4. Discussed the surgical course 5. Reviewed intra-op anesthesia management and issues during anesthesia 6. Set expectations for post-procedure period 7. Allowed opportunity for questions and acknowledgement of understanding. 925 An Stop Meds Name Total dexmedetomidine (PRECEDEX) 100 mcg/mL in jection 10 mcg BUpivacaine 0.75%-dextrose 8.25% intrath ecal injection 1.4 mL famotidine (PEPCID) 10 mg/mL injection 2 0 mg phenylephrine (ERIC-SYNEPHRINE) 1 mg/10 m L IV syringe 500 mcg ondansetron (ZOFRAN) 4 mg/2 mL injection 4 mg oxytocin (PITOCIN) injection 40 Units acetaminophen 10 mg/mL IV solution 1,000 mg lactated ringers infusion 1,000 mL * Agents Name O2 N2O Air Ancillary O2 * Blood No blood administrations on file. Lines, Drains, and Airways Type Details Placement Removal Peripheral IV Placement Date: 06/04 07/26; Placement Time: 0550; Placed Outside of This Facility?: No; Size: 20 G; Orientation: Left; Location: Hand; Site Prep: Alcohol; Local Anesthetic: None; Inserted By: Patricia Gan RN; Insertion attempts: 3; Ultrasound-guided Placement?: No; Patient Tolerance: Tolerated well; Removal Date: 06/29/23; Removal Time: 929; Removal Reason: Therapy Completed 06/28/23 0550 by Patricia Gan RN 06/29/23 0930 by Denisa Saunders RN Patrick Catheter 06/28/23; 0835; No; Immobilization - Due to unstable fracture; 1; Hand hygiene performed, Catheter inserted using aseptic technique, Drainage bag secured below level of bladder, Site cleansed with sterile antiseptic, Aptrick care post catheter insertion, Closed system maintained, Sterile gloves, drape and lubricant used, Anchoring device applied; Cath secure; Double-lumen; 14 Fr.; Per Protocol 06/28/23 0835 by Patricia Gan RN 06/28/23 1530 by Patricia Gan RN documented in this encounter Social History [...] documented as of this encounter Functional Status documented as of this encounter Mental Status * Question Answer Entry Date Author Status Because of a physical, mental, or emotional condition, do you have serious difficulty concentrating, remembering, or making decisions? No 06/28/2023 5:59 AM CHAZT Patricia Gan RN Active * Because of a physical, mental, or emotional condition, do you have serious difficulty concentrating, remembering, or making decisions? Answer Entry Date Author Status No 06/28/2023 5:59 AM Patricia Concepcion RN Active documented in this encounter OR Notes * Anesthesia Postprocedure Evaluation - Chang Vaughn CRNA - 06/29/2023 3:27 PM CDT Anesthesia Post-op Note Margot Tyson Procedure(s): REPEAT SECTION (Abdomen) Anesthesia type: spinal Vitals: 06/29/23 0600 BP: 125/62 Vitals: 06/29/23 06 Pulse: 74 Vitals: 06/29/23 06 Resp: 16 Vitals: 06/29/23599 Temp: 36.7 ??C Vitals: 06/29/23599 SpO2: 96% Patient Location: Labor & Delivery Level of Consciousness: awake, oriented and alert Pain Management: adequate analgesia Airway Patency: patent Respiratory Status: acceptable Cardiovascular Status: acceptable Post-Op Nausea: none Postoperative Hydration: euvolemic There were no known notable events for this encounter. * Anesthesia Procedure Notes - Josy Rod CRNA - 06/28/2023 8:45 AM CDT Associated Order(s): Spinal Block Spinal Block Patient location during procedure: OB Start time: 06/28/2023 8:36 AM Reason for block: primary anesthetic Staffing Performed: ANESTHESIOLOGY CRNA Resident/ANESTHESIOLOGY CRNA: Josy Rod CRNA Performed by: Josy Rod CRNA Authorized by: Josy Rod CRNA Preanesthetic Checklist Completed: patient identified, IV checked, risks and benefits discussed, surgical consent, monitorsand equipment checked, pre-op evaluation and timeout performed Spinal Block Patient position: sitting Prep: Betadine Sterility prep: cap, drape, gloves, hand hygiene and mask Sedation level: no sedation Patient monitoring: blood pressure, continuous pulse oximetry and heart rate Approach: midline Location: L3-4 Injection technique: single-shot Needle Needle type: pencil-tip Needle gauge: 25 G Assessment Block outcome: block to be assessed in the OR Number of attempts: 1 Procedure assessment: patient tolerated procedure well with no immediate complications Additional Notes Lot: [id number] Exp: 05/02/2025 * Anesthesia Preprocedure Evaluation - Boubacar Allison MD - 06/27/2023 8:37 AM CDT Anesthesia ROS/MED History Reviewed: Patient summary , ECG, Family history anesthesia, Anesthesia history , Medications , Labs , Images/Studies Pre-Anesthetic State: alert, awake and responds appropriately Pulmonary Cardiovascular Neuro/Psych (+) depression, anxiety Substance Use (+) vaping user, marijuana use GI/Hepatic/Renal Endo/Other (+) diabetes mellitus, (gestational diabetes) GENERAL COMMENTS -- Penicillins -- Rash Past Medical History: No date: Anxiety disorder, unspecified No date: Depression No date: Gestational diabetes (HHS/HCC) Past Surgical History: No date: SECTION Comment: PPH and needed blood transfusion NPO Status: Physical Evaluation Airway Mallampati: II TM Distance: >3 FB Neck ROM: normal Dental (implants) Comment: Upper left front is permanent fake implant. Pulmonary Pulmonary exam normal Breath sounds clear to auscultation Cardiovascular Rhythm: regular Rate: normal Cardiovascular exam normal Other findings: Blood pressure 112/66, pulse 97, temperature 36.6 ??C, temperature source Oral, resp. rate 18, height 1.626 m (5' 4 ), weight 104.3 kg (230 lb), unknown if currently . 06/28/23 0550 WBC 11.54* RBC 4.48 HGB 11.4* HCT 36.4* PLT 293 STOP-Bang Assessment: Anesthesia Plan ASA 2 Induction Anesthesia type: spinal Plan for Airway: nasal cannula/simple face mask Plan for Post-op Pain Plan: as per surgeon and intrathecal medication Discussed potential risks of Spinal Anesthesia , including but not limited to low back tenderness or bruising, post-dural puncture headache, nerve injury, corneal abrasion, visual impairment or visual loss, mouth injury, dental damage, sore throat, hoarseness, esophageal injury, awareness under anesthesia, nerve injury due to positioning, aspiration, pneumonia, stroke, cardiac event, adverse drugreactions and . Informed Consent Anesthetic plan and risks discussed with patient of whom consent was obtained. . documented in this encounter Plan of Treatment Not on file documented as of this encounter Procedures Procedure Name Priority Date/Time Associated Diagnosis Comments AN SPINAL Routine 06/28/2023 8:36 AM CDT documented in this encounter Results * Spinal Block (06/28/2023 8:36 AM CDT) Narrative Josy Rod CRNA - 06/28/2023 8:36 AM CDT Josy Rod CRNA ? 06/28/2023 ??8:46 AM Spinal Block Patient location during procedure: OB Start time: 06/28/2023 8:36 AM Reason for block: primary anesthetic Staffing Performed: ANESTHESIOLOGY CRNA Resident/ANESTHESIOLOGY CRNA: Josy Rod CRNA Performed by: Josy Rod CRNA Authorized by: Josy Rod CRNA ?? Preanesthetic Checklist Completed: patient identified, IV checked, risks and benefits discussed, surgical consent, monitors and equipment checked, pre-op evaluation and timeout performed Spinal Block Patient position: sitting Prep: Betadine Sterility prep: cap, drape, gloves, hand hygiene and mask Sedation level: no sedation Patient monitoring: blood pressure, continuous pulse oximetry and heart rate Approach: midline Location: L3-4 Injection technique: single-shot Needle Needle type: pencil-tip Needle gauge: 25 G Assessment Block outcome: block to be assessed in the OR Number of attempts: 1 Procedure assessment: patient tolerated procedure well with no immediate complications Additional Notes Lot: [id number] Exp: 05/02/2025 Josy Rod ANESTHESIOLOGY CRNA MD ANESTHESIA Final Resu lt documented in this encounter Visit Diagnoses Not on filedocumented in this encounter Administered Medications Inactive Administered Medications - up to 3 most recent administrations Medication Order MAR Action Action Date Dose Rate Site acetaminophen (OFIRMEV) infusion Intravenous, Administer over 15 Minutes, PRN, Starting on Candis 06/28/23 at 0857, Until Candis 06/28/23 at 0926, Anesthesia Intra-Op Given 06/28/2023 8:57 AM CDT 1,000 mg BUpivacaine 0.75% in dextrose 8.25% (intrathecal) (SENSORCAINE) 0.75-8.25 % injection Intrathecal, PRN, Starting on Candis 06/28/23 at 0836, Until Candis 06/28/23 at 0926, Anesthesia Intra-Op Given 06/28/2023 8:36 AM CDT 1.4 mLs dexmedetomidine (PRECEDEX) injection Intrathecal, PRN, Starting on Candis 06/28/23 at 0836, Until Candis 06/28/23 at 0926, Anesthesia Intra-Op Given 06/28/2023 8:36 AM CDT 10 mcg famotidine (PF) (PEPCID) injection Intravenous, PRN, Starting on Candis 06/28/23 at 0820, Until Candis 06/28/23 at 0926, Anesthesia Intra-Op Given 06/28/2023 8:20 AM CDT 20 mg lactated ringers infusion at 999 mL/hr, Intravenous, Continuous, Starting on Candis 06/28/23 at 0530, Until Candis 06/28/23 at 1040 New Bag 06/28/2023 9:13 AM CDT 999 mL/hr Continued by Anesthesia 06/28/2023 8:25 AM CDT 999 mL/hr New Bag 06/28/2023 7:21 AM CDT 999 mL/hr ondansetron (ZOFRAN) injection Intravenous, PRN, Starting on Candis 06/28/23 at 0837, Until Candis 06/28/23 at 0926, Anesthesia Intra-Op Given 06/28/2023 8:37 AM CDT 4 mg oxytocin (PITOCIN) injection Intravenous, PRN, Starting on Candis 06/28/23 at 0854, Until Candis 06/28/23 at 0926, Anesthesia Intra-Op Given 06/28/2023 9:14 AM CDT 20 Units Given 06/28/2023 8:54 AM CDT 20 Units phenylephrine (ERIC-SYNEPHRINE) injection Intravenous, PRN, Starting on Candis 06/28/23 at 0839, Until Candis 06/28/23 at 0926, Anesthesia Intra-Op Given 06/28/2023 9:11 AM CDT 100 mcg Given 06/28/2023 9:05 AM CDT 100 mcg Given 06/28/2023 8:59 AM CDT 100 mcg documented in this encounter Care Teams Fuel Cell Designer Relationship Specialty Start Date End Date Jack Rosales MD [address] [place] [id number] PCP - General FAMILY PRACTICE 12/28/22 01/08/24 Chiara Grimaldo MD [address] [place] [address] Physician OBGYN 12/28/22 documented as of this encounter
--- OUTSIDE RECORDS SUMMARY | 2024-03-09 06:39 | XMS_ITS | Encounter Summary ---
Author Organization [facility] Address [address] [place] [address]. [place], [place] [address] [place] [address] Care Team Providers Care Tower Hand Name Role Phone None, Provider Primary Care Provider Unavaila ble Encounter Details Date Type Department Care Team (Latest Contact Info) Description 11/30/2021 Travel Social History Tobacco Use Types Packs/Day Years Used Date Smoking Tobacco: Never Smokeless Tobacco: Never Alcohol Use Standard Drinks/Week Comments Yes 0 (1 standard drink = 0.6 oz pur e alcohol) socially Comments No Sex and Gender Information Value Date Recorded Sex Assigned at Not on file Legal Sex Female 6:52 PM CDT Gender Identity Not on file Sexual Orientation Not on file COVID-19 Exposure Response Date Recorded In the last 10 days, have yo u been in contact with someone who was confirmed or suspected to have Coronavirus/COVID-19? No / Unsure 11/30/2021 7:27 PM CDT documented as of this encounter Plan of Treatment Not on file documented as of this encounter Visit Diagnoses Not on filedocumented in this encounter Care Teams Tower Hand Relationship Specialty Start Date End Date None, Provider, PCP - General 12/09/20 12/27/22 documented as of this encounter
--- OUTSIDE RECORDS SUMMARY | 2024-03-09 06:39 | XMS_ITS | Encounter Summary ---
Author Organization [facility] Address [address] [place] [address]. [place], [place] [address] [place] [address] Care Team Providers Care Heel Coverer Machine Operator Name Role Phone Jack Rosales MD Primary Care Provider + [phone] Chiara Grimaldo MD Unavailable [phone] Encounter Details Date Type Department Care Team (Latest Contact Info) Description 02/20/2023 Travel Social History Tobacco Use Types Packs/Day [...] on file documented as of this encounter Plan of Treatment Not on file documented as of this encounter Visit Diagnoses Not on filedocumented in this encounter Care Teams Heel Coverer Machine Operator Relationship Specialty Start Date End Date Jack Rosales MD [address] [place] [address] PCP - General FAMILY PRACTICE 12/28/22 01/08/24 Chiara Grimaldo MD [address] [place] [address] Physician OBGYN 12/28/22 documented as of this encounter
--- OUTSIDE RECORDS SUMMARY | 2024-03-09 06:39 | XMS_ITS | Encounter Summary ---
Author Organization [facility] Address [address] [place] [address]. [place], [place] [address] [place] [id number] Care Team Providers Care Aerial Survey Technician Name Role Phone Jack Rosales MD Primary Care Provider [phone] Chiara Grimaldo MD Unavailable [phone] Reason for Referral * Home Health Care (Routine) - New Request Specialty Diagnoses / Procedures Referred By Contgus t Referred To Contact Home Health Services / [facility] HOME HEALTH Diagnoses ([facility]/HCC) Procedures OFFICE/OUTPATIENT NEW LOW MDM 30-44 MINUTES OFFICE/OUTPT VISIT,NEW,LEVL IV OFFICE/OUTPT VISIT,NEW,LEVL V OFFICE/OUTPT VISIT,EST,LEVL III OFFICE/OUTPT VISIT,EST,LEVL IV OFFICE/OUTPT VISIT,EST,LEVL V [facility] [address] [place] [address] Phone: tel: [facility] Home Care [facility] Care [address] [facility], [address] [address] Phone: tel: fax: Referral ID Status Reason Start Date Expiration Date V isits Requested Visits Authorized [id number] New Request 07/02/2023 07/02/2024 1 1 Reason for Visit * Reason Comments * Auth/Cert (Routine) Specialty Diagnoses / Procedures Referred By Contac t Referred To Contact Diagnoses repeat section Procedures FULL ROUT OBSTE CARE, DELIV REPEAT SECTION Nayely Allen MD [address] [place] [address] Phone: tel: fax: Referral ID Status Reason Start Date Expiration Date Visits Re quested Visits Authorized [id number] 1 1 Encounter Details Date Type Department Care Team (Latest Contact Info) Description 06/28/2023 4:43 AM CDT - 07/01/2023 11:44 AM CDT Hospital Encounter [facility] [address] [place], [place] [id number] Nayely Allen MD [address] [place] [address] Discharge Disposition: Home or Self Care (Routine [...] Sign Reading Time Taken Comments Blood Pressure 111/61 07/01/2023 7:30 AM CDT Pulse 78 07/01/2023 7:30 AM CDT Temperature 36.7 ??C (98.1 ??F) 07/01/2023 7:30 AM CD T Respiratory Rate 16 07/01/2023 7:30 AM CDT Oxygen Saturation 96% 07/01/2023 7:30 AM CDT Inhaled Oxygen Concentration - - Weight 104.3 kg (230 lb) 06/28/2023 5:33 AM CDT Height 162.6 cm (5' 4 ) 06/28/2023 5:33 AM CDT Body Mass Index 39.48 06/28/2023 5:33 AM CDT documented in this encounter Functional Status * Question Answer Date of Assessment Author Status Do you have serious difficulty walking or climbing stairs? No 06/28/2023 5:59 AM Patricia Concepcion RN Active * Question Answer Date of Assessment Author Status Do you have difficulty dressing or bathing? No 06/28/2023 5:59 AM Gregory Concepcion RN Active Because of a physical, mental, or emotional condition, do you have difficulty doing errands alone such as visiting a doctor's office or shopping? No 06/28/2023 5:59 AM Patricia Concepcion RN Active * Are you deaf or do you have serious difficulty hearing Answer Date of Assessment Author Status No 06/28/2023 5:59 AM Patricia Concepcion RN Active * Are you blind or [...] or making decisions? No 06/28/2023 5:59 AM Patricia Concepcion RN Active * Because of a physical, mental, or emotional condition, do you have serious difficulty concentrating, remembering, or making decisions? Answer Entry Date Author Status No 06/28/2023 5:59 AM Patricia Concepcion RN Active documented in this encounter Discharge Summaries * Lilliana Arias CNM - 07/01/2023 7:02 AM CDT Physician Discharge Summary Patient ID: Margot Tyson [id number] 23-year-old 2000 Primary Care Physician: Jack Rosales MD Admit date: 06/28/2023 Expected Discharge Date: 07/01/2023 Admitting Physician: Nayely Allen MD Discharge Physician: Saba Arias CNM Admission Diagnoses: (HHS/HCC) [Z34.90] Discharge Diagnoses: Repeat C/S Admission Condition: good Discharged Condition: good Indication for Admission: Scheduled C/S Hospital Course: Routine post op course Consults: none Code Status: Full Code Procedures: Procedures (From admission, onward) CBC, AUTO, NO DIFF Routine PATHOLOGY Routine CROSSMATCH & PREPARE RED BLOOD CELLS STAT CBC W/DIFF AUTOMATED Routine TYPE AND SCREEN STAT RAPID DRUG SCREEN Routine Referrals: No orders of the defined types were placed in this encounter. Significant Diagnostic Studies: labs Treatments: IV hydration Discharge Exam: Lungs: CTA bilaterally Cardio: NSR Fundus firm, 0 cm below umbilicus Incision: provena dressing clean, dry and intact Extremities: nontender, trace edema Disposition: Home or Self Care (Routine Discharge) Patient Instructions: Current Discharge Medication List START taking these medications Details gabapentin (NEURONTIN) 100 MG capsule Take 2 capsules (200 mg total) by mouth 2 (two) times daily for 30 days. Qty: 60 capsule, Refills: 0 oxyCODONE immediate release (ROXICODONE) 5 MG immediate release tablet Take 1 tablet (5 mg total) by mouth every 6 (six) hours as needed. Indications: Acute Pain < 3 Day Supply Qty: 8 split tab, Refills: 0 Associated Diagnoses: Hx of section CONTINUE these medications which have NOT CHANGED Details sertraline (ZOLOFT) 25 MG tablet Take 1 tablet (25 mg total) by mouth daily. Activity: activity as tolerated, no sex for 6 weeks, no driving while on analgesics, and no heavy lifting for 6 weeks Diet: regular diet Wound Care: keep wound clean and dry Follow-up with [facility] in 6 weeks. Signed: LILLIANA ARIAS CNM 07/01/2023 7:02 AM documented in this encounter Discharge Instructions * Discharge Instructions* Denisa Saunders RN - 07/01/2023 9:29 AM CDT DISCHARGE INSTRUCTIONS First day at home * Emphasis today should be on resting! * May be more stressful than your nights in the hospital due to lack of sleep and a change in your routine. Lochia * Bloody vaginal discharge (lochia) will gradually decrease and change to pink, then brown and finally yellow. * Bleeding can last up to six weeks. Bowel Movements * Usually occurs in the first 2-3 days. * Ample amount of fluids each day can help relieve or avoid constipation. * A stool softener, such as Colace may also be used. * Hemorrhoids will improve within in the first days to weeks after delivery, may use tucks pads to help with discomfort. Vaginal Delivery * Change your pad frequently to avoid infection. ~Signs of infection - Fever 100.4 or greater - Swelling, redness or discharge from vaginal tear - Discharge that has a foul odor * Use silvia-bottle after urination while having vaginal bleeding. * Use tucks pads and Dermoplast sprat as needed. * Nothing in your vagina for 6 weeks. * No sex for 6 weeks. * May drive with caution ( No driving while on narcotics). * May resume normal activity 1 week after delivery. Section * Incision should be kept clean, dry and uncovered unless directed to differently. ~Monitor for signs of infection. - Fever 100.4 or greater - An incision that is swollen, red and warm to touch - Increased pain or tenderness to incision site - Discharge or bleeding from the incision site * No driving for the first 2 weeks after delivery and no driving while on narcotic pain medications. * Do not soak in a bathtub/ hot tub or go swimming until your doctor instructs otherwise. * Usual activities such as walking, climbing the stairs and light housework are okay but no heavy lifting for the first 6 weeks. After 6 weeks you may resume normal activities. Depression * depression in not uncommon and you should call your physician if you start feeling thefollowing. ~ Prolonged cry spells ~ Thoughts of harming yourself, the baby or others. ~ Severe Anxiety ~ Inability to function or care for yourself or your ~ Depressive symptoms lasting linger than two weeks after your delivery * Breastfeed on demand or 8-12 times a day. * Proper position and latch will help prevent sore/cracked nipples * Engorgement can occur around 2-3 days . ~ Nurse frequently, apply warm compresses and massage for 5 minutes prior to feeding, manual express or pump some milk out to soften the nipple with latch, cold compress after nursing to help with swelling. * Avoid bottles and pacifiers * Call if any of the following problems: ~ Not latching a minimum of 8 times a day or if not having appropriate amount of wet/dry diapers. ~Extreme nipple soreness or unrelieved engorgement ~ Lethargic-unable to arouse infant frequently to feed or worsening in jaundice ~ If any other questions or concerns Non- Mothers * A period of engorgement may occur around 2-3 days . To treat do the following. ~ Waer a form-fitting bra ~ Ice treatments ~ Avoiding stimulation to the breasts ~ Tylenol and Ibuprofen may be taken ~ Cabbage leaves placed on your breasts * Symptoms should resolve within 24-48 hours although leaking of milk may continue for days or weeks. Call the doctor if: * Severe headache, any type of vision problems, right upper abdominal pain or other evidence of elevated blood pressure. * Bleeding greater than one pad per hour for 2-3 hours. * Foul odor coming from your vagina. * Fever 100.4 or greater. * Swelling, redness, discharge or bleeding from your incision or vaginal laceration. * Unrelieved incisional or abdominal pain. * Your incision begins to separate. * Problems urinating including inability to urinate, burning while urinating and frequent urination. * No bowel movement within 4 days of giving . *Frequent Nausea and vomiting. * Pain or redness in on or both breasts. * Pain, increased or unequal warmth, tenderness or swelling in your legs, especially the calf area. * Baby blues that last longer than 2 weeks. * Chest pain or problem breathing , call 911. SPECIAL FOLLOW-UP INFORMATION * If you had high blood pressure pr pre-eclampsia during , you should return to the clinicfor a blood pressure check 72 hours after delivery again in 7-10 days after delivery. Follow-Up Appointments Follow-Up Numbers [facility]: [facility]: [phone] Advice Clerk: [facility]: [phone] Home Health: Operations Management Trainee: [phone] * Attachments The following attachments cannot be sent through Care Everywhere. * Discharge Instructions ([place] Citizen) documented in this encounter Medications at Time of Discharge gabapentin (NEURONTIN) 100 MG capsule Take 2 capsules (200 mg total) by mouth 2 (two) times daily for 30 days. 60 capsule 07/01/2023 07/31/2023 oxyCODONE immediate release (ROXICODONE) 5 MG immediate release tabletIndication s:Acute Pain < 3 Day Supply Take 1 tablet (5 mg total) by mouth every 6 (six) hours as needed. Indications: Acute Pain < 3 Day Supply 8 split tab 07/01/2023 01/10/2024 sertraline (ZOLOFT) 25 MG tablet Take 1 tablet (25 mg total) by mouth daily. 01/12/2024 documented as of this encounter Progress Notes * Denisa Saunders RN - 07/01/2023 9:31 AM CDT Problem: Discharge Planning Goal: Discharge to home Outcome: Adequate for Discharge Goal: Knowledge of caring for self- Outcome: Adequate for Discharge Problem: Safety Goal: Knowledge of Safety Outcome: Adequate for Discharge Problem: Pain Goal: Knowledge of pain management Outcome: Adequate for Discharge Problem: Feeding Your [place] Goal: Knowledge of Outcome: Adequate for Discharge Goal: Knowledge of formula feeding Outcome: Adequate for Discharge * Lilliana Arias CNM - 07/01/2023 6:56 AM CDT Postop Note Subjective: Patient is doing well. Pain controlled. Normal lochia. Denies chest pain, shortness of breath or leg pain. Objective: Filed Vitals: 06/30/23 0630 06/30/23 1600 06/30/23 2100 07/01/23 0300 BP: 125/59 114/58 117/71 122/81 Pulse: 72 83 65 82 Resp: 16 16 18 20 Temp: 98.1 ??F (36.7 ??C) 98.2 ??F (36.8 ??C) 98.2 ??F (36.8 ??C) TempSrc: Oral Oral Oral SpO2: 98% 96% 96% 98% Weight: Height: No intake or output data in the 24 hours ending 07/01/23 0656 Lungs: CTA bilaterally Cardio: NSR Fundus firm, 0 cm below umbilicus Incision: provena dressing clean, dry and intact Extremities: nontender, trace edema Recent Labs Lab 06/28/23 0550 06/29/23 0600 WBC 11.54* 10.75 RBC 4.48 3.89* HGB 11.4* 9.9* HCT 36.4* 31.9* MCV 81.3 82.0 MCH 25.4* 25.4* MCHC 31.3* 31.0* PLT 293 229 RDW 15.5* 15.6* MPV 10.7 10.8 PERNEU 68.6 -- PERLYM 22.4 -- PERMON 6.8 -- LYMC 2.59 -- MONOC 0.78 -- EOSC 0.14 -- BASOC 0.04 -- No results for input(s): NA , K , CL , CO2 , AGAP , BUN , CR , BUNCREATININ , GFRNON , GFR , GLU , CA , TP , ALB , TBIL , ALKP , AST , ALT in the last 168 hours. A/P: PPD/POD# 3 s/p delivery. Stable Routine care Anticipate discharge home today * Skyla Calderón RN - 06/30/2023 9:21 PM CDT Problem: Discharge Planning Goal: Discharge to home Outcome: Progressing Goal: Knowledge of caring for self- Outcome: Progressing Problem: Safety Goal: Knowledge of Safety Outcome: Progressing Problem: Pain Goal: Knowledge of pain management Outcome: Progressing Problem: Feeding Your Goal: Knowledge of Outcome: Progressing Goal: Knowledge of formula feeding Outcome: Progressing * Lilliana Arias CNM - 06/30/2023 6:58 AM CDT Postop Note Subjective: Patient is doing well. Pain controlled. Normal lochia. Denies chest pain, shortness of breath or leg pain. Objective: Filed Vitals: 06/29/23 0428 06/29/23 0600 06/29/23 2100 06/30/23 0314 BP: 123/67 125/62 130/74 120/64 Pulse: 77 74 64 72 Resp: 18 16 20 18 Temp: 97.9 ??F (36.6 ??C) 98.1 ??F (36.7 ??C) 98.2 ??F (36.8 ??C) 98.4 ??F (36.9 ??C) TempSrc: Oral Oral Oral Oral SpO2: 98% 96% 97% 97% Weight: Height: No intake or output data in the 24 hours ending 06/30/23 0658 Lungs: CTA bilaterally Cardio: NSR Fundus firm, 0 cm below umbilicus Incision: clean, dry and intact Extremities: nontender, 1+ edema Recent Labs Lab 06/28/23 0550 06/29/23 0600 WBC 11.54* 10.75 RBC 4.48 3.89* HGB 11.4* 9.9* HCT 36.4* 31.9* MCV 81.3 82.0 MCH 25.4* 25.4* MCHC 31.3* 31.0* PLT 293 229 RDW 15.5* 15.6* MPV 10.7 10.8 PERNEU 68.6 -- PERLYM 22.4 -- PERMON 6.8 -- LYMC 2.59 -- MONOC 0.78 -- EOSC 0.14 -- BASOC 0.04 -- No results for input(s): NA , K , CL , CO2 , AGAP , BUN , CR , BUNCREATININ , GFRNON , GFR , GLU , CA , TP , ALB , TBIL , ALKP , AST , ALT in the last 168 hours. A/P: PPD/POD# 2 s/p delivery. Stable Routine care Desires to be discharged tomorrow LILLIANA ARIAS CNM * Skyla Calderón RN - 06/29/2023 9:11 PM CDT Problem: Discharge Planning Goal: Discharge to home Outcome: Progressing Goal: Knowledge of caring for self- Outcome: Progressing Problem: Safety Goal: Knowledge of Safety Outcome: Progressing Problem: Pain Goal: Knowledge of pain management Outcome: Progressing Problem: Feeding Your Goal: Knowledge of Outcome: Progressing Goal: Knowledge of formula feeding Outcome: Progressing * Lilliana Arias CNM - 06/29/2023 1:18 PM CDT Postop Note Subjective: Patient is doing well. Pain controlled. Normal lochia. Denies chest pain, shortness of breath or leg pain. Reports mild cough Objective: Filed Vitals: 06/28/23 2000 06/29/23 0030 06/29/23 0428 06/29/23 0600 BP: 120/60 116/60 123/67 125/62 Pulse: 76 75 77 74 Resp: 18 18 18 16 Temp: 97.8 ??F (36.6 ??C) 97.7 ??F (36.5 ??C) 97.9 ??F (36.6 ??C) 98.1 ??F (36.7 ??C) TempSrc: Oral Oral Oral Oral SpO2: 98% 98% 98% 96% Weight: Height: Intake/Output Summary (Last 24 hours) at 06/29/2023 1319 Last data filed at 06/28/2023 2100 Gross per 24 hour Intake -- Output 1150 ml Net -1150 ml Lungs: CTA bilaterally Cardio: NSR Fundus firm, 0 cm below umbilicus Incision: clean, dry and intact Extremities: nontender, no edema Recent Labs Lab 06/28/23 0550 06/29/23 0600 WBC 11.54* 10.75 RBC 4.48 3.89* HGB 11.4* 9.9* HCT 36.4* 31.9* MCV 81.3 82.0 MCH 25.4* 25.4* MCHC 31.3* 31.0* PLT 293 229 RDW 15.5* 15.6* MPV 10.7 10.8 PERNEU 68.6 -- PERLYM 22.4 -- PERMON 6.8 -- LYMC 2.59 -- MONOC 0.78 -- EOSC 0.14 -- BASOC 0.04 -- No results for input(s): NA , K , CL , CO2 , AGAP , BUN , CR , BUNCREATININ , GFRNON , GFR , GLU , CA , TP , ALB , TBIL , ALKP , AST , ALT in the last 168 hours. A/P: PPD/POD# 1 s/p delivery Incentive Spirometry Stable Routine care LILLIANA ARIAS CNM * Ai Street RN - 06/29/2023 4:49 AM CDT Discomfort is well-controlled with pain meds. Pt bonding well with infant and demonstrates appropriate infant care. Denies SOB or painful, tender areas in legs. Denies issues voiding or with post pericare. Pt receptive to teaching regarding and self care. Denies needs at this time. * Patricia Gan RN - 06/28/2023 11:02 AM CDT Problem: Discharge Planning Goal: Discharge to home Outcome: Progressing Goal: Knowledge of caring for self- Outcome: Progressing Problem: Safety Goal: Knowledge of Safety Outcome: Progressing Problem: Pain Goal: Knowledge of pain management Outcome: Progressing Problem: Feeding Your [place] Goal: Knowledge of Outcome: Progressing Goal: Knowledge of formula feeding Outcome: Progressing documented in this encounter Nursing Notes * Patricia aGn RN - 06/28/2023 11:[address] Allen notified of patient's blood pressures, fundus firm, scant bleeding and urinary output. Nonew orders at this time. documented in this encounter OR Notes * Op Note - Nayely Allen MD - 06/28/2023 9:20 AM CDT Procedure Note Margot Tyson 06/28/2023 Procedure: repeat LTCS via pfannensteil. Pre-Op Diagnosis: prior CS, term. Post-Op Diagnosis: same Findings: NL uterus/adnexae, omental adhesions, female cephalic clear fluid, nuchal cord delivered behind back Specimen(s) Removed: cord gases, test blood, placenta Anesthesia: spinal Josy Collazo Surgeon: douglas Data Coordinator: x Estimated Blood Loss: 500cc NAYELY ALLEN MD Date: 06/28/2023 Time: 9:20 AM After informed consent was obtained, patient was taken to the operating room. Anesthesia was found to be adequate. She was prepped and draped in the normal sterile fashion in the dorsal supine position with a leftward tilt. Pfannenstiel skin incision was made with the scalpel and carried down to the underlying layer of fascia. Fascia was incised in the midline. This fascial incision was extended laterally with the curved Guthrie scissors. Inferior aspect of this incision was grasped with Waverly clamps, tented up, and dissected off of the rectus muscles below both bluntly and with Guthrie scissors. Attention was turned to the superior aspect of this incision which in a similar fashion was grasped with Waverly clamps tented up and dissected off of the rectus muscles below both bluntly and with Guthrie scissors. Rectus muscles were in the midline. Peritoneum was identified and entered high in the field. This incision was then extended bluntly. Bladder blade was inserted. Vesicouterine peritoneum was grasped with a P??an and entered sharply with the Metzenbaum scissors. This incision was extended laterally and a bladder flap was created digitally. The bladder blade was reinserted. The lower uterine segment was incised in a transverse fashion with the scalpel this incision was then extended bluntly. Clear artificial rupture of membranes was performed. the 's head was delivered atraumatically and the shoulders followed without difficulty and a vigorous was delivered into the field. Cord was doubly clamped and cut and was carried to the warmer. Cord blood was obtained as in the operative note. Placenta was removed and appeared to be intact with a three-vesselcord. Uterus was exteriorized and cleared of clots and debris. Fundus was firm. Uterine incision was repaired with 0 Vicryl in a running locking fashion. Excellent hemostasis was noted. Uterus was returned to the abdomen and gutters were cleared of clots and debris. Inspection of the uterine incision and bladder flap revealed excellent hemostasis. Counts were correct so peritoneum was reapproximated with 2-0 chromic. Fascia was reapproximated with 0 Maxon or 0 PDS, starting at each corner burying the knots and tying upon itself in the midline. Subcutaneous tissue was reapproximated with 3 0 plain and the skin was closed with tony. Patient tolerated the procedure well she received her preop antibiotics the counts were per the team and she recovered in the operating room. Of note, adhesions low uterus to abd wall, and omental adhesions to fundus, all taken down w excellent hemostasis. Skin closed subcut 40monocryl and team placed benzoin steris and prevena. Her postopapt may be via telehealth -bm documented in this encounter Plan of Treatment Pending Results Name Type Priority Associated Diagnoses Date /Time RBC UNITS, 2 Units Blood Bank STAT 2023 5:50 AM CDT Scheduled Orders Name Type Priority Associated Diagnoses Orde r Schedule RBC UNITS, 2 Units Blood Bank STAT Once f or 1 Occurrences starting 06/28/2023 until 06/28/2023 Scheduled Referrals Name Type Priority Associated Diagnoses Orde r Schedule Ambulatory referral to Mom/Baby Referral Routine ([facility]) Ordered: 07/02/2023 documented as of this encounter Procedures Procedure Name Priority Date/Time Associated Diagnosis Comments INCENTIVE SPIROMETRY RT Routine 06/29/2023 1:18 PM CDT CBC, AUTO, NO DIFF Routine 06/29/2023 6: 00 AM CDT FULL ROUT OBSTE CARE, DELIV 06/28/2023 8:25 AM CDT repeat section DRUG SCREEN RAPID Routine 06/28/2023 5:5 0 AM CDT TYPE & SCREEN STAT 06/28/2023 5:50 AM CDT CBC W/DIFF AUTOMATED Routine 06/28/2023 5:50 AM CDT PATHOLOGY Routine 06/28/2023 12:00 AM CDT SYPHILIS IGG AB Routine 04/25/2023 HIV 1 ANTIGEN(S), WITH HIV-1 AND HIV-2 ANTIBODIES Routine 04/25/2023 GROUP B STREP MOLECULAR Routine 04/25/2023 ANTIBODY SCREEN Routine 04/25/2023 GLUCOSE 1 HR PP Routine 04/10/2023 GLUCOSE 1 HR PP Routine 01/18/2023 SYPHILIS IGG AB Routine 01/18/2023 HIV 1 ANTIGEN(S), WITH HIV-1 AND HIV-2 ANTIBODIES Routine 01/18/2023 RUBELLA IGG Routine 01/18/2023 ANTIBODY SCREEN Routine 01/18/2023 HEPATITIS C ANTIBODY Routine 01/18/2023 HEPATITIS B SURFACE AG, EIA Routine 01/18/2023 documented in this encounter Results * (ABNORMAL) CBC, AUTO, NO DIFF (06/29/2023 6:00 AM CDT) WBC 10.75 4.50 - 11.00 x10'3/uL 06/29/2023 6:26 AM CDT [facility] RBC 3.89(L) 4.20 - 5.40 x10'6/uL 06/29/2023 6:26 AM CDT [facility] HGB 9.9(L) 12.0 - 16.0 G/DL 06/29/2023 6:26 AM CDT [facility] HCT 31.9(L) 38.0 - 48.0 % 06/29/2023 6:26 AM CDT [facility] MCV 82.0 81.0 - 99.0 FL 06/29/2023 6:26 AM CDT [facility] MCH 25.4(L) 27.0 - 31.0 PG 06/29/2023 6:26 AM CDT [facility] MCHC 31.0(L) 32.0 - 36.0 G/DL 06/29/2023 6:26 AM CDT [facility] RDW 15.6(H) 11.5 - 14.5 % 06/29/2023 6:26 AM CDT [facility] PLT 229 130 - 400 x10'3/uL 06/29/2023 6:26 AM CDT [facility] MPV 10.8 9.3 - 12.2 FL 06/29/2023 6:26 AM T [facility] 06/29/2023 6:00 AM CDT Nayely Allen MD LABORATORY Final Result [facility] [address] [place] [address], * (ABNORMAL) DRUG SCREEN RAPID (06/28/2023 5:50 AM CDT) AMPHETAMINE SCREEN (U) NEGATIVE NEGATIVE 06/28/2023 6:30 AM CDT [facility] BARBITURATES SCREEN (U) NEGATIVE NEGATIVE 06/28/2023 6:30 AM CDT [facility] BENZODIAZEPINES SCREEN (U) NEGATIVE NEGATIVE 06/28/2023 6:30 AM CDT [facility] BUPRENORPHINE SCREEN (U) NEGATIVE NEGATIVE 06/28/2023 6:30 AM T [facility] COCAINE METABOLITES (U) NEGATIVE NEGATIVE 06/28/2023 6:30 AM CDT [facility] METHAMPHETAMINE (U) NEGATIVE NEGATIVE 06/28/2023 6:30 AM T [facility] METHADONE (U) NEGATIVE NEGATIVE 06/28/2023 6:30 AM CDT [facility] OPIATE SCREEN (U) NEGATIVE NEGATIVE 6:30 AM T [facility] OXYCODONE SCREEN (U) NEGATIVE NEGATIVE 06/28/2023 6:30 AM T [facility] PHENCYCLIDINE PCP (U) NEGATIVE NEGATIVE 06/28/2023 6:30 AM T [facility] CANNABINOIDS SCREEN (U) POSITIVE(A) NEGATIVE 06/28/2023 6:30 AM T [facility] TRICYCLIC ANTIDEPRESSANT SCREEN (U) NEGATIVE NEGATIVE 06/28/2023 6:30 AM CDT [facility] Comment: NOTE: RESULTS OF THIS DRUG SCREEN SHOULD BE USED FOR MEDICAL PURPOSES ONLY AND NOT FOR LEGAL OR EMPLOYMENT PURPOSES. POSITIVE RESULTS ARE NOT CONFIRMED. MEDICATIONS CONTAINING EPHEDRINE MAY CAUSE FALSE POSITIVE AMPHETAMINE Cut-off Concentration for a positive result AMPHETAMINE- ?500 NG/ML BARBITURATE- ?200 NG/ML BENZODIAZEPINE- ?? 150 NG/ML BUPRENORPHINE- ? 10 NG/ML COCAINE- ?150 NG/ML METHAMPHETAMINES- 500 NG/ML METHADONE- ?200 NG/ML OPIATE- ? 100 NG/ML OXYCODONE- ?100 NG/ML PCP- ? 25 NG/ML THC- ? 50 NG/ML TCA- ?300 NG/ML URINE SPECIMEN / Unknown 06/28/2023 5:50 AM CDT Nayely Allen MD URINE ORDERABLES Final Result [facility] [address] [place] [address], [place] [phone] * TYPE & SCREEN (06/28/2023 5:50 AM CDT) ABO/RH AB POSITIVE 06/28/2023 7:13 AM CDT [facility] ANTIBODY SCREEN NEGATIVE 7:13 AM CDT [facility] SAMPLE EXPIRATION 07/01/2023,235 9 06/28/2023 6:23 AM CDT [facility] BLOOD UNIT NUMBER [id number] 06/28/2023 7:27 AM CDT [facility] PRODUCT: PC LEUKO PHERE BAG2 06/28/2023 7:27 AM CDT [facility] UNIT DIVISION 00 06/28/2023 7:27 AM CDT [facility] BLOOD UNIT STATUS UNIT RELEASED 07/02/2023 7:22 AM CDT [facility] TRANSFUSION STATUS OK TO TRANSFUSE 06/28/2023 7:27 AM CDT [facility] CROSSMATCH COMPATIBLE 06/28/2023 7:27 AM CDT [facility] BLOOD UNIT NUMBER [id number] 06/28/2023 7:27 AM CDT [facility] PRODUCT: PC LEUKOPOOR 06/28/2023 7:27 AM CDT [facility] UNIT DIVISION 00 06/28/2023 7:27 AM CDT [facility] BLOOD UNIT STATUS UNIT RELEASED 07/02/2023 7:22 AM CDT [facility] TRANSFUSION STATUS OK TO TRANSFUSE 06/28/2023 7:27 AM CDT [facility] CROSSMATCH COMPATIBLE 06/28/2023 7:27 AM CDT [facility] 06/28/2023 5:50 AM CDT us Nayely Allen MD BLOOD BANK TEST ORDERABLES Fin al Result [facility] [address] [id number], [place] [phone] * (ABNORMAL) CBC W/DIFF AUTOMATED (06/28/2023 5:50 AM CDT) WBC 11.54(H) 4.50 - 11.00 x10'3/uL 06/28/2023 6:15 AM CDT [facility] RBC 4.48 4.20 - 5.40 x10'6/uL 06/28/2023 6:15 AM CDT [facility] HGB 11.4(L) 12.0 - 16.0 G/DL 06/28/2023 6:15 AM CDT [facility] HCT 36.4(L) 38.0 - 48.0 % 06/28/2023 6:15 AM CDT [facility] MCV 81.3 81.0 - 99.0 FL 06/28/2023 6:15 AM CDT [facility] MCH 25.4(L) 27.0 - 31.0 PG 06/28/2023 6:15 AM CDT [facility] MCHC 31.3(L) 32.0 - 36.0 G/DL 06/28/2023 6:15 AM CDT [facility] RDW 15.5(H) 11.5 - 14.5 % 06/28/2023 6:15 AM CDT [facility] PLT 293 130 - 400 x10'3/uL 06/28/2023 6:15 AM CDT [facility] MPV 10.7 9.3 - 12.2 FL 06/28/2023 6:15 AM CDT [facility] CBC COMMENT AUTOMATED RBC MORPHOLOGY AND PLATELET EVALUATION NORMAL 06/28/2023 6:15 AM T [facility] NEUTROPHILS % 68.6 % 06/28/2023 6:15 AM CDT [facility] LYMPHOCYTES % 22.4 % 06/28/2023 6:15 AM T [facility] MONOCYTES % 6.8 % 06/28/2023 6:15 AM CDT [facility] EOSINOPHILS 1.2 % 06/28/2023 6:15 AM T [facility] BASOPHILS 0.3 % 06/28/2023 6:15 AM CDT [facility] IMMATURE GRANS % 0.7 % 06/28/19 6:15 AM CDT [facility] NRBC 0.0 % 06/28/2023 6:15 AM CDT [facility] ABS. NEUTROPHILS TOTAL 7.91(H) 1.80 - 7.70 x10'3/uL 06/28/2023 6:15 AM T [facility] ABS. LYMPHOCYTES 2.59 1.00 - 4.80 x10'3/uL 06/28/2023 6:15 AM CDT [facility] ABS. MONOCYTES 0.78 0.24 - 0.86 x10'3/uL 06/28/2023 6:15 AM CDT [facility] ABS. EOSINOPHILS 0.14 0.04 - 0.36 x10'3/uL 06/28/2023 6:15 AM CDT [facility] ABS. BASOPHILS 0.04 0.01 - 0.08 x10'3/uL 06/28/2023 6:15 AM CDT [facility] ABS. IMMATURE GRANULOCYTES 0.08 0.00 - 0.49 x10'3/uL 06/28/2023 6:15 AM CDT [facility] ABS. NUCLEATED RBC'S 0.00 0.00 - 0.01 x10'3/uL 06/28/2023 6:15 AM CDT [facility] 06/28/2023 5:50 AM CDT us Nayely Allen MD LABORATORY Final Result Performing Organization Address [facility]/State/[facility] Co de Phone Number [facility] [address] [place] [address], * Pathology-Placenta (06/28/2023 12:00 AM CDT) PATHOLOGY [facility] ? Department of Laboratory Medicine ?[address] ?[place] [address] ? , extension [phone] ? Pathology Report ? Surgical Pathology Report Name: MARGOT TYSON ? Specimen #: [id number] Age: 1 2000 (Age: 23) ? Location: [id number] Sex: F ?Procedure Date: 06/28/2023 Hospital #: [id number] ?Date Received: 06/29/2023 Date Reported: 07/03/2023 Provider: NAYELY ALLEN MD Source: Placenta Clinical History: G5, P1 at 39-0/7 weeks, GBS positive Postoperative Diagnosis: 7 pound 8 ounce female with Apgars 8/9 Gross Description: Received in formalin, labeled with a patient label and as placenta is a specimen consisting of a placenta with attached membranes and umbilical cord. ?? The membranes are semitranslucent and exhibit a marginal insertion. ??The umbilical cord is 17.5 cm in length with a diameter of 1 cm. ??It is paracentrally inserted, 5 cm from the edge of the disc. ??The cord does not exhibit any areas of stricture or true knots. ??Sections of the cord reveal three vessels. ??The disc is 507 grams and 17.5 x 16 x 3 cm. ??The surface is blue-rodriguez with prominent vasculature. ??The maternal surface is slightly disrupted and the completeness of the surface cannot be grossly assessed. Sections reveal a red brown parenchyma with a red-brown parenchyma with a single 1.5 cm firm area which occupies less than 5% of the total placental volume. Process Server tissue is submitted as follows: 1 ?? membranes2 - umbilical cord3 ??parenchyma with firm area4 ??additional parenchyma Gross examination (when applicable) was performed at [facility], [address], [place] [address]. This case was interpreted and signed out at [facility], [address] [place] [address]. FINAL DIAGNOSIS: Placenta, delivery: ? -Placental disc (weight 507 g) with no significant pathologic abnormality ? -Three vessel cord with no significant pathologic abnormality ? - membranes with no significant pathologic abnormality Electronically Signed Out ? PRABHAKAR CALDERON MD [facility] 06/28/2023 06/29/2023 10: 23 AM CDT Comment:Placenta us Nayely Allen MD PATHOLOGY/CYTOLOGY ORDERABLES Final Result [facility] [address] [place] [address], [id number] * GROUP B STREP MOLECULAR (04/25/2023) Pathologist [facility] GROUP B STREP DNA positive-G BSuria ANOVAGINAL us Default History Genericprovider MICROBIOLOGY - G ENERAL ORDERABLES Final Result * ANTIBODY SCREEN (04/25/2023) Pathologist [facility] ANTIBODY SCREEN negative us Default History Genericprovider BLOOD BANK TEST ORDERABLES Final Result * SYPHILIS IGG AB (04/25/2023) Pathologist [facility] SYPHILIS IGG AB non-reacti ve us Default History Genericprovider LABORATORY Final Result * HIV 1 ANTIGEN(S), WITH HIV-1 AND HIV-2 ANTIBODIES (04/25/2023) HIV 1/2 AB+ HIV1 P24 AG non-reacti ve us Default History Genericprovider LABORATORY Final Result * GLUCOSE 1 HR PP (04/10/2023) GLUCOSE 1 HOUR POST DOSE 174 Comment:actually drawn on us Default History Genericprovider LABORATORY Final Result * ANTIBODY SCREEN (01/18/2023) ANTIBODY SCREEN negative us Default History Genericprovider BLOOD BANK TEST ORDERABLES Final Result * GLUCOSE 1 HR PP (01/18/2023) GLUCOSE 1 HOUR POST DOSE 110 us Default History Genericprovider LABORATORY Final Result * SYPHILIS IGG AB (01/18/2023) SYPHILIS IGG AB non-reacti ve us Default History Genericprovider LABORATORY Final Result * HEPATITIS C ANTIBODY (01/18/2023) HEPATITIS C AB non-reacti ve us Default History Genericprovider LABORATORY Final Result * HEPATITIS B SURFACE AG, EIA (01/18/2023) HEPATITIS B SURFACE AG non-reacti ve us Default History Genericprovider LABORATORY Final Result * HIV 1 ANTIGEN(S), WITH HIV-1 AND HIV-2 ANTIBODIES (01/18/2023) HIV 1/2 AB+ HIV1 P24 AG non-reacti ve us Default History Genericprovider LABORATORY Final Result * RUBELLA IGG (01/18/2023) RUBELLA IGG AB immune us Default History Genericprovider LABORATORY Final Result documented in this encounter Visit Diagnoses Diagnosis ([facility]/HCC)- Primary state, incidental Hx of section Other postprocedural status ([facility]/HCC) state, incidental documented in this encounter Admitting Diagnoses Diagnosis ([facility]/HCC) state, incidental documented in this encounter Administered Medications Inactive Administered Medications - up to 3 most recent administrations Medication Order MAR Action Action Date Dose Rate Site acetaminophen (TYLENOL) tablet 1,000 mg 1,000 mg, Oral, Every 6 hours, First dose on Candis 06/28/23 at 1500, Until Discontinued, Maximum dose of acetaminophen is 4000 mg from all sources in 24 hours., Post-Op Given 07/01/2023 8:46 AM CDT 1,000 mg Given 07/01/2023 3:17 AM CDT 1,000 mg Given 06/30/2023 9:03 PM CDT 1,000 mg ceFAZolin (ANCEF) 2 g in sterile water 20 mL IV 2 g, Intravenous, at 240 mL/hr, Once, 1 dose, On Candis 06/28/23 at 0730 Given 06/28/2023 8:27 AM CDT 2 g 240 mL/hr diphenhydrAMINE (BENADRYL) capsule 25 mg 25 mg, Oral, Nightly PRN, Itching, Starting on 07/01/23 at 0137, Until 07/01/23 at 1349 Given 07/01/2023 1:44 AM CDT 25 mg diphenhydrAMINE (BENADRYL) injection 25 mg 25 mg, Intravenous, Every 4 hours PRN, Itching, 1 dose, Starting on Candis 06/28/23 at 1039, Until 07/01/23 at 1349, For IV administration, give no faster than 25 mg/min., Post-Op ferrous sulfate (65 mg elemental) tablet 325 mg 325 mg (1 tablet), Oral, Daily with breakfast, First dose on Sun06/29/23 at 0800, Until Discontinued, Administer 2 hours prior to or 4 hours after antacids. Ferrous Sulfate 324 and 325 mg tablets contain 65 mg elemental iron., Post-Op Given 07/01/2023 8:46 AM CDT 325 mg Given 06/30/2023 9:06 AM CDT 325 mg Given 06/29/2023 9:31 AM CDT 325 mg gabapentin (NEURONTIN) capsule 200 mg 200 mg, Oral, 2 times daily, First dose on Sun06/28/23 at 1100, Until Discontinued, Post-Op Given 07/01/2023 8:46 AM CDT 200 mg Given 06/30/2023 9:03 PM CDT 200 mg Given 06/30/2023 9:05 AM CDT 200 mg ibuprofen (MOTRIN) tablet 600 mg 600 mg, Oral, Every 6 hours, First dose on Sun06/29/23 at 1100, Until Discontinued, Post-Op Given 07/01/2023 11:11 AM CDT 600 mg Given 07/01/2023 5:34 AM CDT 600 mg Given 06/30/2023 11:06 PM CDT 600 mg ketorolac (TORADOL) injection 30 mg 30 mg, Intravenous, Every 6 hours, 4 doses, First dose on Sun06/28/23 at 1100, Last dose on Sun06/29/23 at 0500, For IV administration, give over 15 seconds., Post-Op Given 06/29/2023 4:28 AM CDT 30 mg Given 06/28/2023 11:07 PM CDT 30 mg Given 06/28/2023 4:43 PM CDT 30 mg lactated ringers infusion at 999 mL/hr, Intravenous, Continuous, Starting on Candis 06/28/23 at 0530, Until Candis 06/28/23 at 1040 New Bag 06/28/2023 9:13 AM CDT 999 mL/hr Continued by Anesthesia 06/28/2023 8:25 AM CDT 999 mL/hr New Bag 06/28/2023 7:21 AM CDT 999 mL/hr naLOXone (NARCAN) injection 0.4 mg 0.4 mg, Intravenous, As needed, Opioid reversal, POSS of 4, if patient exhibits somnolence, excessive sedation, or respiratory rate is less than 8 breaths per minute., 2 doses, Starting on Candis 06/28/23 at 1039, Until Sun07/01/23 at 1349, Administer every 2 minutes as needed for 2 doses., Post-Op nystatin (MYCOSTATIN) cream Topical, 2 times daily, First dose on Sun07/01/23 at 0900, Until Discontinued Given 07/01/2023 8:46 AM CDT ondansetron (ZOFRAN) injection 4 mg 4 mg, Intravenous, Every 8 hours PRN, Nausea, Vomiting, Starting on Sun06/28/23 at 1039, Until 07/01/23 at 1349, IV push over 2-5 minutes., Post-Op oxyCODONE immediate release (ROXICODONE) tablet 5 mg 5 mg, Oral, Every 6 hours PRN, Severe pain (Scale 8 - 10), Starting on Sun06/28/23 at 1039, Until Sun07/01/23 at 1349, Post-Op Given 07/01/2023 1:44 AM CDT 5 m g Given 06/30/2023 5:22 PM CDT 5 mg Given 06/30/2023 9:07 AM CDT 5 mg polyethylene glycol (GLYCOLAX) packet 1 packet 1 packet, Oral, Once, 1 dose, On Sun06/28/23 at 2145, Dissolve entire packet in 240 mL of water Given 06/28/2023 9:26 PM CDT 1 packet polyethylene glycol (GLYCOLAX) packet 17 g 17 g, Oral, Daily, First dose on Sun06/28/23 at 1100, Until Discontinued, Dissolve entire packet in 240 mL of water, Post-Op Given 07/01/2023 8:46 AM CDT 17 g Given 06/30/2023 9:05 AM CDT 17 g Given 06/29/2023 9:30 AM CDT 17 g senna-docusate (SENOKOT-S) 8.6-50 MG tablet 1 tablet 1 tablet, Oral, 2 times daily PRN, Constipation, Starting on Sun06/28/23 at 1039, Until Sun07/01/23 at 1349, Post-Op Given 06/28/2023 9:08 PM CDT 1 t ablet sertraline (ZOLOFT) tablet 25 mg 25 mg, Oral, Daily, First dose on Sun06/28/23 at 1100, Until Discontinued Given 07/01/2023 8:46 AM CDT 25 mg Given 06/30/2023 9:07 AM CDT 25 mg Given 06/29/2023 9:31 AM CDT 25 mg documented in this encounter Active and Recently Administered Medications Times are shown in CDT. Scheduled Medication Order 06/29/2023 06/30/2023 07/01/2023 acetaminophen (TYLENOL) tablet 1,000 mg 1,000 mg, Oral, Every 6 hours, First dose on Sun06/28/23 at 1500, Until Discontinued, Maximum dose of acetaminophen is 4000 mg from all sources in 24 hours., Post-Op 022 (Given - Provider: Ai Street RN)0930 (Given - Provider: Denisa Saunders RN)152 (Given - Provider: Denisa Saunders RN)2058 (Given - Provider: Skyla Calderón RN) 031 (Given - Provider: Skyla Calderón RN)09 (Given - Provider: Denisa Saunders RN)151 (Given - Provider: Denisa Saunders RN)2102 (Given - Provider: Skyla Calderón RN) 031 (Given - Provider: Skyla Calderón RN)0846 (Given - Provider: Denisa Saunders RN) ferrous sulfate (65 mg elemental) tablet 325 mg 325 mg (1 tablet), Oral, Daily with breakfast, First dose on Sun06/29/23 at 0800, Until Discontinued, Administer 2 hours prior to or 4 hours after antacids. Ferrous Sulfate 324 and 325 mg tablets contain 65 mg elemental iron., Post-Op 930 (Given - Provider: Denisa Saunders RN) 09 (Given - Provider: Denisa Saunders RN) 0846 (Given - Provider: Denisa Saunders RN) gabapentin (NEURONTIN) capsule 200 mg 200 mg, Oral, 2 times daily, First dose on Sun06/28/23 at 1100, Until Discontinued, Post-Op 09 (Given - Provider: Denisa Saunders RN)2058 (Given - Provider: Skyla Calderón RN) 09 (Given - Provider: Denisa Saunders RN)210 (Given - Provider: Skyla Calderón RN) 0846 (Given - Provider: Denisa Saunders RN) ibuprofen (MOTRIN) tablet 600 mg(Linked Group 1) 600 mg, Oral, Every 6 hours, First dose on Sun06/29/23 at 1100, Until Discontinued, Post-Op 1116 (Given - Provider: Denisa Saunders RN)1615 (Given - Provider: Denisa Saunders RN)2302 (Given - Provider: Skyla Calderón RN) 0420 (Given - Provider: Skyla Calderón RN)1101 (Given - Provider: Denisa Saunders RN)1720 (Given - Provider: Skyla Calderón RN)2306 (Given - Provider: Skyla Calderón RN) 0534 (Given - Provider: Denisa Saunders RN)1111 (Given - Provider: Denisa Saunders RN) ketorolac (TORADOL) injection 30 mg (COMPLETED)(Linked Group 1) 30 mg, Intravenous, Every 6 hours, 4 doses, First dose on Sun06/28/23 at 1100, Last dose on Sun06/29/23 at 0500, For IV administration, give over 15 seconds., Post-Op 427 (Given - Provider: Ai Street RN) nystatin (MYCOSTATIN) cream Topical, 2 times daily, First dose on Sun07/01/23 at 0900, Until Discontinued 08 (Given - Provider: Denisa Saunders RN) polyethylene glycol (GLYCOLAX) packet 17 g 17 g, Oral, Daily, First dose on Sun06/28/23 at 1100, Until Discontinued, Dissolve entire packet in 240 mL of water, Post-Op 929 (Given - Provider: Denisa Saunders RN) 09 (Given - Provider: Denisa Saunders RN) 0846 (Given - Provider: Denisa Saunders RN) sertraline (ZOLOFT) tablet 25 mg 25 mg, Oral, Daily, First dose on Sun06/28/23 at 1100, Until Discontinued 09 (Given - Provider: Denisa Saunders RN) 0907 (Given - Provider: Denisa Saunders RN) 0846 (Given - Provider: Denisa Saunders RN) PRN Medication Order 06/29/2023 06/30/2023 07/01/2023 diphenhydrAMINE (BENADRYL) capsule 25 mg 25 mg, Oral, Nightly PRN, Itching, Starting on 07/01/23 at 0137, Until Sun07/01/23 at 1349 0144 (Given - Provider: Skyla Calderón RN) diphenhydrAMINE (BENADRYL) injection 25 mg 25 mg, Intravenous, Every 4 hours PRN, Itching, 1 dose, Starting on Candis 06/28/23 at 1039, Until 07/01/23 at 1349, For IV administration, give no faster than 25 mg/min., Post-Op qmoyuuqkj-qorytjfz-twn ethicone (MYLANTA MAXIMUM STRENGTH) 8522-3881-604 mg/30mL suspension 10 mL, Oral, Every 4 hours PRN, Indigestion, Heartburn, Starting on Candis 06/28/23 at 1039, Until 07/01/23 at 1349, Shake Well, Post-Op metoclopramide (REGLAN) tablet 10 mg 10 mg, Oral, Every 6 hours PRN, Nausea, Vomiting, Starting on Candis 06/28/23 at 1039, Until 07/01/23 at 1349, If no relief from ondansetron (Zofran), Post-Op naLOXone (NARCAN) injection 0.4 mg 0.4 mg, Intravenous, As needed, Opioid reversal, POSS of 4, if patient exhibits somnolence, excessive sedation, or respiratory rate is less than 8 breaths per minute., 2 doses, Starting on Candis 06/28/23 at 1039, Until 07/01/23 at 1349, Administer every 2 minutes as needed for 2 doses., Post-Op ondansetron (ZOFRAN) injection 4 mg 4 mg, Intravenous, Every 8 hours PRN, Nausea, Vomiting, Starting on Candis 06/28/23 at 1039, Until 07/01/23 at 1349, IV push over 2-5 minutes., Post-Op oxyCODONE immediate release (ROXICODONE) tablet 5 mg 5 mg, Oral, Every 6 hours PRN, Severe pain (Scale 8 - 10), Starting on Candis 06/28/23 at 1039, Until 07/01/23 at 1349, Post-Op 1615 (Given - Provider: Denisa Saunders RN) 0314 (Given - Provider: Skyla Calderón RN)0907 (Given - Provider: Denisa Saunders RN)1722 (Given - Provider: Skyla Calderón RN) 0144 (Given - Provider: Skyla Calderón RN) senna-docusate (SENOKOT-S) 8.6-50 MG tablet 1 tablet 1 tablet, Oral, 2 times daily PRN, Constipation, Starting on Sun06/28/23 at 1039, Until 07/01/23 at 1349, Post-Op simethicone (MYLICON) chewable tablet 80 mg 80 mg, Oral, 4 times daily PRN, Flatulence, Starting on Sun06/28/23 at 1039, Until 07/01/23 at 1349, Post-Op Linked Groups Order Group 1: ketorolac (TORADOL) injection 30 mg (COMPLETED)Jump to med 30 mg, Intravenous, Every 6 hours, 4 doses, First dose on Sun06/28/23 at 1100, Last dose on Sun06/29/23 at 0500, For IV administration, give over 15 seconds., Post- Op Followed by ibuprofen (MOTRIN) tablet 600 mgJump to med 600 mg, Oral, Every 6 hours, First dose on Sun06/29/23 at 1100, Until Discontinued, Post-Op documented in this encounter Care Teams Aerial Survey Technician Relationship Specialty Start Date End Date Jack Rosales MD [address] [place] [id number] PCP - General FAMILY PRACTICE 12/28/22 01/08/24 Chiara Grimaldo MD [address] [place] [address] Physician OBGYN 12/28/22 documented as of this encounter
--- OUTSIDE RECORDS SUMMARY | 2024-03-09 06:39 | XMS_ITS | Encounter Summary ---
Author Organization [facility] Address [facility]. [place], [place] [address] [place] [address] Care Team Providers Care Quarry Plug And Feather Driller Name Role Phone Jack Rosales MD Primary Care Provider [phone] Chiara Grimaldo MD Unavailable [phone] Encounter Details Date Type Department Care Team (Latest Contact Info) Description 07/02/2023 Travel Social History Tobacco Use Types Packs/Day [...] on filedocumented in this encounter Care Teams Quarry Plug And Feather Driller Relationship Specialty Start Date End Date Jack Rosales MD [address] [place] [address] PCP - General FAMILY PRACTICE 12/28/22 01/08/24 Chiara Grimaldo MD [address] [place] [address] Physician OBGYN 12/28/22 documented as of this encounter
--- OUTSIDE RECORDS SUMMARY | 2024-03-09 06:39 | XMS_ITS | Encounter Summary ---
Author Organization [facility] Address [address] [place] [address]. [place], [place] [address] [place] [id number] Care Team Providers Care Fourdrinier Machine Operator Name Role Phone None, Provider Primary Care Provider Unavaila ble Encounter Details Date Type Department Care Team (Latest Contact Info) Description 02/19/2022 Travel Social History Tobacco Use Types Packs/Day [...] suspected to have Coronavirus/COVID-19? 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
--- OUTSIDE RECORDS SUMMARY | 2024-03-09 06:39 | XMS_ITS | Encounter Summary ---
Author Organization [facility] Address [facility] [place] [address] [place] [address] Care Team Providers Care Head Of English Name Role Phone Chiara Grimaldo MD Unavailable [phone] None, Provider Primary Care Provider Unavaila ble Encounter Details Date Type Department Care Team (Late st Contact Info) Description 01/10/2024 Orders Only [facility] [address] [place] [address] Ruddy Mendoza MD [address] [place] [address] Social History Tobacco Use Types Packs/Day Years [...] R N Active documented in this encounter Plan of Treatment Scheduled Orders Name Type Priority Associated Diagnoses Orde r Schedule HERPES SIMPLEX VIRUS IGG Lab Routine ([facility]/HCC) 1 Occurrences starting 01/10/2024 until 01/09/2025 documented as of this encounter Visit Diagnoses Diagnosis ([facility])- Primary state, incidental documented in this encounter Care Teams Head Of English Relationship Specialty Start Date End Date None, Provider, PCP - General UNKNOWN PHYSICIAN SPECIALTY 01/09/24 Jackie-Chiara Joshi MD [address] [place] [address] Physician OBGYN 12/28/22 documented as of this encounter
--- OUTSIDE RECORDS SUMMARY | 2024-03-09 06:39 | XMS_ITS | Encounter Summary ---
Author Organization [facility] Address [address] [place] [address]. [place], [place] [address] [place] [address] Care Team Providers Care Chief Accountant Name Role Phone Chiara Grimaldo MD Unavailable [phone] None, Provider Primary Care Provider Unavaila ble Reason for Referral * Imaging (Emergency) - New Request Specialty Diagnoses / Procedures Referred By Contac t Referred To Contact RADIOLOGY Procedures CT ABD+PEL W CON Karlie Mendoza MD [address] [place] [address] Phone: tel: fax: Referral ID Status Reason Start Date Expiration Date V isits Requested Visits Authorized [id number] New Request 01/09/2024 01/08/2025 1 1 AGE ADMINISTRATOR * Imaging (Urgent) - New Request Specialty Diagnoses / Procedures Referred By Contac t Referred To Contact RADIOLOGY Procedures CTA CHEST PE PROTOCOL Karlie Mendoza MD [address] [place] [address] Phone: tel: fax: Referral ID Status Reason Start Date Expiration Date V isits Requested Visits Authorized [id number] New Request 01/09/2024 01/08/2025 1 1 AGE ADMINISTRATOR Reason for Visit * Reason Comments Back Pain Radiates to epigastr ic Encounter Details Date Type Department Care Team (Late st Contact Info) Description 01/09/2024 8:59 PM STORAGE ADMINISTRATOR - 01/10/2024 2:02 AM STORAGE ADMINISTRATOR Emergency [facility] Emergency Room [address] [place], [place] [id number] Karlie Mendoza MD [address] [place] [id number] Back Pain (Radiates to epigastric) Discharge Disposition: Transfer to Acute Care Hospital Social History Tobacco Use Types Packs/Day [...] Sign Reading Time Taken Comments Blood Pressure 137/78 01/10/2024 1:51 AM STORAGE ADMINISTRATOR Pulse 86 01/10/2024 1:51 AM STORAGE ADMINISTRATOR Temperature 36.2 ??C (97.1 ??F) 01/09/2024 9:01 PM CS T Respiratory Rate 14 01/10/2024 1:51 AM STORAGE ADMINISTRATOR Oxygen Saturation 97% 01/10/2024 1:51 AM STORAGE ADMINISTRATOR Inhaled Oxygen Concentration - - Weight 108.8 kg (239 lb 13.8 oz) 01/09/2024 9:01 PM STORAGE ADMINISTRATOR Height 162.6 cm (5' 4 ) 01/09/2024 9:01 PM STORAGE ADMINISTRATOR Body Mass Index 41.17 01/09/2024 9:01 PM STORAGE ADMINISTRATOR documented in this encounter Functional Status * [...] Concepcion RN Active documented in this encounter Medications at Time of Discharge traMADol (ULTRAM) 50 MG tabletIndications :Acute Pain < 3 Day Supply Take 1 tablet (50 mg total) by mouth every 6 (six) hours as needed. Indications: Acute Pain < 3 Day Supply 5 tablet 01/12/2024 sertraline (ZOLOFT) 25 MG tablet Take 1 tablet (25 mg total) by mouth daily. 01/12/2024 documented as of this encounter ED Notes * Karlie Mendoza MD - 01/09/2024 9:10 PM CST Chief Complaint Chief Complaint Patient presents with Back Pain Radiates to epigastric History of Present Illness History from patient 23-year-old patient who vapes with no PMH who presents to the ER complaint of retrosternal chest pain, mid back pain (points to the mid thoracic region) that started at 1 PM today Denies SOB Pleuritic chest pain She is not sure whether the chest pain radiates to the back with the back pain radiates to the chest 5/10 pain Filed Vitals: 01/09/24 2101 BP: 118/58 Pulse: 75 Resp: 15 Temp: 97.1 ??F (36.2 ??C) TempSrc: Temporal SpO2: 99% RA Weight: 108.8 kg (239 lb 13.8 oz) Height: 1.626 m (5' 4 ) On examination Remarkably well-looking patient No jaundice, pallor, cyanosis, scleral icterus Trachea central Equal air entry bilaterally CTA Abdomen soft. Epigastric and RUQ tenderness to palpation. Palpation of this area does not reproduceher pain. No pretibial pitting edema Radial and dorsal pedal pulses equal bilaterally Differential diagnosis chest pain includes but not limited to HI/angina, PE, dissection, pericarditis, myocarditis, pneumothorax, esophageal pathology, pancreatitis Sinus rhythm Rate: 68 Normal P waves, normal OH, normal QRS, normal QT, normal T waves. No ST elevation or depression. Normal axis Rhythm Strip: Sinus rhythm. Rate: 68. No arrhythmia, No extrasystoles Medical History ALLERGIES: Review of patient's allergies indicates: Allergen Reactions Penicillins Rash MEDICATIONS: Prior to Admission medications Medication Sig Start Date End Date Taking? Authorizing Provider oxyCODONE immediate release (ROXICODONE) 5 MG immediate release tablet Take 1 tablet (5 mg total) by mouth every 6 (six) hours as needed. Indications: Acute Pain < 3 Day Supply 07/01/23 Lilliana Arias CNM sertraline (ZOLOFT) 25 MG tablet Take 1 tablet (25 mg total) by mouth daily. Default History Genericprovider PAST MEDICAL HISTORY: Past Medical History: Diagnosis Date Anxiety disorder, unspecified Depression Gestational diabetes (HHS/HCC) PAST SURGICAL HISTORY: Past Surgical History: Procedure Laterality Date SECTION PPH and needed blood transfusion FAMILY HISTORY: Family History Family history unknown: Yes SOCIAL HISTORY: Social History Tobacco Use Smoking status: Never Smokeless tobacco: Never Vaping Use Vaping status: Every Day Substances: Nicotine Substance Use Topics Alcohol use: Yes Comment: socially Drug use: Yes Types: Marijuana Review of Systems Review of Systems Physical Exam Filed Vitals: 01/09/24 2101 01/09/24 2209 01/09/24 2233 01/10/24 0000 BP: 118/58 131/81 120/84 Pulse: 75 89 87 73 Resp: 15 15 16 17 Temp: 97.1 ??F (36.2 ??C) TempSrc: Temporal SpO2: 99% 95% 97% 98% Weight: 108.8 kg (239 lb 13.8 oz) Height: 1.626 m (5' 4 ) Physical Exam Diagnostic Studies / Procedures ELECTROCARDIOGRAMS: Results for orders placed or performed during the hospital encounter of 01/09/24 ECG 12 lead Narrative [facility] Test Date: 2024-01-09 Pat Name: MARGOT TYSON Department: 85 Room: EXAM 101 Gender: Female Hand Binder Cutter: : 2000 Requested By: KARLIE MENDOZA Order Number: [id number] Reading MD: Measurements Intervals [place] Rate: 68 P: 26 OH: 143 QRS: 44 QRSD: 82 T: 26 QT: 375 QTc: 399 Interpretive Statements SINUS RHYTHM WITH SINUS ARRHYTHMIA Compared to ECG 08/11/2022 22:47:49 No significant changes LABORATORY STUDIES: Results for orders placed or performed during the hospital encounter of 01/09/24 CBC W/DIFF AUTOMATED Result Value Ref Range WBC 9.80 4.4 - 11.0 x10'3/uL RBC 5.07 4.50 - 5.10 x10'6/uL HGB 13.4 12.3 - 15.3 G/DL HCT 41.3 35.9 - 44.6 % MCV 81.5 80.0 - 96.0 FL MCH 26.4 25.3 - 30.9 PG MCHC 32.4 31.0 - 34.1 G/DL RDW 14.2 12.4 - 15.1 % PLT 303 151 - 353 x10'3/uL MPV 11.2 9.6 - 12.0 FL RBC MORPHOLOGY NORMAL PLT MORPH. NORMAL WBC MORPHOLOGY NORMAL LYMPHOCYTES % 8.6 (L) 15.8 - 45.0 % NEUTROPHILS % 86.4 (H) 42.1 - 71.9 % MONOCYTES % 4.2 (L) 5.7 - 12.5 % EOSINOPHILS 0.1 0.0 - 5.6 % BASOPHILS 0.3 0.0 - 1.3 % ABS. NEUTROPHILS 8.47 (H) 1.40 - 6.00 x10'3/uL IMMATURE GRANS % 0.4 0.0 - 0.5 % ABS. LYMPHOCYTES 0.84 0.80 - 4.70 x10'3/uL COMPREHENSIVE METABOLIC PANEL Result Value Ref Range GLUCOSE 132 (H) 70 - 99 MG/DL BUN 8 7 - 18 MG/DL CREATININE S/P/B 0.97 0.55 - 1.02 MG/DL SODIUM S/P/B 138 136 - 145 MMOL/L POTASSIUM S/P/B 4.2 3.5 - 5.1 MMOL/L CHLORIDE S/P/B 101 100 - 108 MMOL/L CO2 27.9 21 - 32 MMOL/L CALCIUM S/P/B 9.3 8.5 - 10.1 MG/DL BILIRUBIN TOTAL S/P/B 0.7 0.2 - 1.2 MG/DL TOTAL PROTEIN S/P/B 7.6 6.4 - 8.2 G/DL ALBUMIN S/P/B 3.4 3.4 - 5.0 G/DL AST 986 (H) 15 - 37 U/L ALT 550 (H) 14 - 55 U/L ALKALINE PHOSPHATASE S/P/B 191 (H) 50 - 136 U/L ANION GAP 9.1 5 - 15 MMOL/L BUN CREATININE RATIO 8.2 6 - 26 A/G RATIO 0.8 (L) 1.0 - 2.0 RATIO GFR ESTIMATE 85 (L) >90 ML/MIN/1.73 M2 TROPONIN, QUANT Result Value Ref Range TROPONIN I HIGH SENSITIVITY <4 0 - 50 ng/L TEST URINE Result Value Ref Range URINE HCG TEST NEGATIVE NEGATIVE LIPASE Result Value Ref Range LIPASE 27 16 - 77 UNITS/L Urinalysis, Auto, Complete Result Value Ref Range COLOR (U) YELLOW [...] 0 - 5 /HPF EPI/HPF FEW /HPF ACETAMINOPHEN Result Value Ref Range ACETAMINOPHEN S/P/B <0.5 (L) 10.0 - 30.0 MCG/ML PROTIME/INR, VENOUS Result Value Ref Range PROTIME 11.7 9.1 - 12.4 SEC INR 1.1 IMAGING STUDIES CTA CHEST PE PROTOCOL Final Result by User, [email or web address] (01/08 2251) [facility] [address] [place] [address] EXAMINATION: CTA Chest with CT Abdomen and Pelvis with contrast [id number] EXAM DATE/TIME: 01/09/2024 10:11 PM REASON FOR [...] created on separate work station for review. A dose lowering [...] 01/09/2024 10:[address] ABD+PEL W CON Final Result by User, [email or web address] (01/08 2291) [facility] [address] [place] [address] EXAMINATION: CTA Chest with CT Abdomen and Pelvis with contrast [id number] EXAM DATE/TIME: 01/09/2024 10:11 PM REASON FOR [...] created on separate work station for review. A dose lowering [...] MD, 01/09/2024 10:41 PM XR CHEST PORTABLE Final Result by User, [email or web address] (01/08 2214) [facility] [address] [place] [address] CLINICAL HISTORY: Chest pain COMPARISON: 11/22/2021 TECHNIQUE: AP Portable View FINDINGS: Lungs are clear. No pneumothorax or pleural effusions evident. The cardiac silhouette, mediastinal contours, and pulmonary vessels appear within normal limits. No acute osseous abnormality. IMPRESSION: No acute findings. Referred By: Interpreted By: Jimi Barron, 01/09/2024 10:08 PM ED Course / Medical Decision Making SYNOPSIS Remarkably well looking patient presented to the ER complaining of chest pain and thoracic spine pain. On examination found to have epigastric and RUQ tenderness to palpation AST 986 ALT 550 ALKALINE PHOSPHATASE S/P/B 191 Lipase normal Patient denies alcohol and Tylenol abuse Bilirubin normal. Albumin lower limit of normal. Differential diagnosis transaminitis includes viral, autoimmune, ischemic, drugs, hepatic congestion, tumor Differential diagnosis specifically for massively elevated transaminases with a normal bilirubin includes HSV hepatitis, shock liver, hepatic artery thrombosis CT did not reveal a diagnosis. I ordered a hepatitis panel. I would like to admit for further evaluation including right upper quadrant ultrasound D/W Dr Oconnor who feels that the pt should be transferred to a place with a development trainer. 11:35 PM D/W Dr Bowman at [facility] who refuses transfer. States that the pt should followup as an outpatient. 12:11 AM D/W Dr Pablo who accepts patient to service as long as gastroenterology accepts I received a call back stating that the development trainer would like a read on the size of the common bile duct I spoke to the radiologist who stated that the bile duct is 4.9 mm Medical Decision Making O2 sat 98% RA Triage note noted Labs discussed above Radiology CT abd pelvis negative EKG and rhythm strip above. ED Course as of 01/10/24 0019 SunJan 09, 2024 2254 ALBUMIN S/P/B: 3.4 [MS] ED Course User Index [MS] Karlie Mendoza MD Clinical Impression Transaminitis (Primary) Disposition: Transfer to Another Facility Karlie Mendoza MD 01/10/24 0019 AGE ADMINISTRATOR * Leeann Herrera RN - 01/09/2024 9:01 PM CSTSummary: Triage Pt arrived via-POV with friend from work with complaints of 9/10 mid back pain that radiates to herepigastric region beginning 6 months ago when she had her baby via- section. Pt also complains of n/v/d beginning this evening. Pt denies taking anything for sx. Pt is A&Ox4, calm & cooperative, and ambulates with steady gait to room from triage. Filed Vitals: 01/09/24 2101 BP: 118/58 Pulse: 75 Resp: 15 Temp: 97.1 ??F (36.2 ??C) TempSrc: Temporal SpO2: 99% Weight: 108.8 kg (239 lb 13.8 oz) Height: 1.626 m (5' 4 ) AGE ADMINISTRATOR documented in this encounter Plan of Treatment Not on file documented as of this encounter Procedures Procedure Name Priority Date/Time Associated Diagnosis Comments CULTURE HERPES W/ REFLX TO TYPING STAT 01/09/2024 11:52 PM STORAGE ADMINISTRATOR HSV, DNA, AMP PROBE STAT 01/09/2024 1 1:52 PM STORAGE ADMINISTRATOR HEPATITIS PANEL,ACUTE STAT 01/09/2024 11:11 PM STORAGE ADMINISTRATOR CTA CHEST PE PROTOCOL STAT 01/09/2024 10:[address] ABD+PEL W CON STAT 01/09/2024 10:2 8 PM STORAGE ADMINISTRATOR PROTHROMBIN TIME, VENOUS Routine 01/09/2024 10:10 PM STORAGE ADMINISTRATOR HC EBV NUCLEAR AG-90 Routine 01/09/2024 10:10 PM STORAGE ADMINISTRATOR XR CHEST PORTABLE STAT 01/09/2024 9:5 3 PM STORAGE ADMINISTRATOR ECG 12-LEAD STAT 01/09/2024 9:29 PM STORAGE ADMINISTRATOR COMPREHENSIVE METABOLIC PANEL STAT 01/09/2024 9:20 PM STORAGE ADMINISTRATOR CBC W/DIFF AUTOMATED STAT 01/09/2024 9:20 PM STORAGE ADMINISTRATOR TROPONIN, QUANT STAT 01/09/2024 9:20 PM STORAGE ADMINISTRATOR LIPASE Routine 01/09/2024 9:20 PM STORAGE ADMINISTRATOR ACETAMINOPHEN Routine 01/09/2024 9:20 PM STORAGE ADMINISTRATOR TEST URINE STAT 01/09/2024 9:15 PM STORAGE ADMINISTRATOR URINALYSIS, AUTO, COMPLETE STAT 01/09/2024 9:15 PM STORAGE ADMINISTRATOR documented in this encounter Results * HSV, DNA, AMP PROBE (01/09/2024 11:52 PM STORAGE ADMINISTRATOR) SPECIMEN SOURCE SERUM 4 3:28 PM STORAGE ADMINISTRATOR [facility] HSV 1 DNA Not Detected Not Detected 01/15/2024 12:09 PM STORAGE ADMINISTRATOR T[employer] KRYSTINA ALDRIDGE HSV 2 DNA Not Detected Not Detected 01/15/2024 12:09 PM STORAGE ADMINISTRATOR [employer] KRYSTINA ALDRIDGE Comment: This test was developed and its analytical performance characteristics have been determined by [employer] [place], [place]. It has not been cleared or approved by the U.S. Food and Drug Administration. This assay has been validated pursuant to the CLIA regulations and is used for clinical purposes. Test Performed by [employer], [employer] [facility] [place], [address] [place] [address] Fam Duffy M.D., Ph.D., Director of Laboratories , CLIA [id number] 01/09/2024 11:5 2 PM STORAGE ADMINISTRATOR us Karlie Mendoza MD LABORATORY Final Result [facility] [address] [place], [place] , [place] [phone] [facility] [address] [place] [address], [place] [phone] * CULTURE HERPES W/ REFLX TO TYPING (01/09/2024 11:52 PM STORAGE ADMINISTRATOR) SPECIMEN SOURCE SERUM 11:54 PM STORAGE ADMINISTRATOR [facility] BLOOD SPECIMEN / Unknown 01/09/2024 11:52 PM STORAGE ADMINISTRATOR us Karlie Mendoza MD MICROBIOLOGY - GENERAL ORDERABL ES Final Result Performing Organization Address City/[facility]/ZIP Co de Phone Number [facility] [address] [place] [address], [place] [phone] * HEPATITIS PANEL,ACUTE (01/09/2024 11:11 PM STORAGE ADMINISTRATOR) HEPATITIS B SURFACE AG NON-REACTI VE NON-REACTI VE 01/10/2024 12:04 PM STORAGE ADMINISTRATOR [facility] HEP B CORE IGM NON-REACTI VE NON-REACTI VE 01/10/2024 12:13 PM STORAGE ADMINISTRATOR [facility] HAV IGM NON-REACTI VE NON-REACTI VE 01/10/2024 12:15 PM STORAGE ADMINISTRATOR [facility] HEPATITIS C AB NON-REACTI VE NON-REACTI VE 01/10/2024 12:12 PM STORAGE ADMINISTRATOR [facility] 01/09/2024 11:1 1 PM STORAGE ADMINISTRATOR Karlie Mendoza MD LABORATORY Final Result [facility] [address] [place] [address], * CT ABD+PEL W CON (01/09/2024 10:28 PM STORAGE ADMINISTRATOR) Anatomical Region Laterality Modality Abdomen Computed Tomogra phy 01/09/2024 10:4 1 PM STORAGE ADMINISTRATOR Impressions 01/09/2024 10:45 PM STORAGE ADMINISTRATOR IMPRESSION: 1. ??No central pulmonary embolus. Limited evaluation for distal emboli due to bolus timing. 2. ??No acute thoracic abnormalities. 3. ??Somewhat shaggy appearance of urinary bladder surfaces. Correlation for UTI recommended. ??Otherwise no acute abnormalities in the abdomen or pelvis. Referred By: ?? Interpreted By: Aravind Camilo MD, 01/09/2024 10:41 PM Narrative 01/09/2024 10:45 PM STORAGE ADMINISTRATOR [facility] [address] [place] [address] EXAMINATION: CTA Chest with CT Abdomen and Pelvis with contrast [id number] EXAM DATE/TIME: 01/09/2024 10:11 PM REASON FOR [...] Procedure Note Aravind Camilo MD - 01/09/2024 [facility] [address] [address] [place] [id number] EXAMINATION: CTA Chest with CT Abdomen and Pelvis with contrast [id number] EXAM DATE/TIME: 01/09/2024 10:11 PM REASON FOR [...] Karlie Mendoza MD CT Final Result * CTA CHEST PE PROTOCOL (01/09/2024 10:28 PM STORAGE ADMINISTRATOR) Anatomical Region Laterality Modality Chest Computed Tomogra phy 01/09/2024 10:4 1 PM STORAGE ADMINISTRATOR Impressions 01/09/2024 10:45 PM STORAGE ADMINISTRATOR IMPRESSION: 1. ??No central pulmonary embolus. Limited evaluation for distal emboli due to bolus timing. 2. ??No acute thoracic abnormalities. 3. ??Somewhat shaggy appearance of urinary bladder surfaces. Correlation for UTI recommended. ??Otherwise no acute abnormalities in the abdomen or pelvis. Referred By: ?? Interpreted By: Aravind Camilo MD, 01/09/2024 10:41 PM Narrative 01/09/2024 10:45 PM STORAGE ADMINISTRATOR [facility] [address] [place] [address] EXAMINATION: CTA Chest with CT Abdomen and Pelvis with contrast [id number] EXAM DATE/TIME: 01/09/2024 10:11 PM REASON FOR [...] Procedure Note Aravind Camilo MD - 01/09/2024 [facility] [address] [place] [address] EXAMINATION: CTA Chest with CT Abdomen and Pelvis with contrast [id number] EXAM DATE/TIME: 01/09/2024 10:11 PM REASON FOR [...] Karlie Mendoza MD CT Final Result * (ABNORMAL) SAL CHAMPION VIRUS (01/09/2024 10:10 PM STORAGE ADMINISTRATOR) EBV VCA IGM <36.00 <36.00 U/mL 01/17/2024 12:36 PM STORAGE ADMINISTRATOR Trendyta TYLERHyperion TherapeuticsKIM ALDRIDGE Comment: ?? U/mL ?Interpretation ?<36.00 ?Negative 36.00 - 43.99 ?Equivocal ??>43.99 ?Positive EBV VCA IGG 169.00(H) <18.00 U/mL 01/17/2024 12:36 PM STORAGE ADMINISTRATOR Trendyta KRYSTINA HOLLISY Comment: ?? U/mL ?Interpretation ?<18.00 ?Negative 18.00 - 21.99 ?Equivocal ??>21.99 ?Positive SAL BAR NUCLEAR ANTIGEN IGG 138.00(H) <18.00 U/mL 01/17/2024 12:36 PM STORAGE ADMINISTRATOR T[employer] KRYSTINA ALDRIDGE Comment: ?? U/mL ?Interpretation ?<18.00 ?Negative 18.00 - 21.99 ?Equivocal ??>21.99 ?Positive INTERPRETATION Past 01/17/2024 12:36 PM STORAGE ADMINISTRATOR T[employer] KRYSTINA ALDRIDGE Comment: Suggestive of a past Sal-Champion Virus infection. In infants, a similiar pattern may occur as a result of a passive maternal transfer of antibody. Test Performed by [employer], [facility], [address] [place] [address] Fam Duffy M.D., Ph.D., Director of Laboratories , [facility] [id number] 01/09/2024 10:1 0 PM STORAGE ADMINISTRATOR Karlie Mendoza MD LABORATORY Final Result Performing Organization Address City/State/[facility] Co de Phone Number Trendyta KO[address] [phone], * PROTIME/INR, VENOUS (01/09/2024 10:10 PM STORAGE ADMINISTRATOR) PROTIME 11.7 9.1 - 12.4 SEC 01/09/2024 11:45 PM STORAGE ADMINISTRATOR [facility] INR 1.1 01/09/2024 11:45 PM STORAGE ADMINISTRATOR [facility] Comment: Recommend INR ranges for Oral Anticoagulant Therapy: Mechanical Cardiac Values 2.5-3.5 All others indication 2.0-3.0 01/09/2024 10:1 0 PM STORAGE ADMINISTRATOR Karlie Mendoza MD LABORATORY Final Result [facility] [address] [place] [address], * XR CHEST PORTABLE (01/09/2024 9:53 PM STORAGE ADMINISTRATOR) Anatomical Region Laterality Modality Chest Radiographic Nayla ging 01/09/2024 10:0 8 PM STORAGE ADMINISTRATOR Impressions 01/09/2024 10:09 PM STORAGE ADMINISTRATOR IMPRESSION: No acute findings. Referred By: ?? Interpreted By: Jimi Barron, 01/09/2024 10:08 PM Narrative 01/09/2024 10:09 PM STORAGE ADMINISTRATOR [facility] [address] [place] [address] CLINICAL HISTORY: Chest pain COMPARISON: 11/22/2021 TECHNIQUE: AP Portable View FINDINGS: Lungs are clear. No pneumothorax or pleural effusions evident. The cardiac silhouette, mediastinal contours, and pulmonary vessels appear within normal limits. No acute osseous abnormality. Procedure Note Jimi Barron MD - 01/09/2024 [facility] [address] [address] [place] [address] CLINICAL HISTORY: Chest pain COMPARISON: 11/22/2021 TECHNIQUE: AP Portable View FINDINGS: Lungs are clear. No pneumothorax or pleural effusions evident. The cardiacsilhouette, mediastinal contours, and pulmonary vessels appear withinnormal limits. No acute osseous abnormality. IMPRESSION: No acute findings. Referred By: Interpreted By: Jimi Barron, 01/09/2024 10:08 PM Karlie Mendoza MD GENERAL IMAGING Final Result * ECG 12 lead (01/09/2024 9:29 PM STORAGE ADMINISTRATOR) 01/09/2024 9:29 PM STORAGE ADMINISTRATOR Narrative [facility] - 01/10/2024 9:19 PM STORAGE ADMINISTRATOR ?[facility] ? Test Date: ?2024-01-09 Pat Name: ? MARGOT TYSON ? Department: ?? 85 ? Room: ? EXAM 101 Gender: ? Female ? Hand Binder Cutter: ?? : ?2000 ? Requested By: KARLIE MENDOZA Order Number: [id number] ? Reading MD: ?? Fede Ibrahim ? Measurements Intervals ?[place] ? Rate: ? 68 ? P: ?26 OH: ? 143 ?QRS: ?44 QRSD: ? 82 ? T: ?26 QT: ? 375 ? QTc: ?399 ? Interpretive Statements SINUS RHYTHM WITH SINUS ARRHYTHMIA Compared to ECG 08/11/2022 22:47:49 No significant changes AGE ADMINISTRATOR Procedure Note Fede Ibrahim MD - 01/10/2024 [facility] Test Date: 2024-01-09 Pat Name: MARGOT TYSON Department: 85 Room: EXAM 101 Gender: Female Hand Binder Cutter: : 2000 Requested By: KARLIE MENDOZA Order Number: [id number] MD: Fede Ibrahim Measurements Intervals [place] Rate: 68 P: 26 OH: 143 QRS: 44 QRSD: 82 T: 26 QT: 375 QTc: 399 Interpretive Statements SINUS RHYTHM WITH SINUS ARRHYTHMIA Compared to ECG 08/11/2022 22:47:49 No significant changes AGE ADMINISTRATOR us Karlie Mendoza MD ECG ORDERABLES Final Result [facility] RAD * (ABNORMAL) ACETAMINOPHEN (01/09/2024 9:20 PM STORAGE ADMINISTRATOR) Pathologist [facility] ACETAMINOPHEN S/P/B <0.5(L) 10.0 - 30.0 MCG/ML 01/09/2024 11:27 PM STORAGE ADMINISTRATOR [facility] Comment: ?THERAPEUTIC: 10-30 ?TOXIC: >200 01/09/2024 9:20 PM STORAGE ADMINISTRATOR us Karlie Mendoza MD LABORATORY Final Result Performing Organization Address [facility] de Phone Number [facility] [address] [place] [address], [place] [phone] * LIPASE (01/09/2024 9:20 PM STORAGE ADMINISTRATOR) [facility] LIPASE 27 16 - 77 UNITS/L 01/09/2024 9:59 PM STORAGE ADMINISTRATOR [facility] 01/09/2024 9:20 PM STORAGE ADMINISTRATOR us Karlie Mendoza MD LABORATORY Final Result Performing Organization Address [facility] de Phone Number [facility] [address] [place] [address], [place] [phone] * TROPONIN, QUANT (01/09/2024 9:20 PM STORAGE ADMINISTRATOR) [facility] TROPONIN I HIGH SENSITIVITY <4 0 - 50 ng/L 01/09/2024 9:56 PM STORAGE ADMINISTRATOR [facility] Comment: HIGH DOSES OF BIOTIN, TROPONIN-SPECIFIC AUTOANTIBODIES, AND ANTIBODY THERAPY CONTAINING HAMA MAY INTERFERE WITH THIS TEST RESULT. CORRELATION TO CLINICAL HISTORY AND PRESENTATION RECOMMENDED. 01/09/2024 9:20 PM STORAGE ADMINISTRATOR us Karlie Mendoza MD LABORATORY Final Result Performing Organization Address [facility] de Phone Number [facility] [address] [place] [address], [place] [phone] * (ABNORMAL) COMPREHENSIVE METABOLIC PANEL (01/09/2024 9:20 PM STORAGE ADMINISTRATOR) [facility] GLUCOSE 132(H) 70 - 99 MG/DL 01/09/2024 9:48 PM [facility] BUN 8 7 - 18 MG/DL 01/09/2024 9:48 PM [facility] CREATININE S/P/B 0.97 0.55 - 1.02 MG/DL 01/09/2024 9:48 PM [facility] SODIUM S/P/B 138 136 - 145 MMOL/L 01/09/2024 9:48 PM [facility] POTASSIUM S/P/B 4.2 3.5 - 5.1 MMOL/L 01/09/2024 9:48 PM [facility] CHLORIDE S/P/B 101 100 - 108 MMOL/L 01/09/2024 9:48 PM [facility] CO2 27.9 21 - 32 MMOL/L 01/09/2024 9:48 PM [facility] CALCIUM S/P/B 9.3 8.5 - 10.1 MG/DL 01/09/2024 9:48 PM [facility] BILIRUBIN TOTAL S/P/B 0.7 0.2 - 1.2 MG/DL 01/09/2024 9:48 PM [facility] TOTAL PROTEIN S/P/B 7.6 6.4 - 8.2 G/DL 01/09/2024 9:48 PM [facility] ALBUMIN S/P/B 3.4 3.4 - 5.0 G/DL 01/09/2024 9:48 PM [facility] AST 986(H) 15 - 37 U/L 01/09/2024 9:48 PM [facility] ALT 550(H) 14 - 55 U/L 01/09/2024 9:48 PM [facility] ALKALINE PHOSPHATASE S/P/B 191(H) 50 - 136 U/L 01/09/2024 9:48 PM STORAGE ADMINISTRATOR [facility] ANION GAP 9.1 5 - 15 MMOL/L 01/09/2024 9:48 PM [facility] BUN CREATININE RATIO 8.2 6 - 26 01/09/2024 9:48 PM [facility] A/G RATIO 0.8(L) 1.0 - 2.0 RATIO 01/09/2024 9:48 PM [facility] GFR ESTIMATE 85(L) >90 ML/MIN/1.7 3 M2 01/09/2024 9:48 PM [facility] Comment: NOTE: eGFR is not calculated for patients <18 years of age. This is an estimated GFR calculation using the new CKD EPI creatinine equation without race and so does not require a correction factor for race. This estimated GFR should not be used for calculating drug doses. 01/09/2024 9:20 PM STORAGE ADMINISTRATOR Karlie Mendoza MD LABORATORY Final Result [facility] [address] [place] [address], * (ABNORMAL) CBC W/DIFF AUTOMATED (01/09/2024 9:20 PM STORAGE ADMINISTRATOR) WBC 9.80 4.4 - 11.0 x10'3/uL 01/09/2024 9:44 PM STORAGE ADMINISTRATOR [facility] RBC 5.07 4.50 - 5.10 x10'6/uL 01/09/2024 9:44 PM [facility] HGB 13.4 12.3 - 15.3 G/DL 01/09/2024 9:44 PM [facility] HCT 41.3 35.9 - 44.6 % 01/09/2024 9:44 PM [facility] MCV 81.5 80.0 - 96.0 FL 01/09/2024 9:44 PM [facility] MCH 26.4 25.3 - 30.9 PG 01/09/2024 9:44 PM [facility] MCHC 32.4 31.0 - 34.1 G/DL 01/09/2024 9:44 PM [facility] RDW 14.2 12.4 - 15.1 % 01/09/2024 9:44 PM [facility] PLT 303 151 - 353 x10'3/uL 01/09/2024 9:44 PM [facility] MPV 11.2 9.6 - 12.0 FL 01/09/2024 9:44 PM [facility] RBC MORPHOLOGY NORMAL 01/09/2024 9:44 PM [facility] PLT MORPH. NORMAL 01/09/2024 9:44 PM [facility] WBC MORPHOLOGY NORMAL 01/09/2024 9:44 PM [facility] LYMPHOCYTES % 8.6(L) 15.8 - 45.0 % 01/09/2024 9:44 PM [facility] NEUTROPHILS % 86.4(H) 42.1 - 71.9 % 01/09/2024 9:44 PM [facility] MONOCYTES % 4.2(L) 5.7 - 12.5 % 01/09/2024 9:44 PM [facility] EOSINOPHILS 0.1 0.0 - 5.6 % 01/09/2024 9:44 PM [facility] BASOPHILS 0.3 0.0 - 1.3 % 01/09/2024 9:44 PM [facility] ABS. NEUTROPHILS 8.47(H) 1.40 - 6.00 x10'3/uL 01/09/2024 9:44 PM [facility] IMMATURE GRANS % 0.4 0.0 - 0.5 % 01/09/2024 9:44 PM [facility] ABS. LYMPHOCYTES 0.84 0.80 - 4.70 x10'3/uL 01/09/2024 9:44 PM [facility] 01/09/2024 9:20 PM STORAGE ADMINISTRATOR Karlie Mendoza MD LABORATORY Final Result [facility] [address] [place] [address], [place] [phone] * (ABNORMAL) Urinalysis, Auto, Complete (01/09/2024 9:15 PM STORAGE ADMINISTRATOR) COLOR (U) YELLOW 01/09/2024 10:01 PM [facility] TRANSPARENCY HAZY 01/09/2024 10:01 PM [facility] SPECIFIC GRAVITY (U) 1.020 1.000 - 1.030 01/09/2024 10:01 PM [facility] U PH 7.5 5.0 - 9.0 01/09/2024 10:01 PM [facility] LEUKOCYTES (U) NEGATIVE NEGATIVE 01/09/2024 10:01 PM [facility] NITRITES NEGATIVE NEGATIVE 01/09/2024 10:01 PM [facility] PROTEIN RANDOM (U) 1+(A) NEGATIVE 01/09/2024 10:01 PM [facility] GLUCOSE (U) TRACE(A) NEGATIVE 01/09/2024 10:01 PM [facility] KETONES MG/DL (U) TRACE(A) NEGATIVE 01/09/2024 10:01 PM [facility] BILIRUBIN (U) 2+(A) NEGATIVE 01/09/2024 10:01 PM [facility] BLOOD (U) NEGATIVE NEGATIVE 01/09/2024 10:01 PM [facility] WBC/HPF 0-5 0 - 5 /HPF 01/09/2024 10:01 PM [facility] RBC/HPF 10-25 0 - 5 /HPF 01/09/2024 10:01 PM [facility] EPI/HPF FEW /HPF 01/09/2024 10:01 PM [facility] URINE SPECIMEN OBTAINED BY CLEAN CATCH PROCEDURE / Unknown 01/09/2024 9:15 PM STORAGE ADMINISTRATOR us Karlie Mendoza MD URINE ORDERABLES Final Result Performing Organization Address [facility]/ZIP Co de Phone Number [facility] [address] [place] [address], [place] [phone] * TEST URINE (01/09/2024 9:15 PM STORAGE ADMINISTRATOR) URINE HCG TEST NEGATIVE NEGATIVE 01/09/2024 9:38 PM STORAGE ADMINISTRATOR [facility] Comment: VERY DILUTE URINE SPECIMENS MAY NOT CONTAIN CALCINER OPERATOR HELPER LEVELS OF HCG. IF IS STILL SUSPECTED, A SERUM HCG TEST IS RECOMMENDED. URINE SPECIMEN FROM [facility] / Unknown 01/09/2024 9:15 PM STORAGE ADMINISTRATOR us Karlie Mendoza MD URINE ORDERABLES Final Result Performing Organization Address [facility]/ZIP Co de Phone Number [facility] [address] [place] [address], [place] [phone] documented in this encounter Visit Diagnoses Diagnosis Transaminitis- Primary Nonspecific elevation of levels of transaminase or lactic acid dehydrogenase (LDH) documented in this encounter Administered Medications Inactive Administered Medications - up to 3 most recent administrations Medication Order MAR Action Action Date Dose Rate Site iopamidol (ISOVUE-370) 76 % injection 90 mL 90 mL, Intravenous, IMG once as needed, Contrast, 1 dose, Starting on Sun01/09/24 at 2228, Until Sun01/09/24 at 2229 Given 01/09/2024 10:29 PM STORAGE ADMINISTRATOR 90 mLs ketorolac (TORADOL) injection 15 mg 15 mg, Intravenous, Once, 1 dose, On Sun01/09/24 at 2115, For IV administration, give over 15 seconds. Given 01/09/2024 9:30 PM STORAGE ADMINISTRATOR 15 mg morphine injection 2 mg 2 mg, Intravenous, Every 3 hours PRN, Moderate pain (Scale 4 - 7), Starting on Candis 01/10/24 at 0146, Until Candis 01/10/24 at 0248 Given 01/10/2024 1:51 AM STORAGE ADMINISTRATOR 2 mg morphine injection 4 mg 4 mg, Intravenous, Once, 1 dose, On Sun01/09/24 at 2115 Given 01/09/2024 9:30 PM STORAGE ADMINISTRATOR 4 mg ondansetron (ZOFRAN) injection 4 mg 4 mg, Intravenous, Once, 1 dose, On Sun01/09/24 at 2115, IV push over 2-5 minutes. Given 01/09/2024 9:30 PM STORAGE ADMINISTRATOR 4 mg ondansetron (ZOFRAN) injection 4 mg 4 mg, Intravenous, Every 6 hours PRN, Nausea, Vomiting, Starting on Candis 01/10/24 at 0141, Until Candis 01/10/24 at 0248, IV push over 2-5 minutes. Given 01/10/2024 1:51 AM STORAGE ADMINISTRATOR 4 mg documented in this encounter Active and Recently Administered Medications Times are shown in STORAGE ADMINISTRATOR. Scheduled Medication Order 01/08/2024 01/09/2024 01/10/2024 ketorolac (TORADOL) injection 15 mg (COMPLETED) 15 mg, Intravenous, Once, 1 dose, On Sun01/09/24 at 2115, For IV administration, give over 15 seconds. 2129 (Given - Provider: Perla Herrera RN) morphine injection 4 mg (COMPLETED) 4 mg, Intravenous, Once, 1 dose, On Sun01/09/24 at 2114 2129 (Given - Provider: Perla Herrera, ERIKA) ondansetron (ZOFRAN) injection 4 mg (COMPLETED) 4 mg, Intravenous, Once, 1 dose, On Sun01/09/24 at 2115, IV push over 2-5 minutes. 2130 (Given - Provider: Perla Herrera, ERIKA) PRN Medication Order 01/08/2024 01/09/2024 01/10/2024 iopamidol (ISOVUE-370) 76 % injection 90 mL (COMPLETED) 90 mL, Intravenous, IMG once as needed, Contrast, 1 dose, Starting on Sun01/09/24 at 2228, Until Sun01/09/24 at 222 222 (Given - Provider: Sue Berry, RTR) morphine injection 2 mg 2 mg, Intravenous, Every 3 hours PRN, Moderate pain (Scale 4 - 7), Starting on Candis 01/10/24 at 0146, Until Candis 01/10/24 at 0248 0151 (Given - Provid er: Leeann Herrera RN) ondansetron (ZOFRAN) injection 4 mg 4 mg, Intravenous, Every 6 hours PRN, Nausea, Vomiting, Starting on Candis 01/10/24 at 0141, Until Candis 01/10/24 at 0248, IV push over 2-5 minutes. 0151 (Given - Provid er: Leeann Herrera RN) documented in this encounter Care Teams Chief Accountant Relationship Specialty Start Date End Date None, Provider, PCP - General UNKNOWN PHYSICIAN SPECIALTY 01/09/24 Chiara Grimaldo MD [address] [place] [address] Physician OBGYN 12/28/22 documented as of this encounter
--- OUTSIDE RECORDS SUMMARY | 2024-03-09 06:39 | XMS_ITS | Encounter Summary ---
Author Organization [facility] Address [address] [place] [address]. [place], [place] [id number] [place] [id number] Care Team Providers Care Sales Attendant Name Role Phone Chiara Grimaldo MD Unavailable [phone] None, Provider Primary Care Provider Unavaila ble Reason for Referral * Surgical (Routine) - New Request Specialty Diagnoses / Procedures Referred By Matt murcia Referred To Contact Diagnoses Calculus of bile duct without cholecystitis with obstruction Procedures Case request operating room: ERCP WITH SPHINCTEROTOMY and common bile duct stone extraction Jacque Lira MD [address] [facility], [address] [place] [address] Phone: tel: fax: Referral ID Status Reason Start Date Expiration Date V isits Requested Visits Authorized [id number] New Request 01/11/2024 01/10/2025 1 1 TING VEHICLE SYSTEMS MAINTAINER * Imaging (Emergency) - New Request Specialty Diagnoses / Procedures Referred By Matt murcia Referred To Contact RADIOLOGY Procedures MRCP Jacque Lira MD [address] [facility], [address] [place] [address] Phone: tel: fax: Referral ID Status Reason Start Date Expiration Date V isits Requested Visits Authorized [id number] New Request 01/10/2024 01/09/2025 1 1 TING VEHICLE SYSTEMS MAINTAINER * Imaging (Urgent) - New Request Specialty Diagnoses / Procedures Referred By Matt murcia Referred To Contact RADIOLOGY Procedures US ABD LIMITED [place] [address] Phone: tel: [phone] fax: Referral ID Status Reason Start Date Expiration Date V isits Requested Visits Authorized [id number] New Request 01/10/2024 01/09/2025 1 1 TING VEHICLE SYSTEMS MAINTAINER Reason for Visit * Auth/Cert (Routine) Specialty Diagnoses / Procedures Referred By Matt murcia Referred To Contact Diagnoses Transaminitis transaminitis Procedures NONE [place] [address] Phone: tel: [phone] fax: Referral ID Status Reason Start Date Expiration Date Visits Re quested Visits Authorized [id number] 1 1 Encounter Details Date Type Department Care Team (Late st Contact Info) Description 01/10/2024 2:45 AM FIGHTING VEHICLE SYSTEMS MAINTAINER - 01/12/2024 6:00 PM FIGHTING VEHICLE SYSTEMS MAINTAINER Hospital Encounter [facility] Med/Surg 5th [place] [address] [place] [address] [phone] (Work) Philippe Solomon PA-C 1 [facility] [place] [address] [phone] (Work) Lisa Bah PA-C 1 [place] [address] [phone] (Work) Discharge Disposition: Home or Self Care (Routine [...] Comments Blood Pressure 129/87 01/12/2024 5:07 PM FIGHTING VEHICLE SYSTEMS MAINTAINER Pulse 81 01/12/2024 2:30 PM FIGHTING VEHICLE SYSTEMS MAINTAINER Temperature 36.5 ??C (97.7 ??F) 01/12/2024 2:04 PM CS T Respiratory Rate 20 01/12/2024 2:04 PM FIGHTING VEHICLE SYSTEMS MAINTAINER Oxygen Saturation 97% 01/12/2024 2:30 PM FIGHTING VEHICLE SYSTEMS MAINTAINER Inhaled Oxygen Concentration - - Weight 108.6 kg (239 lb 6.7 oz) 01/10/2024 2:56 AM FIGHTING VEHICLE SYSTEMS MAINTAINER Height - - Body Mass Index 41.1 01/09/2024 9:01 PM FIGHTING VEHICLE SYSTEMS MAINTAINER documented in this encounter Functional Status * [...] medical history presents as a transfer from [facility] with abdominal pain. Patient had a baby [...] XR ERCP W ROMULO Result Date: 01/11/2024 [facility] [address] [place], [place] [address] Intraoperative fluoroscopic views of the ERCP History: [...] 01/11/2024 8:39 PM MRCP Result Date: 01/11/2024 [facility] [address] [place], [place] [address] Examination: MRCP. 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 [address] EXAMINATION: CTA Chest with CT Abdomen and Pelvis with contrast [id number] EXAM DATE/TIME: 01/09/2024 10:11 PMREASON FOR EXAM: [...] CT ABD+PEL W CON Result Date: 01/09/2024 [facility] [address] [place] [id number] EXAMINATION: CTA Chest with CT Abdomen and Pelvis with contrast [id number] EXAM DATE/TIME: 01/09/2024 10:11 PMREASON FOR EXAM: [...] PM XR CHEST PORTABLE Result Date: 01/09/2024 [facility] [address] [facility] [place] [address] CLINICAL HISTORY: Chest pain COMPARISON: 11/22/2021 TECHNIQUE: [...] Coreen Cotto MD at 01/13/2024 3:11 PM FIGHTING VEHICLE SYSTEMS MAINTAINER TING VEHICLE SYSTEMS MAINTAINER TING VEHICLE SYSTEMS MAINTAINER documented in this encounter Medications at Time [...] for Documentation Clarification Margot Lora ; VISIT [id number] Query Response Sent: 01/12/24 18:54 FIGHTING VEHICLE SYSTEMS MAINTAINER From: Sravanthi King MD Query question: Based on medical judgment and consideration of these clinical indicators, the following condition was evaluated, monitored and/or treated during this episode of care Provider response: Morbid obesity TING VEHICLE SYSTEMS MAINTAINER Original Query Sent: 01/11/24 12:30 FIGHTING VEHICLE SYSTEMS MAINTAINER From: Shyanne Lopez RN CDIS To: Sravanthi [...] Height 5' 4 BMI 41.10 H&P by Srvaanthi King at 01/10/2024 03:08 23-year-old female with no significant past medical history presents as a transfer from [facility] with abdominal pain. Patient had a baby 6 months ago. Since then she has had off-and-on abdominal pain with radiation to her ribs and her back CONSULT by Ky Santiago at 01/11/2024 10:52 IMPRESSION: Biliary colic, symptomatic cholelithiasis PLAN: 1. Robotic assisted laparoscopic cholecystectomy with ICG TING VEHICLE SYSTEMS MAINTAINER * Ky Santiago MD - 01/12/2024 10:03 AM CST Images from the original note were not included. General Surgery Progress Note-[facility] Margot Tyson is an 23-year-old female. Date of Service: 01/12/2024 SUBJECTIVE: Feels okay, minimal complaints of pain OBJECTIVE: Blood pressure 89/58, pulse 82, temperature 98.2 ??F (36.8 ??C), temperature source Oral, resp. rate 22, weight 108.6 kg (239 lb 6.7 oz), SpO2 97%, not currently . Exam: Abdomen soft, mild right-sided abdominal tenderness Labs noted Labs: Recent Labs Lab 01/09/240 01/09/24 2210 [id number]/10/24202601/11/2441 01/12/2415 WBC 9.80 -- 7.66 5.91 6.66 10.39 HGB 13.4 -- 12.5 12.6 12.7 13.8 MCV 81.5 -- 80.3* 81.4 82.3 85.0 PLT 303 -- 277 263 305 315 INR -- 1.1 -- -- -- -- Recent Labs Lab 01/10/2463401/11/2464001/12/24614 NA 137 137 134* K 3.7 3.9 3.8 CL 107 106 108 CO2 25.3 27.0 21.8 BUN 8 7 11 CR 0.81 0.83 0.68 Recent Labs Lab 01/10/24202601/11/2464001/12/2415 AST 472* 291* 110* ALT 624* 547* 411* TBIL 0.9 1.7* 0.7 ALB 3.0* 3.0* 3.2* Rads: No new studies IMPRESSION: Symptomatic cholelithiasis, biliary colic status post ductal clearance PLAN: 1. Robotic assisted laparoscopic cholecystectomy 2. Proceed with surgery this morning 3. Procedure reviewed, questions answered KY SANTIAGO MD 01/12/2024 TING VEHICLE SYSTEMS MAINTAINER * Venita Hair RN - 01/11/2024 3:04 [...] Deficit Goal: Adequate nutritional intake Outcome: Progressing TING VEHICLE SYSTEMS MAINTAINER * Merary Heredia RN - 01/11/2024 10:54 [...] friend Jaimie will be her ride home.) TING VEHICLE SYSTEMS MAINTAINER * Lisa Bah PA-C - 01/11/2024 10:36 [...] Labs, Imaging, Other Studies Recent Labs Lab 01/09/24211901/10/2463401/10/24202601/11/2441 WBC 9.80 7.66 5.91 6.66 RBC 5.07 [...] AUTOMATED DIFFERENTIAL AUTOMATED DIFFERENTIAL Recent Labs Lab 01/09/24211901/10/2463401/10/242026 11/08/24 0641 NA 138 137 -- 137 K [...] FEW /HPF Imaging MRCP Result Date: 01/11/2024 [facility] [address] [place], [place] [address] Examination: MRCP. Exam Date/Time: 01/11/2024 7:20 AM [...] AM US ABD LIMITED Result Date: 01/10/2024 [facility] [address] [place], [place] [address] Procedure: US ABD LIMITED Indication: elevated LFTs, [...] CTA CHEST PE PROTOCOL Result Date: 01/09/2024 [facility] [address] [place] [address] EXAMINATION: CTA Chest with CT Abdomen and Pelvis with contrast [id number] EXAM DATE/TIME: 01/09/2024 10:11 PMREASON FOR EXAM: epigastric, RUQ pain Mid back and epigastric pain with nausea. COMPARISON: 03/19/2022 CT abdomen and pelvis TECHNIQUE: Axial CT angiographic images of the chest and axial thin section images of the abdomen and pelvis are obtained following uneventful intravenous demonstration of 90cc Isovue-370. Subsequent coronal and sagittal reformatted sequences are created for evaluation. Inaddition 3-D rotational MIP imaging of the thoracic [...] CT ABD+PEL W CON Result Date: 01/09/2024 [facility] [address] [place] [address] EXAMINATION: CTA Chest with CT Abdomen and Pelvis with contrast [id number] EXAM DATE/TIME: 01/09/2024 10:11 PMREASON FOR EXAM: [...] PM XR CHEST PORTABLE Result Date: 01/09/2024 [facility] [address] [place] [address] CLINICAL HISTORY: Chest pain COMPARISON: 11/22/2021 TECHNIQUE: [...] Jessica Umanzor MD at 01/11/2024 2:11 PM FIGHTING VEHICLE SYSTEMS MAINTAINER TING VEHICLE SYSTEMS MAINTAINER TING VEHICLE SYSTEMS MAINTAINER * Shilpi Philip RN - 01/10/2024 4:30 [...] Deficit Goal: Adequate nutritional intake Outcome: Progressing TING VEHICLE SYSTEMS MAINTAINER * Merary Heredia RN - 01/10/2024 9:10 AM CST 01/10/24 0910 Referral Data Source of Information Patient Patient Information Primary Caregiver Self Current living Situation Spouse/significant other;Family members Type of Residence Private residence Support System Spouse/Significant Other;Immediate family;Friends 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 No NCM performed bedside interview, verified patient's [...] communicate without deficits. Home Health: Denies Occupation: [employer]- Pharmacy: [facility] Financial Concerns: No financial concerns reported PCP/Insurance Plan: Pt states she sees a PCP in her mom's physician office, but does not see regularly. [facility] clinic list provided to pt, instructed to call and set up a f/u at [facility] clinic or reach out to the provider she has seen in the past. Pt voiced understanding./[place] Medicaid Discharge needs: RNCM will follow case daily and will continuously evaluate discharge needs based on recommendations and treatment course. TING VEHICLE SYSTEMS MAINTAINER * Anahi Hodgson RN - 01/10/2024 5:46 AM CST Problem: Discharge Planning Goal: Knowledge of discharge instructions Outcome: Progressing Problem: Pain - Acute Goal: Achieve acceptable pain level Outcome: Met This Shift Problem: Diarrhea Goal: Bowel elimination within specified parameters Outcome: Met This Shift Problem: Nausea/Vomiting Goal: Absence of nausea/vomiting Outcome: Met This Shift TING VEHICLE SYSTEMS MAINTAINER documented in this encounter H&P Notes * [...] medical history presents as a transfer from [facility] with abdominal pain. Patient had a baby [...] Date Anxiety disorder, unspecified Depression Gestational diabetes ([facility]/HCC) Past Surgical History: Procedure Laterality Date SECTION [...] ending 01/10/24 0018 No data found. Intake/Output :[id number]@ Constitutional: No acute distress, Non-toxic appearance. HENT: [...] input(s): PH , PCO2 , PO2 , [id number] , BICARBWB , BASEDEFICIT , BASEEXCESS in [...] note was dictated with the use of [employer] dictation software and was proofread to the best of my ability. If you have questions or find errors, please contact me via clinical communications. Thank you. SRAVANTHI KING MD 01/10/2024 12:18 AM TING VEHICLE SYSTEMS MAINTAINER documented in this encounter Consult Notes * Ky Santiago MD - 01/11/2024 10:49 AM CSTAssociated Order(s): IP CONSULT TO GENERAL SURGERY Images from the original note were not included. General Surgery Consultation Note-[facility] Margot Tyson 23-year-old female Date [...] (36.7 ??C) Oral 69 22 100 % 01/10/242008 121/72 98.4 ??F (36.9 ??C) Oral 64 [...] abnormality. Ordered By: JACQUE LIRA Interpreted By: Rosbiel Noel MD, 01/11/2024 8:36 AM 01/10/24 0806 [...] results later today KY SANTIAGO MD 01/11/2024 TING VEHICLE SYSTEMS MAINTAINER * Jacque Lira MD - 01/10/2024 7:37 PM CSTAssociated Order(s): IP CONSULT TO GASTROENTEROLOGY Gastroenterology Consultation Note Consulting Provider: JACQUE LIRA MD Attending Provider: Philippe Solomon PA-C, who requested the consultation PCP: Yuridia Garcia MD GI: Reason for Consult: Transaminitis HPI: The patient is a 23-year-old female 6 months post- transferred today from [facility] where she presented yesterday with [...] yesterday before work and at work, at [facility] and here around 10AM and 2 PM. 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 Vapes nicotine. Smokes 1 pipe bowls worth [...] Radiology: US ABD LIMITED Result Date: 01/10/2024 [facility] [address] [place], [place] [address] Procedure: US ABD LIMITED Indication: elevated LFTs, [...] CTA CHEST PE PROTOCOL Result Date: 01/09/2024 [facility] [address] [place] [address] EXAMINATION: CTA Chest with CT Abdomen and Pelvis with contrast [id number] EXAM DATE/TIME: 01/09/2024 10:11 PMREASON FOR EXAM: [...] CT ABD+PEL W CON Result Date: 01/09/2024 [facility] [address] [place] [address] EXAMINATION: CTA Chest with CT Abdomen and Pelvis with contrast [id number] EXAM DATE/TIME: 01/09/2024 10:11 PMREASON FOR EXAM: [...] PM XR CHEST PORTABLE Result Date: 01/09/2024 [facility] [address] [place] [address] CLINICAL HISTORY: Chest pain COMPARISON: 11/22/2021 TECHNIQUE: AP Portable View FINDINGS: Lungs are clear. No pneumothorax or pleural effusions evident. The cardiac silhouette, mediastinal contours, and pulmonary vessels appear within normal limits. No acute osseous abnormality. IMPRESSION: No acute findings. Referred By: Interpreted By: Jimi Barron, 01/09/2024 10:08 PM ECG 12 lead Result Date: 01/09/2024 [facility] Test Date: 2024-01-09 Pat Name: MARGOT TYSON Department: 85 Room: EXAM 101 Gender: Female Ski Patrol Director: : 2000 Requested By: KARLIE HART Order Number: [id number] Reading MD: Measurements Intervals [place] Rate: 68 P: 26 NC: 143 QRS: 44 QRSD: 82T: 26 QT: 375 QTc: 399 Interpretive Statements [...] duct clearance tomorrow. JACQUE LIRA MD 01/10/2024 TING VEHICLE SYSTEMS MAINTAINER documented in this encounter Nursing Notes * Samantha Teran RN - 01/12/2024 10:51 AM CSTSummary: OR NURSING NOTE 1025 Warm blankets applied to patient upon entering OR -Patient did not want any family/friends updated during surgery or at end by Dr Santiago. Said she would call her when back on the floor. TING VEHICLE SYSTEMS MAINTAINER * Sunni Shearer RN - 01/11/2024 6:45 AM CST To MRI via wheelchair. TING VEHICLE SYSTEMS MAINTAINER documented in this encounter OR Notes * Op Note - Ky Santiago MD - 01/12/2024 11:20 AM CST Images from the original note were not included. General Surgery Operative Report-[facility] Margot Tyson is an 23-year-old female. Date of Operation: 01/12/2024 Preoperative diagnosis: Symptomatic cholelithiasis, biliary colic Postoperative diagnosis: Same Procedure: Robotic assisted laparoscopic cholecystectomy with ICG Anesthesia: General Assistants: Yard Crane Operator: ADA Arnett Circulating Nurse 1: Samantha Teran RN Scrub Person 1: Whit Gonzales, BAG LOADER Estimated blood loss: 5 cc Brief history: [...] camera settings were instrumental in identifying the [place] anatomy and ensuring that there were no [...] following the operation. KY SANTIAGO MD 01/12/2024 TING VEHICLE SYSTEMS MAINTAINER * Op Note - Jacque Lira MD - 01/11/2024 12:34 PM CST ENDOSCOPY REPORT Exam date: 01/11/24 Patient name: Margot Tyson date: 2000 MR#: [id number] Status: Inpatient Surgeon: JACQUE LIRA MD Assistants: GI Nurse: Karina Copeland RN; Nemo Hagen RN; Gwyn Dennison RN husbandry person: Sukhjinder Rouse; Cleopatra Hendrix ASA Class: II [...] without alternative. JACQUE LIRA MD Date: 01/11/2024 TING VEHICLE SYSTEMS MAINTAINER documented in this encounter Plan of Treatment Not on file documented as of this encounter Procedures Procedure Name Priority Date/Time Associated Diagnosis Comments ROBOTIC XI CHOLECYSTECTOMY 01/12/2024 10:25 AM FIGHTING VEHICLE SYSTEMS MAINTAINER cholecystitis POCT GLUCOSE - CANNON DOCKED DEVICE Routine 01/12/2024 10:03 AM FIGHTING VEHICLE SYSTEMS MAINTAINER COMPREHENSIVE METABOLIC PANEL Routine 01/12/2024 6:15 AM FIGHTING VEHICLE SYSTEMS MAINTAINER CBC W/DIFF AUTOMATED Routine 01/12/2024 6:15 AM FIGHTING VEHICLE SYSTEMS MAINTAINER PATHOLOGY Routine 01/12/2024 12:00 AM FIGHTING VEHICLE SYSTEMS MAINTAINER SURG XR ERCP W ROMULO Routine 01/11/2024 12:43 PM FIGHTING VEHICLE SYSTEMS MAINTAINER EGD 01/11/2024 11:19 AM FIGHTING VEHICLE SYSTEMS MAINTAINER Calculus of bile duct without cholecystitis with obstruction Special Needs Start with EGD. Anticipate administering indomethacin. ERCP,SPHINCTEROTOMY 01/11/2024 11:19 AM FIGHTING VEHICLE SYSTEMS MAINTAINER Calculus of bile duct without cholecystitis with obstruction Special Needs Start with EGD. Anticipate administering indomethacin. MRCP STAT 01/11/2024 7:40 AM FIGHTING VEHICLE SYSTEMS MAINTAINER COMPREHENSIVE METABOLIC PANEL Routine 01/11/2024 6:41 AM FIGHTING VEHICLE SYSTEMS MAINTAINER CBC W/DIFF AUTOMATED Routine 01/11/2024 6:41 AM FIGHTING VEHICLE SYSTEMS MAINTAINER LIPASE Routine 01/11/2024 6:41 AM FIGHTING VEHICLE SYSTEMS MAINTAINER HEPATIC FUNCTION PANEL STAT 01/10/2024 8:27 PM FIGHTING VEHICLE SYSTEMS MAINTAINER CBC W/DIFF AUTOMATED STAT 01/10/2024 8:27 PM FIGHTING VEHICLE SYSTEMS MAINTAINER LIPASE STAT 01/10/2024 8:27 PM FIGHTING VEHICLE SYSTEMS MAINTAINER US ABD LIMITED Today 01/10/2024 8:06 AM FIGHTING VEHICLE SYSTEMS MAINTAINER PROCALCITONIN (PCT) Routine 01/10/2024 6:35 AM FIGHTING VEHICLE SYSTEMS MAINTAINER COMPREHENSIVE METABOLIC PANEL Routine 01/10/2024 6:35 AM FIGHTING VEHICLE SYSTEMS MAINTAINER CHORIONIC GONADOTROPIN HCG QL Routine 01/10/2024 6:35 AM FIGHTING VEHICLE SYSTEMS MAINTAINER CBC W/DIFF AUTOMATED Routine 01/10/2024 6:35 AM FIGHTING VEHICLE SYSTEMS MAINTAINER LIPASE Routine 01/10/2024 6:35 AM FIGHTING VEHICLE SYSTEMS MAINTAINER documented in this encounter Results * POCT glucose (01/12/2024 10:03 AM FIGHTING VEHICLE SYSTEMS MAINTAINER) GLUCOSE POC 82 70 - 99 mg/dL 01/12/2024 10:04 AM FIGHTING VEHICLE SYSTEMS MAINTAINER [facility] 01/12/2024 10:0 3 AM FIGHTING VEHICLE SYSTEMS MAINTAINER us Lisa Bah PA-C POCT ORDERABLES - DEVICE Deisy l Result [facility] [address] [place] [address], [place] [phone] * (ABNORMAL) COMPREHENSIVE METABOLIC PANEL (01/12/2024 6:15 AM FIGHTING VEHICLE SYSTEMS MAINTAINER) GLUCOSE 93 70 - 99 MG/DL 01/12/2024 6:54 AM [facility] BUN 11 7 - 18 MG/DL 01/12/2024 6:54 AM [facility] CREATININE S/P/B 0.68 0.55 - 1.02 MG/DL 01/12/2024 6:54 AM [facility] SODIUM S/P/B 134(L) 136 - 145 MMOL/L 01/12/2024 6:54 AM [facility] POTASSIUM S/P/B 3.8 3.5 - 5.1 MMOL/L 01/12/2024 6:54 AM [facility] CHLORIDE S/P/B 108 97 - 115 MMOL/L 01/12/2024 6:54 AM [facility] CO2 21.8 21 - 32 MMOL/L 01/12/2024 6:54 AM [facility] CALCIUM S/P/B 8.8 8.5 - 10.1 MG/DL 01/12/2024 6:54 AM [facility] BILIRUBIN TOTAL S/P/B 0.7 0.2 - 1.2 MG/DL 01/12/2024 6:54 AM [facility] Comment: THIS ASSAY IS NOT RECOMMENDED FOR PATIENTS UNDERGOING TREATMENT WITH ELTROMBOPAG DUE TO THE POTENTIAL FOR FALSELY ELEVATED RESULTS. TOTAL PROTEIN S/P/B 7.4 6.4 - 8.2 G/DL 01/12/2024 6:54 AM [facility] ALBUMIN S/P/B 3.2(L) 3.4 - 5.0 G/DL 01/12/2024 6:54 AM [facility] AST 110(H) 15 - 37 U/L 01/12/2024 6:54 AM [facility] ALT 411(H) 14 - 55 U/L 01/12/2024 6:54 AM [facility] ALKALINE PHOSPHATASE S/P/B 173(H) 50 - 136 U/L 01/12/2024 6:54 AM FIGHTING VEHICLE SYSTEMS MAINTAINER [facility] ANION GAP 4.2 2 - 10 MMOL/L 01/12/2024 6:54 AM [facility] BUN CREATININE RATIO 16.2 6 - 26 01/12/2024 6:54 AM [facility] A/G RATIO 0.8(L) 1.0 - 2.0 RATIO 01/12/2024 6:54 AM [facility] GFR ESTIMATE >90 >90 ML/MIN/1.7 3 M2 01/12/2024 6:54 AM [facility] Comment: NOTE: eGFR is not calculated for patients <18 years of age or gender unknown. This is an estimated GFR calculation using the new CKD EPI creatinine equation without race and so does not require a correction factor for race. This estimated GFR should not be used for calculating drug doses. 01/12/2024 6:15 AM FIGHTING VEHICLE SYSTEMS MAINTAINER Philippe Solomon PA-C LABORATORY Final Result [facility] [address] [place] [address], [place] [phone] * (ABNORMAL) CBC W/DIFF AUTOMATED (01/12/2024 6:15 AM FIGHTING VEHICLE SYSTEMS MAINTAINER) WBC 10.39 4.5 - 11.0 x10'3/uL 01/12/2024 6:35 AM FIGHTING VEHICLE SYSTEMS MAINTAINER [facility] RBC 5.27 4.20 - 5.40 x10'6/uL 01/12/2024 6:35 AM [facility] HGB 13.8 12.0 - 16.0 G/DL 01/12/2024 6:35 AM FIGHTING VEHICLE SYSTEMS MAINTAINER [facility] HCT 44.8 38.0 - 48.0 % 01/12/2024 6:35 AM [facility] MCV 85.0 81.0 - 99.0 FL 01/12/2024 6:35 AM [facility] MCH 26.2(L) 27.0 - 31.0 PG 01/12/2024 6:35 AM [facility] MCHC 30.8(L) 32.0 - 36.0 G/DL 01/12/2024 6:35 AM [facility] RDW 14.2 11.5 - 14.5 % 01/12/2024 6:35 AM [facility] PLT 315 130 - 400 x10'3/uL 01/12/2024 6:35 AM [facility] MPV 11.0 9.3 - 12.2 FL 01/12/2024 6:35 AM [facility] DIFFERENTIAL TYPE AUTOMATED DIFFERENTIAL 01/12/2024 6:35 AM [facility] NEUTROPHILS % 70.7 % 01/12/2024 6:35 AM [facility] LYMPHOCYTES % 21.0 % 01/12/2024 6:35 AM [facility] MONOCYTES % 6.9 % 01/12/2024 6:35 AM [facility] EOSINOPHILS 0.4 % 01/12/2024 6:35 AM [facility] BASOPHILS 0.4 % 01/12/2024 6:35 AM [facility] IMMATURE GRANS % 0.6 % 01/12/20 6:35 AM [facility] ABS. NEUTROPHILS 7.35 1.80 - 7.70 x10'3/uL 01/12/2024 6:35 AM [facility] ABS. LYMPHOCYTES 2.18 1.00 - 4.80 x10'3/uL 01/12/2024 6:35 AM FIGHTING VEHICLE SYSTEMS MAINTAINER [facility] ABS. MONOCYTES 0.72 0.24 - 0.86 x10'3/uL 01/12/2024 6:35 AM [employer]HT[employer] MAINTAINER [facility] ABS. EOSINOPHILS 0.04 0.04 - 0.36 x10'3/uL 01/12/2024 6:35 AM FIGHTING VEHICLE SYSTEMS MAINTAINER [facility] ABS. BASOPHILS 0.04 0.01 - 0.08 x10'3/uL 01/12/2024 6:35 AM FIGHTING VEHICLE SYSTEMS MAINTAINER [facility] ABS. IMMATURE GRANULOCYTES 0.06 0.00 - 0.49 x10'3/uL 01/12/2024 6:35 AM FIGHTING VEHICLE SYSTEMS MAINTAINER [facility] 01/12/2024 6:15 AM FIGHTING VEHICLE SYSTEMS MAINTAINER Philippe Solomon PA-C LABORATORY Final Result Performing Organization Address City/State/[facility] Co de Phone Number [facility] [address] [place] [address], * Pathology (01/12/2024 12:00 AM FIGHTING VEHICLE SYSTEMS MAINTAINER) PATHOLOGY [facility] ? Department of Laboratory Medicine ?[address] ?[place] [address] ? , [facility] [phone] ? Pathology Report ? Surgical Pathology Report Name: MARGOT TYSON ? Specimen #: [id number] Age: 1 2000 (Age: 23) ? Location: [id number] Sex: F ?Procedure Date: 01/12/2024 Hospital #: [id number] ?Date Received: 01/14/2024 Date Reported: 01/15/2024 Provider: [...] gallbladder mcmahon a thickness of 0.3 cm. ??Director Of Conservation tissue to include the cystic duct margin is submitted in cassette 1. Gross examination (when applicable), interpretation, and sign out were performed at [facility], [address] [place] [address]. FINAL DIAGNOSIS: Gallbladder, cholecystectomy: ? -Chronic cholecystitis and cholelithiasis. Electronically Signed Out ? ALVIN PHAM MD [facility] TISSUE GALLBLADDER STRUCTURE / Unknown 01/12/2024 11:02 AM FIGHTING VE[employer]LE SYSTEMS MAINTAINER us Ky Santiago MD PATHOLOGY/CYTOLOGY ORDERA BLES Final Result [facility] [address] [place] [address], [place] [phone] [id number] * SURG XR ERCP W ROMULO (01/11/2024 12:43 PM FIGHTING VE[employer] SYSTEMS MAINTAINER) Anatomical Region Laterality Modality Abdomen Radiographic Nayla ging 01/11/2024 8:39 PM FIGHTING VE[employer]LE SYSTEMS MAINTAINER Impressions 01/11/2024 8:40 PM FIGHTING VE[employer]ICLE SYSTEMS MAINTAINER Impression: Fluoroscopic spot views of ERCP obtained for intraoperative control purposes and evaluated postoperatively. Referred By: KARLIE HART Interpreted By: Aravind Camilo MD, 01/11/2024 8:39 PM Narrative 01/11/2024 8:40 PM FIGHTING VE[employer]IC[employer] SYSTEMS MAINTAINER [address] [address] Intraoperative fluoroscopic views of the ERCP History: [...] Procedure Note Aravind Camilo MD - 01/11/2024 [facility] [address] [place], [place] [address] Intraoperative fluoroscopic views of the ERCP History: [...] Final Result * MRCP (01/11/2024 7:40 AM FIGHTING VE[employer]LE SYSTEMS MAINTAINER) Anatomical Region Laterality Modality Abdomen Magnetic Resonan ce 01/11/2024 8:36 AM FIGHTING VEHICLE SYSTEMS MAINTAINER Impressions 01/11/2024 8:48 AM FIGHTING VEHICLE SYSTEMS MAINTAINER Impression: 1. Cholelithiasis with too numerous to [...] 01/11/2024 8:36 AM Narrative 01/11/2024 8:48 AM FIGHTING VEHICLE SYSTEMS MAINTAINER [address] [address] Examination: MRCP. Exam Date/Time: 01/11/2024 7:20 AM [...] Procedure Note Rosibel Noel MD - 01/11/2024 [facility] [address] [place], [place] [address] Examination: MRCP. Exam Date/Time: 01/11/2024 7:20 AM [...] PANCREAS: Normal. Normal size morphology. Normal homogeneous D3wenqrihczrkq signal and enhancement. No focal finding, inflammation [...] (ABNORMAL) COMPREHENSIVE METABOLIC PANEL (01/11/2024 6:41 AM FIGHTING VEHICLE SYSTEMS MAINTAINER) GLUCOSE 82 70 - 99 MG/DL 01/11/2024 8:05 AM [facility] BUN 7 7 - 18 MG/DL 01/11/2024 8:05 AM [facility] CREATININE S/P/B 0.83 0.55 - 1.02 MG/DL 01/11/2024 8:05 AM [facility] SODIUM S/P/B 137 136 - 145 MMOL/L 01/11/2024 8:05 AM [facility] POTASSIUM S/P/B 3.9 3.5 - 5.1 MMOL/L 01/11/2024 8:05 AM [facility] CHLORIDE S/P/B 106 97 - 115 MMOL/L 01/11/2024 8:05 AM [facility] CO2 27.0 21 - 32 MMOL/L 01/11/2024 8:05 AM [facility] CALCIUM S/P/B 8.7 8.5 - 10.1 MG/DL 01/11/2024 8:05 AM [facility] BILIRUBIN TOTAL S/P/B 1.7(H) 0.2 - 1.2 MG/DL 01/11/2024 8:05 AM [facility] Comment: THIS ASSAY IS NOT RECOMMENDED FOR PATIENTS UNDERGOING TREATMENT WITH ELTROMBOPAG DUE TO THE POTENTIAL FOR FALSELY ELEVATED RESULTS. TOTAL PROTEIN S/P/B 6.8 6.4 - 8.2 G/DL 01/11/2024 8:05 AM [facility] ALBUMIN S/P/B 3.0(L) 3.4 - 5.0 G/DL 01/11/2024 8:05 AM [facility] AST 291(H) 15 - 37 U/L 01/11/2024 8:05 AM [facility] ALT 547(H) 14 - 55 U/L 01/11/2024 8:05 AM [facility] ALKALINE PHOSPHATASE S/P/B 181(H) 50 - 136 U/L 01/11/2024 8:05 AM [facility] ANION GAP 4.0 2 - 10 MMOL/L 01/11/2024 8:05 AM [facility] BUN CREATININE RATIO 8.5 6 - 26 01/11/2024 8:05 AM [facility] A/G RATIO 0.8(L) 1.0 - 2.0 RATIO 01/11/2024 8:05 AM [facility] GFR ESTIMATE >90 >90 ML/MIN/1.7 3 M2 01/11/2024 8:05 AM [facility] Comment: NOTE: eGFR is not calculated for patients <18 years of age or gender unknown. This is an estimated GFR calculation using the new CKD EPI creatinine equation without race and so does not require a correction factor for race. This estimated GFR should not be used for calculating drug doses. 01/11/2024 6:41 AM FIGHTING VE[employer]LE SYSTEMS MAINTAINER us Philippe Solomon PA-C LABORATORY Final Result [facility] [address] [place] [address], * (ABNORMAL) CBC W/DIFF AUTOMATED (01/11/2024 6:41 AM FIGHTING VE[employer] SYSTEMS MAINTAINER) [facility] WBC 6.66 4.5 - 11.0 x10'3/uL 01/11/2024 7:47 AM [facility] RBC 4.98 4.20 - 5.40 x10'6/uL 01/11/2024 7:47 AM [facility] HGB 12.7 12.0 - 16.0 G/DL 01/11/2024 7:47 AM [facility] HCT 41.0 38.0 - 48.0 % 01/11/2024 7:47 AM [facility] MCV 82.3 81.0 - 99.0 FL 01/11/2024 7:47 AM [facility] MCH 25.5(L) 27.0 - 31.0 PG 01/11/2024 7:47 AM [facility] MCHC 31.0(L) 32.0 - 36.0 G/DL 01/11/2024 7:47 AM [facility] RDW 14.3 11.5 - 14.5 % 01/11/2024 7:47 AM [facility] PLT 305 130 - 400 x10'3/uL 01/11/2024 7:47 AM [facility] MPV 11.2 9.3 - 12.2 FL 01/11/2024 7:47 AM [facility] DIFFERENTIAL TYPE AUTOMATED DIFFERENTIAL 01/11/2024 7:47 AM [facility] NEUTROPHILS % 54.2 % 01/11/2024 7:47 AM FIGHTING VE[employer]LE SYSTEMS MAINTAINER [facility] LYMPHOCYTES % 33.2 % 01/11/2024 7:47 AM FIGHTING VE[employer] SYSTEMS MAINTAINER [facility] MONOCYTES % 8.7 % 01/11/2024 7:47 AM [facility] EOSINOPHILS 3.0 % 01/11/2024 7:47 AM FIGHTING VE[employer]LE SYSTEMS MAINTAINER [facility] BASOPHILS 0.6 % 01/11/2024 7:47 AM FIGHTING VEHICLE SYSTEMS MAINTAINER [facility] IMMATURE GRANS % 0.3 % 01/11/20 7:47 AM FIGHTING [employer] SYSTEMS MAINTAINER [facility] ABS. NEUTROPHILS 3.61 1.80 - 7.70 x10'3/uL 01/11/2024 7:47 AM [facility] ABS. LYMPHOCYTES 2.21 1.00 - 4.80 x10'3/uL 01/11/2024 7:47 AM FIGHTING [employer] SYSTEMS MAINTAINER [facility] ABS. MONOCYTES 0.58 0.24 - 0.86 x10'3/uL 01/11/2024 7:47 AM FIGHTING VE[employer]LE SYSTEMS MAINTAINER [facility] ABS. EOSINOPHILS 0.20 0.04 - 0.36 x10'3/uL 01/11/2024 7:47 AM [facility] ABS. BASOPHILS 0.04 0.01 - 0.08 x10'3/uL 01/11/2024 7:47 AM FIGHTING VE[employer]LE SYSTEMS MAINTAINER [facility] ABS. IMMATURE GRANULOCYTES 0.02 0.00 - 0.49 x10'3/uL 01/11/2024 7:47 AM [facility] 01/11/2024 6:41 AM FIGHT[employer]LE SYSTEMS MAINTAINER Philippe Solomon PA-C LABORATORY Final Result [facility] [address] [place] [address], [place] [phone] * LIPASE (01/11/2024 6:41 AM FIGHTING VEHICLE SYSTEMS MAINTAINER) LIPASE 22 13 - 75 UNITS/L 01/11/2024 8:05 AM FIGHTING VE[employer]ICLE SYSTEMS MAINTAINER [facility] 01/11/2024 6:41 AM FIGHTING VEHICLE SYSTEMS MAINTAINER us Jacque Lira MD LABORATORY Final Result [facility] [address] [place] [address], [place] [phone] * LIPASE (01/10/2024 8:27 PM FIGHTING VEHICLE SYSTEMS MAINTAINER) LIPASE 22 13 - 75 UNITS/L 01/10/2024 9:12 PM FIGHTING VEHICLE SYSTEMS MAINTAINER [facility] 01/10/2024 8:27 PM FIGHTING VEHICLE SYSTEMS MAINTAINER us Jacque Lira MD LABORATORY Final Result [facility] [address] [place] [address], [place] [phone] * (ABNORMAL) CBC W/DIFF AUTOMATED (01/10/2024 8:27 PM FIGHTING VEHICLE SYSTEMS MAINTAINER) WBC 5.91 4.5 - 11.0 x10'3/uL 01/10/2024 8:51 PM FIGHTING VEHICLE SYSTEMS MAINTAINER [facility] RBC 4.88 4.20 - 5.40 x10'6/uL 01/10/2024 8:51 PM FIGHTING VEHICLE SYSTEMS MAINTAINER [facility] HGB 12.6 12.0 - 16.0 G/DL 01/10/2024 8:51 PM FIGHTING VEHICLE SYSTEMS MAINTAINER [facility] HCT 39.7 38.0 - 48.0 % 01/10/2024 8:51 PM FIGHTING VEHICLE SYSTEMS MAINTAINER [facility] MCV 81.4 81.0 - 99.0 FL 01/10/2024 8:51 PM FIGHTING VEHICLE SYSTEMS MAINTAINER [facility] MCH 25.8(L) 27.0 - 31.0 PG 01/10/2024 8:51 PM FIGHTING VE[employer]LE SYSTEMS MAINTAINER [facility] MCHC 31.7(L) 32.0 - 36.0 G/DL 01/10/2024 8:51 PM FIGHTING VEHICLE SYSTEMS MAINTAINER [facility] RDW 14.4 11.5 - 14.5 % 01/10/2024 8:51 PM FIGHTING VEHICLE SYSTEMS MAINTAINER [facility] PLT 263 130 - 400 x10'3/uL 01/10/2024 8:51 PM [facility] MPV 11.3 9.3 - 12.2 FL 01/10/2024 8:51 PM [facility] DIFFERENTIAL TYPE AUTOMATED DIFFERENTIAL 01/10/2024 8:51 PM FIGHTING VEHICLE SYSTEMS MAINTAINER [facility] NEUTROPHILS % 63.0 % 01/10/2024 8:51 PM FIGHTING VEHICLE SYSTEMS MAINTAINER [facility] LYMPHOCYTES % 25.5 % 01/10/2024 8:51 PM [facility] MONOCYTES % 8.1 % 01/10/2024 8:51 PM [facility] EOSINOPHILS 2.4 % 01/10/2024 8:51 PM FIGHTING VEHICLE SYSTEMS MAINTAINER [facility] BASOPHILS 0.7 % 01/10/2024 8:51 PM FIGHTING VEHICLE SYSTEMS MAINTAINER [facility] IMMATURE GRANS % 0.3 % 01/10/20 8:51 PM FIGHTING VEHICLE SYSTEMS MAINTAINER [facility] ABS. NEUTROPHILS 3.72 1.80 - 7.70 x10'3/uL 01/10/2024 8:51 PM FIGHTING VEH[employer]LE SYSTEMS MAINTAINER [facility] ABS. LYMPHOCYTES 1.51 1.00 - 4.80 x10'3/uL 01/10/2024 8:51 PM FIGHTING VEHICLE SYSTEMS MAINTAINER [facility] ABS. MONOCYTES 0.48 0.24 - 0.86 x10'3/uL 01/10/2024 8:51 PM FIGHTING VEHICLE SYSTEMS MAINTAINER [facility] ABS. EOSINOPHILS 0.14 0.04 - 0.36 x10'3/uL 01/10/2024 8:51 PM FIGHTING VEHICLE SYSTEMS MAINTAINER [facility] ABS. BASOPHILS 0.04 0.01 - 0.08 x10'3/uL 01/10/2024 8:51 PM FIGHTING VEHICLE SYSTEMS MAINTAINER [facility] ABS. IMMATURE GRANULOCYTES 0.02 0.00 - 0.49 x10'3/uL 01/10/2024 8:51 PM FIGHTING VEHICLE SYSTEMS MAINTAINER [facility] 01/10/2024 8:27 PM FIGHTING VEHICLE SYSTEMS MAINTAINER us Jacque Lira MD LABORATORY Final Result [facility] [address] [place] [address], * (ABNORMAL) HEPATIC FUNCTION PANEL (01/10/2024 8:27 PM FIGHTING VEHICLE SYSTEMS MAINTAINER) TOTAL PROTEIN S/P/B 6.8 6.4 - 8.2 G/DL 01/10/2024 9:12 PM FIGHTING VEHICLE SYSTEMS MAINTAINER [facility] ALBUMIN S/P/B 3.0(L) 3.4 - 5.0 G/DL 01/10/2024 9:12 PM FIGHTING VEHICLE SYSTEMS MAINTAINER [facility] BILIRUBIN TOTAL S/P/B 0.9 0.2 - 1.2 MG/DL 01/10/2024 9:12 PM FIGHTING VEHICLE SYSTEMS MAINTAINER [facility] Comment: THIS ASSAY IS NOT RECOMMENDED FOR PATIENTS UNDERGOING TREATMENT WITH ELTROMBOPAG DUE TO THE POTENTIAL FOR FALSELY ELEVATED RESULTS. BILIRUBIN DIRECT S/P/B 0.4(H) 0.0 - 0.20 MG/DL 01/10/2024 9:12 PM FIGHTING VEHICLE SYSTEMS MAINTAINER [facility] BILIRUBIN INDIRECT S/P/B 0.5 0.0 - 0.9 MG/DL 01/10/2024 9:12 PM FIGHTING VEHICLE SYSTEMS MAINTAINER [facility] ALKALINE PHOSPHATASE S/P/B 190(H) 50 - 136 U/L 01/10/2024 9:12 PM FIGHTING VEHICLE SYSTEMS MAINTAINER [facility] AST 472(H) 15 - 37 U/L 01/10/2024 9:12 PM FIGHTING VEHICLE SYSTEMS MAINTAINER [facility] ALT 624(H) 14 - 55 U/L 01/10/2024 9:12 PM FIGHTING VEHICLE SYSTEMS MAINTAINER [facility] A/G RATIO 0.8(L) 1.0 - 2.0 RATIO 01/10/2024 9:12 PM FIGHTING VEHICLE SYSTEMS MAINTAINER [facility] 01/10/2024 8:27 PM FIGHTING VEHICLE SYSTEMS MAINTAINER Jacque Lira MD LABORATORY Final Result [facility] [address] [place] [address], [place] [phone] * US ABD LIMITED (01/10/2024 8:06 AM FIGHTING VEHICLE SYSTEMS MAINTAINER) Anatomical Region Laterality Modality Abdomen Ultrasound 01/10/2024 8:16 AM FIGHTING VEHICLE SYSTEMS MAINTAINER Impressions 01/10/2024 8:20 AM FIGHTING VEHICLE SYSTEMS MAINTAINER Impression: 1. ??Cholelithiasis without sonographic evidence for acute cholecystitis. 2. ??No biliary ductal dilatation. ??Two tiny echogenic foci seen within the normal caliber common bile duct which may be artifactual or reflect choledocholithiasis. ??Correlate with LFTs and consider ERCP or MRCP if clinically indicated. 3. ??Hepatic steatosis. Referred By: KARLIE HART Interpreted By: Luis Rocha MD, 01/10/2024 8:16 AM Narrative 01/10/2024 8:20 AM FIGHTING VEHICLE SYSTEMS MAINTAINER [address] [address] Procedure: US ABD LIMITED Indication: elevated LFTs, [...] Procedure Note Luis Rocha MD - 01/10/[address] [address] Procedure: US ABD LIMITED Indication: elevated LFTs, [...] TEST SERUM (HCG QUALITATIVE) (01/10/2024 6:35 AM FIGHTING VEHICLE SYSTEMS MAINTAINER) Pathologist [facility] PREG SCREEN-SERUM NEGATIVE 01/10/2024 9:00 AM FIGHTING VEHICLE SYSTEMS MAINTAINER [facility] 01/10/2024 6:35 AM FIGHTING VEHICLE SYSTEMS MAINTAINER Jacque Lira MD LABORATORY Final Result Performing Organization Address City/[facility]/ZIP Co de Phone Number [facility] [address] [place] [id number], * LIPASE (01/10/2024 6:35 AM FIGHTING VEHICLE SYSTEMS MAINTAINER) Pathologist [facility] LIPASE 19 13 - 75 UNITS/L 01/10/2024 9:46 AM FIGHTING VEHICLE SYSTEMS MAINTAINER [facility] 01/10/2024 6:35 AM FIGHTING VEHICLE SYSTEMS MAINTAINER Jacque Liar MD LABORATORY Final Result [facility] [address] [place] [address], [place] [phone] * PROCALCITONIN (PCT) (01/10/2024 6:35 AM FIGHTING VEHICLE SYSTEMS MAINTAINER) Procalcitonin 0.39 0.00 - 0.49 NG/ML 01/10/2024 8:52 AM [facility] 01/10/2024 6:35 AM FIGHTING VEHICLE SYSTEMS MAINTAINER Sravanhti King MD LABORATORY Final Re sult [facility] [address] [place] [id number], * (ABNORMAL) COMPREHENSIVE METABOLIC PANEL (01/10/2024 6:35 AM FIGHTING VEHICLE SYSTEMS MAINTAINER) GLUCOSE 108(H) 70 - 99 MG/DL 01/10/2024 7:06 AM [facility] BUN 8 7 - 18 MG/DL 01/10/2024 7:06 AM [facility] CREATININE S/P/B 0.81 0.55 - 1.02 MG/DL 01/10/2024 7:06 AM [facility] SODIUM S/P/B 137 136 - 145 MMOL/L 01/10/2024 7:06 AM [facility] POTASSIUM S/P/B 3.7 3.5 - 5.1 MMOL/L 01/10/2024 7:06 AM [facility] CHLORIDE S/P/B 107 97 - 115 MMOL/L 01/10/2024 7:06 AM [facility] CO2 25.3 21 - 32 MMOL/L 01/10/2024 7:06 AM [facility] CALCIUM S/P/B 8.6 8.5 - 10.1 MG/DL 01/10/2024 7:06 AM [facility] BILIRUBIN TOTAL S/P/B 1.3(H) 0.2 - 1.2 MG/DL 01/10/2024 7:06 AM [facility] Comment: THIS ASSAY IS NOT RECOMMENDED FOR PATIENTS UNDERGOING TREATMENT WITH ELTROMBOPAG DUE TO THE POTENTIAL FOR FALSELY ELEVATED RESULTS. TOTAL PROTEIN S/P/B 6.5 6.4 - 8.2 G/DL 01/10/2024 7:06 AM [facility] ALBUMIN S/P/B 2.9(L) 3.4 - 5.0 G/DL 01/10/2024 7:06 AM [facility] AST 745(H) 15 - 37 U/L 01/10/2024 7:06 AM [facility] ALT 647(H) 14 - 55 U/L 01/10/2024 7:06 AM [facility] ALKALINE PHOSPHATASE S/P/B 183(H) 50 - 136 U/L 01/10/2024 7:06 AM [facility] ANION GAP 4.7 2 - 10 MMOL/L 01/10/2024 7:06 AM [facility] BUN CREATININE RATIO 9.9 6 - 26 01/10/2024 7:06 AM [facility] A/G RATIO 0.8(L) 1.0 - 2.0 RATIO 01/10/2024 7:06 AM [facility] GFR ESTIMATE >90 >90 ML/MIN/1.7 3 M2 01/10/2024 7:06 AM [facility] Comment: NOTE: eGFR is not calculated for patients <18 years of age or gender unknown. This is an estimated GFR calculation using the new CKD EPI creatinine equation without race and so does not require a correction factor for race. This estimated GFR should not be used for calculating drug doses. 01/10/2024 6:35 AM FIGHTING VEHICLE SYSTEMS MAINTAINER Sravanthi King MD LABORATORY Final Re sult [facility] [address] [place] [address], [place] [phone] * (ABNORMAL) CBC W/DIFF AUTOMATED (01/10/2024 6:35 AM FIGHTING VEHICLE SYSTEMS MAINTAINER) WBC 7.66 4.5 - 11.0 x10'3/uL 01/10/2024 6:47 AM FIGHTING VEHICLE SYSTEMS MAINTAINER [facility] RBC 4.78 4.20 - 5.40 x10'6/uL 01/10/2024 6:47 AM [facility] HGB 12.5 12.0 - 16.0 G/DL 01/10/2024 6:47 AM [facility] HCT 38.4 38.0 - 48.0 % 01/10/2024 6:47 AM [facility] MCV 80.3(L) 81.0 - 99.0 FL 01/10/2024 6:47 AM [facility] MCH 26.2(L) 27.0 - 31.0 PG 01/10/2024 6:47 AM [facility] MCHC 32.6 32.0 - 36.0 G/DL 01/10/2024 6:47 AM [facility] RDW 14.0 11.5 - 14.5 % 01/10/2024 6:47 AM [facility] PLT 277 130 - 400 x10'3/uL 01/10/2024 6:47 AM [facility] MPV 11.2 9.3 - 12.2 FL 01/10/2024 6:47 AM [facility] DIFFERENTIAL TYPE AUTOMATED DIFFERENTIAL 01/10/2024 6:47 AM FIGHTING VEHICLE SYSTEMS MAINTAINER [facility] NEUTROPHILS % 65.8 % 01/10/2024 6:47 AM FIGHTING VEHICLE SYSTEMS MAINTAINER [facility] LYMPHOCYTES % 26.1 % 01/10/2024 6:47 AM FIGHTING VEHICLE SYSTEMS MAINTAINER [facility] MONOCYTES % 6.8 % 01/10/2024 6:47 AM FIGHTING VEHICLE SYSTEMS MAINTAINER [facility] EOSINOPHILS 0.5 % 01/10/2024 6:47 AM FIGHTING VEHICLE SYSTEMS MAINTAINER [facility] BASOPHILS 0.4 % 01/10/2024 6:47 AM FIGHTING VEHICLE SYSTEMS MAINTAINER [facility] IMMATURE GRANS % 0.4 % 01/10/20 6:47 AM FIGHTING VEHICLE SYSTEMS MAINTAINER [facility] ABS. NEUTROPHILS 5.04 1.80 - 7.70 x10'3/uL 01/10/2024 6:47 AM FIGHTING VEHICLE SYSTEMS MAINTAINER [facility] ABS. LYMPHOCYTES 2.00 1.00 - 4.80 x10'3/uL 01/10/2024 6:47 AM FIGHTING VEHICLE SYSTEMS MAINTAINER [facility] ABS. MONOCYTES 0.52 0.24 - 0.86 x10'3/uL 01/10/2024 6:47 AM FIGHTING VEHICLE SYSTEMS MAINTAINER [facility] ABS. EOSINOPHILS 0.04 0.04 - 0.36 x10'3/uL 01/10/2024 6:47 AM FIGHTING VEHICLE SYSTEMS MAINTAINER [facility] ABS. BASOPHILS 0.03 0.01 - 0.08 x10'3/uL 01/10/2024 6:47 AM FIGHTING VEHICLE SYSTEMS MAINTAINER [facility] ABS. IMMATURE GRANULOCYTES 0.03 0.00 - 0.49 x10'3/uL 01/10/2024 6:47 AM [facility] 01/10/2024 6:35 AM FIGHTING VEHICLE SYSTEMS MAINTAINER us Sravanthi King MD LABORATORY Final Re sult [facility] [address] [place] [address], [place] [phone] documented in this encounter Visit Diagnoses Diagnosis [...] MAR Action Action Date Dose Rate Site diphenhydrAMINE (BENADRYL) injection 25 mg 25 mg, Intravenous, Once as needed, Itching, 1 dose, Starting on 01/12/24 at 1129, Until 01/12/24 at 1137, For IV administration, give no faster than 25 mg/min., PACU Given 01/12/2024 11:37 AM FIGHTING VEHICLE SYSTEMS MAINTAINER 25 mg docusate sodium (COLACE) capsule 100 mg 100 mg, Oral, 2 times daily PRN, Constipation, Starting on [place] 01/10/24 at 0250, Until 01/12/24 at 2010 HYDROmorphone (DILAUDID) injection 0.4 mg 0.4 mg, Intravenous, Every 15 min PRN, [...] ordered medication at next dosing interval., PACU Given 01/12/2024 11:50 AM [employer]IN[employer]ER 0.4 mg Given 01/12/2024 11:35 AM [employer]IN[employer]ER 0.4 mg HYDROmorphone (DILAUDID) injection 0.5 mg 0.5 mg, Intravenous, Every 2 hours PRN, Severe pain (Scale 8 - 10), Starting on [place] 01/10/24 at 0250, Until 01/12/24 at 2010, Administer slowly over at least 2-3 minutes. Given 01/10/2024 11:5 5 AM [employer]IN[employer]ER 0.5 mg Given 01/10/2024 6:30 AM [employer]IN[employer]ER 0.5 mg indocyanine green (IC-GREEN) injection 2.5 mg 2.5 mg, Intravenous, Once, 1 dose, On 01/12/24 at 0900, Please make sure medication is on the floor to add be administered by floor nurse Given 01/12/2024 9:11 AM [employer]ER 2.5 mg influenza vaccine (FLUZONE) injection 0.5 mL 0.5 mL, Intramuscular, Prior to discharge, Other, immunization, 1 dose, Starting on [place] 01/10/24 at 0326, Until 01/12/24 at 1706, Please give vaccine prior to discharge. Given 01/12/2024 5:06 PM [employer]IN[employer]ER 0.5 mLs Righ t Deltoid lactated ringers infusion at 10 mL/hr, Intravenous, [...] over 2-5 minutes. Given 01/10/2024 9:07 PM [employer]IN[employer]ER 4 mg Given 01/10/2024 10:06 AM [employer]IN[employer]ER 4 mg oxyCODONE immediate release (ROXICODONE) tablet 5 mg 5 mg, Oral, Once as needed, Mild pain (Scale 1 - 3), 1 dose, Starting on 01/12/24 at 1129, Until 01/12/24 at 1145, Do not administer if patient is overly sedated, SpO2 LESS than 90%, or Respiratory Rate LESS than 12., PACU Given 01/12/2024 11:45 AM [employer]INTAINER 5 mg polyethylene glycol (GLYCOLAX) packet 17 g 17 g, Oral, Daily as needed, Constipation, Starting on [place] 01/10/24 at 0250, Until 01/12/24 at 2010 traMADol (ULTRAM) tablet 50 mg 50 mg, Oral, Every 6 hours PRN, Moderate pain (Scale 4 - 7), Headache, Starting on [place] 01/10/24 at 1948, Until 01/12/24 at 2010 Given 01/10/2024 8:21 PM [employer]INTAINER 5 0 mg documented in this encounter Active and Recently Administered Medications Times are shown in [employer]. Scheduled Medication Order 01/10/2024 01/11/2024 01/12/2024 indocyanine [...] Medication Order 01/10/2024 01/11/2024 01/12/2024 BUpivacaine-EPINEPHrine 0.25% [id number] injection (CANCELED) As needed, Starting on 01/12/24 [...] Nelida Yan RN)1150 (Given - Provider: Nelida Yan, ERIKA) HYDROmorphone (DILAUDID) injection 0.5 mg 0.5 mg, Intravenous, Every 2 hours PRN, Severe pain (Scale 8 - 10), Starting on [place] 01/10/24 at 0250, Until 01/12/24 at 2010, Administer slowly over at least 2-3 minutes. 0630 (Given - Provider: Anahi Hodgson RN)1155 (Given - Provider: Shilpi Philip RN) 1025 (MAY Hold - Provider: User Epic - Reason: Unreviewed Transfer Orders)1130 ([facility] Unhold - Provider: User Epic) [...] Provider: User Epic)1706 (Given - Provider: Kymberly Zapien, ERIKA) iopamidol (ISOVUE-300) 61 % 50 mL in sodium chloride 0.9 % 50 mL contrast solution (CANCELED) As needed, Starting on 01/11/24 at 1258, Until Sun01/11/24 at 1258, Intra-Op 1200 (Given - Provider: Jacque Lira MD - Comment: ERCP) naLOXone (NARCAN) injection 0.4 mg 0.4 mg, Intravenous, As needed, Opioid reversal, Starting on [place] 01/10/24 at 0250, Until 01/12/24 at 2010 1025 (MAY Hold - Provider: User Epic - Reason: Unreviewed Transfer Orders)1130 ([facility] Unhold - Provider: User Epic) ondansetron (ZOFRAN) injection 4 mg 4 mg, Intravenous, Every 6 hours PRN, Nausea, Starting on Candis 01/10/24 at 1000, Until 01/12/24 at 2010, IV push over 2-5 minutes. 1006 (Given - Provider: Shilpi Philip RN)2107 (Given - Provider: Sunni Shearer, ERIKA) 1025 ([facility] Hold - Provider: User Epic - Reason: Unreviewed Transfer Orders)1130 ([facility] Unhold - Provider: User Epic) [...] at 0250, Until 01/12/24 at 2010 1025 ([facility] Hold - Provider: User Epic - Reason: Unreviewed Transfer Orders)1130 ([facility] Unhold - Provider: User Epic) traMADol (ULTRAM) [...] Epic) documented in this encounter Care Teams Sales Attendant Relationship Specialty Start Date End Date None, Provider, PCP - General UNKNOWN PHYSICIAN SPECIALTY 01/09/24 Chiara Grimaldo MD [address] [place] [address] Physician OBROBERTN 12/28/22 documented as of this encounter
--- OUTSIDE RECORDS SUMMARY | 2024-03-09 06:39 | XMS_ITS | Encounter Summary ---
Author Organization [facility] Address [address] [place] [address]. [place], [place] [address] [place] [address] Care Team Providers Care Survey Coordinator Name Role Phone Jack Rosales MD Primary Care Provider [phone] Chiara Grimaldo MD Unavailable [phone] Reason for Visit * Reason Comments * Auth/Cert (Routine) Specialty Diagnoses / Procedures Referred By Matt t Referred To Contact Diagnoses repeat section Procedures FULL ROUT OBSTE CARE, DELIV REPEAT SECTION Nayely Allen MD [address] [place] [address] Phone: tel: fax: Referral ID Status Reason Start Date Expiration Date Visits Re quested Visits Authorized [id number] 1 1 Encounter Details Date Type Department Care Team (Late st Contact Info) Description 06/28/2023 8:30 AM CDT - 06/28/2023 9:38 AM CDT Surgery [facility] Labor & Delivery [address] [place] [address] Nayely Allen MD [address] [place] [address] REPEAT SECTION Surgery Details Date/Time Status Location OR Service Patient Class Case Class Case Type Trauma Case? 06/28/2023 8:30 AM Posted [facility] L+D CS 1 Obstetrics Morning Admit No Panel 1 Procedure LRB Anes Op Region Wound Class Comments REPEAT SECTION N/A Spinal Abdomen Clean Contaminated Surgeon Surgeon Role Service Panel Nayely Allen MD Primary Obstetrics 1 documented in this encounter Social History [...] Sign Reading Time Taken Comments Blood Pressure 98/49 06/28/2023 9:37 AM CDT Pulse 69 06/28/2023 9:37 AM CDT Temperature 36.6 ??C (97.8 ??F) 06/28/2023 5:33 AM CD T Respiratory Rate 18 06/28/2023 5:33 AM CDT Oxygen Saturation - - Inhaled Oxygen Concentration - - Weight 104.3 kg (230 lb) 06/28/2023 5:33 AM CDT Height 162.6 cm (5' 4 ) 06/28/2023 5:33 AM CDT Body Mass Index 39.48 06/28/2023 5:33 AM CDT documented in this encounter Functional Status * Question Answer Date of Assessment Author Status Do you have serious difficulty walking or climbing stairs? No 06/28/2023 5:59 AM CHAZT Patricia Gan RN Active * Question Answer Date of Assessment Author Status Do you have difficulty dressing or bathing? No 06/28/2023 5:59 AM CHAZT Gregory Gan RN Active Because of a physical, mental, or emotional condition, do you have difficulty doing errands alone such as visiting a doctor's office or shopping? No 06/28/2023 5:59 AM CHAZT Patricia Gan RN Active * Are you deaf or [...] Physician Discharge Summary Patient ID: Margot Tyson [id number] 23-year-old 2000 Primary Care Physician: Jack Rosales MD Admit date: 06/28/2023 Expected Discharge Date: 07/01/2023 Admitting Physician: Nayely Allen MD Discharge Physician: Saba Arias CNM Admission Diagnoses: ([facility]) [Z34.90] Discharge Diagnoses: Repeat C/S Admission Condition: [...] delivery. Follow-Up Appointments Follow-Up Numbers SOGA: SOGA: [phone] Art Teacher: [facility]: [phone] Home Health: Construction Project Assistant: [phone] * Attachments The following attachments cannot be sent through Care Everywhere. * Discharge Instructions (Pashto) documented in this encounter Medications at Time [...] Outcome: Adequate for Discharge Problem: Feeding Your Goal: Knowledge of Outcome: Adequate for Discharge [...] with pain meds. Pt bonding well with and demonstrates appropriate infant care. Denies SOB [...] in this encounter Nursing Notes * Patricia Gan RN - 06/28/2023 11:[address] [...] placenta Anesthesia: spinal Josy Collazo Surgeon: douglas Paediatrician: x Estimated Blood Loss: 500cc NAYELY ALLEN [...] aspect of this incision was grasped with Castlewood clamps, tented up, and dissected off of the rectus muscles below both bluntly and with Guthrie scissors. Attention was turned to the superior aspect of this incision which in a similar fashion was grasped with Helen clamps tented up and dissected off of [...] artificial rupture of membranes was performed. the infant's head was delivered atraumatically and the shoulders [...] prevena. Her postopapt may be via telehealth -bmg documented in this encounter Plan of Treatment [...] Schedule Ambulatory referral to Mom/Baby Referral Routine ([facility]) Ordered: 07/02/2023 documented as of this encounter [...] - 11.00 x10'3/uL 06/29/2023 6:26 AM CDT [facility] RBC 3.89(L) 4.20 - 5.40 x10'6/uL 06/29/2023 6:26 AM CDT [facility] HGB 9.9(L) 12.0 - 16.0 G/DL 06/29/2023 6:26 AM CDT [facility] HCT 31.9(L) 38.0 - 48.0 % 06/29/2023 6:26 AM CDT [facility] MCV 82.0 81.0 - 99.0 FL 06/29/2023 6:26 AM CDT [facility] MCH 25.4(L) 27.0 - 31.0 PG 06/29/2023 6:26 AM CDT [facility] MCHC 31.0(L) 32.0 - 36.0 G/DL 06/29/2023 6:26 AM CDT [facility] RDW 15.6(H) 11.5 - 14.5 % 06/29/2023 6:26 AM CDT [facility] PLT 229 130 - 400 x10'3/uL 06/29/2023 6:26 AM CDT [facility] MPV 10.8 9.3 - 12.2 FL 06/29/2023 6:26 AM CDT [facility] 06/29/2023 6:00 AM CDT us Nayely Allen MD LABORATORY Final Result [facility] [address] [place] [address], * (ABNORMAL) DRUG SCREEN RAPID (06/28/2023 5:50 AM CDT) Pathologist [facility] AMPHETAMINE SCREEN (U) NEGATIVE NEGATIVE 06/28/2023 6:30 AM CDT [facility] BARBITURATES SCREEN (U) NEGATIVE NEGATIVE 06/28/2023 6:30 AM CDT [facility] BENZODIAZEPINES SCREEN (U) NEGATIVE NEGATIVE 06/28/2023 6:30 AM CDT [facility] BUPRENORPHINE SCREEN (U) NEGATIVE NEGATIVE 06/28/2023 6:30 AM CDT [facility] COCAINE METABOLITES (U) NEGATIVE NEGATIVE 06/28/2023 6:30 AM CDT [facility] METHAMPHETAMINE (U) NEGATIVE NEGATIVE 06/28/2023 6:30 AM CDT [facility] METHADONE (U) NEGATIVE NEGATIVE 06/28/2023 6:30 AM CDT [facility] OPIATE SCREEN (U) NEGATIVE NEGATIVE 024 6:30 AM CDT [facility] OXYCODONE SCREEN (U) NEGATIVE NEGATIVE 06/28/2023 6:30 AM CDT [facility] PHENCYCLIDINE PCP (U) NEGATIVE NEGATIVE 06/28/2023 6:30 AM CDT [facility] (B) [facility] CANNABINOIDS SCREEN (U) POSITIVE(A) NEGATIVE 06/28/2023 6:30 AM CDT [facility] (B) [facility] TRICYCLIC ANTIDEPRESSANT SCREEN (U) NEGATIVE NEGATIVE 06/28/2023 6:30 AM CDT [facility] () [facility] Comment: NOTE: RESULTS OF THIS [...] Nayely Allen MD URINE ORDERABLES Final Result [facility] ([facility] [address] [place] [address], [place] [phone] * TYPE & SCREEN (06/28/2023 5:50 AM CDT) ABO/RH AB POSITIVE 06/28/2023 7:13 AM CDT [facility] ANTIBODY SCREEN NEGATIVE 7:[facility] S[facility] EXPIRATION 07/01/2023,235 9 06/28/2023 6:23 AM CDT [facility] BLOOD UNIT NUMBER [id number] 06/28/2023 7:27 AM T [facility] PRODUCT: PC LEUKO PHERE BAG2 06/28/2023 7:27 AM CDT [facility] UNIT DIVISION 00 06/28/2023 7:27 AM CDT [facility] BLOOD UNIT STATUS UNIT RELEASED 07/02/2023 7:22 AM CDT [facility] TRANSFUSION STATUS OK TO TRANSFUSE 06/28/2023 7:27 AM CDT [facility] CROSSMATCH COMPATIBLE 06/28/2023 7:27 AM CDT [facility] BLOOD UNIT NUMBER [id number] 06/28/2023 7:27 AM CDT [facility] PRODUCT: PC LEUKOPOOR 06/28/2023 7:27 AM CDT [facility] UNIT DIVISION 00 06/28/2023 7:27 AM CDT [facility] BLOOD UNIT STATUS UNIT RELEASED 07/02/2023 7:22 AM CDT [facility] TRANSFUSION STATUS OK TO TRANSFUSE 06/28/2023 7:27 AM T [facility] CROSSMATCH COMPATIBLE 06/28/2023 7:27 AM CDT [facility] 06/28/2023 5:50 AM CDT us Nayely Allen MD BLOOD BANK TEST ORDERABLES Fin al Result [facility] [address] [place] [address], [place] [phone] * (ABNORMAL) CBC W/DIFF AUTOMATED (06/28/2023 5:50 AM CDT) [facility] Signature WBC 11.54(H) 4.50 - 11.00 x10'3/uL 06/28/2023 6:15 AM CDT [facility] RBC 4.48 4.20 - 5.40 x10'6/uL 06/28/2023 6:15 AM CDT [facility] HGB 11.4(L) 12.0 - 16.0 G/DL 06/28/2023 6:15 AM CDT [facility] HCT 36.4(L) 38.0 - 48.0 % 06/28/2023 6:15 AM CDT [facility] MCV 81.3 81.0 - 99.0 FL 06/28/2023 6:15 AM CDT [facility] MCH 25.4(L) 27.0 - 31.0 PG 06/28/2023 6:15 AM CDT [facility] MCHC 31.3(L) 32.0 - 36.0 G/DL 06/28/2023 6:15 AM T [facility] RDW 15.5(H) 11.5 - 14.5 % 06/28/2023 6:15 AM CDT [facility] PLT 293 130 - 400 x10'3/uL 06/28/2023 6:15 AM CDT [facility] MPV 10.7 9.3 - 12.2 FL 06/28/2023 6:15 AM T [facility] CBC COMMENT AUTOMATED RBC MORPHOLOGY AND PLATELET EVALUATION NORMAL 06/28/2023 6:15 AM CDT [facility] NEUTROPHILS % 68.6 % 06/28/2023 6:15 AM CDT [facility] LYMPHOCYTES % 22.4 % 06/28/2023 6:15 AM CDT [facility] MONOCYTES % 6.8 % 06/28/2023 6:15 AM CDT [facility] EOSINOPHILS 1.2 % 06/28/2023 6:15 AM T [facility] BASOPHILS 0.3 % 06/28/2023 6:15 AM T [facility] IMMATURE GRANS % 0.7 % 06/28/19 6:15 AM CDT [facility] NRBC 0.0 % 06/28/2023 6:15 AM T [facility] ABS. NEUTROPHILS TOTAL 7.91(H) 1.80 - 7.70 x10'3/uL 06/28/2023 6:15 AM T [facility] ABS. LYMPHOCYTES 2.59 1.00 - 4.80 x10'3/uL 06/28/2023 6:15 AM T [facility] ABS. MONOCYTES 0.78 0.24 - 0.86 x10'3/uL 06/28/2023 6:15 AM T [facility] ABS. EOSINOPHILS 0.14 0.04 - 0.36 x10'3/uL 06/28/2023 6:15 AM T [facility] ABS. BASOPHILS 0.04 0.01 - 0.08 x10'3/uL 06/28/2023 6:15 AM T [facility] ABS. IMMATURE GRANULOCYTES 0.08 0.00 - 0.49 x10'3/uL 06/28/2023 6:15 AM T [facility] ABS. NUCLEATED RBC'S 0.00 0.00 - 0.01 x10'3/uL 06/28/2023 6:15 AM T [facility] 06/28/2023 5:50 AM CDT us Nayely Allen MD LABORATORY Final Result [facility] [address] [place] [address], * Pathology-Placenta (06/28/2023 12:00 AM CDT) PATHOLOGY [facility] ? Department of Laboratory Medicine ?[address] [facility] ?[place] [address] ? , extension [phone] ? Pathology Report ? Surgical Pathology Report Name: MARGOT TYSON MADDIE ? Specimen #: [id number] Age: 1 2000 (Age: 23) ? Location: [id number] Sex: F ?Procedure Date: 06/28/2023 Hospital #: [id number] ?Date Received: 06/29/2023 Date Reported: 07/03/2023 Provider: NAYELY ALLEN MD Source: Placenta Clinical History: G5, P1 at 39-0/7 weeks, GBS positive Postoperative Diagnosis: 7 pound 8 ounce female infant with Apgars 8/9 Gross Description: Received in [...] than 5% of the total placental volume. Stave Bolt Equalizer tissue is submitted as follows: 1 ?? membranes2 - umbilical cord3 ??parenchyma with firm area4 ??additional parenchyma Gross examination (when applicable) was performed at [facility], [address] [place] [address]. This case was interpreted and signed out at [facility], [address] [place] [address]. FINAL DIAGNOSIS: Placenta, delivery: ? -Placental disc (weight 507 g) with no significant pathologic abnormality ? -Three vessel cord with no significant pathologic abnormality ? - membranes with no significant pathologic abnormality Electronically Signed Out ? PRABHAKAR CALDERON MD [facility] 06/28/2023 06/29/2023 10: 23 AM CDT Comment:Placenta us Nayely Allen MD PATHOLOGY/CYTOLOGY ORDERABLES Final Result [facility] [address] [place] [address], [id number] * GROUP B STREP MOLECULAR (04/25/2023) GROUP B STREP DNA positive-G BSuria ANOVAGINAL us Default History Genericprovider MICROBIOLOGY - G ENERAL ORDERABLES Final Result * ANTIBODY SCREEN (04/25/2023) ANTIBODY SCREEN negative us Default History Genericprovider BLOOD BANK TEST ORDERABLES Final Result * SYPHILIS IGG AB (04/25/2023) SYPHILIS IGG AB non-reacti ve us Default [...] Result documented in this encounter Visit Diagnoses Not on filedocumented in this encounter Admitting Diagnoses Diagnosis (HHS/HCC) state, incidental documented in this encounter Administered [...] Given 06/30/2023 9:03 PM CDT 1,000 mg diphenhydrAMINE (BENADRYL) capsule 25 mg 25 mg, Oral, Nightly PRN, Itching, Starting on 07/01/23 at 0137, Until 07/01/23 at 1349 Given 07/01/2023 1:44 AM CDT 25 mg diphenhydrAMINE (BENADRYL) injection 25 mg 25 mg, Intravenous, Every 4 hours PRN, Itching, 1 dose, Starting on Sun06/28/23 at 1039, Until Sun07/01/23 at 1349, For IV administration, give no [...] Given 06/30/2023 11:06 PM CDT 600 mg naLOXone (NARCAN) injection 0.4 mg 0.4 mg, Intravenous, As needed, Opioid reversal, POSS of 4, if patient exhibits somnolence, excessive sedation, or respiratory rate is less than 8 breaths per minute., 2 doses, Starting on Sun06/28/23 at 1039, Until Sun07/01/23 at 1349, Administer every 2 minutes as needed for 2 doses., Post-Op nystatin (MYCOSTATIN) cream Topical, 2 times daily, First dose on Sun07/01/23 at 0900, Until Discontinued Given 07/01/2023 8:46 AM CDT ondansetron (ZOFRAN) injection 4 mg 4 mg, Intravenous, Every 8 hours PRN, Nausea, Vomiting, Starting on 06/27/24 at 1039, Until 07/01/23 at 1349, IV push over 2-5 minutes., Post-Op oxyCODONE immediate release (ROXICODONE) tablet 5 mg 5 mg, Oral, Every 6 hours PRN, Severe pain (Scale 8 - 10), Starting on Candis 06/28/23 at 1039, Until 07/01/23 at 1349, Post-Op Given 07/01/2023 1:44 AM CDT 5 m g Given 06/30/2023 5:22 PM CDT 5 mg Given 06/30/2023 9:07 AM CDT 5 mg polyethylene glycol (GLYCOLAX) packet 17 [...] at 1039, Until 07/01/23 at 1349, Post-Op Given 06/28/2023 9:08 PM [...] from all sources in 24 hours., Post-Op 228 (Given - Provider: Ai Street RN)0930 (Given - Provider: Denisa Saunders RN)1523 (Given - Provider: Denisa Saunders RN)2058 (Given - Provider: Skyla Calderón RN) 0314 (Given - Provider: Skyla Calderón RN)0906 (Given - Provider: Denisa Saunders RN)1511 (Given - Provider: Denisa Saunders RN)210 (Given - Provider: Skyla Calderón RN) 031 (Given - Provider: Skyla Calderón RN)0846 (Given - Provider: Denisa Sanuders RN) ferrous sulfate (65 mg elemental) tablet 325 mg 325 mg (1 tablet), Oral, Daily with breakfast, First dose on Sun06/29/23 at 0800, Until Discontinued, Administer 2 hours prior to or 4 hours after antacids. Ferrous Sulfate 324 and 325 mg tablets contain 65 mg elemental iron., Post-Op 09 (Given - Provider: Denisa Saunders RN) 09 (Given - Provider: Denisa Saunders RN) 0846 (Given - Provider: Denisa Saunders RN) gabapentin (NEURONTIN) capsule 200 mg 200 mg, Oral, 2 times daily, First dose on Sun06/28/23 at 1100, Until Discontinued, Post-Op 0931 (Given - Provider: Denisa Saunders RN)2058 (Given - Provider: Skyla Calderón RN) 0905 (Given - Provider: Denisa Saunders RN)210 (Given [...] Calderón RN) 0534 (Given - Provider: Denisa Saunders, ERIKA)1111 (Given - Provider: Denisa Saunders RN) ketorolac (TORADOL) injection 30 mg (COMPLETED)(Linked Group 1) 30 mg, Intravenous, Every 6 hours, 4 doses, First dose on Sun06/28/23 at 1100, Last dose on Sun06/29/23 at 0500, For IV administration, give over 15 seconds., Post-Op 042 (Given - Provider: Ai Street RN) nystatin (MYCOSTATIN) cream Topical, 2 times daily, First dose on 07/01/23 at 0900, Until Discontinued 0846 (Given - Provider: Denisa Saunders RN) polyethylene glycol (GLYCOLAX) packet 17 g 17 g, Oral, Daily, First dose on Candis 06/28/23 at 1100, Until Discontinued, Dissolve entire packet in 240 mL of water, Post-Op 09 (Given - Provider: Denisa Saunders RN) 09 [...] 07/01/23 at 0137, Until 07/01/23 at 1349 0144 (Given - Provider: Skyla Calderón RN) diphenhydrAMINE (BENADRYL) injection 25 mg 25 mg, Intravenous, Every 4 hours PRN, Itching, 1 dose, Starting on Candis 06/28/23 at 1039, Until 07/01/23 at 1349, For IV administration, give no faster than 25 mg/min., Post-Op xfwumgjeh-oybdhtyc-efh ethicone (MYLANTA MAXIMUM STRENGTH) 4917-1289-994 mg/30mL suspension 10 mL, Oral, Every 4 [...] times daily PRN, Constipation, Starting on Candis 06/28/23 at 1039, Until 07/01/23 at 1349, Post-Op simethicone (MYLICON) chewable tablet 80 mg 80 mg, Oral, 4 times daily PRN, Flatulence, Starting on Candis 06/28/23 at 1039, Until [...] Post-Op documented in this encounter Care Teams Survey Coordinator Relationship Specialty Start Date End Date Jack Rosales MD [address] [place] [address] PCP - General FAMILY PRACTICE 12/28/22 01/08/24 Chiara Grimaldo MD [address] [place] [address] Physician OBGYN 12/28/22 documented as of this encounter
--- OUTSIDE RECORDS SUMMARY | 2024-03-09 06:39 | XMS_ITS | Encounter Summary ---
Author Organization [facility] Address [address] [place] [address]. [place], [place] [id number] [place] [id number] Care Team Providers Care Power Distributor Name Role Phone Chiara Grimaldo MD Unavailable [phone] None, Provider Primary Care Provider Unavaila ble Reason for Visit * Auth/Cert (Routine) Specialty Diagnoses / Procedures Referred By Contac t Referred To Contact Diagnoses Transaminitis transaminitis Procedures NONE [place] [address] Phone: tel: [phone] fax: Referral ID Status Reason Start Date Expiration Date Visits Re quested Visits Authorized [id number] 1 1 Encounter Details Date Type Department Care Team (Late st Contact Info) Description 01/11/2024 11:20 AM EVALUATION ANALYST Anesthesia Event [facility] [place] [address] Gaurav Flood MD [address] [facility] [address] [address] Anesthesia Record Procedure Summary Procedure Name Responsible Anesthesiologist Anesthesia Start Time Anesthesia Stop Time ERCP WITH SPHINCTEROTOMY and BALLOON SWEEP Gaurav Flood MD 01/11/24 1120 01/11/24 1248 Events Date Time Event Comment 01/11/2024 1013 1013 AN Anesthesia Prepped 1050 AN HEALTH SCREENER Prepped 1120 An Start Patient ID and consent checked and patient reassessed. 1120 An Start Data 1126 Preoxygenation 1129 An Induction The patient was reevaluated immediately before moderate or deep sedation use and before anesthesia induction. 1133 An Intubation 1142 Anesthesia Ready 1233 An Emergence 1238 An Extubation 1238 Face Mask Applied 1240 an stop data 1248 Post Anesthetic Care Handoff I completed my handoff to the receiving nurse during which we: 1. Identified the patient 2. Identified the responsible provider 3. Reviewed the pertinent medical history 4. Discussed the surgical course 5. Reviewed intra-op anesthesia management and issues during anesthesia 6. Set expectations for post-procedure period 7. Allowed opportunity for questions and acknowledgement of understanding. 1248 An Stop Meds Name Total midazolam (VERSED) 1 mg/mL injection 2 m g fentaNYL (SUBLIMAZE) 100 mcg/2 mL inject ion 100 mcg rocuronium (ZEMURON) 50 mg/5 mL injectio n 40 mg lidocaine (PF) (XYLOCAINE) 2% injection 100 mg propofol (DIPRIVAN) 200 mg/20 mL injecti on 200 mg succinylcholine (ANECTINE) 20 mg/mL inje ction 120 mg ondansetron (ZOFRAN) injection 4 mg dexamethasone (DECADRON) injection 8 mg sugammadex (BRIDION) 200 mg/2 mL injecti on 200 mg sodium chloride 0.9% infusion 250 mL * Agents Name O2 Air Inspired Sevoflurane Sevoflurane * Blood No blood administrations on file. Lines, Drains, and Airways Type Details Placement Removal Peripheral IV Placement Date: 09/25; Placement Time: 2245; Placed Outside of This Facility?: No; Size: 20 G; Orientation: Left; Location: Forearm, Median Basilic; Site Prep: Alcohol; Local Anesthetic: None; Inserted By: Sunni JAMES; Insertion attempts: 1; Ultrasound-guided Placement?: No; Patient Tolerance: Tolerated well; Removal Date: 01/12/24; Removal Time: 923; Removal Reason: Other (patient request, discomfort at iv site) 01/10/242244 by Sunni Shearer RN 01/12/24923 by Kymberly Zapien RN ETT Placement Date: 10/26; Placement Time: 1133; Size (mm) : 7; Endotracheal: Oral, Stylet used; Blade Type: MAC 3; Placement Method: Direct Laryngoscopy (blade type in comment); View Grade: 1; Viewable Anatomy: Epiglottis, Arytenoid, Vocal cords; Insertion Attempts: 1; Placement Verified By: Capnography, Auscultation, Chest Rise; Placed By: HEALTH SCREENER; Extubation Assessment: Suctioned, Tolerated well, Patient spontaneously breathing, Deep breathes w/equal chest movements, Atraumatic; Removal Date: 01/11/24; Removal Time: 1238; Removal Person: HEALTH SCREENER; Removal Reason: End of Case 01/11/24 1133 by Lsibeth Augustine CRNA 01/11/24 1238 by Lisbeth Augustine CRNA documented in this encounter Social History Tobacco [...] Date Author Status No 01/10/2024 3:14 AM EVALUATION ANALYST Anahi Hodgson R N Active documented in this encounter OR Notes * Anesthesia Postprocedure Evaluation - Leonard Grimm CRNA - 01/12/2024 9:27 AM CST Anesthesia Post-op Note Margot Tyson Procedure(s): ERCP WITH SPHINCTEROTOMY and BALLOON SWEEP EGD Anesthesia type: general Vitals: 01/12/24 0551 BP: 89/58 Vitals: 01/12/24 0551 Pulse: 82 Vitals: 01/12/24 0551 Resp: 22 Vitals: 01/12/24 0123 Temp: 36.8 ??C Vitals: 01/12/24 0551 SpO2: 97% Patient Location: Inpatient Unit Level of Consciousness: awake, alert and oriented Pain Management: adequate analgesia Airway Patency: patent Respiratory Status: acceptable and room air Cardiovascular Status: acceptable Post-Op Nausea: none Postoperative Hydration: euvolemic There were no known notable events for this encounter. UATION ANALYST * Anesthesia Postprocedure Evaluation - Gaurav Flood MD - 01/11/2024 1:21 PM CST Anesthesia Post-op Note Margot Tyson Procedure(s): ERCP WITH SPHINCTEROTOMY and BALLOON SWEEP EGD Anesthesia type: general Vitals: 01/11/24 1555 BP: 128/81 Vitals: 01/11/24 1555 Pulse: 65 Vitals: 01/11/24 1555 Resp: 12 Vitals: 01/11/24 1555 Temp: 36.5 ??C Vitals: 01/11/24 1555 SpO2: 95% Patient Location: PACU Level of Consciousness: awake Pain Management: adequate analgesia Airway Patency: patent Respiratory Status: acceptable Cardiovascular Status: acceptable and stable Post-Op Nausea: none Postoperative Hydration: euvolemic No notable events documented. UATION ANALYST * Anesthesia Preprocedure Evaluation - Gaurav Flood MD - 01/11/2024 10:11 AM CST Anesthesia ROS/MED History Reviewed: Patient summary , Nursing notes , ECG, Family history anesthesia, Anesthesia history , Medications , Labs , Images/Studies Pre-Anesthetic State: alert, awake and responds appropriately Pulmonary neg pulmonary ROS Cardiovascular neg cardio ROS Neuro/Psych (+) depression, anxiety Substance Use (+) alcohol use GI/Hepatic/Renal Endo/Other (+) diabetes mellitus, (gestational diabetes) GENERAL COMMENTS EKG Interpretive Statements SINUS RHYTHM WITH SINUS ARRHYTHMIA Compared to ECG 08/11/2022 22:47:49 No significant changes UATION ANALYST Past Medical History: Calculus of bile duct without obstruction No date: Anxiety disorder, unspecified No date: Depression No date: Gestational diabetes (HHS/HCC) Past Surgical History: No date: SECTION Comment: PPH and needed blood transfusion for first NPO Status: Physical Evaluation Airway Mallampati: II TM Distance: >3 FB Neck ROM: normal Dental No notable dental history Pulmonary Pulmonary exam normal Breath sounds clear to auscultation Cardiovascular Rhythm: regular Rate: normal Cardiovascular exam normal Other findings: Blood pressure 138/74, pulse 67, temperature 36.5 ??C, temperature source Oral, resp. rate 13, weight 108.6 kg (239 lb 6.7 oz), SpO2 99%, not currently . 01/11/24 0641 WBC 6.66 RBC 4.98 HGB 12.7 HCT 41.0 PLT 305 NA 137 K 3.9 CL 106 CO2 27.0 AGAP 4.0 BUN 7 CR 0.83 BUNCREATININ 8.5 GLU 82 CA 8.7 STOP-Bang Assessment: Do you snore loudly?: 1 [...] Total Score: 3 Anesthesia Plan ASA 2 Emergent Intravenous Induction Anesthesia type: general Plan for Airway: ETT and rapid sequence intubation Plan for Post-op Pain Plan: oral pain medication, IV analgesics and as per surgeon Discussed potential risks of General Anesthesia including but not limited to corneal abrasion, visual impairment or visual loss, mouth injury, dental damage, sore throat, hoarseness, esophageal injury, awareness under anesthesia, nerve injury due to positioning, aspiration, pneumonia, stroke, cardiac event, adverse drug reactions and . Informed Consent Anesthetic plan and risks discussed with patient of whom consent was obtained. . UATION ANALYST documented in this encounter Plan of Treatment Not on file documented as of this encounter Visit Diagnoses Not on filedocumented in this encounter Administered Medications Inactive Administered Medications - up to 3 most recent administrations Medication Order MAR Action Action Date Dose Rate Site dexamethasone (DECADRON) injection Intravenous, PRN, Starting on Sun01/11/24 at 1150, Until Sun01/11/24 at 1248, Anesthesia Intra-Op Given 01/11/2024 11:50 AM EVALUATION ANALYST 8 mg fentaNYL (SUBLIMAZE) injection Intravenous, PRN, Starting on Sun01/11/24 at 1127, Until Sun01/11/24 at 1248, Anesthesia Intra-Op Given 01/11/2024 11:27 AM EVALUATION ANALYST 100 mcg lidocaine (PF) (XYLOCAINE) 2 % injection Intravenous, PRN, Starting on Sun01/11/24 at 1130, Until Sun01/11/24 at 1248, Anesthesia Intra-Op Given 01/11/2024 11:30 AM EVALUATION ANALYST 100 mg midazolam (VERSED) injection Intravenous, PRN, Starting on Sun01/11/24 at 1127, Until Sun01/11/24 at 1248, Anesthesia Intra-Op Given 01/11/2024 11:27 AM EVALUATION ANALYST 2 mg ondansetron (ZOFRAN) injection Intravenous, PRN, Starting on Sun01/11/24 at 1150, Until Sun01/11/24 at 1248, Anesthesia Intra-Op Given 01/11/2024 11:50 AM EVALUATION ANALYST 4 mg propofol (DIPRIVAN) IV bolus Intravenous, PRN, Starting on Sun01/11/24 at 1130, Until Sun01/11/24 at 1248, Anesthesia Intra-Op Given 01/11/2024 11:30 AM EVALUATION ANALYST 200 mg rocuronium (ZEMURON) injection Intravenous, PRN, Starting on Sun01/11/24 at 1138, Until Sun01/11/24 at 1248, Anesthesia Intra-Op Given 01/11/2024 11:38 AM EVALUATION ANALYST 40 mg sodium chloride 0.9% infusion Intravenous, Continuous PRN, Starting on Sun01/11/24 at 1120, Until Sun01/11/24 at 1248, Anesthesia Intra-Op New Bag 01/11/2024 11:20 AM EVALUATION ANALYST 50 m L/hr succinylcholine (ANECTINE) injection Intravenous, PRN, Starting on Sun01/11/24 at 1131, Until Sun01/11/24 at 1248, Anesthesia Intra-Op Given 01/11/2024 11:31 AM EVALUATION ANALYST 120 mg sugammadex (BRIDION) injection Intravenous, PRN, Starting on Sun01/11/24 at 1226, Until Sun01/11/24 at 1248, Anesthesia Intra-Op Given 01/11/2024 12:26 PM EVALUATION ANALYST 200 mg documented in this encounter Care Teams Power Distributor Relationship Specialty Start Date End Date None, Provider, PCP - General UNKNOWN PHYSICIAN SPECIALTY 01/09/24 Jackie-Chiara Joshi MD [address] [place] [address] Physician OBGYN 12/28/22 documented as of this encounter
--- OUTSIDE RECORDS SUMMARY | 2024-03-09 06:39 | XMS_ITS | Encounter Summary ---
Author Organization [facility] Address [address] [place] [address]. [place], [place] [id number] [place] [id number] Care Team Providers Care Actuarial Clerk Name Role Phone None, Provider MD Primary Care Provider Unavaila ble Reason for Referral * Imaging (Emergency) - Closed Specialty Diagnoses / Procedures Referred By Contac t Referred To Contact RADIOLOGY Procedures US OB <14WKS TA+TV US OB <14WKS TA Marco Garg MD [address] [place] [address] Phone: tel: fax: Referral ID Status Reason Start Date Expiration Date Visits Re quested Visits Authorized [id number] Closed 02/19/2022 02/19/2023 1 1 NEER OF SYSTEM DEVELOPMENT Reason for Visit * Reason Comments Abdominal Pain Encounter Details Date Type Department Care Team (Late st Contact Info) Description 02/19/2022 6:45 PM ENGINEER OF SYSTEM DEVELOPMENT - 02/19/2022 10:24 PM ENGINEER OF SYSTEM DEVELOPMENT Emergency [facility] [address] Emergency Room [address] [place] [id number] Marco Garg MD [address] [place] [address] Abdominal Pain Discharge Disposition: Home or Self Care (Routine [...] Coronavirus/COVID-19? No / Unsure 02/19/2022 6:49 PM ENGINEER OF SYSTEM DEVELOPMENT documented as of this encounter Last Filed Vital Signs Vital Sign Reading Time Taken Comments Blood Pressure 103/62 02/19/2022 8:00 PM ENGINEER OF SYSTEM DEVELOPMENT Pulse 115 02/19/2022 6:49 PM ENGINEER OF SYSTEM DEVELOPMENT Temperature 36.7 ??C (98.1 ??F) 02/19/2022 6:49 PM CS T Respiratory Rate 16 02/19/2022 6:49 PM ENGINEER OF SYSTEM DEVELOPMENT Oxygen Saturation 100% 02/19/2022 8:00 PM ENGINEER OF SYSTEM DEVELOPMENT Inhaled Oxygen Concentration - - Weight 79.4 kg (175 lb) 02/19/2022 6:49 PM ENGINEER OF SYSTEM DEVELOPMENT Height 162.6 cm (5' 4 ) 02/19/2022 6:49 PM ENGINEER OF SYSTEM DEVELOPMENT Body Mass Index 30.04 02/19/2022 6:49 PM ENGINEER OF SYSTEM DEVELOPMENT documented in this encounter Discharge Instructions * Discharge Instructions* Marco Garg MD - 02/19/2022 10:15 PM ENGINEER OF SYSTEM DEVELOPMENT Call [facility] at the number below to arrange follow up as needed. Use tylenol for any additional symptoms. [employer]ER [employer] SYSTEM DEVELOPMENT * Attachments The following attachments cannot be sent through Care Everywhere. * How to Adapt to Physical Changes During (Polish) * Stomach Pain in Early (Polish) documented in this encounter Medications at Time of Discharge valACYclovir 1 g tablet TAKE 1 TABLET BY MOUTH EVERY 12 HOURS FOR 5 DAYS 06/22/2020 08/12/2022 documented as of this encounter ED Notes * Tamara Jarquin RN - 02/19/2022 7:16 PM CST Pt reports cramping to right lower abdomen and nausea/vomiting with recent positive preg test. NEER [employer] SYSTEM DEVELOPMENT * Marco Garg MD - 02/19/2022 7:10 PM CST Chief Complaint Chief Complaint Patient presents with ??? Abdominal Pain History of Present Illness 21-year-old at 11 weeks EGA here with complaints of right lower quadrant pain that began 2 days ago. Pain is currently a 6 out of 10, crampy, nonradiating, unchanged by anything. Patient has nohistory of similar pain. She denies urinary symptoms. No vaginal bleeding or vaginal discharge. Shehas had some loose stools. She is also had some nausea and vomiting. Patient has not had an OB visit due to reported issues getting a hold of the APPLIANCE COUNSELOR service. Medical History ALLERGIES: No Known Allergies MEDICATIONS: [...] of Systems Review of Systems Constitutional: Negative. Negative for fever. HENT: Negative. Respiratory: Negative for cough, chest tightness and shortness of breath. Cardiovascular: Negative. Negative for chest pain. Gastrointestinal: Positive for abdominal pain, diarrhea, nausea and vomiting. Negative for abdominal distention. Musculoskeletal: Negative. Neurological: Negative for seizures and syncope. Psychiatric/Behavioral: Negative. All other systems reviewed and are negative. Physical Exam Filed Vitals: 02/19/22 1849 02/19/22 1900 02/19/22 1930 02/19/221999 BP: (!) 166/86 114/80 109/70 103/62 Pulse: 115 Resp: 16 Temp: 98.1 ??F (36.7 ??C) TempSrc: Temporal SpO2: 98% 98% 98% 100% Weight: 79.4 kg (175 lb) Height: 5' 4 (1.626 m) Physical Exam Vitals and nursing note reviewed. Constitutional: General: She is not in acute distress. Appearance: She is well-developed. HENT: Head: Normocephalic and atraumatic. Right Ear: External ear normal. Left Ear: External ear normal. Nose: Nose normal. Eyes: General: No scleral icterus. Pupils: Pupils are equal, round, and reactive to light. Cardiovascular: Rate and Rhythm: Normal rate and regular rhythm. Pulses: Normal pulses. Heart sounds: Normal heart sounds. Pulmonary: Effort: Pulmonary effort is normal. No respiratory distress. Breath sounds: Normal breath sounds. No stridor. No wheezing. Abdominal: General: Bowel sounds are normal. There is no distension. Palpations: Abdomen is soft. Tenderness: There is no abdominal tenderness. There is no guarding or rebound. Musculoskeletal: General: No deformity. Normal range of motion. Cervical back: Normal range of motion and neck supple. Skin: General: Skin is warm and dry. Capillary Refill: Capillary refill takes less than 2 seconds. Findings: No rash. Neurological: Mental Status: She is alert and oriented to person, place, and time. Cranial Nerves: No cranial nerve deficit. Psychiatric: Mood and Affect: Mood normal. Behavior: Behavior normal. Diagnostic Studies / Procedures ELECTROCARDIOGRAMS: No results found for this visit on 02/19/22. LABORATORY STUDIES: Results for orders placed or performed during the hospital encounter of 02/19/22 URINALYSIS Result Value Ref Range COLOR (U) LIGHT YELLOW TRANSPARENCY CLEAR Specific [place] (U) 1.015 1.002 - 1.030 U PH 6.5 4.5 - 8.0 LEUKOCYTE ESTERASE NEGATIVE NEGATIVE NITRITES NEGATIVE NEGATIVE PROTEIN (U) NEGATIVE NEGATIVE URINE GLUCOSE NEGATIVE NEGATIVE U KETONES NEGATIVE NEGATIVE UROBILINOGEN NORMAL NORMAL EU/DL BILIRUBIN (U) NEGATIVE NEGATIVE BLOOD NEGATIVE NEGATIVE WBC/HPF /HPF MICROSCOPIC ANALYSIS NOT DONE ON URINES WITH NEGATIVE BIOCHEMICAL TESTS EPI/HPF 10-20 /HPF TEST URINE Result Value Ref Range URINE HCG TEST POSITIVE (A) NEGATIVE CBC W/DIFF AUTOMATED Result Value Ref Range WBC 10.5 4.5 - 13.0 x10'3/uL RBC 5.11 4.20 - 5.40 x10'6/uL HGB 14.6 12.0 - 16.0 G/DL HCT 44.1 38.0 - 48.0 % MCV 86.3 81.0 - 99.0 FL MCH 28.6 27.0 - 31.0 PG MCHC 33.1 32.0 - 36.0 G/DL RDW 13.6 11.5 - 14.5 % PLT 288 130 - 400 x10'3/uL MPV 10.3 9.3 - 12.2 FL CBC COMMENT AUTOMATED RBC MORPHOLOGY AND PLATELET EVALUATION NORMAL NEUTROPHILS 65.9 % LYMPHOCYTES 26.1 % MONOCYTES 6.0 % EOSINOPHILS 1.0 % BASOPHILS 0.4 % IMMATURE GRANS 0.6 % NRBC 0.0 % ABS. NEUTROPHILS TOTAL 6.92 1.80 - 8.00 x10'3/uL ABS. LYMPHOCYTES 2.74 1.20 - 5.20 x10'3/uL ABS. MONOCYTES 0.63 0.24 - 0.86 x10'3/uL ABS. EOSINOPHILS 0.11 0.04 - 0.36 x10'3/uL ABS. BASOPHILS 0.04 0.01 - 0.08 x10'3/uL ABS. IMMATURE GRANULOCYTES 0.06 0.00 - 0.49 x10'3/uL ABS. NUCLEATED RBC'S 0.00 0.00 - 0.01 x10'3/uL COMPREHENSIVE METABOLIC PANEL Result Value Ref Range GLUCOSE 91 70 - 99 MG/DL BUN 6 (L) 7 - 18 MG/DL CREATININE S/P/B 0.80 0.55 - 1.02 MG/DL SODIUM 137 136 - 145 MMOL/L POTASSIUM 3.8 3.5 - 5.1 MMOL/L CHLORIDE S/P/B 101 100 - 108 MMOL/L CO2 26.5 21 - 32 MMOL/L CALCIUM 9.3 8.5 - 10.1 MG/DL BILIRUBIN TOTAL S/P/B 0.2 0.2 - 1.2 MG/DL TOTAL PROTEIN S/P/B 7.3 6.4 - 8.2 G/DL ALBUMIN S/P/B 3.5 3.4 - 5.0 G/DL AST 19 15 - 37 U/L ALT 22 14 - 55 U/L ALKALINE PHOSPHATASE S/P/B 99 50 - 136 U/L ANION GAP 9.5 5 - 15 MMOL/L BUN CREATININE RATIO 7.5 6 - 26 A/G RATIO 0.9 (L) 1.0 - 2.0 RATIO GFR ESTIMATE >90 >90 ML/MIN/1.73 M2 Quantitative HCG Result Value Ref Range HCG QUANTITATIVE 40,857 MIU/ML BLOOD TYPING, ABO AND RH Result Value Ref Range ABO/RH AB POSITIVE IMAGING STUDIES US OB <14WKS TA+TV Final Result by User, [email or web address] (02/20 2208) EXAM: US OB <14WKS TA+TV CLINICAL INFORMATION: Left lower quadrant pain in first trimester . LMP: Uncertain but approximately 12/20/2021 with fetus estimated as 8 weeks 5 days with ALANA 09/26/2022 +/- 2 weeks. TECHNIQUE: Multiple transvaginal sonographic images of the OB pelvis were obtained. COMPARISON: None pertaining to this . FINDINGS: ? The uterus is anteverted and measures 8.8 x 4.7 cm. There is a single live intrauterine gestation with current sonographic age of ?7 weeks 4 days with ALANA of 10/04/2022 +/- 2 weeks.. ?This is 8 days smaller than dates obtained from the LMP, however the LMP dates are uncertain. There is a tiny amount of fluid in the endocervix. The cervix appears closed. Munjor to Rump: 1.37 cm Corresponding to: 7 week 4 day +/- 2 weeks intrauterine . Gestation Sac measurements were not obtained. Yolk Sac: Visualized, with diameter of up to 5.1 mm. HR: 148 bpm. Subchorionic Hemorrhage: Trace subarachnoid hemorrhage is seen adjacent to the decidual reaction.. Right ovary: 2.4 x 1.8 x 2.7 cm. There is an approximately 1 cm cystic lesion within the right ovary, physiologic follicle versus a corpus luteal cyst. Left ovary:?1.9 x 0.9 x 2.0 cm. Appropriate color and Doppler blood flow seen in both ovaries. Free fluid: No ? IMPRESSION: 1. Single viable intrauterine estimated as 7 weeks 4 days with ALANA 10/04/2022 +/- 2 weeks. 2. Trace subarachnoid hemorrhage. Recommend conservative management with short interval follow-up. 3. Tiny amount of fluid in the endocervix. Cervix appears closed. No free fluid in the cul-de-sac. 4. Normal ovaries without 1 cm cystic lesion in the right ovary, physiologic follicle versus synovial cyst. Referred By: Interpreted By: Brandi Barboza MD, 02/19/2022 9:55 PM ED Course / Medical Decision Making 21-year-old female here with complaints of right lower quadrant pain that began 2 days ago. Her exam is quite benign including no appreciable evidence of tenderness on palpation in the right lower quadrant. Given her status and lack of previous APPLIANCE COUNSELOR appointment labs, hCG, Rh, ultrasoundwere obtained. Ultrasound demonstrated only a tiny subchorionic hemorrhage but otherwise normal IUP. Patient discharged home with instructions to contact [facility] today to arrange follow-up. A alternative number was provided to the patient from that which she has been calling and has been unsuccessful. Clinical Impression Intrauterine (Primary) Subchorionic hematoma in first trimester Disposition: Discharge Marco Garg MD 02/20/22 0440 NEER OF SYSTEM DEVELOPMENT documented in this encounter Plan of Treatment Not on file documented as of this encounter Procedures Procedure Name Priority Date/Time Associated Diagnosis Comments US OB <14WKS TA+TV STAT 02/19/2022 9: 36 PM ENGINEER OF SYSTEM DEVELOPMENT COMPREHENSIVE METABOLIC PANEL STAT 02/19/2022 7:13 PM ENGINEER OF SYSTEM DEVELOPMENT HCG QUANT (SERUM)-CHORIONIC GONADOTROPIN STAT 02/19/2022 7:13 PM ENGINEER OF SYSTEM DEVELOPMENT HC BLOOD TYPING ABO STAT 02/19/2022 7 :13 PM ENGINEER OF SYSTEM DEVELOPMENT CBC W/DIFF AUTOMATED STAT 02/19/2022 7:13 PM ENGINEER OF SYSTEM DEVELOPMENT HC URINALYSIS AUTO W/O MICRO STAT 02/19/2022 6:53 PM ENGINEER OF SYSTEM DEVELOPMENT TEST URINE STAT 02/19/2022 6:53 PM ENGINEER OF SYSTEM DEVELOPMENT documented in this encounter Results * US OB <14WKS TA+TV (02/19/2022 9:36 PM ENGINEER OF SYSTEM DEVELOPMENT) Anatomical Region Laterality Modality Ultrasound 02/19/2022 9:55 PM ENGINEER OF SYSTEM DEVELOPMENT Impressions 02/19/2022 10:07 PM ENGINEER OF SYSTEM DEVELOPMENT IMPRESSION: 1. ??Single viable intrauterine estimated as 7 weeks 4 days with ALANA 10/04/2022 +/- 2 weeks. 2. ??Trace subarachnoid hemorrhage. ??Recommend conservative management with short interval follow-up. 3. ??Tiny amount of fluid in the endocervix. ??Cervix appears closed. ??No free fluid in the cul-de-sac. 4. ??Normal ovaries without 1 cm cystic lesion in the right ovary, physiologic follicle versus synovial cyst. Referred By: ?? Interpreted By: Brandi Barboza MD, 02/19/2022 9:55 PM Narrative 02/19/2022 10:07 PM ENGINEER OF SYSTEM DEVELOPMENT EXAM: ??US OB <14WKS TA+TV CLINICAL INFORMATION: ??Left lower quadrant pain in first trimester . LMP: Uncertain but approximately 12/20/2021 with fetus estimated as 8 weeks 5 days with ALANA 09/26/2022 +/- 2 weeks. TECHNIQUE: Multiple transvaginal sonographic images of the OB pelvis were obtained. COMPARISON: None pertaining to this . FINDINGS: ? The uterus is anteverted and measures 8.8 x 4.7 cm. ??There is a single live intrauterine gestation with current sonographic age of ?7 weeks 4 days with ALANA of 10/04/2022 +/- 2 weeks.. ?This is 8 days smaller than dates obtained from the LMP, however the LMP dates are uncertain. ??There is a tiny amount of fluid in the endocervix. ??The cervix appears closed. Munjor to Rump: ??1.37 cm ??Corresponding to: 7 week 4 day +/- 2 weeks intrauterine . Gestation Sac measurements were not obtained. Yolk Sac: Visualized, with diameter of up to 5.1 mm. HR: 148 bpm. ?? Subchorionic Hemorrhage: ??Trace subarachnoid hemorrhage is seen adjacent to the decidual reaction.. Right ovary: ??2.4 x 1.8 x 2.7 cm. ??There is an approximately 1 cm cystic lesion within the right ovary, physiologic follicle versus a corpus luteal cyst. Left ovary:?1.9 x 0.9 x 2.0 cm. Appropriate color and Doppler blood flow seen in both ovaries. Free fluid: No ? Procedure Note Brandi Barboza MD - 02/19/2022 EXAM: US OB <14WKS TA+TV CLINICAL INFORMATION: Left lower quadrant pain in first trimesterpregnancy. LMP: Uncertain but approximately 12/20/2021 with fetusestimated as 8 weeks 5 days with ALANA 09/26/2022 +/- 2 weeks. TECHNIQUE: Multiple transvaginal sonographic images of the OB pelvis wereobtained. COMPARISON: None pertaining to this . FINDINGS: ? The uterus is anteverted and measures 8.8 x 4.7 cm. There is a singlelive intrauterine gestation with current sonographic age of ?7 weeks 4days with ALANA of 10/04/2022 +/- 2 weeks.. ?This is 8 days smaller than datesobtained from the LMP, however the LMP dates are uncertain. There is atiny amount of fluid in the endocervix. The cervix appears closed. Munjor to Rump: 1.37 cm Corresponding to: 7 week 4 day +/- 2 weeksintrauterine . Gestation Sac measurements were not obtained. Yolk Sac: Visualized, with diameter of up to 5.1 mm. HR: 148 bpm. Subchorionic Hemorrhage: Trace subarachnoid hemorrhage is seen adjacentto the decidual reaction.. Right ovary: 2.4 x 1.8 x 2.7 cm. There is an approximately 1 cm cysticlesion within the right ovary, physiologic follicle versus a corpus lutealcyst. Left ovary:?1.9 x 0.9 x 2.0 cm. Appropriate color and Doppler blood flow seen in both ovaries. Free fluid: No ? IMPRESSION: 1. Single viable intrauterine estimated as 7 weeks 4 days withEDD 10/04/2022 +/- 2 weeks. 2. Trace subarachnoid hemorrhage. Recommend conservative management withshort interval follow-up. 3. Tiny amount of fluid in the endocervix. Cervix appears closed. Nofree fluid in the cul-de-sac. 4. Normal ovaries without 1 cm cystic lesion in the right ovary,physiologic follicle versus synovial cyst. Referred By: Interpreted By: Brandi Barboza MD, 02/19/2022 9:55 PM Marco Garg MD ULTRASOUND Final Resu lt * BLOOD TYPING, ABO AND RH (02/19/2022 7:13 PM ENGINEER OF SYSTEM DEVELOPMENT) Pathologist [facility] [place] ABO/RH AB POSITIVE 02/19/2022 7:35 PM ENGINEER OF SYSTEM DEVELOPMENT [facility] 02/19/2022 7:13 PM ENGINEER OF SYSTEM DEVELOPMENT Marco Garg MD BLOOD BANK TEST ORDERABLES Final Result [facility] [address] [place] [address], * Quantitative HCG (02/19/2022 7:13 PM ENGINEER OF SYSTEM DEVELOPMENT) Pathologist [facility] [place] HCG QUANTITATIVE 40,857 MIU/ML 02/20/20 7:59 PM ENGINEER OF SYSTEM DEVELOPMENT [facility] Comment: WEEKS OF ? REFERENCE [...] 2 - 3 MONTHS ?10,000 - 100,000 02/19/2022 7:13 PM ENGINEER OF SYSTEM DEVELOPMENT Marco Garg MD LABORATORY Final Resu lt [facility] [address] [place] [address], * (ABNORMAL) COMPREHENSIVE METABOLIC PANEL (02/19/2022 7:13 PM ENGINEER OF SYSTEM DEVELOPMENT) GLUCOSE 91 70 - 99 MG/DL 02/19/2022 7:59 PM [facility] BUN 6(L) 7 - 18 MG/DL 02/19/2022 7:59 PM [facility] CREATININE S/P/B 0.80 0.55 - 1.02 MG/DL 02/19/2022 7:59 PM [facility] SODIUM S/P/B 137 136 - 145 MMOL/L 02/19/2022 7:59 PM [facility] POTASSIUM S/P/B 3.8 3.5 - 5.1 MMOL/L 02/19/2022 7:59 PM [facility] CHLORIDE S/P/B 101 100 - 108 MMOL/L 02/19/2022 7:59 PM [facility] CO2 26.5 21 - 32 MMOL/L 02/19/2022 7:59 PM [facility] CALCIUM S/P/B 9.3 8.5 - 10.1 MG/DL 02/19/2022 7:59 PM [facility] BILIRUBIN TOTAL S/P/B 0.2 0.2 - 1.2 MG/DL 02/19/2022 7:59 PM [facility] Comment: THIS ASSAY IS NOT RECOMMENDED FOR PATIENTS UNDERGOING TREATMENT WITH ELTROMBOPAG DUE TO THE POTENTIAL FOR FALSELY ELEVATED RESULTS. TOTAL PROTEIN S/P/B 7.3 6.4 - 8.2 G/DL 02/19/2022 7:59 PM [facility] ALBUMIN S/P/B 3.5 3.4 - 5.0 G/DL 02/19/2022 7:59 PM [facility] AST 19 15 - 37 U/L 02/19/2022 7:59 PM [facility] ALT 22 14 - 55 U/L 02/19/2022 7:59 PM [facility] ALKALINE PHOSPHATASE S/P/B 99 50 - 136 U/L 02/19/2022 7:59 PM [facility] ANION GAP 9.5 5 - 15 MMOL/L 02/19/2022 7:59 PM [facility] BUN CREATININE RATIO 7.5 6 - 26 02/19/2022 7:59 PM [facility] A/G RATIO 0.9(L) 1.0 - 2.0 RATIO 02/19/2022 7:59 PM [facility] GFR ESTIMATE >90 >90 ML/MIN/1.7 3 M2 02/19/2022 7:59 PM [facility] Comment: NOTE: eGFR is not calculated for patients <18 years of age. This is an estimated GFR calculation using the new CKD EPI creatinine equation without race and so does not require a correction factor for race. This estimated GFR should not be used for calculating drug doses. 02/19/2022 7:13 PM ENGINEER OF SYSTEM DEVELOPMENT us Marco Garg MD LABORATORY Final Resu lt [facility] [address] [place] [address], [place] [phone] * CBC W/DIFF AUTOMATED (02/19/2022 7:13 PM ENGINEER OF SYSTEM DEVELOPMENT) [facility] Signature WBC 10.5 4.5 - 13.0 x10'3/uL 02/19/2022 7:21 PM [facility] RBC 5.11 4.20 - 5.40 x10'6/uL 02/19/2022 7:21 PM [facility] HGB 14.6 12.0 - 16.0 G/DL 02/19/2022 7:21 PM [facility] HCT 44.1 38.0 - 48.0 % 02/19/2022 7:21 PM [facility] MCV 86.3 81.0 - 99.0 FL 02/19/2022 7:21 PM [facility] MCH 28.6 27.0 - 31.0 PG 02/19/2022 7:21 PM [facility] MCHC 33.1 32.0 - 36.0 G/DL 02/19/2022 7:21 PM [facility] RDW 13.6 11.5 - 14.5 % 02/19/2022 7:21 PM [facility] PLT 288 130 - 400 x10'3/uL 02/19/2022 7:21 PM [facility] MPV 10.3 9.3 - 12.2 FL 02/19/2022 7:21 PM [facility] CBC COMMENT AUTOMATED RBC MORPHOLOGY AND PLATELET EVALUATION NORMAL 02/19/2022 7:21 PM [facility] NEUTROPHILS % 65.9 % 02/19/2022 7:21 PM [facility] LYMPHOCYTES % 26.1 % 02/19/2022 7:21 PM [facility] MONOCYTES % 6.0 % 02/19/2022 7:21 PM [facility] EOSINOPHILS 1.0 % 02/19/2022 7:21 PM [facility] BASOPHILS 0.4 % 02/19/2022 7:21 PM [facility] IMMATURE GRANS % 0.6 % 02/20/20 7:21 PM [facility] NRBC 0.0 % 02/19/2022 7:21 PM [facility] ABS. NEUTROPHILS TOTAL 6.92 1.80 - 8.00 x10'3/uL 02/19/2022 7:21 PM [facility] ABS. LYMPHOCYTES 2.74 1.20 - 5.20 x10'3/uL 02/19/2022 7:21 PM [facility] ABS. MONOCYTES 0.63 0.24 - 0.86 x10'3/uL 02/19/2022 7:21 PM [facility] ABS. EOSINOPHILS 0.11 0.04 - 0.36 x10'3/uL 02/19/2022 7:21 PM [facility] ABS. BASOPHILS 0.04 0.01 - 0.08 x10'3/uL 02/19/2022 7:21 PM [facility] ABS. IMMATURE GRANULOCYTES 0.06 0.00 - 0.49 x10'3/uL 02/19/2022 7:21 PM [facility] ABS. NUCLEATED RBC'S 0.00 0.00 - 0.01 x10'3/uL 02/19/2022 7:21 PM [facility] 02/19/2022 7:13 PM ENGINEER OF SYSTEM DEVELOPMENT us Marco Garg MD LABORATORY Final Resu lt [facility] [address] [place] [address], [place] [phone] * (ABNORMAL) TEST URINE (02/19/2022 6:53 PM ENGINEER OF SYSTEM DEVELOPMENT) URINE HCG TEST POSITIVE( A) NEGATIVE 02/19/2022 7:21 PM ENGINEER OF SYSTEM DEVELOPMENT [facility] Comment: VERY DILUTE URINE SPECIMENS MAY NOT CONTAIN CORPORATE LEARNING CONSULTANT LEVELS OF HCG. IF IS STILL SUSPECTED, A SERUM HCG TEST IS RECOMMENDED. URINE SPECIMEN FROM URETHRA / Unknown 02/19/2022 6:53 PM ENGINEER OF SYSTEM DEVELOPMENT Marco Garg MD URINE ORDERABLES Final Res ult [facility] [address] [place] [address], [place] [phone] * URINALYSIS (02/19/2022 6:53 PM ENGINEER OF SYSTEM DEVELOPMENT) COLOR (U) LIGHT YELLOW 02/19/2022 7:25 PM ENGINEER OF SYSTEM DEVELOPMENT [facility] TRANSPARENCY CLEAR 02/19/2022 7:25 PM ENGINEER OF SYSTEM DEVELOPMENT [facility] SPECIFIC GRAVITY (U) 1.015 1.002 - 1.030 02/19/2022 7:25 PM ENGINEER OF SYSTEM DEVELOPMENT [facility] U PH 6.5 4.5 - 8.0 02/19/2022 7:25 PM ENGINEER OF SYSTEM DEVELOPMENT [facility] LEUKOCYTES (U) NEGATIVE NEGATIVE 02/19/2022 7:25 PM ENGINEER OF SYSTEM DEVELOPMENT [facility] NITRITES NEGATIVE NEGATIVE 02/19/2022 7:25 PM ENGINEER OF SYSTEM DEVELOPMENT [facility] PROTEIN (U) NEGATIVE NEGATIVE 02/19/2022 7:25 PM ENGINEER OF SYSTEM DEVELOPMENT [facility] URINE GLUCOSE NEGATIVE NEGATIVE 02/19/2022 7:25 PM ENGINEER OF SYSTEM DEVELOPMENT [facility] KETONES MG/DL (U) NEGATIVE NEGATIVE 02/19/2022 7:25 PM ENGINEER OF SYSTEM DEVELOPMENT [facility] UROBILINOGEN NORMAL NORMAL EU/DL 02/19/2022 7:25 PM ENGINEER OF SYSTEM DEVELOPMENT [facility] BILIRUBIN (U) NEGATIVE NEGATIVE 02/19/2022 7:25 PM ENGINEER OF SYSTEM DEVELOPMENT [facility] BLOOD (U) NEGATIVE NEGATIVE 02/19/2022 7:25 PM ENGINEER OF SYSTEM DEVELOPMENT [facility] WBC/HPF MICROSCOPIC ANALYSIS NOT DONE ON URINES WITH NEGATIVE BIOCHEMICAL TESTS /HPF 02/19/2022 7:25 PM ENGINEER OF SYSTEM DEVELOPMENT [facility] EPI/HPF 10-20 /HPF 02/19/2022 7:25 PM ENGINEER OF SYSTEM DEVELOPMENT [facility] URINE SPECIMEN OBTAINED BY CLEAN CATCH PROCEDURE / Unknown 02/19/2022 6:53 PM ENGINEER OF SYSTEM DEVELOPMENT us Marco Garg MD URINE ORDERABLES Final Res ult [facility] [address] [place] [address], [place] [phone] documented in this encounter Visit Diagnoses Diagnosis Intrauterine (HHS/HCC)- Primary state, incidental Subchorionic hematoma in first trimester (HHS/HCC) documented in this encounter Administered Medications Inactive Administered Medications - up to 3 most recent administrations Medication Order MAR Action Action Date Dose Rate Site sodium chloride 0.9% bolus infusion 1,000 mL 1,000 mL, Intravenous, Administer over 60 Minutes, Once, 1 dose, On 02/19/22 at 1915 New Bag 02/19/2022 7:19 PM ENGINEER OF SYSTEM DEVELOPMENT 1,000 mLs documented in this encounter Active and Recently Administered Medications Times are shown in ENGINEER OF SYSTEM DEVELOPMENT. Scheduled Medication Order 02/17/2022 02/18/2022 02/19/2022 sodium chloride 0.9% bolus infusion 1,000 mL (COMPLETED) 1,000 mL, Intravenous, Administer over 60 Minutes, Once, 1 dose, On 02/19/22 at 1915 1919 (New Bag - Prov ider: Tamara Jarquin RN)2019 (Infusion Stop Time - Provider: Tamara Jarquin RN) documented in this encounter Care Teams Actuarial Clerk Relationship Specialty Start Date End Date None, Provider, PCP - General 12/09/20 12/27/22 documented as of this encounter
--- OUTSIDE RECORDS SUMMARY | 2024-03-09 06:39 | XMS_ITS | Encounter Summary ---
Author Organization [facility] Address [address] [place] [address]. [place], [place] [id number] [place] [address] Care Team Providers Care Milk Vendor Name Role Phone Jack Rosales MD Primary Care Provider [phone] Chiara Grimaldo MD Unavailable [phone] Encounter Details Date Type Department Care Team (Latest Contact Info) Description 12/28/2022 Travel Social History Tobacco Use Types Packs/Day [...] documented as of this encounter Care Teams Milk Vendor Relationship Specialty Start Date End Date Jack Rosales MD [facility] [place] [address] PCP - General FAMILY PRACTICE 12/28/22 01/08/24 Chiara Grimaldo MD [address] [place] [address] Physician MATY 12/28/22 documented as of this encounter
--- OUTSIDE RECORDS SUMMARY | 2024-03-09 06:40 | XMS_ITS | Encounter Summary ---
Author Organization [facility] Address [facility]. [place], [place] [address] [place] [address] Care Team Providers Care Concrete Inspector Name Role Phone Unavailable Primary Care Provider Unavailabl e Encounter Details Date Type Department Care Team (Late st Contact Info) Description 11/09/[address] [facility] [address] [place] [address] Randell Alvarez, DPM [facility] [address] [address] Social History Tobacco Use Types Packs/Day Years Used Date Smoking Tobacco: Never Assessed Comments Unknown Sex and Gender Information Value Date Recorded Sex Assigned at Not on file Legal Sex Female 6:52 PM CDT Gender Identity Not on file Sexual Orientation Not on file documented as of this encounter Plan of Treatment Not on file documented as of this encounter Visit Diagnoses Diagnosis Pain of right foot Pain in limb documented in this encounter
--- OUTSIDE RECORDS SUMMARY | 2024-03-09 06:40 | XMS_ITS | Encounter Summary ---
Author Organization [facility] Address [facility] [place] [address] [place] [address] Care Team Providers Care Wet Trimmer Name Role Phone None, Provider MD Primary Care Provider Unavaila ble Reason for Visit * Reason Comments Vaginal Pain Encounter Details Date Type Department Care Team (Late st Contact Info) Description 08/01/2021 5:08 PM CDT - 08/01/2021 6:04 PM CDT Emergency [facility] Emergency Room [id number] [place] [address] Westley Brar MD [address] [place], [place] [id number] Vaginal Pain Discharge Disposition: Home or Self Care (Routine Discharge) Social History Tobacco Use Types Packs/Day Years Used Date Smoking Tobacco: Never Assessed Comments No Sex and Gender Information Value Date Recorded Sex Assigned at Not on file Legal Sex Female 6:52 PM CDT Gender Identity Not on file Sexual Orientation Not on file COVID-19 Exposure Response Date Recorded In the last 10 days, have yo u been in contact with someone who was confirmed or suspected to have Coronavirus/COVID-19? No / Unsure 08/01/2021 4:11 PM CDT documented as of this encounter Last Filed Vital Signs Vital Sign Reading Time Taken Comments Blood Pressure 127/73 08/01/2021 5:15 PM CDT Pulse 81 08/01/2021 5:15 PM CDT Temperature 36.7 ??C (98 ??F) 08/01/2021 5:15 PM CDT Respiratory Rate 18 08/01/2021 5:15 PM CDT Oxygen Saturation 100% 08/01/2021 5:15 PM CDT Inhaled Oxygen Concentration - - Weight 82.6 kg (182 lb) 08/01/2021 5:15 PM CDT Height 162.6 cm (5' 4 ) 08/01/2021 5:15 PM CDT Body Mass Index 31.24 08/01/2021 5:15 PM CDT documented in this encounter Discharge Instructions * Attachments The following attachments cannot be sent through Care Everywhere. * Control Options (Turkmen) documented in this encounter Medications at Time of Discharge valACYclovir 1 g tablet TAKE 1 TABLET BY MOUTH EVERY 12 HOURS FOR 5 DAYS 06/22/2020 08/12/2022 documented as of this encounter ED Notes * Ai Walsh RN - 08/01/2021 5:47 PM CDT RN present at bedside when MD Brar removed IUD and when MD Brar re-examined patient r/t swelling concerns. * Ai Walsh RN - 08/01/2021 5:13 PM CDT Patient arrives to ED requesting IUD be removed. Patient states she was sitting on ground, developed left labia swelling and pain. Was seen at [facility] yesterday. Patient hasbeen having abdominal pain and bloating intermittently for two months. IUD was placed [id number] months ago. * Westley Brar MD - 08/01/2021 5:03 PM CDT Chief Complaint Chief Complaint Patient presents with ??? Vaginal Pain History of Present Illness Since 21 years old and for removal of IUD. She stated that she had 16 months and now she wants it out. She also stated that it is causing her discomfort. She reports no fever chills and no urinary symptoms. She denies . Medical History ALLERGIES: No Known Allergies MEDICATIONS: Prior to Admission medications Medication Sig Start Date End Date Taking? Authorizing Provider valACYclovir 1 g tablet TAKE 1 TABLET BY MOUTH EVERY 12 HOURS FOR 5 DAYS 06/22/20 Doc Abstract PAST MEDICAL HISTORY: Past Medical History: Diagnosis Date ??? Gestational diabetes PAST SURGICAL HISTORY: Past Surgical History: Procedure Laterality Date ??? SECTION FAMILY HISTORY: No family history on file. SOCIAL HISTORY: Review of Systems Review of Systems Constitutional: IUD removal HENT: Negative. Respiratory: Negative. Cardiovascular: Negative. Gastrointestinal: Negative. Genitourinary: Negative. Musculoskeletal: Negative. All other systems reviewed and are negative. Physical Exam Filed Vitals: 08/01/21 1715 BP: 127/73 Pulse: 81 Resp: 18 Temp: 98 ??F (36.7 ??C) TempSrc: Temporal SpO2: 100% Weight: 82.6 kg (182 lb) Height: 5' 4 (1.626 m) Physical Exam Constitutional: Appearance: Normal appearance. HENT: Head: Normocephalic and atraumatic. Nose: Nose normal. Eyes: Extraocular Movements: Extraocular movements intact. Pupils: Pupils are equal, round, and reactive to light. Cardiovascular: Rate and Rhythm: Normal rate and regular rhythm. Pulmonary: Effort: Pulmonary effort is normal. Breath sounds: Normal breath sounds. Abdominal: Comments: Obese Genitourinary: Comments: String was visualized and was pulled with no complications Musculoskeletal: Cervical back: Normal range of motion and neck supple. Skin: General: Skin is warm and dry. Neurological: Mental Status: She is alert. Diagnostic Studies / Procedures ELECTROCARDIOGRAMS: No results found for this visit on 08/01/21. LABORATORY STUDIES: No results found for this visit on 08/01/21. IMAGING STUDIES No orders to display ED Course / Medical Decision Making Clinical Impression Encounter for IUD removal (Primary) Disposition: Discharge Westley Brar MD 08/01/21 1730 documented in this encounter Plan of Treatment Not on file documented as of this encounter Visit Diagnoses Diagnosis Encounter for IUD removal- Primary Encounter for removal of intrauterine contraceptive device documented in this encounter Care Teams Wet Trimmer Relationship Specialty Start Date End Date None, ProviderMD PCP - General 12/09/20 12/27/22 documented as of this encounter
--- OUTSIDE RECORDS SUMMARY | 2024-03-09 06:40 | XMS_ITS | Encounter Summary ---
Author Organization [facility] Address [address] [place] [address]. [place], [place] [address] [place] [address] Care Team Providers Care Materials Branch Chief Name Role Phone None, Provider Primary Care Provider Unavaila ble Encounter Details Date Type Department Care Team (Latest Contact Info) Description 12/09/2020 Travel Social History Tobacco Use Types Packs/Day Years Used Date Smoking Tobacco: Never Assessed Comments Yes Sex and Gender Information Value Date Recorded Sex Assigned at Not on file Legal Sex Female 6:52 PM CDT Gender Identity Not on file Sexual Orientation Not on file COVID-19 Exposure Response Date Recorded In the last month, have you been in contact with someone who was confirmed or suspected to have Coronavirus / COVID-19? No / Unsure 12/09/2020 12:55 PM CDT documented as of this encounter Plan of Treatment Not on file documented as of this encounter Visit Diagnoses Not on filedocumented in this encounter Care Teams Materials Branch Chief Relationship Specialty Start Date End Date None, ProviderMD PCP - General 12/09/20 12/27/22 documented as of this encounter
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
--- OUTSIDE RECORDS SUMMARY | 2024-03-09 06:40 | XMS_ITS | Encounter Summary ---
Author Organization [facility] Address [address] [place] [address]. [place], [place] [id number] [place] [id number] Care Team Providers Care Covered Button Maker Name Role Phone None, Provider Primary Care Provider Unavaila ble Encounter Details Date Type Department Care Team (Latest Contact Info) Description 08/01/2021 Travel Social History Tobacco Use Types Packs/Day [...] on filedocumented in this encounter Care Teams Covered Button Maker Relationship Specialty Start Date End Date None, Provider, PCP - General 12/09/20 12/27/22 documented as of this encounter
--- OUTSIDE RECORDS SUMMARY | 2024-03-09 06:40 | XMS_ITS | Encounter Summary ---
Author Organization [facility] Address [address] [place] [address]. [place], [place] [id number] [place] [address] Care Team Providers Care Broadcast Journalist Name Role Phone None, Provider Primary Care Provider Unavaila ble Encounter Details Date Type Department Care Team (Latest Contact Info) Description 09/23/2021 Travel Social History Tobacco Use Types Packs/Day [...] suspected to have Coronavirus/COVID-19? No / Unsure 09/23/2021 5:07 PM CDT documented as of this encounter Plan of Treatment Not on file documented as of this encounter Visit Diagnoses Not on filedocumented in this encounter Care Teams Broadcast Journalist Relationship Specialty Start Date End Date None, Provider, PCP - General 12/09/20 12/27/22 documented as of this encounter
--- OUTSIDE RECORDS SUMMARY | 2024-03-09 06:40 | XMS_ITS | Encounter Summary ---
Author Organization [facility] Address [address] [place] [address]. [place] [address] [place] [address] Care Team Providers Care Sock Mender Name Role Phone None, Provider MD Primary Care Provider Unavaila ble Reason for Visit * Reason Comments Abdominal Pain Vomiting Encounter Details Date Type Department Care Team (Late st Contact Info) Description 09/23/2021 5:11 PM CDT - 09/23/2021 6:[address] [facility] Emergency Room [id number] [place] [address] Jose Juan Dennison MD [address] [place] [id number] Abdominal Pain; Vomiting Discharge Disposition: Home or Self Care (Routine [...] Sign Reading Time Taken Comments Blood Pressure 123/64 09/23/2021 5:12 PM CDT Pulse 75 09/23/2021 5:12 PM CDT Temperature 36.1 ??C (97 ??F) 09/23/2021 5:12 PM CDT Respiratory Rate 18 09/23/2021 5:12 PM CDT Oxygen Saturation 98% 09/23/2021 5:12 PM CDT Inhaled Oxygen Concentration - - Weight - - Height - - Body Mass Index - - documented in this encounter Discharge Instructions * Attachments The following attachments cannot be sent through Care Everywhere. * Diarrhea, Adult ED (Maltese) documented in this encounter Medications at Time of Discharge azithromycin (ZITHROMAX) 500 mg tablet Take 1 tablet (500 mg total) by mouth daily for 3 days. 3 tablet 09/23/2021 2 famotidine (PEPCID) 20 MG tablet Take 1 tablet (20 mg total) by mouth 2 (two) times daily. 30 tablet 09/23/2021 2 loperamide (IMODIUM) 2 MG capsule Take 1 capsule (2 mg total) by mouth 4 (four) times daily as needed for Diarrhea. 12 capsule 09/23/2021 2 ondansetron (ZOFRAN-ODT) 4 MG disintegrating tablet Take 1 tablet (4 mg total) by mouth every 8 (eight) hours as needed for Nausea. 12 tablet 09/23/2021 2 valACYclovir 1 g tablet TAKE 1 TABLET BY MOUTH EVERY 12 HOURS FOR 5 DAYS 06/22/2020 3 documented as of this encounter ED Notes * Alesha Castañeda RN - 09/23/2021 6:46 PM CDT Provider discussed today's findings with the patient/family. The patient has been given informationregarding their treatment, follow up and concerning symptoms for which they should seek urgent or emergent attention. I have expressed the importance of seeking attention should there be any new, or w orsening symptoms or persistence of their condition. Patient verbalized understanding of the discharge instructions. * Jose Juan Dennison MD - 09/23/2021 5:24 PM CDT Chief Complaint Chief Complaint Patient presents with ??? Abdominal Pain ??? Vomiting History of Present Illness 21-year-old female with no past medical history presents for 3 days of nausea, vomiting and diarrhea. She states it started 3 days ago with initial vomiting. She reports she was vomited and fluid only. She states she now only vomits when she tries to drink something. She now has worsening diarrhea.She reports occasional streak of blood. Mild diffuse abdominal cramping. Pain does not localize in her abdomen. No fever or chills. Generalized weakness. Dysuria. She states she is not . Has tried Pepto-Bismol at home with no relief. Medical History ALLERGIES: No Known Allergies MEDICATIONS: [...] Never Smoker ??? Smokeless tobacco: Never Used Substance Use Topics ??? Alcohol use: Yes Comment: socially Review of Systems Review of Systems Constitutional: Negative for fever. HENT: Negative for congestion. Eyes: Negative for visual disturbance. Respiratory: Negative for cough. Cardiovascular: Negative for chest pain. Gastrointestinal: Positive for abdominal pain, diarrhea, nausea and vomiting. Genitourinary: Negative for dysuria. Musculoskeletal: Negative for back pain. Skin: Negative for rash. Neurological: Negative for headaches. All other systems reviewed and are negative. Physical Exam Filed Vitals: 09/23/21 1712 BP: 123/64 Pulse: 75 Resp: 18 Temp: 97 ??F (36.1 ??C) TempSrc: Temporal SpO2: 98% Physical Exam Vitals and nursing note reviewed. Constitutional: Appearance: Normal appearance. HENT: Head: Normocephalic and atraumatic. Eyes: Extraocular Movements: Extraocular movements intact. Pupils: Pupils are equal, round, and reactive to light. Cardiovascular: Rate and Rhythm: Normal rate and regular rhythm. Pulses: Normal pulses. Pulmonary: Effort: Pulmonary effort is normal. Breath sounds: Normal breath sounds. Abdominal: Palpations: Abdomen is soft. Tenderness: There is abdominal tenderness. There is no guarding or rebound. Comments: Minimal diffuse TTP Musculoskeletal: General: Normal range of motion. Cervical back: Normal range of motion and neck supple. Skin: General: Skin is warm and dry. Neurological: General: No focal deficit present. Mental Status: She is alert and oriented to person, place, and time. Psychiatric: Mood and Affect: Mood normal. Diagnostic Studies / Procedures ELECTROCARDIOGRAMS: No results found for this visit on 09/23/21. LABORATORY STUDIES: Results for orders placed or performed during the hospital encounter of 09/23/21 CBC W/DIFF AUTOMATED Result Value Ref Range WBC 8.8 4.4 - 11.0 x10'3/uL RBC 4.94 4.50 - 5.10 x10'6/uL HGB 14.1 12.3 - 15.3 G/DL HCT 42.5 35.9 - 44.6 % MCV 86.0 80.0 - 96.0 FL MCH 28.5 25.3 - 30.9 PG MCHC 33.2 31.0 - 34.1 G/DL RDW 13.2 12.4 - 15.1 % PLT 233 151 - 353 x10'3/uL MPV 11.4 9.6 - 12.0 FL RBC MORPHOLOGY NORMAL PLT MORPH. NORMAL WBC MORPHOLOGY NORMAL LYMPHOCYTES 28.8 15.8 - 45.0 % NEUTROPHILS 63.3 42.1 - 71.9 % MONOCYTES 5.2 (L) 5.7 - 12.5 % EOSINOPHILS 1.9 0.0 - 5.6 % BASOPHILS 0.5 0.0 - 1.3 % ABS. NEUTROPHILS 5.54 1.40 - 6.00 x10'3/uL IMMATURE GRANS 0.3 0.0 - 0.5 % ABS. LYMPHOCYTES 2.53 0.80 - 4.70 x10'3/uL COMPREHENSIVE METABOLIC PANEL Result Value Ref Range GLUCOSE 103 (H) 70 - 99 MG/DL BUN 9 7 - 18 MG/DL CREATININE S/P/B 0.85 0.55 - 1.02 MG/DL SODIUM 141 136 - 145 MMOL/L POTASSIUM 4.4 3.5 - 5.1 MMOL/L CHLORIDE S/P/B 105 100 - 108 MMOL/L CO2 29.9 21 - 32 MMOL/L CALCIUM 8.5 8.5 - 10.1 MG/DL BILIRUBIN TOTAL S/P/B 0.2 0.2 - 1.2 MG/DL TOTAL PROTEIN S/P/B 6.9 6.4 - 8.2 G/DL ALBUMIN S/P/B 3.4 3.4 - 5.0 G/DL AST 20 15 - 37 U/L ALT 43 14 - 55 U/L ALKALINE PHOSPHATASE S/P/B 100 50 - 136 U/L ANION GAP 6.1 5 - 15 MMOL/L BUN CREATININE RATIO 10.6 6 - 26 A/G RATIO 1.0 1.0 - 2.0 RATIO GFR ESTIMATE >90 >90 ML/MIN/1.73 M2 LIPASE Result Value Ref Range LIPASE 132 73 - 393 UNITS/L Qualitative HCG Result Value Ref Range PREG SCREEN-SERUM NEGATIVE NEGATIVE IMAGING STUDIES No orders to display ED Course / Medical Decision Making MDM Number of Diagnoses or Management Options Diagnosis management comments: Differential diagnosis: Viral gastroenteritis, bacterial gastroenteritis, food poisoning 21-year-old female with no past medical history presents for nausea, vomiting and diarrhea with mild abdominal cramping for 3 days. No fever. No relief with Pepto-Bismol. She now reports only vomiting if she tries to drink something. Reports blood in her diarrhea. Stable vitals on arrival. Well-appearing in no distress. Heart regular and lungs clear. Minimal diffuse tenderness on exam but no localizing findings. IV placed and given fluid bolus. Given Pepcid, Zofran and Imodium. Labs sent. Reevaluate after studies and treatment. Labs as above. No leukocytosis or left shift. No dehydration by blood test. Not . Explainedprobable viral illness but given the blood in her stool, will treat with azithromycin 500 mg for 3 days. Discharged with Pepcid, Zofran and Imodium. Hydrate well. Follow-up with her primary care doctor for recheck. Clinical impression: Diarrhea Disposition: Home in stable condition Please note that this dictation was completed with computer voice recognition software. Unanticipated grammatical, syntax, homophones, and other interpretive errors may have been transcribed by the computer software. Please disregard these errors. Please excuse any errors that have escaped final proofreading. Clinical Impression None Disposition: Data Unavailable Jose Juan Dennison MD 09/23/21 180 * Alesha Castañeda RN - 09/23/2021 5:18 PM CDT Patient presents to ED for chief complaint of abdominal pain that began approximately 3 days ago and vomiting that began today. Patient reports the diarrhea and emesis resemble stomach acid in color.Endorses difficulty maintain fluid consumption. Unsure of possibility of . documented in this encounter Plan of Treatment Not on file documented as of this encounter Procedures Procedure Name Priority Date/Time Associated Diagnosis Comments COMPREHENSIVE METABOLIC PANEL STAT 09/23/2021 5:34 PM CDT CHORIONIC GONADOTROPIN HCG QL STAT 09/23/2021 5:34 PM CDT CBC W/DIFF AUTOMATED STAT 09/23/2021 5:34 PM CDT LIPASE STAT 09/23/2021 5:34 PM CDT documented in this encounter Results * Qualitative HCG (09/23/2021 5:34 PM CDT) PREG SCREEN-SERUM NEGATIVE NEGATIVE 09/23/2021 5:56 PM CDT [facility] 09/23/2021 5:34 PM CDT us Jose Juan Dennison MD LABORATORY Final Result [facility] [address] [place] [address], [place] [phone] * LIPASE (09/23/2021 5:34 PM CDT) LIPASE 132 73 - 393 UNITS/L 09/23/2021 5:59 PM CDT [facility] 09/23/2021 5:34 PM CDT us Jose Juan Dennison MD LABORATORY Final Result [facility] [address] [place] [address], [place] [phone] * (ABNORMAL) COMPREHENSIVE METABOLIC PANEL (09/23/2021 5:34 PM CDT) [facility] GLUCOSE 103(H) 70 - 99 MG/DL 09/23/2021 5:59 PM CDT [facility] BUN 9 7 - 18 MG/DL 09/23/2021 5:59 PM CDT [facility] CREATININE S/P/B 0.85 0.55 - 1.02 MG/DL 09/23/2021 5:59 PM CDT [facility] SODIUM S/P/B 141 136 - 145 MMOL/L 09/23/2021 5:59 PM CDT [facility] POTASSIUM S/P/B 4.4 3.5 - 5.1 MMOL/L 09/23/2021 5:59 PM CDT [facility] CHLORIDE S/P/B 105 100 - 108 MMOL/L 09/23/2021 5:59 PM CDT [facility] CO2 29.9 21 - 32 MMOL/L 09/23/2021 5:59 PM CDT [facility] CALCIUM S/P/B 8.5 8.5 - 10.1 MG/DL 09/23/2021 5:59 PM CDT [facility] BILIRUBIN TOTAL S/P/B 0.2 0.2 - 1.2 MG/DL 09/23/2021 5:59 PM CDT [facility] TOTAL PROTEIN S/P/B 6.9 6.4 - 8.2 G/DL 09/23/2021 5:59 PM CDT [facility] ALBUMIN S/P/B 3.4 3.4 - 5.0 G/DL 09/23/2021 5:59 PM CDT [facility] AST 20 15 - 37 U/L 09/23/2021 5:59 PM CDT [facility] ALT 43 14 - 55 U/L 09/23/2021 5:59 PM CDT [facility] ALKALINE PHOSPHATASE S/P/B 100 50 - 136 U/L 09/23/2021 5:59 PM CDT [facility] ANION GAP 6.1 5 - 15 MMOL/L 09/23/2021 5:59 PM CDT [facility] BUN CREATININE RATIO 10.6 6 - 26 09/23/2021 5:59 PM CDT [facility] A/G RATIO 1.0 1.0 - 2.0 RATIO 09/23/2021 5:59 PM CDT [facility] GFR ESTIMATE >90 >90 ML/MIN/1.7 3 M2 09/23/2021 5:59 PM CDT [facility] Comment: NOTE: eGFR is not calculated for patients <18 years of age. This is an estimated GFR calculation using the new CKD EPI creatinine equation without race and so does not require a correction factor for race. This estimated GFR should not be used for calculating drug doses. 09/23/2021 5:34 PM CDT us Jose Juan Dennison MD LABORATORY Final Result [facility] [address] [place] [address], * (ABNORMAL) CBC W/DIFF AUTOMATED (09/23/2021 5:34 PM CDT) WBC 8.8 4.4 - 11.0 x10'3/uL 09/23/2021 5:43 PM CDT [facility] RBC 4.94 4.50 - 5.10 x10'6/uL 09/23/2021 5:43 PM CDT [facility] HGB 14.1 12.3 - 15.3 G/DL 09/23/2021 5:43 PM CDT [facility] HCT 42.5 35.9 - 44.6 % 09/23/2021 5:43 PM CDT [facility] MCV 86.0 80.0 - 96.0 FL 09/23/2021 5:43 PM CDT [facility] MCH 28.5 25.3 - 30.9 PG 09/23/2021 5:43 PM CDT [facility] MCHC 33.2 31.0 - 34.1 G/DL 09/23/2021 5:43 PM CDT [facility] RDW 13.2 12.4 - 15.1 % 09/23/2021 5:43 PM CDT [facility] PLT 233 151 - 353 x10'3/uL 09/23/2021 5:43 PM T [facility] MPV 11.4 9.6 - 12.0 FL 09/23/2021 5:43 PM T [facility] RBC MORPHOLOGY NORMAL 09/23/2021 5:43 PM T [facility] PLT MORPH. NORMAL 09/23/2021 5:43 PM CDT [facility] WBC MORPHOLOGY NORMAL 09/23/2021 5:43 PM T [facility] LYMPHOCYTES % 28.8 15.8 - 45.0 % 09/23/2021 5:43 PM CDT [facility] NEUTROPHILS % 63.3 42.1 - 71.9 % 09/23/2021 5:43 PM CDT [facility] MONOCYTES % 5.2(L) 5.7 - 12.5 % 09/23/2021 5:43 PM CDT [facility] EOSINOPHILS 1.9 0.0 - 5.6 % 09/23/2021 5:43 PM CDT [facility] BASOPHILS 0.5 0.0 - 1.3 % 09/23/2021 5:43 PM CDT [facility] ABS. NEUTROPHILS 5.54 1.40 - 6.00 x10'3/uL 09/23/2021 5:43 PM CDT [facility] IMMATURE GRANS % 0.3 0.0 - 0.5 % 09/23/2021 5:43 PM CDT [facility] ABS. LYMPHOCYTES 2.53 0.80 - 4.70 x10'3/uL 09/23/2021 5:43 PM CDT [facility] 09/23/2021 5:34 PM CDT us Jose Juan Dennison MD LABORATORY Final Result [facility] [address] [place] [address], documented in this encounter Visit Diagnoses Diagnosis Diarrhea- Primary documented in this encounter Administered Medications Inactive Administered Medications - up to 3 most recent administrations Medication Order MAR Action Action Date Dose Rate Site famotidine (PF) (PEPCID) injection 20 mg 20 mg, Intravenous, Once, 1 dose, On Sun09/23/21 at 1730, IV Push over 2 minutes Given 09/23/2021 5:45 PM CDT 20 mg loperamide (IMODIUM) capsule 2 mg 2 mg, Oral, Once, 1 dose, On Sun09/23/21 at 1730 Given 09/23/2021 5:48 PM CDT 2 mg ondansetron (ZOFRAN) injection 4 mg 4 mg, Intravenous, Once, 1 dose, On Sun09/23/21 at 1730, IV push over 2-5 minutes. Given 09/23/2021 5:43 PM CDT 4 mg sodium chloride 0.9% bolus infusion 1,000 mL 1,000 mL, Intravenous, Administer over 60 Minutes, Once, 1 dose, On Sun09/23/21 at 1730 New Bag 09/23/2021 5:42 PM CDT 1,000 mLs documented in this encounter Active and Recently Administered Medications Times are shown in CDT. Scheduled Medication Order 09/21/2021 09/22/2021 09/23/2021 famotidine (PF) (PEPCID) injection 20 mg (COMPLETED) 20 mg, Intravenous, Once, 1 dose, On Sun09/23/21 at 1730, IV Push over 2 minutes 1745 (Given - Provid er: Alesha Castañeda RN) loperamide (IMODIUM) capsule 2 mg (COMPLETED) 2 mg, Oral, Once, 1 dose, On Sun09/23/21 at 1730 1748 (Given - Provid er: Alesha Castañeda RN) ondansetron (ZOFRAN) injection 4 mg (COMPLETED) 4 mg, Intravenous, Once, 1 dose, On Sun09/23/21 at 1730, IV push over 2-5 minutes. 1743 (Given - Provid er: Alesha Castañeda RN) sodium chloride 0.9% bolus infusion 1,000 mL (COMPLETED) 1,000 mL, Intravenous, Administer over 60 Minutes, Once, 1 dose, On Sun09/23/21 at 1730 1742 (New Bag - Prov ider: Alesha Castañeda RN)1833 (Infusion Stop Time - Provider: Alesha Castañeda RN) documented in this encounter Care Teams Sock Mender Relationship Specialty Start Date End Date None, Provider, PCP - General 12/09/20 12/27/22 documented as of this encounter
--- OUTSIDE RECORDS SUMMARY | 2024-03-09 06:40 | XMS_ITS | Encounter Summary ---
Author Organization [facility] Address [address] [place] [address]. [place], [place] [address] [place] [id number] Care Team Providers Care Um Specialist Name Role Phone None, Provider MD Primary Care Provider Unavaila ble Reason for Referral * Imaging (Emergency) - Closed Specialty Diagnoses / Procedures Referred By Contac t Referred To Contact RADIOLOGY Procedures CT ABD+PEL W IV CON ONLY Artem Porras MD [address] [place] [address] Phone: tel: fax: Referral ID Status Reason Start Date Expiration Date Visits Re quested Visits Authorized [id number] Closed 12/09/2020 01/09/2022 1 1 Reason for Visit * Reason Comments Abdominal Pain Encounter Details Date Type Department Care Team (Late st Contact Info) Description 12/09/2020 12:42 PM CDT - 12/09/2020 3:50 PM CDT Emergency [facility] Emergency Room [address] [place] [address] Artem Porras MD [address] [place] [address] Abdominal Pain Discharge Disposition: Home or Self [...] Sign Reading Time Taken Comments Blood Pressure 112/69 12/09/2020 1:50 PM CDT Pulse 104 12/09/2020 1:50 PM CDT Temperature 36.2 ??C (97.1 ??F) 12/09/2020 1:50 PM CD T Respiratory Rate 18 12/09/2020 1:50 PM CDT Oxygen Saturation 98% 12/09/2020 1:50 PM CDT Inhaled Oxygen Concentration - - Weight 97.5 kg (215 lb) 12/09/2020 12:45 PM CDT Height 162.6 cm (5' 4 ) 12/09/2020 12:45 PM CDT Body Mass Index 36.9 12/09/2020 12:45 PM CDT documented in this encounter Discharge Instructions * Attachments The following attachments cannot be sent through Care Everywhere. * Urinary Tract Infection, Adult ED (Tanzanian) documented in this encounter Medications at Time of Discharge cephALEXin (KEFLEX) 500 MG capsule Take 1 capsule (500 mg total) by mouth 4 (four) times daily for 7 days. 28 capsule 12/09/2020 12/16/2020 ibuprofen 600 MG tablet Take 1 tablet (600 mg total) by mouth every 6 (six) hours as needed for Pain. 20 tablet 12/09/2020 12/19/2020 valACYclovir 1 g tablet TAKE 1 TABLET BY MOUTH EVERY 12 HOURS FOR 5 DAYS 06/22/2020 08/12/2022 documented as of this encounter ED Notes * Artem Porras MD - 12/09/2020 3:00 PM CDT Emergency Department Note Chief Complaint Chief Complaint Patient presents with ??? Abdominal Pain History of Present Illness 20-year-old female with no significant past medical history now presents to the emergency department with severe left upper and lower quadrant abdominal pain. She does note she has been having some dysuria recently, and has been taking gotb-wpo-iuzotzl medication for this without improvement. She has not noted any fevers. She denies any vomiting or diarrhea. She denies having had this pain previously. She denies any ill contacts. Pain is worse with movement. Medical History ALLERGIES: No Known Allergies MEDICATIONS: Prior to Admission medications Medication Sig Start Date End Date Taking? Authorizing Provider cephALEXin (KEFLEX) 500 MG capsule Take 1 capsule (500 mg total) by mouth 4 (four) times daily for 7 days. 12/09/20 12/16/20 Yes Artem Porras MD ibuprofen 600 MG tablet Take 1 tablet (600 mg total) by mouth every 6 (six) hours as needed for Pain. 12/09/20 12/19/20 Yes Artem Porras MD valACYclovir 1 g tablet TAKE 1 TABLET BY MOUTH EVERY 12 HOURS FOR 5 DAYS 06/22/20 Doc Abstract PAST MEDICAL HISTORY: No past medical history on file. PAST SURGICAL HISTORY: No past surgical history on file. FAMILY HISTORY: No family history on file. SOCIAL HISTORY: Social History Tobacco Use ??? Smoking status: Not on file Substance Use Topics ??? Alcohol use: Not on file ??? Drug use: Not on file Review of Systems Review of systems included in HPI, otherwise 10 systems are reviewed and negative. Physical Exam Filed Vitals: 12/09/20 1245 12/09/20 1350 BP: 138/80 112/69 Pulse: 125 104 Resp: 20 18 Temp: 97.7 ??F (36.5 ??C) 97.1 ??F (36.2 ??C) TempSrc: Temporal SpO2: 97% 98% Weight: 97.5 kg (215 lb) Height: 5' 4 (1.626 m) Pulse oximetry on room air is 97% which is normal. Physical Exam General-patient is uncomfortable in no acute distress HEENT-pupils equal reactive, sclera anicteric, oral mucosa pink and moist Neck-supple, no meningismus Chest-clear to auscultation, no rales rhonchi or wheezes Cardiovascular-regular rate and rhythm, no murmurs rubs or gallops Abdomen-tender left upper and left lower quadrants, mild left CVA tenderness -deferred Extremities-capillary refills less than 2 seconds, full range of motion without pain Skin-warm, no pallor Neuro-5 out of 5 strength bilateral upper and lower extremities, no facial droop, clear speech Psychiatric-patient appears calm, no signs of anxiety or distress Diagnostic Studies / Procedures LABORATORY STUDIES: Results for orders placed or performed during the hospital encounter of 12/09/20 CBC W/DIFF AUTOMATED Result Value Ref Range WBC 12.9 (H) 4.4 - 11.0 x10'3/uL RBC 5.57 (H) 4.50 - 5.10 x10'6/uL HGB 15.1 12.3 - 15.3 G/DL HCT 45.8 (H) 35.9 - 44.6 % MCV 82.2 80.0 - 96.0 FL MCH 27.1 25.3 - 30.9 PG MCHC 33.0 31.0 - 34.1 G/DL RDW 14.3 12.4 - 15.1 % PLT 251 151 - 353 x10'3/uL MPV 12.1 (H) 9.6 - 12.0 FL RBC MORPHOLOGY NORMAL PLT MORPH. NORMAL WBC MORPHOLOGY NORMAL LYMPHOCYTES 9.2 (L) 15.8 - 45.0 % NEUTROPHILS 81.7 (H) 42.1 - 71.9 % MONOCYTES 7.8 5.7 - 12.5 % EOSINOPHILS 0.8 0.0 - 5.6 % BASOPHILS 0.2 0.0 - 1.3 % ABS. NEUTROPHILS 10.50 (H) 1.40 - 6.00 x10'3/uL IMMATURE GRANS 0.3 0.0 - 0.5 % ABS. LYMPHOCYTES 1.18 0.80 - 4.70 x10'3/uL COMPREHENSIVE METABOLIC PANEL Result Value Ref Range GLUCOSE 103 (H) 70 - 99 MG/DL BUN 6 (L) 7 - 18 MG/DL CREATININE S/P/B 0.88 0.55 - 1.02 MG/DL SODIUM 136 136 - 145 MMOL/L POTASSIUM 4.0 3.5 - 5.1 MMOL/L CHLORIDE S/P/B 100 100 - 108 MMOL/L CO2 26.4 21 - 32 MMOL/L CALCIUM 9.0 8.5 - 10.1 MG/DL BILIRUBIN TOTAL S/P/B 0.6 0.2 - 1.1 MG/DL TOTAL PROTEIN S/P/B 8.1 6.4 - 8.2 G/DL ALBUMIN S/P/B 3.8 3.4 - 5.0 G/DL AST 21 15 - 37 U/L ALT 35 14 - 55 U/L ALKALINE PHOSPHATASE S/P/B 152 (H) 50 - 136 U/L ANION GAP 9.6 5 - 15 MMOL/L BUN CREATININE RATIO 6.8 6 - 26 A/G RATIO 0.9 (L) 1.0 - 2.0 RATIO eGFR Non-Afr. Amer. >90 >90 ML/MIN/1.73 M2 eGFR Afr. Amer. >90 >90 ML/MIN/1.73 M2 LIPASE Result Value Ref Range LIPASE 81 73 - 393 UNITS/L URINALYSIS, AUTO, COMPLETE Result Value Ref Range COLOR (U) YELLOW TRANSPARENCY HAZY Specific [place] (U) 1.010 1.000 - 1.030 U PH 6.5 5.0 - 9.0 LEUKOCYTE ESTERASE 2+ (A) NEGATIVE NITRITES NEGATIVE NEGATIVE PROTEIN (U) TRACE (A) NEGATIVE URINE GLUCOSE NEGATIVE NEGATIVE U KETONES NEGATIVE NEGATIVE BILIRUBIN (U) NEGATIVE NEGATIVE BLOOD 2+ (A) NEGATIVE WBC/HPF 10-25 0 - 5 /HPF RBC/HPF 10-25 0 - 5 /HPF EPI/HPF RARE /HPF CULTURE & SENSITIVITY INDICATED? SPECIMEN SETUP FOR CULTURE BACTERIA (URINE) FEW /HPF LACTIC ACID Result Value Ref Range LACTIC ACID 0.9 0.4 - 2.0 MMOL/L Qualitative HCG Result Value Ref Range PREG SCREEN-SERUM NEGATIVE NEGATIVE IMAGING STUDIES CT ABD+PEL W IV CON ONLY Final Result by User, [id number] (12/09 1446) IMAGING STUDIES: CT ABD+PEL W CON DATE: 12/09/2020 1:41 PM CLINICAL HISTORY: LUQ abdominal pain . COMPARISON STUDIES: No previous available. TECHNIQUE: Helical axial images were acquired from the lung bases to the symphysis pubis after the administration of intravenous contrast. Sagittal and coronal reconstructions were created. Radiation dose reduction technique was utilized. CONTRAST: 75 cc Isovue 370 IV. FINDINGS AND IMPRESSION: LOWER CHEST: 1. Lungs bases are grossly clear. No pleural effusion. ABDOMEN: 1. Hepatobiliary: Mild hepatic steatosis. Normal appearing gallbladder. 2. Spleen: No lesions, no splenomegaly. 3. Pancreas: No focal lesions. 4. Adrenal glands: No focal lesions. 5. Kidneys: No focal lesions. No hydronephrosis or nephrolithiasis. 6. Retroperitoneal and mesenteric space: The visible lymph nodes do not appear pathologically enlarged. 7. Stomach and bowel: Nonobstructive pattern. . 8. Aorta: No significant atherosclerotic disease or aneurysmal dilation. PELVIS: 1. Appendix: Not pathologically distended. 2. Colon and rectum: Not obstructed. No acute diverticulitis. 3. Genitourinary: Uterus and adnexa without obvious lesions. Intrauterine device in place. Urinary bladder wall thickening suggestive cystitis. 4. Pelvic space: No free fluid. BONES AND OTHER INCIDENTAL FINDINGS: 1. Bones: No significant bony abnormalities. Voice recognition software utilized. Referred By: ARTEM PORRAS Interpreted By: Radu Sparks, 12/09/2020 2:40 PM ED Course / Medical Decision Making MDM 20-year-old female presents with severe left upper and lower quadrant abdominal pain. Is concerned she may have diverticulitis, considered small bowel obstruction, is considered kidney stone, or pyelonephritis. Lab results do show mildly elevated white blood cell count of 12.9, mild left shift, butlactic acid is normal. Patient received IV fluids here and heart rate has come down. I have considered sepsis, but with lactate normal, patient looking much improved, I do not find evidence of sepsisat this time. She is given IV Rocephin here. The rest of her labs unremarkable with the exception urine is positive for UTI. CT scan of the abdomen pelvis obtained shows no diverticulitis or kidney stones, but does show evidence of cystitis. She will be discharged to take Keflex and Pyridium, return for worsening or any concerns. Medications cefTRIAXone (ROCEPHIN) 1 g in sterile water 10 mL IV (has no administration in time range) morphine injection 4 mg (4 mg Intravenous Given 12/09/20 1345) ondansetron (ZOFRAN) injection 4 mg (4 mg Intravenous Given 12/09/20 1345) sodium chloride 0.9% bolus infusion SOLN 1,000 mL (1,000 mLs Intravenous New Bag 12/09/20 1344) iopamidol (ISOVUE-370) 76 % injection 75 mL (75 mLs Intravenous Given 12/09/20 1408) Clinical Impression UTI (urinary tract infection) (Primary) Current Discharge Medication List START taking these medications Details cephALEXin (KEFLEX) 500 MG capsule Take 1 capsule (500 mg total) by mouth 4 (four) times daily for 7 days. Qty: 28 capsule, Refills: 0 Class: Eprescribe Pharmacy: [facility] [id number] [place] [address] [place] [address] (Ph #: [phone]) ibuprofen 600 MG tablet Take 1 tablet (600 mg total) by mouth every 6 (six) hours as needed for Pain. Qty: 20 tablet, Refills: 0 Class: Eprescribe Pharmacy: [facility] #[id number] [place] [address] [address] [place] [address] (Ph #: [phone]) Disposition: Discharge Follow-Up: TAMI White [address] [facility] [address] In 2 days ARTEM PORRAS MD 12/09/2020 3:08 PM Artem Porras MD 12/09/20 1509 * Fam Baker RN - 12/09/2020 1:07 PM CDT After initial assessment, patient reports that she has been having urinary frequency and things shemay have, or still has, a urinary tract infection. She reports taking an over the counter medication for these symptoms. She also reports that she has been drinking a lot of water every day. No other concerns are reported at this time * Fam Baker RN - 12/09/2020 12:45 PM CDT Presents with reports of sharp pain to left lower quadrant with onset reported yesterday. She also reports headache that began yesterday and continues today as well as decreased appetite and feeling hot. She denies any other symptoms or complaints at this time. She is awake, alert, and oriented x 4. She is not in respiratory distress, no tachypnea, and no labored breathing. She is tachycardic but has warm, dry, and pink skin. Last food intake approximately 1500 yesterday and last fluid intake was this morning. No other associated symptom are reported. Tenderness is reported with palpation onthe left side of the abdomen and it is soft to palpation. documented in this encounter Plan of Treatment Not on file documented as of this encounter Procedures Procedure Name Priority Date/Time Associated Diagnosis Comments CT ABD+PEL W CON STAT 12/09/2020 2:22 PM CDT URINE BACTERIA CULTURE Routine 1:14 PM CDT URINALYSIS, AUTO, COMPLETE STAT 12/09/2020 1:14 PM CDT COMPREHENSIVE METABOLIC PANEL STAT 12/09/2020 1:14 PM CDT LACTIC ACID STAT 12/09/2020 1:14 PM CDT CHORIONIC GONADOTROPIN HCG QL STAT 12/09/2020 1:14 PM CDT CBC W/DIFF AUTOMATED STAT 12/09/2020 1:14 PM CDT LIPASE STAT 12/09/2020 1:14 PM CDT documented in this encounter Results * CT ABD+PEL W IV CON ONLY (12/09/2020 2:22 PM CDT) Anatomical Region Laterality Modality Abdomen Computed Tomogra phy 12/09/2020 2:40 PM CDT Impressions 12/09/2020 2:44 PM CDT FINDINGS AND IMPRESSION: LOWER CHEST: 1. ??Lungs bases are grossly clear. No pleural effusion. ABDOMEN: 1. ??Hepatobiliary: Mild hepatic steatosis. Normal appearing gallbladder. 2. ??Spleen: No lesions, no splenomegaly. 3. ??Pancreas: No focal lesions. 4. ??Adrenal glands: No focal lesions. 5. ??Kidneys: No focal lesions. No hydronephrosis or nephrolithiasis. 6. ??Retroperitoneal and mesenteric space: The visible lymph nodes do not appear pathologically enlarged. 7. ??Stomach and bowel: Nonobstructive pattern. . 8. ??Aorta: No significant atherosclerotic disease or aneurysmal dilation. PELVIS: 1. ??Appendix: Not pathologically distended. 2. ??Colon and rectum: Not obstructed. No acute diverticulitis. 3. ??Genitourinary: Uterus and adnexa without obvious lesions. Intrauterine device in place. Urinary bladder wall thickening suggestive cystitis. 4. ??Pelvic space: No free fluid. BONES AND OTHER INCIDENTAL FINDINGS: 1. ??Bones: No significant bony abnormalities. Voice recognition software utilized. Referred By: ARTEM PORRAS Interpreted By: Radu Sparks, 12/09/2020 2:40 PM Narrative 12/09/2020 2:44 PM CDT IMAGING STUDIES: ?? CT ABD+PEL W CON ? DATE: ??12/09/2020 1:41 PM CLINICAL HISTORY: ??LUQ abdominal pain ?? . COMPARISON STUDIES: No previous available. ?? TECHNIQUE: ??Helical axial images were acquired from the lung bases to the symphysis pubis after the administration of intravenous contrast. ??Sagittal and coronal reconstructions were created. Radiation dose reduction technique was utilized. CONTRAST: 75 cc Isovue 370 IV. Procedure Note Radu Sparks MD - 12/09/2020 IMAGING STUDIES: CT ABD+PEL W CON DATE: 12/09/2020 1:41 PM CLINICAL HISTORY: LUQ abdominal pain . COMPARISON STUDIES: No previous available. TECHNIQUE: Helical axial images were acquired from the lung bases to thesymphysis pubis after the administration of intravenous contrast.Sagittal and coronal reconstructions were created. Radiation dosereduction technique was utilized. CONTRAST: 75 cc Isovue 370 IV. FINDINGS AND IMPRESSION: LOWER CHEST: 1. Lungs bases are grossly clear. No pleural effusion. ABDOMEN: 1. Hepatobiliary: Mild hepatic steatosis. Normal appearing gallbladder. 2. Spleen: No lesions, no splenomegaly. 3. Pancreas: No focal lesions. 4. Adrenal glands: No focal lesions. 5. Kidneys: No focal lesions. No hydronephrosis or nephrolithiasis. 6. Retroperitoneal and mesenteric space: The visible lymph nodes do notappear pathologically enlarged. 7. Stomach and bowel: Nonobstructive pattern. . 8. Aorta: No significant atherosclerotic disease or aneurysmaldilation. PELVIS: 1. Appendix: Not pathologically distended. 2. Colon and rectum: Not obstructed. No acute diverticulitis. 3. Genitourinary: Uterus and adnexa without obvious lesions. Intrauterinedevice in place. Urinary bladder wall thickening suggestive cystitis. 4. Pelvic space: No free fluid. BONES AND OTHER INCIDENTAL FINDINGS: 1. Bones: No significant bony abnormalities. Voice recognition software utilized. Referred By: ARTEM PORRAS Interpreted By: Radu Sparks, 12/09/2020 2:40 PM Artem Porras MD CT Final Result * (ABNORMAL) CULTURE URINE (12/09/2020 1:14 PM CDT) SPEC DESCRIPTION URINE CLEAN CATCH 12/09/2020 1:38 PM CDT [facility] SPECIAL REQUESTS NO SPECIAL REQUEST 12/09/2020 1:38 PM CDT [facility] CULTURE RESULT 50,000-100, 000 COL/ML ESCHERICHIA COLI (A) 12/11/2020 8:50 AM CDT [facility] URINE SPECIMEN OBTAINED BY CLEAN CATCH PROCEDURE / Unknown 12/09/2020 1:14 PM CDT 12/09/2020 1:38 PM CDT Narrative Organism Antibiotic Method Susceptibility Escherichia coli AMPICILLIN DIANN (VITEK) <=2: Sensitive Escherichia coli AMPICILLIN/SULBACTAM DIANN (VITEK) <=2: Sensitive Escherichia coli CEFTRIAXONE DIANN (VITEK) <=1: Sensitive Escherichia coli CEFTAZIDIME DIANN (VITEK) <=1: Sensitive Escherichia coli CEFAZOLIN DIANN (VITEK) <=4: Sensitive Escherichia coli ESBL DIANN (VITEK) NEG: Sensitive Escherichia coli NITROFURANTOIN DIANN (VITEK) <=16: Sensitive Escherichia coli GENTAMICIN DIANN (VITEK) <=1: Sensitive Escherichia coli LEVOFLOXACIN DIANN (VITEK) <=0.12: Sensitive Escherichia coli PIPRACIL/TAZO DIANN (VITEK) <=4: Sensitive Escherichia coli TRIMETH-SULFAMETH. DIANN (VITEK) <=20: Sensitive us Artem Porras MD MICROBIOLOGY - GENERAL ORDERAB LES Final Result Performing Organization Address City/[facility]/ZIP Co de Phone Number [facility] [address] [place] [address], [place] [phone] [facility] [address] [place] [address], [place] [phone] * LACTIC ACID (12/09/2020 1:14 PM CDT) [facility] LACTIC ACID VENOUS 0.9 0.4 - 2.0 MMOL/L 12/09/2020 1:43 PM CDT [facility] 12/09/2020 1:14 PM CDT us Artem Porras MD LABORATORY Final Result Performing Organization Address City/[facility] Co de Phone Number [facility] [address] [place] [address], [place] [phone] * Qualitative HCG (12/09/2020 1:14 PM CDT) [facility] PREG SCREEN-SERUM NEGATIVE NEGATIVE 12/09/2020 1:37 PM CDT [facility] 12/09/2020 1:14 PM CDT us Artem Porras MD LABORATORY Final Result Performing Organization Address City/[facility]/ZIP Co de Phone Number [facility] [address] [place] [address], [place] [phone] * (ABNORMAL) URINALYSIS, AUTO, COMPLETE (12/09/2020 1:14 PM CDT) COLOR (U) YELLOW 12/09/2020 1:36 PM CDT [facility] TRANSPARENCY HAZY 12/09/2020 1:36 PM CDT [facility] SPECIFIC GRAVITY (U) 1.010 1.000 - 1.030 12/09/2020 1:36 PM CDT [facility] U PH 6.5 5.0 - 9.0 12/09/2020 1:36 PM CDT [facility] LEUKOCYTES (U) 2+(A) NEGATIVE 12/09/2020 1:36 PM T [facility] NITRITES NEGATIVE NEGATIVE 12/09/2020 1:36 PM T [facility] PROTEIN (U) TRACE(A) NEGATIVE 12/09/2020 1:36 PM T [facility] URINE GLUCOSE NEGATIVE NEGATIVE 12/09/2020 1:36 PM T [facility] KETONES MG/DL (U) NEGATIVE NEGATIVE 12/09/2020 1:36 PM T [facility] BILIRUBIN (U) NEGATIVE NEGATIVE 12/09/2020 1:36 PM T [facility] BLOOD (U) 2+(A) NEGATIVE 12/09/2020 1:36 PM T [facility] WBC/HPF 10-25 0 - 5 /HPF 12/09/2020 1:36 PM T [facility] RBC/HPF 10-25 0 - 5 /HPF 12/09/2020 1:36 PM T [facility] EPI/HPF RARE /HPF 12/09/2020 1:36 PM T [facility] CULTURE & SENSITIVITY INDICATED? SPECIMEN SETUP FOR CULTURE 12/09/2020 1:36 PM T [facility] BACTERIA (U) FEW /HPF 12/09/2020 1:36 PM CDT [facility] URINE SPECIMEN OBTAINED BY CLEAN CATCH PROCEDURE / Unknown 12/09/2020 1:14 PM CDT us Artem Porras MD URINE ORDERABLES Final Result Performing Organization Address City/[facility]/ZIP Co de Phone Number [facility] [address] [place] [address], [place] [phone] * LIPASE (12/09/2020 1:14 PM CDT) LIPASE 81 73 - 393 UNITS/L 12/09/2020 1:40 PM CDT [facility] 12/09/2020 1:14 PM CDT us Artem Porras MD LABORATORY Final Result Performing Organization Address [facility] Co de Phone Number [facility] [address] [place] [address], [place] [phone] * (ABNORMAL) COMPREHENSIVE METABOLIC PANEL (12/09/2020 1:14 PM CDT) GLUCOSE 103(H) 70 - 99 MG/DL 12/09/2020 1:40 PM CDT [facility] BUN 6(L) 7 - 18 MG/DL 12/09/2020 1:40 PM CDT [facility] CREATININE S/P/B 0.88 0.55 - 1.02 MG/DL 12/09/2020 1:40 PM CDT [facility] SODIUM S/P/B 136 136 - 145 MMOL/L 12/09/2020 1:40 PM CDT [facility] POTASSIUM S/P/B 4.0 3.5 - 5.1 MMOL/L 12/09/2020 1:40 PM [place] [facility] CHLORIDE S/P/B 100 100 - 108 MMOL/L 12/09/2020 1:40 PM [place] [facility] CO2 26.4 21 - 32 MMOL/L 12/09/2020 1:40 PM [place] [facility] CALCIUM S/P/B 9.0 8.5 - 10.1 MG/DL 12/09/2020 1:40 PM [place] [facility] BILIRUBIN TOTAL S/P/B 0.6 0.2 - 1.1 MG/DL 12/09/2020 1:40 PM [place] [facility] TOTAL PROTEIN S/P/B 8.1 6.4 - 8.2 G/DL 12/09/2020 1:40 PM [place] [facility] ALBUMIN S/P/B 3.8 3.4 - 5.0 G/DL 12/09/2020 1:40 PM [place] [facility] AST 21 15 - 37 U/L 12/09/2020 1:40 PM [place] [facility] ALT 35 14 - 55 U/L 12/09/2020 1:40 PM [place] [facility] ALKALINE PHOSPHATASE S/P/B 152(H) 50 - 136 U/L 12/09/2020 1:40 PM [place] [facility] ANION GAP 9.6 5 - 15 MMOL/L 12/09/2020 1:40 PM [place] [facility] BUN CREATININE RATIO 6.8 6 - 26 12/09/2020 1:40 PM [place] [facility] A/G RATIO 0.9(L) 1.0 - 2.0 RATIO 12/09/2020 1:40 PM [place] [facility] EGFR NON-AFR. AMER. >90 >90 ML/MIN/1.7 3 M2 12/09/2020 1:40 PM CDT [facility] EGFR AFR. AMER. >90 >90 ML/MIN/1.7 3 M2 12/09/2020 1:40 PM CDT [facility] Comment: NOTE: eGFR is not calculated for patients <18 years of age. This is an estimated GFR (CKD EPI) and should not be used for calculating drug doses. 12/09/2020 1:14 PM CDT us Artem Porras MD LABORATORY Final Result [facility] [address] [place] [id number], * (ABNORMAL) CBC W/DIFF AUTOMATED (12/09/2020 1:14 PM CDT) WBC 12.9(H) 4.4 - 11.0 x10'3/uL 12/09/2020 1:31 PM CDT [facility] RBC 5.57(H) 4.50 - 5.10 x10'6/uL 12/09/2020 1:31 PM CDT [facility] HGB 15.1 12.3 - 15.3 G/DL 12/09/2020 1:31 PM CDT [facility] HCT 45.8(H) 35.9 - 44.6 % 12/09/2020 1:31 PM CDT [facility] MCV 82.2 80.0 - 96.0 FL 12/09/2020 1:31 PM CDT [facility] MCH 27.1 25.3 - 30.9 PG 12/09/2020 1:31 PM CDT [facility] MCHC 33.0 31.0 - 34.1 G/DL 12/09/2020 1:31 PM CDT [facility] RDW 14.3 12.4 - 15.1 % 12/09/2020 1:31 PM CDT [facility] PLT 251 151 - 353 x10'3/uL 12/09/2020 1:31 PM T [facility] MPV 12.1(H) 9.6 - 12.0 FL 12/09/2020 1:31 PM CDT [facility] RBC MORPHOLOGY NORMAL 12/09/2020 1:31 PM T [facility] PLT MORPH. NORMAL 12/09/2020 1:31 PM CDT [facility] WBC MORPHOLOGY NORMAL 12/09/2020 1:31 PM T [facility] LYMPHOCYTES % 9.2(L) 15.8 - 45.0 % 12/09/2020 1:31 PM CDT [facility] NEUTROPHILS % 81.7(H) 42.1 - 71.9 % 12/09/2020 1:31 PM CDT [facility] MONOCYTES % 7.8 5.7 - 12.5 % 12/09/2020 1:31 PM T [facility] EOSINOPHILS 0.8 0.0 - 5.6 % 12/09/2020 1:31 PM T [facility] BASOPHILS 0.2 0.0 - 1.3 % 12/09/2020 1:31 PM T [facility] ABS. NEUTROPHILS 10.50(H) 1.40 - 6.00 x10'3/uL 12/09/2020 1:31 PM CDT [facility] IMMATURE GRANS % 0.3 0.0 - 0.5 % 12/09/2020 1:31 PM CDT [facility] ABS. LYMPHOCYTES 1.18 0.80 - 4.70 x10'3/uL 12/09/2020 1:31 PM CDT [facility] 12/09/2020 1:14 PM CDT us Artem Porras MD LABORATORY Final Result [facility] [address] [place] [address], documented in this encounter Visit Diagnoses Diagnosis UTI (urinary tract infection)- Primary Urinary tract infection, site not specified documented in this encounter Administered Medications Inactive Administered Medications - up to 3 most recent administrations Medication Order MAR Action Action Date Dose Rate Site cefTRIAXone (ROCEPHIN) 1 g in sterile water 10 mL IV 1 g, Intravenous, at 120 mL/hr, Once, 1 dose, On Candis 12/09/20 at 1500 Given 12/09/2020 3:49 PM CDT 1 g 120 mL/hr iopamidol (ISOVUE-370) 76 % injection 75 mL 75 mL, Intravenous, IMG once as needed, Contrast, 1 dose, Starting on Candis 12/09/20 at 1422, Until Candis 12/09/20 at 1408 Given 12/09/2020 2:08 PM CDT 75 mLs Right Arm morphine injection 4 mg 4 mg, Intravenous, Once, 1 dose, On Candis 12/09/20 at 1315 Given 12/09/2020 1:45 PM CDT 4 mg ondansetron (ZOFRAN) injection 4 mg 4 mg, Intravenous, Once, 1 dose, On Candis 12/09/20 at 1315, IV push over 2-5 minutes. Given 12/09/2020 1:45 PM CDT 4 mg sodium chloride 0.9% bolus infusion SOLN 1,000 mL 1,000 mL, Intravenous, Administer over 15 Minutes, Once, 1 dose, On Candis 12/09/20 at 1315 New Bag 12/09/2020 1:44 PM CDT 1,000 mLs documented in this encounter Active and Recently Administered Medications Times are shown in CDT. Scheduled Medication Order 12/07/2020 12/08/2020 12/09/2020 cefTRIAXone (ROCEPHIN) 1 g in sterile water 10 mL IV 1 g, Intravenous, at 120 mL/hr, Once, 1 dose, On Candis 12/09/20 at 1500 1549 (Given - Provid er: Brii Koenig, RN) morphine injection 4 mg (COMPLETED) 4 mg, Intravenous, Once, 1 dose, On Candis 12/09/20 at 1315 1345 (Given - Provid er: Fam Baker, RN) ondansetron (ZOFRAN) injection 4 mg (COMPLETED) 4 mg, Intravenous, Once, 1 dose, On Candis 12/09/20 at 1315, IV push over 2-5 minutes. 1345 (Given - Provid er: Fam Baker, RN) sodium chloride 0.9% bolus infusion SOLN 1,000 mL (COMPLETED) 1,000 mL, Intravenous, Administer over 15 Minutes, Once, 1 dose, On Candis 12/09/20 at 1315 1344 (New Bag - Prov ider: Fam Baker, RN)1542 (Infusion Stop Time - Provider: Brii Koenig, ERIKA) PRN Medication Order 12/07/2020 12/08/2020 12/09/2020 iopamidol (ISOVUE-370) 76 % injection 75 mL (COMPLETED) 75 mL, Intravenous, IMG once as needed, Contrast, 1 dose, Starting on Candis 12/09/20 at 1422, Until Candis 12/09/20 at 1408 1408 (Given - Provid er: Kourtney Herbert, RTR) documented in this encounter Care Teams Um Specialist Relationship Specialty Start Date End Date None, Provider, PCP - General 12/09/20 12/27/22 documented as of this encounter
== END 2024-03-02 11:32 | disposition home or self-care (01) ==
PROVIDERS: Emergency Provider Nurse Practitioner Family
DX: K02.9 Dental caries, unspecified (principal); F17.290 Nicotine dependence, other tobacco product, uncomplicated
CPT/HCPCS: 99213; G0463

== ENCOUNTER 2024-11-27 12:08 | Emergency (ER) | payer OTHER, SELFPAY ==
[2024-11-27 12:14] VITALS: BP 104/73; PULSE 70; RESP 18; TEMP 36.6; O2SAT 100
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
[2024-11-27 12:31] LABS: EDSTREPNEGPOS1 Negative (Negative)
[2024-11-27 12:54] LABS: EDCOVIDSCREEN Negative (Negative)
--- OUTSIDE RECORDS SUMMARY | 2024-11-27 14:36 | XMS_ITS | Clinical Summary ---
Author Organization [facility] Address [address] [place] [address] Care Team Providers Care Stock Cutter Name Role Phone Jack Rosales MD Primary Care Provider [phone] Source Comments [facility],non-owned Affiliates and Associated Physician Practices is amultiple site organization consisting of ambulatory clinics and hospital sitesin [place], [place] and [place]. This disclosure is being madepursuant to the Care Everywhere program and may not contain all information available regarding this patient. Last updated 17.[facility] Allergies No known active allergies Medications * Be aware that medications may not be up to date on this document. Alwaysverify current medications with the patient. 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 Gender Identity Not on file Sexual Orientation Not on file Last Filed Vital Signs Vital Sign Reading Time Taken Comments Blood Pressure 110/68 11/23/2015 12:37 AM CDT Pulse 78 11/23/2015 12:37 AM CDT Temperature 37 C (98.6 F) 11/23/2015 12:37 AM CDT Respiratory Rate 16 11/23/2015 12:37 AM CDT LCTA Oxygen Saturation 99% 11/23/2015 12:37 AM CDT Inhaled Oxygen Concentration - - Weight 60.3 kg (133 lb) 11/22/2015 8:52 PM CDT Height - - Body Mass Index - - Plan of Treatment Health Maintenance Due Date Last Done Comments HIV SCREENING 2016 HPV VACCINE (1 - 3-dose series) 2016 MENINGOCOCCAL (Group B) VACCINE SHARED DECISION-MAKING (1 of 2 - Standard) 2017 HEPATITIS C SCREENING 03/08/2019 DTAP/TDAP/TD VACCINES (1 - Tdap) 2020 HEPATITIS B VACCINE (1 of 3 - 19+ 3-dose series) 2020 PAP SMEAR 2022 CHLAMYDIA/GONORRHEA SCREENING 03/19/2023 03/19/2022 DEPRESSION SCREENING 03/05/2024 COVID-19 VACCINE ( - 2024- season) 2024 08/19/2020, 07/24/2020 INFLUENZA VACCINE (#1) 2024 0, 01/12/2016, 12/17/2014, Additional history exists ZOSTER VACCINE (1 of 2) 2051 HIB VACCINE Aged Out No longer eligi ble based on patient's age to complete this topic MENINGOCOCCAL GROUPS A/C/Y/W VACCINE Aged Out No longer eligible based on patient's age to complete this topic PNEUMOCOCCAL VACCINE Aged Out No long er eligible based on patient's age to complete this topic Insurance [facility] Care Teams Stock Cutter Relationship Specialty Start Date End Date Jack Rosales MD [address] [place] [phone] PCP - General Family Medicine 08/15/23
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
== END 2024-11-27 12:53 | disposition home or self-care (01) ==
PROVIDERS: Emergency Provider Nurse Practitioner Family
DX: J02.9 Acute pharyngitis, unspecified (principal); F17.290 Nicotine dependence, other tobacco product, uncomplicated; Z20.822 Contact with and (suspected) exposure to COVID-19
CPT/HCPCS: 87081; 87426; 87880; 99213; G0463